=== PATIENT | male | born 1950 | race Caucasian/White ===

== ENCOUNTER → 2023-12-12 07:58 | Outpatient (REF) | payer OTHER, SELFPAY ==
[2023-12-12 09:10] VITALS: BP 137/69; BP_SYST 60
== END ==
LOC: RADI 07:58
PROVIDERS: ATTENDING PHYSICIAN Internal Medicine Gastroenterology
DX: R18.8 Other ascites (principal); Z53.8 Procedure and treatment not carried out for other reasons
CPT/HCPCS: 76705

== ENCOUNTER 2024-01-03 11:31 | Emergency (ER) | payer OTHER, SELFPAY ==
[2024-01-03 11:35] VITALS: BP 127/92
[2024-01-03 11:52] LABS: % Basophils 1.3 % (0-2); % Eosinophils 4.4 % (0-6); % Immature Granulocytes 0.3 % (0-0.5); % Lymphocytes 56.7 % (20.5-51.1); % Monocytes 3.8 % (1.7-9.3); % Neutrophils 33.5 % (42.2-75.2); Absolute Eosinophils 0.1 10^3/uL (0-0.7); Absolute Lymphocytes 1.8 10^3/uL (1.2-3.4); Absolute Monocytes 0.1 10^3/uL (0.1-0.6); Absolute Neutrophils 1.1 10^3/uL (1.4-6.5); Hematocrit 36.8 % (39.0-52.0); Hemoglobin 13.6 g/dL (13.0-18.0); Mean Corpuscular Hgb 36.2 pg (27.0-31.0); Mean Corpuscular Volume 97.9 fL (80.0-94.0); Mean Platelet Volume 11.2 fL (7.4-10.4); Nucleated Red Blood Cells % 0 % (-); Platelet Count 48 10^3/uL (130-400); Red Blood Cell Count 3.76 10^6/uL (4.70-6.10); Red Cell Dist. Width 13.4 % (11.5-14.5); White Blood Cell Count 3.2 10^3/uL (4.8-10.8)
[2024-01-03 12:00] LABS: APTT 35.8 Sec (23.4-35.0)
[2024-01-03 12:01] VITALS: BP 141/77
--- NOTE | 2024-01-03 12:13 | ED.GENMED ---
History of Present Illness
<Karla Muro PA-C - Last Filed: 01/03/24 15:30>
General
Chief Complaint: Chest Pain
Source: patient and spouse
Exam Limitations: none
Time Seen by Provider: 01/03/24 11:37
Nursing documentation reviewed up to this point in time: agreed with
Travel History
Have you had any contact with someone who has COVID-19?: No
Do you have any symptoms of coronavirus? Fever > 100 degrees, chills, cough, shortness of breath, sore throat, loss of taste or smell, muscle aches, or headache?: No
History of Present Illness
History of Present Illness:
Patient is a 73 year old male with hx hypertension, Non-Hodgkin lymphoma, GERD presenting to the emergency department via EMS following sudden onset substernal chest pain around 11AM this morning. Patient states symptoms were sudden onset while he
was eating his breakfast and describes it as a pounding sensation with intermittent sharp pains substernal region. There was no radiation to shoulder, jaw, back. There was no associated shortness of breath, nausea, diaphoresis. He was given 325
mg of aspirin in EMS and reports that now the chest pain is mostly gone. He denies any recent virus/illness, fever, chills. No cough or headache.
He denies ever feeling this pain in the past. He does state that he occasionally gets heart palpitations but nothing this severe.
Patient has no personal or family history of heart attack or stroke. He is not a smoker.
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
Patient planning to follow-up with cardiology due to a recent heart murmur that was noticed by prefitter. He has an appointment scheduled with Dr. Hernandez mid February.
Past History
<Karla Muro PA-C - Last Filed: 01/03/24 15:30>
Past History
ED Past Medical History: GERD, HTN, Other (Chronic low back pain, DJD) and Other (Allergic rhinitis, sleep apnea)
ED Past Surgical History: Orthopedic (Right shoulder surgery, right femur surgery) and Other (Hemorrhoidectomy)
Social History
Tobacco: Former smoker
Alcohol: Daily (Wine, beer or mixed drink 2-3)
Drug: None
Personal:
Living: with family
Employment: Not employed
Family History
Family History: Hypertension and CAD (Father of an CO in his late 70s, no history of early coronary artery disease); Negative Sudden
Phy Exam
<Karla Muro PA-C - Last Filed: 01/03/24 15:30>
Physical Exam
Physical Exam:
General: In no apparent distress, non-toxic
Vitals: Hypertensive, otherwise vital signs stable, afebrile
HEENT: Atraumatic, normocephalic; pupils equal round and reactive to light bilaterally, protecting airway
Neck: appears supple, no JVD
CV: Regular rate and rhythm, mild systolic murmur at LUSB, no evidence of cyanosis; chest pain not reproducible, anterior chest wall nontender to palpation
Resp: Lungs clear without any wheezing, rales or rhonchi; no evidence of respiratory
Abd: Soft, nontender; moderately distended due to chronic ascites
Extremities: No deformities, no evidence of cyanosis or edema
Neuro: alert and oriented to person place time, speech normal, no focal motor deficits
Psych: Normal affect
Skin: Intact, no rashes
Scores
<Karla Muro PA-C - Last Filed: 01/03/24 15:30>
Heart Score for Chest Pain Patients
STEMI patient?: No
History: Moderately Suspicious
ECG: Normal
Age: >/= 65 years
Risk Factors: 1 or 2 Risk Factors
Troponin: </= Normal Limit
Heart Score for Chest Pain Patients: 4
Heart Score Risk: 20.3% MACE over next 6 weeks
Course
<Karla Muro PA-C - Last Filed: 01/03/24 15:30>
Orders/Labs/Results
Orders:
Orders
01/03/24 11:33
Electrocardiogram (*1) Urgent
Reason for Study: Chest Pain
EKG- Treatment ONCE
CR Chest - 2 Views Urgent
Comment:
Reason For Exam: chest pain
01/03/24 11:38
Complete Blood Count/With Diff Urgent
Comprehensive Metabolic Panel Urgent
PTT Urgent
Troponin I Urgent
01/03/24 14:15
Troponin I Urgent
01/03/24 14:30
Electrocardiogram (*1) Urgent
Reason for Study: Chest Pain
EKG- Treatment ONCE
Abnormal Lab Results
01/03/24
11:38
WBC 3.2 L 10^3/uL
(4.8-10.8)
RBC 3.76 L 10^6/uL
(4.70-6.10)
Hct 36.8 L %
(39.0-52.0)
MCV 97.9 H fL
(80.0-94.0)
MCH 36.2 H pg
(27.0-31.0)
Plt Count 48 L 10^3/uL
(130-400)
MPV 11.2 H fL
(7.4-10.4)
Absolute Neuts (auto) 1.1 L 10^3/uL
(1.4-6.5)
Neutrophils % 33.5 L %
(42.2-75.2)
Lymphocytes % 56.7 H %
(20.5-51.1)
APTT 35.8 H Sec
(23.4-35.0)
Chloride 109 H mmol/L
(98-107)
Carbon Dioxide 19 L mmol/L
(22-30)
Creatinine 0.5 L mg/dL
(0.7-1.3)
Glucose 132 H mg/dl
(70-99)
Total Bilirubin 1.8 H mg/dl
(0.2-1.3)
AST 68 H U/L
(17-59)
Alkaline Phosphatase 156 H U/L
(38-126)
Albumin 3.4 L g/dl
(3.5-5.0)
01/03/24 11:38
01/03/24 11:38
Vital Signs
Initial and Last Documented VS:
Initial Vital Signs
Temp Pulse Resp BP Pulse Ox
98.1 F 73 20 127/92 99
01/03/24 11:35 01/03/24 11:35 01/03/24 11:35 01/03/24 11:35 01/03/24 11:35
Last Documented Vital Signs
Temp Pulse Resp BP Pulse Ox
98.1 F 83 14 131/83 99
01/03/24 11:35 01/03/24 14:45 01/03/24 14:45 01/03/24 14:00 01/03/24 11:35
<Gurwinder Myers, DO - Last Filed: 01/03/24 13:47>
Orders/Labs/Results
Orders:
Orders
01/03/24 11:33
Electrocardiogram (*1) Urgent
Reason for Study: Chest Pain
EKG- Treatment ONCE
CR Chest - 2 Views Urgent
Comment:
Reason For Exam: chest pain
01/03/24 11:38
Complete Blood Count/With Diff Urgent
Comprehensive Metabolic Panel Urgent
PTT Urgent
Troponin I Urgent
01/03/24 14:15
Troponin I Urgent
01/03/24 14:30
Electrocardiogram (*1) Urgent
Reason for Study: Chest Pain
EKG- Treatment ONCE
Abnormal Lab Results
01/03/24
11:38
WBC 3.2 L 10^3/uL
(4.8-10.8)
RBC 3.76 L 10^6/uL
(4.70-6.10)
Hct 36.8 L %
(39.0-52.0)
MCV 97.9 H fL
(80.0-94.0)
MCH 36.2 H pg
(27.0-31.0)
Plt Count 48 L 10^3/uL
(130-400)
MPV 11.2 H fL
(7.4-10.4)
Absolute Neuts (auto) 1.1 L 10^3/uL
(1.4-6.5)
Neutrophils % 33.5 L %
(42.2-75.2)
Lymphocytes % 56.7 H %
(20.5-51.1)
APTT 35.8 H Sec
(23.4-35.0)
Chloride 109 H mmol/L
(98-107)
Carbon Dioxide 19 L mmol/L
(22-30)
Creatinine 0.5 L mg/dL
(0.7-1.3)
Glucose 132 H mg/dl
(70-99)
Total Bilirubin 1.8 H mg/dl
(0.2-1.3)
AST 68 H U/L
(17-59)
Alkaline Phosphatase 156 H U/L
(38-126)
Albumin 3.4 L g/dl
(3.5-5.0)
01/03/24 11:38
01/03/24 11:38
Vital Signs
Initial and Last Documented VS:
Initial Vital Signs
Temp Pulse Resp BP Pulse Ox
98.1 F 73 20 127/92 99
01/03/24 11:35 01/03/24 11:35 01/03/24 11:35 01/03/24 11:35 01/03/24 11:35
Last Documented Vital Signs
Temp Pulse Resp BP Pulse Ox
98.1 F 83 14 131/83 99
01/03/24 11:35 01/03/24 14:45 01/03/24 14:45 01/03/24 14:00 01/03/24 11:35
<Karla Muro PA-C - Last Filed: 01/03/24 15:30>
MDM/Problems Addressed
Differential Diagnosis Includes:
Unstable angina, GERD, CO, muscular strain, doubt dissection
MDM/Problems Addressed:
Patient is a 73 year old male with hx hypertension, Non-Hodgkin lymphoma, GERD presenting to the emergency department via EMS following sudden onset substernal pounding chest pain around 11AM this morning. No exertional or pleuritic component. No
associated SOB, diaphoresis, nausea, back pain, dizziness. Patient was given 325mg ASA via EMS. Symptoms mostly resolved by arrival to emergency department and he now endorses only mild substernal chest tightness. Patient is mildly hypertensive,
otherwise vital signs stable. Physical exam as documented above. Heart rate regular, lungs clear. Chest pain is nonreproducible. EKG performed on arrival shows normal sinus rhythm without any signs of ischemia. Will perform cardiac workup�basic
labs, troponin, EKG, chest x-ray.
CBC with mild leukopenia of 3.2�likely attributed to patient's ongoing non-Hodgkin's lymphoma. Otherwise no clinically significant abnormalities. Chemistry without any clinically significant abnormalities. Mild elevation in bilirubin and AST
which appear to be around patient's baseline. Initial troponin negative. Given symptom onset at 11 AM�will repeat troponin after 2 PM. Chest x-ray pending. Patient remains in no apparent distress and asymptomatic at this time.
Repeat troponin negative. EKG is unchanged from previous. Chest x-ray without any acute abnormalities on wet read. Patient remains mostly [id number] improved from initial episode this morning. No indication for admission at this point.
Given troponin remains elevated and patient remains asymptomatic and stable in emergency department�he is stable for discharge with close return precautions, chest pain hotline follow-up. He should receive a call from cardiology in 24 hours for
appointment. Patient and patient's comfortable with this plan. All questions answered.
Chronic conditions affecting care:
Hypertension, GERD, non-Hodgkin's lymphoma
Acute Exacerbation and/or Progression of Chronic Illness:
Acutely hypertensive
<Karla Muro PA-C - Last Filed: 01/03/24 15:30>
*Radiology
Radiology exam reviewed: preliminary read by ED provider
*Pulse Oximetry
Patient hypoxic: no
*EKG
EKG Intrepretation Date: 01/03/24
Interpretation: normal
Comparison EKG: no changes
Heart Rate: 72
Rate: normal
Rhythm: sinus
[place]: normal axis
Interval: normal interval
QRS Pattern: normal QRS
Ischemia: no ischemia
*Critical Care Note
Total Time (30-74mins, 75-104mins- exclusive of procedures): Not Applicable
ED Attending Note
<Karla Muro PA-C - Last Filed: 01/03/24 15:30>
-
Portions of this chart may have been created with voice recognition software.� Occasional wrong word or��sound alike� substitutions may have occurred due to the inherent limitations of voice recognition software.
<Gurwinder Myers DO - Last Filed: 01/03/24 13:47>
ED Attending Note
Patient seen and examined by attending physician: Yes
I performed the substantive portion of visit, reviewed & personally made and approve the management plan that is documented in note by myself or SUBHA.: Yes
I performed a history and physical exam of patient and discussed management with resident, I reviewed resident's note and agree with documented findings and plan of care.: Yes
ED Attending Note:
I evaluated patient at bedside. Time of onset of symptoms was around 10:45 AM today. He uses 2 fingers to locate a small area of 'achiness' just to the left of the sternum. EKG shows no acute ST abnormality and initial troponin negative. However
since his symptoms just recently started, will obtain repeat troponin. He was told that he does have a murmur and was to follow-up with cardiology as an�will plan on using chest pain hotline assuming discharge.
Discharge Plan
Departure
Patient Disposition: Home (Routine Discharge)
Date of Disposition: 01/03/24
Time of Disposition: 15:17
Patient with high blood pressure during this ER visit?: No
Condition: Good
Covid-19: Not Applicable
Discharge Problem:
Chest pain
Instructions: Chest Pain DCA Follow Up, Chest Pain
Prescriptions:
No Action
losartan 50 MG tablet
100 mg PO DAILY
omeprazole 40 MG capsule,delayed release(DR/EC)
40 mg PO PRN PRN (Reason: reflux)
cetirizine 10 MG tablet
10 mg PO PRN PRN (Reason: allergies)
azelastine 1 SPRAY aerosol,spray
1 spray intranasal PRN PRN (Reason: allergies, nasal drip)
Referrals:
Surendra Cox MD [Family Provider] -
Activity Restrictions/Additional Instructions:
- Return to the emergency department with any severe chest pain, shortness of breath, dizziness, weakness, severe back pain, high fevers, worsening current symptoms, or any other concerns
-Stay well-hydrated
-You should receive a call from the master merchandiser for follow-up within 24 hours
-As discussed�you can keep your appoint with your primary care provider for next Monday
Interventions
Interventions:
*Risk Screen - Suicide Last Done: 01/03/24 11:35
*General Assessment Last Done: 01/03/24 11:35
*Neglect/Abuse Screening Last Done: 01/03/24 11:35
ED- Fall Risk Assessment Last Done: 01/03/24 11:59
*ED COVID-19 Vaccine History Last Done: 01/03/24 11:59
ED- Cardiac Assessment Last Done: 01/03/24 11:59
[2024-01-03 12:16] LABS: ALT (SGPT) 42 U/L (0-50); AST (SGOT) 68 U/L (17-59); Albumin 3.4 g/dl (3.5-5.0); Alkaline Phosphatase 156 U/L (38-126); Blood Urea Nitrogen 9 mg/dl (9-20); Calcium 8.8 mg/dl (8.4-10.2); Carbon Dioxide 19 mmol/L (22-30); Chloride 109 mmol/L (98-107); Glucose 132 mg/dl (70-99); Potassium 3.7 mmol/L (3.5-5.1); Sodium 136 mmol/L (135-145); Total Bilirubin 1.8 mg/dl (0.2-1.3); Total Protein 6.7 g/dl (6.3-8.2); eGFR > 60.00
[2024-01-03 12:27] LABS: Troponin I < 0.012 ng/ml
[2024-01-03 13:00] VITALS: BP 133/69
[2024-01-03 14:00] VITALS: BP 131/83
[2024-01-03 15:01] LABS: Troponin I < 0.012 ng/ml
== END 2024-01-03 16:08 | disposition home or self-care (01) ==
LOC: EMR 11:31
PROVIDERS: Physician Assistant; EMERGENCY PHYSICIAN Emergency Medicine; FAMILY PHYSICIAN Family Medicine
DX: R07.89 Other chest pain (principal); I10 Essential (primary) hypertension; C85.90 Non-Hodgkin lymphoma, unspecified, unspecified site; K21.9 Gastro-esophageal reflux disease without esophagitis; Z82.49 Family history of ischemic heart disease and other diseases of the circulatory system; Z87.891 Personal history of nicotine dependence
CPT/HCPCS: 99285; 71046; 80053; 84484; 85025; 85730; 93005

== ENCOUNTER → 2024-01-11 07:11 | Outpatient (REF) | payer OTHER, SELFPAY | LOC: DHCBC/DCA 07:11 | PROVIDERS: ATTENDING PHYSICIAN Internal Medicine Cardiovascular Disease; FAMILY PHYSICIAN Family Medicine | DX: R07.9 Chest pain, unspecified (principal) | CPT/HCPCS: 78452; 93017; A9500; J2785 ==

== ENCOUNTER → 2024-02-07 16:25 | Outpatient (REF) | payer OTHER, SELFPAY | LOC: RCS 16:25 | PROVIDERS: ATTENDING PHYSICIAN Internal Medicine Cardiovascular Disease; FAMILY PHYSICIAN Family Medicine | DX: R07.9 Chest pain, unspecified (principal); R06.02 Shortness of breath | CPT/HCPCS: 93306 ==

== ENCOUNTER → 2024-03-01 07:20 | Outpatient (REF) | payer OTHER, SELFPAY | LOC: MRI 3T 07:20 | PROVIDERS: ATTENDING PHYSICIAN Internal Medicine Gastroenterology; FAMILY PHYSICIAN Family Medicine | DX: R77.2 Abnormality of alphafetoprotein (principal); R10.9 Unspecified abdominal pain | CPT/HCPCS: 74183; A9575 ==

== ENCOUNTER 2024-04-30 06:30 | Day surgery (SDC) | payer OTHER, SELFPAY ==
[2024-04-30 08:41] VITALS: BP 135/79
[2024-04-30 08:47] VITALS: BMI 29.1
[2024-04-30 09:00] VITALS: BMI 29.1
[2024-04-30 11:00] VITALS: BP 126/74
[2024-04-30 11:15] VITALS: BP 137/66
== END 2024-04-30 11:40 | disposition home or self-care (01) ==
LOC: SDS 06:30
PROVIDERS: ATTENDING PHYSICIAN Internal Medicine Gastroenterology
DX: Z12.11 Encounter for screening for malignant neoplasm of colon (principal); D12.2 Benign neoplasm of ascending colon; D12.4 Benign neoplasm of descending colon; D12.5 Benign neoplasm of sigmoid colon; K64.8 Other hemorrhoids; K74.60 Unspecified cirrhosis of liver; I85.00 Esophageal varices without bleeding; K76.6 Portal hypertension; K31.89 Other diseases of stomach and duodenum; Z86.010 Personal history of colon polyps
CPT/HCPCS: 45385; 45380; 43235; 88305

== ENCOUNTER → 2024-08-13 09:08 | Outpatient (REF) | payer OTHER, SELFPAY | LOC: HWRAD 09:08 | PROVIDERS: ATTENDING PHYSICIAN Internal Medicine Gastroenterology; FAMILY PHYSICIAN Family Medicine | DX: K74.60 Unspecified cirrhosis of liver (principal) | CPT/HCPCS: 74170; Q9967 ==

== ENCOUNTER → 2024-09-12 10:57 | Outpatient (REF) | payer OTHER, SELFPAY | LOC: RAD 10:57 | PROVIDERS: ATTENDING PHYSICIAN Physician Assistant Medical; FAMILY PHYSICIAN Family Medicine | DX: R07.89 Other chest pain (principal) | CPT/HCPCS: 71046 ==

== ENCOUNTER → 2025-03-03 13:04 | Outpatient (REF) | payer OTHER, SELFPAY | LOC: RAD 13:04 | PROVIDERS: ATTENDING PHYSICIAN Internal Medicine Gastroenterology; FAMILY PHYSICIAN Family Medicine | DX: K74.60 Unspecified cirrhosis of liver (principal) | CPT/HCPCS: 74178; Q9967 ==

== ENCOUNTER → 2025-03-04 07:09 | Outpatient (REF) | payer OTHER, SELFPAY | LOC: HWRCS 07:09 | PROVIDERS: ATTENDING PHYSICIAN Internal Medicine Cardiovascular Disease; FAMILY PHYSICIAN Family Medicine | DX: R06.02 Shortness of breath (principal); R07.9 Chest pain, unspecified | CPT/HCPCS: 93306 ==

== ENCOUNTER 2025-03-07 05:00 | Emergency (ER) | payer OTHER, SELFPAY ==
[2025-03-07] VITALS (9 sets, daily range): BP systolic 130–145; BP diastolic 80–90; BMI 30.6
--- NOTE | 2025-03-07 05:22 | ED.GENMED ---
History of Present Illness
<Jerry Allison DO - Last Filed: 03/07/25 06:39>
General
Chief Complaint: Chest Pain
Source: patient and ambulance crew
Exam Limitations: none
Time Seen by Provider: 03/07/25 05:10
Nursing documentation reviewed up to this point in time: agreed with
History of Present Illness
History of Present Illness:
This a pleasant 74-year-old male presents to the emergency department with substernal chest pain that began at 4 AM awaken him from sleep. He stated that the pain was initially 10 out of 10 and nonradiating. He reports that it is midsternal and it
woke him up at 4 AM. Patient took 3 baby aspirin and called 911. En route to the hospital EMS gave an additional 324 mg. Patient has non-Hodgkin's lymphoma and took his first dose of Doptelet yesterday. This medication does have many side
effects, chest pain being one of them.
Past History
<Jerry Allison DO - Last Filed: 03/07/25 06:39>
Past History
ED Past Medical History: GERD, HTN, Other (Chronic low back pain, DJD) and Other (Allergic rhinitis, sleep apnea)
ED Past Surgical History: Orthopedic (Right shoulder surgery, right femur surgery) and Other (Hemorrhoidectomy)
Social History
Tobacco: Former smoker
Alcohol: Daily (Wine, beer or mixed drink 2-3)
Drug: None
Personal:
Living: with family
Employment: Not employed
Family History
Family History: Hypertension and CAD (Father of an CA in his late 70s, no history of early coronary artery disease); Negative Sudden
Review of Systems
<Jerry Allison DO - Last Filed: 03/07/25 06:39>
Review of Systems
Allergies reviewed?: Yes
All Other Systems: ROS reviewed and negative except as documented in HPI and ROS
Constitutional: Reports no symptoms
EENT: Reports no symptoms
Respiratory: Reports no symptoms
Cardiac: Reports chest pain
ABD/GI: Reports no symptoms
: Reports no symptoms
Musculoskeletal: Reports no symptoms
Skin: Reports no symptoms
Neurological: Reports no symptoms
Endocrine: Reports no symptoms
Hematologic/Lymphatic: Reports no symptoms
Psychiatric: Reports no symptoms
Phy Exam
<Jerry Allison, DO - Last Filed: 03/07/25 06:39>
General Physical Exam
General Presentation: well appearing and no apparent distress
General Skin: warm and dry
General Habitus: normal
General Mental: alert
General Hydration: appears well hydrated
ENT Exam
ENT Exam: EOMI, pharynx normal, neck supple and normocephalic
Eye Exam
Eye Exam: PERRL, cornea clear and conjunctiva normal
Cardiovascular Exam
Cardiovascular Exam: regular rate/rhythm, no edema, no murmur and normal peripheral pulses
Pulmonary Exam
Pulmonary Exam: lungs clear, no respiratory distress, no rales, no crackles, no rhonchi, no stridor, no wheezing and no cough
Gastrointestinal Exam
Gastrointestinal Exam: normal bowel sounds, non tender, soft, no organomegaly, no pulsatile mass and non distended
Neurological Exam
Neurological Exam: alert, oriented x3, no motor deficits and speech normal
Musculoskeletal Exam
Musculoskeletal Exam: full ROM and no edema
Skin Exam
Skin Exam: normal color, warm/dry, no rash and no petechia
Psychiatric Exam
Psychiatric Exam: normal mood/affect
Scores
<[place], DO - Last Filed: 03/07/25 13:37>
Heart Score for Chest Pain Patients
STEMI patient?: No
History: Slightly or Non-Suspicious
ECG: Normal
Age: >/= 65 years
Risk Factors: 1 or 2 Risk Factors
Troponin: </= Normal Limit
Heart Score for Chest Pain Patients: 3
Heart Score Risk: 2.5% MACE over next 6 weeks
Course
Dimalt;Jerry Allison, DO - Last Filed: 03/07/25 06:39>
Orders/Labs/Results
Orders:
Orders
03/07/25 05:01
Electrocardiogram (*1) Urgent
Reason for Study: Chest Pain
Cardiac Monitoring- Treatment ONCE
EKG- Treatment ONCE
IV Insert/Care/Rem.- Treatment PRN
03/07/25 05:10
CR Chest - 2 Views Urgent
Comment:
Reason For Exam: cp
03/07/25 05:15
Complete Blood Count/With Diff Urgent
Comprehensive Metabolic Panel Urgent
Troponin I Urgent
03/07/25 06:38
EKG- Treatment ONCE
03/07/25 08:00
Electrocardiogram (*1) Urgent
Reason for Study: Chest Pain
03/07/25 08:11
Troponin I Urgent
03/07/25 11:11
EKG [Electrocardiogram (*1)] Urgent
Reason for Study: Chest Pain
EKG- Treatment ONCE
03/07/25 11:15
Troponin I Urgent
Abnormal Lab Results
03/07/25
05:15
WBC 2.6 L 10^3/uL
(4.8-10.8)
RBC 3.67 L 10^6/uL
(4.70-6.10)
Hct 37.3 L %
(39.0-52.0)
MCV 101.6 H fL
(80.0-94.0)
MCH 36.2 H pg
(27.0-31.0)
RDW 16.0 H %
(11.5-14.5)
Plt Count 42 L 10^3/uL
(130-400)
MPV 11.0 H fL
(7.4-10.4)
Absolute Lymphs (auto) 1.0 L 10^3/uL
(1.2-3.4)
Glucose 157 H mg/dl
(70-99)
Total Bilirubin 2.4 H mg/dl
(0.2-1.3)
ALT 52 H U/L
(0-50)
Alkaline Phosphatase 169 H U/L
(38-126)
03/07/25 05:15
03/07/25 05:15
Vital Signs
Initial and Last Documented VS:
Initial Vital Signs
Temp Pulse Resp Pulse Ox
99.0 F 84 18 97
03/07/25 05:04 03/07/25 05:04 03/07/25 05:04 03/07/25 05:04
Last Documented Vital Signs
Temp Pulse Resp BP Pulse Ox
99.0 F 73 13 143/80 97
03/07/25 05:04 03/07/25 12:30 03/07/25 12:30 03/07/25 12:00 03/07/25 05:08
<[place], DO - Last Filed: 03/07/25 13:37>
Orders/Labs/Results
Orders:
Orders
03/07/25 05:01
Electrocardiogram (*1) Urgent
Reason for Study: Chest Pain
Cardiac Monitoring- Treatment ONCE
EKG- Treatment ONCE
IV Insert/Care/Rem.- Treatment PRN
03/07/25 05:10
CR Chest - 2 Views Urgent
Comment:
Reason For Exam: cp
03/07/25 05:15
Complete Blood Count/With Diff Urgent
Comprehensive Metabolic Panel Urgent
Troponin I Urgent
03/07/25 06:38
EKG- Treatment ONCE
03/07/25 08:00
Electrocardiogram (*1) Urgent
Reason for Study: Chest Pain
03/07/25 08:11
Troponin I Urgent
03/07/25 11:11
EKG [Electrocardiogram (*1)] Urgent
Reason for Study: Chest Pain
EKG- Treatment ONCE
03/07/25 11:15
Troponin I Urgent
Abnormal Lab Results
03/07/25
05:15
WBC 2.6 L 10^3/uL
(4.8-10.8)
RBC 3.67 L 10^6/uL
(4.70-6.10)
Hct 37.3 L %
(39.0-52.0)
MCV 101.6 H fL
(80.0-94.0)
MCH 36.2 H pg
(27.0-31.0)
RDW 16.0 H %
(11.5-14.5)
Plt Count 42 L 10^3/uL
(130-400)
MPV 11.0 H fL
(7.4-10.4)
Absolute Lymphs (auto) 1.0 L 10^3/uL
(1.2-3.4)
Glucose 157 H mg/dl
(70-99)
Total Bilirubin 2.4 H mg/dl
(0.2-1.3)
ALT 52 H U/L
(0-50)
Alkaline Phosphatase 169 H U/L
(38-126)
03/07/25 05:15
03/07/25 05:15
Vital Signs
Initial and Last Documented VS:
Initial Vital Signs
Temp Pulse Resp Pulse Ox
99.0 F 84 18 97
03/07/25 05:04 03/07/25 05:04 03/07/25 05:04 03/07/25 05:04
Last Documented Vital Signs
Temp Pulse Resp BP Pulse Ox
99.0 F 73 13 143/80 97
03/07/25 05:04 03/07/25 12:30 03/07/25 12:30 03/07/25 12:00 03/07/25 05:08
<Jerry Allison, DO - Last Filed: 03/07/25 06:39>
MDM/Problems Addressed
Differential Diagnosis Includes:
Chest pain, ACS, musculoskeletal, medication reaction
Chronic conditions affecting care:
Non-Hodgkin's lymphoma
<Jerry Allison DO - Last Filed: 03/07/25 06:39>
*Critical Care Note
Total Time (30-74mins, 75-104mins- exclusive of procedures): Not Applicable
<Jerry Allison DO - Last Filed: 03/07/25 06:39>
Update Note
Update Note:
Chest x-ray is negative
<[place], DO - Last Filed: 03/07/25 13:37>
Update Note
Update Note:
Chest x-ray is negative
Patient received in signout, remains asymptomatic. Unclear etiology, however negative troponins serially. Stable for discharge.
ED Attending Note
<Jerry Allison DO - Last Filed: 03/07/25 06:39>
-
Portions of this chart may have been created with voice recognition software.� Occasional wrong word or��sound alike� substitutions may have occurred due to the inherent limitations of voice recognition software.
Discharge Plan
Departure
Patient Disposition: Home (Routine Discharge)
Date of Disposition: 03/07/25
Time of Disposition: 13:13
Patient with high blood pressure during this ER visit?: No
Condition: Good
Discharge Problem:
Chest pain
Instructions: Chest Pain DCA Follow Up, BLOOD PRESSURE
Prescriptions:
No Action
losartan 50 MG tablet
100 mg PO DAILY
omeprazole 40 MG capsule,delayed release(DR/EC)
40 mg PO PRN PRN (Reason: reflux)
cetirizine 10 MG tablet
10 mg PO PRN PRN (Reason: allergies)
azelastine 1 SPRAY aerosol,spray
1 spray intranasal PRN PRN (Reason: allergies, nasal drip)
hydrochlorothiazide 25 mg Tablet
25 mg PO DAILY
Gemtesa 75 mg Tablet
75 mg PO DAILY
Interventions
Interventions:
*Risk Screen - Suicide Last Done: 03/07/25 05:04
*General Assessment Last Done: 03/07/25 05:04
*Neglect/Abuse Screening Last Done: 03/07/25 05:04
*ED COVID-19 Vaccine History Last Done: 03/07/25 05:04
ED- Cardiac Assessment Last Done: 03/07/25 05:20
Discharge Date and Time
Print Language: URUGUAYAN
[2025-03-07 05:44] LABS: % Basophils 0.4 % (0-2); % Eosinophils 0.8 % (0-6); % Immature Granulocytes 0.4 % (0-0.5); % Lymphocytes 39.3 % (20.5-51.1); % Monocytes 3.8 % (1.7-9.3); % Neutrophils 55.3 % (42.2-75.2); Absolute Monocytes 0.1 10^3/uL (0.1-0.6); Absolute Neutrophils 1.5 10^3/uL (1.4-6.5); Hematocrit 37.3 % (39.0-52.0); Hemoglobin 13.3 g/dL (13.0-18.0); Mean Corp Hgb Conc. 35.7 g/dL (33.0-37.0); Mean Corpuscular Hgb 36.2 pg (27.0-31.0); Mean Corpuscular Volume 101.6 fL (80.0-94.0); Nucleated Red Blood Cells % 0 % (-); Platelet Count 42 10^3/uL (130-400); Red Blood Cell Count 3.67 10^6/uL (4.70-6.10); White Blood Cell Count 2.6 10^3/uL (4.8-10.8)
[2025-03-07 05:56] LABS: ALT (SGPT) 52 U/L (0-50); AST (SGOT) 39 U/L (17-59); Albumin 3.6 g/dl (3.5-5.0); Alkaline Phosphatase 169 U/L (38-126); Blood Urea Nitrogen 16 mg/dl (9-20); Calcium 9.4 mg/dl (8.4-10.2); Carbon Dioxide 24 mmol/L (22-30); Chloride 107 mmol/L (98-107); Estimated Creatinine Clearance 108 ml/min; Glucose 157 mg/dl (70-99); Potassium 3.8 mmol/L (3.5-5.1); Sodium 140 mmol/L (135-145); Total Bilirubin 2.4 mg/dl (0.2-1.3); Total Protein 6.3 g/dl (6.3-8.2); eGFR > 60.00
[2025-03-07 06:10] LABS: Troponin I < 0.012 ng/ml
[2025-03-07 09:12] LABS: Troponin I 0.015 ng/ml
[2025-03-07 11:47] LABS: Troponin I 0.019 ng/ml
== END 2025-03-07 14:08 | disposition home or self-care (01) ==
LOC: EMR 05:00
PROVIDERS: Emergency Medicine; EMERGENCY PHYSICIAN Student in an Organized Health Care Education/Training Program; FAMILY PHYSICIAN Family Medicine
DX: R07.89 Other chest pain (principal); K21.9 Gastro-esophageal reflux disease without esophagitis; I10 Essential (primary) hypertension; G47.30 Sleep apnea, unspecified; C85.90 Non-Hodgkin lymphoma, unspecified, unspecified site; Z82.49 Family history of ischemic heart disease and other diseases of the circulatory system; Z87.891 Personal history of nicotine dependence
CPT/HCPCS: 99283; 71046; 80053; 84484; 85025; 93005

== ENCOUNTER 2025-04-07 06:15 | Day surgery (SDC) | payer OTHER, SELFPAY ==
[2025-04-07] VITALS (24 sets, daily range): BP systolic 124–157; BP diastolic 71–90; BMI 31.6
--- NOTE | 2025-04-07 07:10 | PTCARENOTE ---
Pt is here for cardiac cath procedure. Pt's WBC is 2.9, Plt 51. Pt has non hodkins lymphoma. Dr Sahu aware of pt's blood counts. Pt also documented in questionaire that he frequently has more than [address] Sahu made aware via
tigertext. Will continue to monitor.
[2025-04-07 08:46] LABS: ACT-LR - POC 300 Seconds (116-155)
[2025-04-07 09:09] LABS: ACT-LR - POC 294 Seconds (116-155)
[2025-04-07 09:30] LABS: ACT-LR - POC 331 Seconds (116-155)
--- NOTE | 2025-04-07 09:36 | ITS.CL.CATH ---
[facility] - Catheterization
Cardiac Catheterization
Procedure Report:
RIGHT AND LEFT HEART STUDY WITH CORONARY INTERVENTION
Date of Procedure: April 07, 2025
Referring: Dr. Gabriel Mathew
PROCEDURES:
1. Right heart catheterization
2. Left heart catheterization with coronary and single-plane left ventriculography
3. Hemodynamic assessment of the LAD with a Ozark Omni wire. The iFR serially measured below the ischemic threshold and PCI of the LAD was undertaken
4. Successful stenting of LAD with a 3.0 x 38 mm Sheldon stent that was implanted at 14 jayna and postdilated mid-distal stent with a 3.25 x 15 mm NC Euphora balloon and in the proximal to midportion of the stent with a 3.75 x 15 mm NC Euphora balloon
INDICATION: This is a 74-year-old gentleman with a past medical history notable for non-Hodgkin's lymphoma with chronic thrombocytopenia. At her last office visit he reported ongoing symptoms of shortness of breath with exertion and presented to
[facility] emergency department on 03/07/2025 with complaints of substernal chest pressure occurring at rest and rapid heart rate. He rated the chest discomfort 10 out of 10 in severity and serial troponin levels were obtained and
undetectable. The heart was of normal size and without evidence of pulmonary edema, however, symptoms of dyspnea and vague chest discomfort persist. It was not felt that additional stress testing would be helpful and he is referred for coronary
angiography
NYHA Class: III
Cardiac testing
-03/04/2025: Echo: Size and function. EF 60-65%. RV: Normal, LA: Normal, RA: Normal, MV: Mild MR, AV: Trileaflet with no or AI. TV: Trace TR with PAP 28 mmHg
-01/11/2024: Lexiscan Myoview: Patient exercised on a Carlyle protocol completing 2:30 and 3.5 METS of physical activity. The stress study was converted to Lexiscan given poor exercise tolerance. Perfusion: Small area of mildly decreased perfusion
that is fixed at the apex consistent with soft tissue attenuation which improves with prone imaging. LVEF 59%
ACCESS: Right radial artery, 6 Belarusian sheath in right brachial vein, 6 Belarusian sheath
HEMODYNAMICS : mmHg
RA (m) : 17
RV (s/d) : 34/13, 15
PA (s/d, m) : 28/17, 21
PCWP (m) : 20
AO (s/d, m) : 145/80, 107
LV (s/d) : 151/16
LVEDP : 23
Cardiac Output: 7.5 L / min and Cardiac Index: 3.6 L/ min / m-2
Systemic vascular resistance: 12 Wood units or 960 [id number](-5)
Pulmonary vascular resistance: 0.13 Wood units or 10.7 [id number](-5)
CORONARY FINDINGS
Dominance: Right
LEFT MAIN: Normal
LEFT ANTERIOR DESCENDING: The LAD arises normally from the left main and runs in the anterior interventricular groove. The mid LAD beyond the first septal semiconductor processor has a 30% stenosis and there is a 50-60% stenosis between the 1st and 2nd diagonal
branches and 50% stenosis just proximal to the origin of the second obtuse marginal branch. The mid to distal LAD has minor irregularities. The iFR in the LAD was measured using a giftee Omni wire. The IFR serially measured below the ischemic
threshold at 0.84, 0.83, 0.84, 0.85, and 0.85. The Omni wire was slowly retracted from the distal vessel to the left main where the Pd/Pa measured 1.0 confirming no baseline drift.
CIRCUMFLEX: The circumflex gives rise to 3 obtuse marginal branches. OM1, OM 2, and OM 3 are all small to medium caliber vessels with significant tortuosity in the midportion of the vessel. No focal high-grade obstructive stenosis is noted.
RIGHT CORONARY ARTERY: The right coronary artery is a large-caliber dominant vessel with minor irregularities over its course. No focal obstructive stenosis. The posterolateral branch is large with minor irregularities. The PDA is patent
VENTRICULOGRAPHY: Left ventriculography is performed in an APTE projection. The left ventricle was not well-opacified and accurate assessment of LVEF is difficult but global function appeared normal within the limits of the study.
ANGIOPLASTY PROCEDURE DETAIL: The decision was made to proceed with percutaneous revascularization of the LAD after reviewing of the diagnostic catheterization and hemodynamic findings from the Ozark Omni wire. A 600 mg loading dose of
clopidogrel was administered and intravenous heparin was given throughout the procedure. The ACT was monitored and maintained above 300 seconds. The origin of the left main was cannulated with a 6 Belarusian EBU 3.75 guiding catheter and a BMW
guidewire was advanced to the distal LAD replacing the Ozark Omni wire. Lesion length was assessed using the radiopaque markers on the BMW wire and a 3.0 x 38 mm Sheldon stent was then advanced over the guidewire and positioned in the mid LAD beyond
the first diagonal branch and proximal into the 50-60% mid LAD stenosis. The distal portion of the stent extended beyond the second diagonal branch. The Sheldon stent was deployed at 14 jayna after appropriate positioning was confirmed with angiography.
Intravascular ultrasound was performed post stent deployment using a giftee Red Devil Eye ultrasound catheter. The IVUS catheter was advanced to the guide catheter tip and ringdown was performed. The Red Devil eye catheter was then advanced into the mid
LAD beyond the stented segment with a slow pullback into the proximal LAD. The distal vessel reference maximally appeared around 3.5 mm approximately the vessel reference measured slightly above 4.0 mm. A 3.25 x 15 mm NC Euphora balloon was then
advanced into the mid LAD. The stented segment was postdilated up to 24 jayna in the mid LAD while the proximal stented segment was postdilated with a 3.75 x 15 mm NC Euphora balloon to 22 jayna proximally and to 18 jayna in the mid vessel.
RADIATION SUMMARY: Fluoro Time (min): 13.6, Dose (mGy): 797, DAP (Gy.cm2) : 40.4
CONCLUSIONS
1. Successful stenting of hemodynamically significant mid LAD stenosis with a 3.0 x 38 mm Jose R stent that was implanted at nominal pressures and postdilated both with a 3.75 mm noncompliant balloon in the proximal and midportion of the vessel and
with a 3.25 mm noncompliant balloon in the mid to distal portions as described above based on IVUS imaging
2. Preserved LV systolic function
3. Mildly elevated right and left ventricular filling pressures
RECOMMENDATIONS
1. Chronic thrombocytopenia. Will maintain uninterrupted dual antiplatelet therapy with aspirin and clopidogrel for 3 to 6 months. May consider closer to the 3-month timeframe if bleeding issues present given his chronic thrombocytopenia.
Aspirin should not be interrupted.
2. Continued risk modification
Copy to: Dr. Ramiro Cartagena
[2025-04-07] MEDS: MAALOX 30 ML PO (10:00)
[2025-04-07] MEDS: PROTONIX 40 MG PO (10:07)
[2025-04-07] MEDS: NSS 1000 IV (10:11)
--- NOTE | 2025-04-07 10:23 | PTCARENOTE ---
Pt arrived to [facility] with chest pain rated 8/10 and described as burning like heartburn but more intense than ever before. Pt also with oozing noted on right brachial site. Pt placed in recliner and manual pressure applied to right brachial
site. VSS. Sally LARSON arrived quickly to bedside to evaluate pt. Maalox and pantoprazole ordered and given to pt. EKG obtained. After manual pressure applied x 15 minutes to right brachial site, dressing removed. 3cm hematoma noted at right
brachial site. Manual pressure continued to right brachial site. Hemostasis and hematoma compression obtained after a total of 30 minutes hold. Pt states his chest burning is down to 3/10 at this time. Sally LARSON aware. No further treatment
ordered at this time. Will continue to monitor.
[2025-04-07] MEDS: TYLENOL 650 MG PO (12:48)
--- NOTE | 2025-04-07 14:34 | PTCARENOTE ---
Cardiac rehab at pt bedside speaking to pt and pt's .
--- NOTE | 2025-04-07 15:52 | W.PN.UPDATE ---
Update Note
Progress Note Update
Pt seen post LAD PCI. Right radial cath site without ht/bleeding. Right brachial site with some bleeding and ht originally post cath, manual compression applied and site now stable. OOB ambulating. Post EKG NSR 80s, no acute changes. He had some
chest discomfort/epigastric pain post procedure that felt like his usual indigestion- given maalox and protonix with good relief. Pt understands importance of DAPT w/asa, plavix. He has history of thrombocytopenia w/platelet count stable in 50s,
follows with Hematology. He will get CBC, BMP and lipid profile in 3 weeks prior to followup appt w/Dr. Cartagena. Cardiac rehab consulted. Will stop omeprazole in favor of protonix d/t plavix interaction. New start atorvastatin. Home later today if
cath site/venous site and tele stable.
== END 2025-04-07 15:00 | disposition home or self-care (01) ==
LOC: CATH 06:15
PROVIDERS: ATTENDING PHYSICIAN Internal Medicine Interventional Cardiology; FAMILY PHYSICIAN Family Medicine; OTHER PHYSICIAN Internal Medicine Cardiovascular Disease
DX: I25.10 Atherosclerotic heart disease of native coronary artery without angina pectoris (principal); D69.6 Thrombocytopenia, unspecified; Z79.02 Long term (current) use of antithrombotics/antiplatelets; Z79.82 Long term (current) use of aspirin; Z85.72 Personal history of non-Hodgkin lymphomas; I10 Essential (primary) hypertension; K21.9 Gastro-esophageal reflux disease without esophagitis
CPT/HCPCS: 92978; 93799; 85347; 93005; 93460; C1725; C1753; C1769; C1874; C1894; C9600; Q9967

== ENCOUNTER → 2025-06-27 07:59 | Outpatient (REF) | payer OTHER, SELFPAY | LOC: HWRAD 07:59 | PROVIDERS: ATTENDING PHYSICIAN Internal Medicine Critical Care Medicine; FAMILY PHYSICIAN Family Medicine | DX: R91.1 Solitary pulmonary nodule (principal) | CPT/HCPCS: 71250 ==

== ENCOUNTER → 2025-07-10 08:20 | Outpatient (REF) | payer OTHER, SELFPAY ==
[2025-07-10 08:36] LABS: Glucose 109 mg/dl (70-99)
== END ==
LOC: PET 08:20
PROVIDERS: ATTENDING PHYSICIAN Internal Medicine Critical Care Medicine
DX: R91.1 Solitary pulmonary nodule (principal); Z01.812 Encounter for preprocedural laboratory examination
CPT/HCPCS: 36415; 78815; 82947; A9552

== ENCOUNTER 2025-08-13 23:14 | Inpatient (IN) | payer OTHER, SELFPAY ==
[2025-08-13 17:21] VITALS: BP 98/65
--- NOTE | 2025-08-13 20:34 | ED.GENMED ---
History of Present Illness
General
Chief Complaint: DVT/Possible Blood Clot
Source: patient
Exam Limitations: none
Time Seen by Provider: 08/13/25 20:32
History of Present Illness
History of Present Illness:
See MDM
Past History
Past History
ED Past Medical History: Cancer, GERD, HTN, Other (Chronic low back pain, DJD) and Other (Allergic rhinitis, sleep apnea)
ED Past Surgical History: Orthopedic (Right shoulder surgery, right femur surgery) and Other (Hemorrhoidectomy)
Social History
Tobacco: Former smoker
Alcohol: Daily (Wine, beer or mixed drink 2-3)
Drug: None
Personal:
Living: with family
Employment: Not employed
Family History
Family History: Hypertension and CAD (Father of an VT in his late 70s, no history of early coronary artery disease); Negative Sudden
Phy Exam
Physical Exam
Physical Exam:
See MDM
Course
Orders/Labs/Results
Orders:
Orders
08/13/25 17:25
US Legs, Right [US Periph Venous LOWER Ext RT] Urgent
Comment:
Reason For Exam: pain/swelling x 5 days.
08/13/25 20:38
Morphine Sulfate 4 mg IV NOW STA
08/13/25 20:46
Complete Blood Count/With Diff Urgent
Comprehensive Metabolic Panel Urgent
PTT Urgent
Prothrombin Time Urgent
Heparin 7,700 units IV NOW STA
Nursing to Place Non Medication Order As Directed
Physician Order: PTT 6 hours after initial start of Heparin infusion
Above order entered?: Yes
08/13/25 21:00
Heparin 63879 Units/250 ml 25,000 units in 250 ml IV PER PROTOCOL
Weight to be used for heparin protocol in kilograms (kg):: 96.6
Protocol:: DVT/PE
PTT Goal Range to be used:: PTT 73 to 111 seconds
Order type:: Initial
INITIAL Infusion Dose (UNITS/KG/hr) & then follow protocol:: 18 units/kg/hr
Infusion Dose in UNITS/hr & then follow protocol (UNITS/hr):: 1,700
INFUSION RATE in mL/hr & then follow protocol (mL/hr):: 17
For DVT/PE algorithm, re-bolus for low PTT?: Yes
PTT less than or equal to 64 seconds:: Re-bolus 80 units/kg (max 10,000units). Increase by 400 units/hr
(+ 4mL/hr)
PTT 64.1 to 72.9 seconds:: Re-bolus 40 units/kg (max 5,000 units). Increase by 200 units/hr
(+ 2mL/hr)
PTT 73 to 111 seconds:: Target Range. No change in rate.
PTT 111.1 to 130.9 seconds:: Decrease rate by 200 units/hr (- 2 mL/hr)
PTT 131 to 199.9 seconds:: HOLD for 1 hr. Then decrease by 300 units/hr (- 3mL/hr)
PTT greater than or equal to 200 seconds:: HOLD for 2 hrs & Notify Provider. Then decrease by 400 units/hr
(- 4mL/hr)
Lab follow-up:: Each change, PTT q6h until 2 consecutive are therapeutic. Then
PTT daily.
Pharmacy Request to Place See Dose Instructions IV DIRECTED
08/13/25 21:04
Heparin 7,700 units IV PRN PRN
08/13/25 21:05
Heparin 3,900 units IV PRN PRN
08/14/25 03:20
PTT Routine
Abnormal Lab Results
08/13/25
20:46
RBC 3.93 L 10^6/uL
(4.70-6.10)
Hct 38.9 L %
(39.0-52.0)
MCV 99.0 H fL
(80.0-94.0)
MCH 33.8 H pg
(27.0-31.0)
RDW 14.6 H %
(11.5-14.5)
MPV 11.6 H fL
(7.4-10.4)
Abs Immat Gran (auto) 0.1 H 10^3/uL
(0-0.05)
Immature Gran % 1.0 H %
(0-0.5)
Lymphocytes % 20.2 L %
(20.5-51.1)
PT 17.2 H Sec
(11.4-14.6)
BUN 38 H mg/dl
(9-20)
Glucose 201 H mg/dl
(70-99)
Total Bilirubin 3.2 H mg/dl
(0.2-1.3)
ALT 83 H U/L
(0-50)
Alkaline Phosphatase 192 H U/L
(38-126)
08/13/25 20:46
08/13/25 20:46
Vital Signs
Initial and Last Documented VS:
Initial Vital Signs
Temp Pulse Resp BP Pulse Ox
98.6 F 91 16 98/65 98
08/13/25 17:21 08/13/25 17:21 08/13/25 17:21 08/13/25 17:21 08/13/25 17:21
Last Documented Vital Signs
Temp Pulse Resp BP Pulse Ox
98.6 F 91 16 98/65 98
08/13/25 17:21 08/13/25 17:21 08/13/25 17:21 08/13/25 17:21 08/13/25 20:44
MDM/Problems Addressed
Differential Diagnosis Includes:
Note:
CHIEF COMPLAINT(S)
Severe leg pain and suspected deep vein thrombosis (DVT).
HISTORY OF PRESENT ILLNESS
The patient is a 74-year-old male who underwent cataract surgery yesterday. He presented today with complaints of severe pain in his leg which has been worsening over the past five days. The pain is significant and intensifies upon standing. The
patient reports that while his leg is elevated, the pain is tolerable, but it becomes intense when the leg is hanging or when standing, describing it as 'really intense'. An examination reveals swelling and tendernessin the leg, consistent with a
deep vein thrombosis (DVT). The patient is currently on Plavix, but it was discussed that he requires anticoagulation therapy with a different medication such as Apixaban. There is a plan to admit the patient for overnight observation to begin
Heparin therapy for anticoagulation and to manage pain. Further evaluation by a vascular surgeon may be needed to determine if intervention is required, but currently, the leg is not discolored to an extent that necessitates immediate surgical
removal of the clot.
CHRONIC MEDICAL CONDITIONS SIGNIFICANTLY AFFECTING CARE
The patient has a history of non-Hodgkins lymphoma. He is under the care of a plywood stock grader for this condition.
SOCIAL DETERMINANTS AFFECTING HEALTH
None were discussed.
ALLERGIES
The patient experiences itching as a reaction to certain medications, although the specific medications causing this reaction were not identified. He tolerates Ibuprofen.
REVIEW OF SYSTEMS
- Cardiovascular: Reports significant leg pain and a clot present in the leg.
- Musculoskeletal: Painful leg when not elevated.
PHYSICAL EXAM
General: Alert, no acute distress.
Skin: Warm, dry.
Head: Normocephalic, atraumatic
Neck: Appears supple, trachea midline.
Eyes, Ears, Nose, Mouth, and Throat: Oral mucosa moist.
Cardiovascular: No signs of cyanosis
Respiratory: Respirations are non-labored.
Abdomen: Non-distended
Musculoskeletal: Edematous right leg from calf to thigh with tenderness to palpation. Distal extremity neurovascularly intact
Neurological: No focal neurological deficit observed.
Psychiatric: Cooperative, appropriate mood and affect.
PROBLEM LIST
Acute:
- Deep vein thrombosis (DVT) in the leg.
- Severe pain in the affected leg post-DVT.
Chronic:
- Non-Hodgkins lymphoma.
PLAN
1. Admit the patient for overnight observation to manage the severe pain and initiate Heparin therapy for anticoagulation.
2. Prescribe pain medication, specifically inquiring about the use of Morphine.
3. Evaluate by a vascular surgeon to determine the necessity of clot removal.
4. Transition from Plavix to an appropriate anticoagulant such as Apixaban.
DIFFERENTIAL DIAGNOSIS
The differential diagnosis includes, in no particular order and is not limited to:
1. Deep Vein Thrombosis (DVT)
2. Peripheral Artery Disease
3. Cellulitis
4. Venous Insufficiency
5. Phlebitis
6. Pulmonary Embolism Risk
7. Muscular Injury related pain
8. Lymphedema
9. Compartment Syndrome
10. Acute Limb Ischemia
SUMMARY OF ENCOUNTER
The patient, a 74-year-old male with a history of non-Hodgkins lymphoma, presented with severe pain in the leg and is suspected to have deep vein thrombosis (DVT). The management included starting intravenous Heparin due to the significant clot
burden in the leg. Initially, there was concern for thrombocytopenia, but the platelet count was found to be within normal limits. The plan includes admission for further workup and evaluation, considering oral anticoagulation or an inferior vena
cava (IVC) filter as future interventions.
DISPOSITION
Admit
ASSESSMENT
The patients severe leg pain and significant clot burden are consistent with a diagnosis of deep vein thrombosis (DVT), requiring anticoagulation therapy to prevent complications.
PLAN
The patient will be started on intravenous Heparin therapy and monitored in the hospital to ensure safety and effectiveness. Further evaluations will be done to assess the need for potential oral anticoagulation therapy or an IVC filter, especially
considering the patients history of non-Hodgkins lymphoma and risk factors.
MEDICAL DECISION MAKING
-Complexity of Data Reviewed: Chronic conditions affecting care including non-Hodgkins lymphoma. Differential diagnoses considered include deep vein thrombosis, peripheral artery disease, cellulitis, venous insufficiency, phlebitis, pulmonary
embolism risk, muscular injury-related pain, lymphedema, compartment syndrome, and acute limb ischemia.
-Data:
Category 1
Tests conducted included platelet count, which was normal, alleviating concerns about thrombocytopenia.
Category 3
Discussion of management with other healthcare providers to determine further interventions such as oral anticoagulation or an IVC filter.
-Risk:
The risk involves prescription drug management requiring monitoring for anticoagulation therapy, with Heparin being initiated intravenously, and the need for hospitalization to prevent potential complications.
DIAGNOSIS
Deep vein thrombosis (DVT) - ICD-10 Code: I82.401
*Pulse Oximetry
SaO2: 98
Oxygen Mode of Delivery: Room air
Patient hypoxic: no
*Critical Care Note
Total Time (30-74mins, 75-104mins- exclusive of procedures): 31 min
comment:
The high probability of a clinically significant, sudden or life threatening deterioration of the cardiovascular system(s) required my full and direct attention, intervention and personal management. The aggregate critical care time was 31 minutes.
This time is in addition to time spent performing reported procedures but includes the following:
[x] Data Review and interpretation
[x] Patient assessment and monitoring of vital signs
[x] Documentation
[x] Medication orders and management
ED Attending Note
-
Portions of this chart may have been created with voice recognition software.� Occasional wrong word or��sound alike� substitutions may have occurred due to the inherent limitations of voice recognition software.
Discharge Plan
Departure
Patient Disposition: Admit
Date of Disposition: 08/13/25
Time of Disposition: 21:45
Admit to: Med/Surg
Presentation/result/management discussed w/ accepting MD/DO: Hospitalist
Discharge Problem:
DVT (deep venous thrombosis)
Prescriptions:
No Action
losartan 50 MG tablet
100 mg PO DAILY
cetirizine 10 MG tablet
10 mg PO PRN PRN (Reason: allergies)
azelastine 1 SPRAY aerosol,spray
1 spray intranasal PRN PRN (Reason: allergies, nasal drip)
furosemide 40 mg Tablet
40 mg PO BID
aspirin 81 mg Tablet
81 mg PO DAILY
solifenacin 10 mg Tablet
10 mg PO DAILY
mirabegron [Myrbetriq] 50 mg Tablet Extended Release 24 Hr
50 mg PO DAILY
clopidogrel 75 mg tablet
75 mg PO DAILY Qty: 90 3RF
pantoprazole 40 mg tablet,delayed release (DR/EC)
40 mg PO DAILY Qty: 90 3RF
atorvastatin 40 mg tablet
40 mg PO DAILY Qty: 90 3RF
Referrals:
Surendra Cox MD [Family Provider, Family Practice]
Interventions
Interventions:
*Risk Screen - Suicide Last Done: 08/13/25 17:21
*General Assessment Last Done: 08/13/25 20:29
*Neglect/Abuse Screening Last Done: 08/13/25 17:21
ED- Cardiac Assessment Last Done: 08/13/25 20:29
ED- Pulmonary Assessment Last Done: 08/13/25 20:29
ED-Skin Assessment Last Done: 08/13/25 20:29
Discharge Date and Time
Print Language: SLOVAK
[2025-08-13 20:45] VITALS: BMI 30.6
[2025-08-13 20:57] LABS: Hematocrit 38.9 % (39.0-52.0); Hemoglobin 13.3 g/dL (13.0-18.0); Mean Corp Hgb Conc. 34.2 g/dL (33.0-37.0); Mean Corpuscular Volume 99.0 fL (80.0-94.0); Nucleated Red Blood Cells % 0.3 % (-); Platelet Count 158 10^3/uL (130-400); Red Cell Dist. Width 14.6 % (11.5-14.5)
[2025-08-13 21:06] LABS: INR 1.36; PT 17.2 Sec (11.4-14.6)
[2025-08-13 21:07] LABS: APTT 28.5 Sec (23.4-35.0)
[2025-08-13] MEDS: HEPARIN 7700 UNITS IV (21:14)
[2025-08-13] MEDS: HEPARIN 25000 UNITS/250 ML IV (21:15)
[2025-08-13] MEDS: MORPHINE SULFATE 4 MG IV (21:15)
[2025-08-13 21:20] LABS: ALT (SGPT) 83 U/L (0-50); AST (SGOT) 55 U/L (17-59); Albumin 3.8 g/dl (3.5-5.0); Alkaline Phosphatase 192 U/L (38-126); Blood Urea Nitrogen 38 mg/dl (9-20); Calcium 9.9 mg/dl (8.4-10.2); Carbon Dioxide 28 mmol/L (22-30); Chloride 104 mmol/L (98-107); Estimated Creatinine Clearance 84 ml/min; Glucose 201 mg/dl (70-99); Potassium 3.9 mmol/L (3.5-5.1); Sodium 139 mmol/L (135-145); Total Protein 7.1 g/dl (6.3-8.2); eGFR > 60.00
--- NOTE | 2025-08-13 21:48 | PHANOTE ---
med rec note- patient has eye surgery on 08/12/25 and got free sample eye drop in the office, went home to get them with proper taper directions, also bring in specialty medication
--- NOTE | 2025-08-13 22:02 | HPS.HSE ---
Addendum entered and electronically signed by Augusta Keane MD 08/13/25 23:18:
This is an addendum to H&P written by Gill Carranza on 08/13/2025. �Patient seen and examined independently with HOUSE MANAGER.
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
hypertension, allergic rhinitis, obstructive sleep apnea, pulmonary nodules, possible restrictive airway disease here for right lower extremity pain and swelling.
Vital signs show blood pressure 98/65. �Blood pressure in April was 130s.
Labs largely unremarkable. �Patient previously had thrombocytopenia which is resolved.
Venous ultrasound shows extensive DVT involving the right lower extremity.
Patient with right lower extremity DVT likely provoked due to history of non-Hodgkin's lymphoma and�cirrhosis. �Heparin drip started. �Oncology consulted to make sure that anticoagulation is okay given history of thrombocytopenia although
thrombocytopenia has responded well to eltrombopag. �Hold aspirin and continue Plavix/heparin drip for recent LAD stent.
Blood pressure 90s secondary to diuretics in the setting of cirrhosis although was higher previously. �Hold diuretics and losartan for now.
Original Note:
Family Physician
-
Family Physician: Surendra Cox
Chief Complaint
-
Left leg pain x 5 days
History of Present Illness
74-year-old male reports 5 to 6-day history of pain in his right lower extremity. He has chronic bilateral leg edema since April 2025 when he had stent placement in his LAD. He was put on Lasix 40 mg twice daily. He denies any recent injury or
travel. He has history of non-Hodgkin's lymphoma of the spleen diagnosed 3 years ago completed round of chemo and follows with [facility] for history of thrombocytopenia he is currently on Eltrombopag 25 mg daily with stable platelets of
158. He had cataract surgery yesterday to his left eye is wearing sunglasses and requires maintenance drops. He denies fever, chills, chest pain, palpitations, cough, shortness of breath, abdominal pain, nausea, vomiting, diarrhea, urinary
symptoms.
He has past medical history of HTN, CAD/LAD stent April 2025, chronic peripheral edema, non-Hodgkin's lymphoma of spleen Dx 3 years ago completed short course chemo, history thrombocytopenia, alcoholic cirrhosis, alcohol use disorder, sleep
apnea/CPAP has not worn in years, GERD, BPH, squamous cell skin CA, anxiety pulmonary nodules, reactive airway disease, former smoker 20 years quit 30 years ago
Medical History
Past Medical History
Past Medical History: Reports Other
Additional Past Medical History:
HTN
CAD/LAD stent April 2025
chronic peripheral edema
non-Hodgkin's lymphoma of spleen Dx 3 years ago completed short course chemo
history thrombocytopenia
alcoholic cirrhosis, alcohol use disorder
sleep apnea/CPAP has not worn in years
GERD
BPH
squamous cell skin CA
anxiety
pulmonary nodules
reactive airway disease
former smoker 20 years quit 30 years ago
Past Surgical History: Reports Other
Additional Past Surgical History:
Right shoulder surgery 2011
Right femur fracture repair
Lumbar laminectomy 2012
Left CTR
Sinus surgery
Hemorrhoidectomy
Social History
Tobacco: Former Smoker (20 years quit 30 years ago)
Alcohol: Daily (1-2 beers)
Drug: None
Employment: Retired
Family History
Family History: Not pertinent
Allergies / Home Medications
Allergies reflects when Allergies were last updated in [employer].
Home Medications with original date entered in [employer]
Allergy/Medication List:
Allergies
Allergy/AdvReac Type Severity Reaction Status Date / Time
diphenhydramine (From Allergy Mild Itching Verified 08/13/25 17:25
Benadryl)
YASMANY Inhibitors Allergy Unknown Verified 08/13/25 17:25
oak & maple trees,ragweed Allergy runny nose Uncoded 08/13/25 17:25
Home Medications
losartan 50 mg tablet 100 mg PO DAILY 07/30/12
azelastine 137 mcg (0.1 %) nasal spray 1 spray intranasal PRN PRN allergies, nasal drip 08/20/21
aspirin 81 mg tablet 81 mg PO DAILY 04/07/25
atorvastatin 40 mg tablet 40 mg PO DAILY #90 tabs 04/07/25
clopidogrel 75 mg tablet 75 mg PO DAILY #90 tabs 04/07/25
furosemide 40 mg tablet 40 mg PO BID 04/07/25
pantoprazole 40 mg tablet,delayed release 40 mg PO DAILY #90 tabs 04/07/25
albuterol sulfate 90 mcg/actuation aerosol inhaler 2 puff inhalation R Q6HPRN PRN sob 08/13/25
eltrombopag olamine 25 mg tablet 25 mg PO DAILY 08/13/25
empagliflozin 10 mg tablet (Jardiance) 10 mg PO DAILY 08/13/25
ofloxacin 0.3 % eye drops 0 drp ophthalmic (eye) .COMPLEX 08/13/25
prednisolone acetate 1 % eye drops,suspension 1 drp LEFT EYE DIRECTED 08/13/25
umeclidinium 62.5 mcg-vilanterol 25 mcg/actuation powdr for inhalation (Anoro Ellipta) 1 inh inhalation R DAILY 08/13/25
Review of Systems
-
History Source: Patient
A 12 point ROS was completed and negative except as noted: Yes
Constitutional: Denies Fever or Chills
EENT: Denies Sore Throat or Runny Nose
Respiratory: Denies Cough or Trouble Breathing
Cardiac: Denies Chest Pain, Diaphoresis, Palpitations or Syncope
Abdomen/GI: Denies Abdominal Pain, Nausea, Vomiting, Diarrhea, Constipated or Bloody Stools
: Denies Dysuria, Frequency, Flank Pain, Incontinence or Difficulty Voiding
Musculoskeletal: Reports Edema (Bilateral legs +1 edema, pain right lower extremity calf); Denies Joint Pain
Skin: Reports Other (Chronic bruising bilateral arms and legs); Denies Itching or Rash
Neurological: Denies Dizzy, Headache or Weakness
Endocrine: Reports No Symptoms
Hematologic/Lymphatic: Reports No Symptoms
Psych: Reports Calm
Physical Exam
Vital Signs
Vital Signs
Temp Pulse Resp BP Pulse Ox
98.6 F 91 16 98/65 98
08/13/25 17:21 08/13/25 17:21 08/13/25 17:21 08/13/25 17:21 08/13/25 20:44
Physical Exam
General: No Fever or Chills
HEENT: NormoCephalic, Anicteric, Moist mucous membranes, [place] Conjunctivae and No Ptosis
Respiratory: Clear; No Wheezes, Rales or Rhonchi
Cardiac: S1/S2, Regular Rhythm and Peripheral Edema (+1 bilateral leg edema); No Murmur, Rub or Gallop
Breast: Deferred by me
GI: Soft, Non Tender, Normal Bowel Sounds, Distended and Other (Positive hepatomegaly negative splenomegaly)
Genito-urinary: Deferred by me
Musculoskeletal: No Clubbing, No Cyanosis, Edema, Left Lower Extremity (+1) and Edema, Right Lower Extremity (+1 with tenderness to calf due to DVT); No Edema, Left Upper Extremity or Edema, Right Upper Extremity
Skin: Warm, Dry and Other (Multiple bruises to bilateral arms and legs with history of thrombocytopenia); No Rash
Neuro: AO x 3, No Motor Deficits, Nonfocal/grossly intact, Cranial Nerves Intact and No Sensory Deficits; No Slurred Speech, Facial Droop, Tremors or Sedated
Psych: Calm
Laboratory Results
-
08/13/25 20:46
08/13/25 20:46
Laboratory Results
PT 17.2 Sec (11.4-14.6) H 08/13/25 20:46
INR 1.36 08/13/25 20:46
APTT 28.5 Sec (23.4-35.0) 08/13/25 20:46
Total Bilirubin 3.2 mg/dl (0.2-1.3) H 08/13/25 20:46
AST 55 U/L (17-59) 08/13/25 20:46
ALT 83 U/L (0-50) H 08/13/25 20:46
Alkaline Phosphatase 192 U/L (38-126) H 08/13/25 20:46
Data Reviewed
-
Lab Data: Labs Reviewed by me
Impression/Plan
-
Impression/plan
Admit to med surg
#Right leg DVT�provoked due to history of non-Hodgkin's lymphoma/cirrhosis
IV heparin drip
- Consult hematology
- Hold aspirin
- Continue Plavix
Venous duplex right leg: Extensive DVT involving the right lower extremity right femoral, popliteal, peroneal and posterior tibial veins nonocclusive thrombus within the right common femoral vein
#Non-Hodgkin's lymphoma spleen Dx 3 years ago
Reports did short course of chemo
Follows with [facility]
#History thrombocytopenia
PLT 158
continue eltrombopag
- Consult hematology
#Hypotension/HTN
BP 98/65
Hold losartan 100 mg daily due to hypotension
-Hold Lasix 40 mg twice daily due to hypotension
Cataract surgery yesterday 08/12/2025
Continue prednisone alone 1 drop left eye as directed, oflaxacin
#CAD/LAD stent April 2025
Continue atorvastatin, Plavix 75 mg daily
-Hold aspirin
2D echo 03/04/2025: EF 60 to 65%, normal LVS LVSF no wall abnormalities, normal diastolic function
#Alcoholic cirrhosis
#Alcohol use disorder
Recommended cessation given history of cirrhosis
-Patient drinks 1-2 beers daily last drink yesterday 08/12/2025
#Chronic peripheral edema
-Hold Lasix 40 mg twice daily due to hypotension
#Pulmonary nodules possible restrictive airway disease
Patient follows with Dr. Coleman
- Continue Anoro Ellipta, albuterol sulfate
#GERD
Continue Protonix
#BPH
No reported meds
Squamous cell skin CA
Anxiety
Sleep apnea/CPAP was not 20 years
Full code
--- NOTE | 2025-08-13 23:47 | PTCARENOTE ---
Pt received from ED to [facility]2. Pt oriented to room and call rosado.
[2025-08-14 00:03] VITALS: BP 151/77; BMI 29.6
[2025-08-14 05:39] LABS: Hematocrit 35.9 % (39.0-52.0); Hemoglobin 12.5 g/dL (13.0-18.0); Mean Corp Hgb Conc. 34.8 g/dL (33.0-37.0); Mean Corpuscular Volume 100.6 fL (80.0-94.0); Nucleated Red Blood Cells % 0 % (-); Platelet Count 156 10^3/uL (130-400); Red Cell Dist. Width 14.6 % (11.5-14.5)
[2025-08-14 06:00] VITALS: BMI 29.6
[2025-08-14 06:28] LABS: APTT > 200 Sec (23.4-35.0)
[2025-08-14 07:00] VITALS: BP 116/76
[2025-08-14] MEDS: SPIRIVA RESPIMAT 2.5 MCG 2 PUFF INH (07:45)
[2025-08-14] MEDS: LIPITOR 40 MG PO (08:24)
[2025-08-14] MEDS: PROTONIX 40 MG PO (08:24)
[2025-08-14] MEDS: FARXIGA 10 MG PO (08:24)
[2025-08-14] MEDS: PLAVIX 75 MG PO (08:24)
[2025-08-14] MEDS: PRED FORTE 1% EYE DROPS 1 DROP LEFT EYE ×3 (08:28→17:21)
[2025-08-14] MEDS: OCUFLOX 1 DROP LEFT EYE ×3 (08:28→17:21)
--- NOTE | 2025-08-14 08:38 | CON.ONC ---
Consultation
-
Date Consultation Requested: 08/14/25
Date Consultation Performed: 08/14/25
Requesting Provider: Gill LARSON
Performing Provider: Dr. George Wayne
Reason for Consultation: DVT, ITP, splenic marginal zone lymphoma
Impression
Impression
�Splenic�Marginal�Zone�Lymphoma
T�cell�LGL ��thrombocytopenia ��
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 Villalobos
rising T bili
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
chronic thrombocytopenia secondary to cirrhosis vs ITP
Plan
Plan
on heparin gtt, recommend DOAC at discharge
continue Promacta 25mg daily
defer to cardiology if DAPT should be continued while on DOAC
continue to check CBC every 1-2 weeks to ensure platelets remain safe to continue anticoagulation
Has OP follow up with Dr. Posadas
Patient History
History of Present Illness
74yo M who presented with acute on chronic RLE edema and new onset RLE pain. He reports 5-6 days of RLE pain. He does have chronic bilateral LE edema and had stent place in his LAD and uses furosemide daily. His admission evaluation was notable for
extensive deep venous thrombosis involving the right lower extremity. His admission labs were notable for known chronic macrocytosis, Hgb 13.3, platelet count 158,000, Tbili 3.2, AST 55, ALT 83, Alk phos 192. He has been admitted and started on a
heparin gtt.
In brief, Jaime is known to Dr. 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 He completed a course of Rituximab for his SMZL and remains on close
observation. He does report a 10lb unintentional weigh loss over the past 2 months due to early satiety. He has opted to hold off on additional treatment at this time. HIs most recent PET 07/10/2025 showed FDG avid lesions, however did show known
hepatic cirrhosis. His chronic thrombocytopenia has dated back to at least 2020. Thrombocytopenia persisted despite treatment for SMZL and spleen reduction. He was started on TPO agonist to maintain platelet count >50,000 since he was started on
DAPT. His platelet count has normalized on Promacta 25mg daily, started June 06, 2025.
Clinically, he denies fever, chills, chest pain, palpitations, cough, shortness of breath, abdominal pain, nausea, vomiting, diarrhea, or urinary symptoms. He has bruising on his arms but otherwise denies overt bleeding.
Past-Medical/Surgical History
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
PSH CAD/LAD stent April 2025, right shoulder surgery 2011, right femur fracture repair, lumbar laminectomy 2012, left CTR, sinus surgery, hemorrhoidectomy, cateract
Social + ETOH, former smoker, retired
Family non-contributory
Patient Medication
�Medication �Instructions �Recorded �Confirmed �Last Taken �Type
losartan 50 mg tablet 100 mg PO DAILY 07/30/12 08/13/25 04/07/25 05:00 History
azelastine 137 mcg (0.1 %) nasal 1 spray intranasal PRN PRN 08/20/21 08/13/25 04/07/25 05:00 History
spray allergies, nasal drip
aspirin 81 mg tablet 81 mg PO DAILY 04/07/25 08/13/25 04/07/25 05:00 History
atorvastatin 40 mg tablet 40 mg PO DAILY #90 tabs 04/07/25 08/13/25 Unknown Rx
clopidogrel 75 mg tablet 75 mg PO DAILY #90 tabs 04/07/25 08/13/25 Unknown Rx
furosemide 40 mg tablet 40 mg PO BID 04/07/25 08/13/25 04/06/25 07:00 History
pantoprazole 40 mg tablet,delayed 40 mg PO DAILY #90 tabs 04/07/25 08/13/25 Unknown Rx
release
albuterol sulfate 90 mcg/actuation 2 puff inhalation R Q6HPRN PRN sob 08/13/25 08/13/25 Unknown History
aerosol inhaler
eltrombopag olamine 25 mg tablet 25 mg PO DAILY 08/13/25 08/13/25 Unknown History
empagliflozin 10 mg tablet 10 mg PO DAILY 08/13/25 08/13/25 Unknown History
(Jardiance)
ofloxacin 0.3 % eye drops 0 drp ophthalmic (eye) .COMPLEX 08/13/25 08/13/25 Unknown History
prednisolone acetate 1 % eye 1 drp LEFT EYE DIRECTED 08/13/25 08/13/25 Unknown History
drops,suspension
umeclidinium 62.5 mcg-vilanterol 1 inh inhalation R DAILY 08/13/25 08/13/25 Unknown History
25 mcg/actuation powdr for
inhalation (Anoro Ellipta)
Active Medications
Generic Name Dose Route Start Last Admin
Trade Name Freq PRN Reason Stop Dose Admin
Acetaminophen 650 mg 08/13/25 23:46
Acetaminophen 325 Mg Tablet PO 09/10/25 23:45
Q4HPRN PRN
mild pain/AYOUB/temp> 100.4F
Albuterol 2 puff 08/13/25 23:46
Albuterol Hfa [90 Mcg/Dose] Inhaler INH
R Q6HPRN PRN
sob
Protocol
Atorvastatin Calcium 40 mg 08/14/25 08:00 08/14/25 08:24
Atorvastatin (Lipitor) 40 Mg Tablet PO 09/11/25 07:59 40 mg
DAILY GLADYS Administration
Clopidogrel Bisulfate 75 mg 08/14/25 08:00 08/14/25 08:24
Clopidogrel 75 Mg Tablet PO 09/11/25 07:59 75 mg
DAILY GLADYS Administration
Dapagliflozin 10 mg 08/14/25 08:00 08/14/25 08:24
Dapagliflozin (Farxiga) 10 Mg Tablet PO 09/11/25 07:59 10 mg
DAILY GLADYS Administration
Heparin Sodium 7,700 units 08/13/25 21:04
Heparin 80 Units/Kg Iv Rebolus IV 09/10/25 21:03
PRN PRN
PTT < OR = 64 seconds
Heparin Sodium 3,900 units 08/13/25 21:05
Heparin 40 Units/Kg Iv Rebolus IV 09/10/25 21:04
PRN PRN
PTT = 64.1 to 72.9 seconds
Heparin Sodium 25,000 units in 250 mls @ 0 mls/hr 08/13/25 21:00 08/13/25 21:15
Heparin 78835 Units/250 Ml IV 250 mls
PER PROTOCOL GLADYS Administration
Protocol
Per Protocol
Eltrombopag Olamine 0 mg 08/14/25 08:00
25 Mg Tablet Po PO 09/11/25 07:59
Daily DAILY GLADYS
Ofloxacin 1 drop 08/14/25 08:00 08/14/25 08:28
Ofloxacin 0.3% (Ophthalmic Solution) 5 Ml Bottle LEFT EYE 08/18/25 22:01 1 drop
QID GLADYS Administration
Ofloxacin 1 drop 08/19/25 08:00
Ofloxacin 0.3% (Ophthalmic Solution) 5 Ml Bottle LEFT EYE 08/25/25 22:01
TID GLADYS
Ofloxacin 1 drop 08/26/25 08:00
Ofloxacin 0.3% (Ophthalmic Solution) 5 Ml Bottle LEFT EYE 09/01/25 20:01
BID GLADYS
Ofloxacin 1 drop 09/02/25 08:00
Ofloxacin 0.3% (Ophthalmic Solution) 5 Ml Bottle LEFT EYE 09/30/25 07:59
BID GLADYS
Pantoprazole Sodium 40 mg 08/14/25 08:00 08/14/25 08:24
Pantoprazole 40 Mg Delayed Release Tablet PO 09/11/25 07:59 40 mg
DAILY GLADYS Administration
Prednisolone Acetate 1 drop 08/14/25 08:00 08/14/25 08:28
Prednisolone 1% (Ophthalmic Suspension) Bottle LEFT EYE 08/18/25 22:01 1 drop
QID GLADYS Administration
Prednisolone Acetate 1 drop 08/19/25 08:00
Prednisolone 1% (Ophthalmic Suspension) Bottle LEFT EYE 08/25/25 22:01
QID GLADYS
Prednisolone Acetate 1 drop 08/26/25 08:00
Prednisolone 1% (Ophthalmic Suspension) Bottle LEFT EYE 09/01/25 20:01
BID LGADYS
Prednisolone Acetate 1 drop 09/02/25 08:00
Prednisolone 1% (Ophthalmic Suspension) Bottle LEFT EYE 09/30/25 07:59
DAILY GLADYS
Sodium Chloride 0 flush 08/13/25 23:00
Sodium Chloride 0.9% (Flush) Syringe IV 09/10/25 22:59
PER PROTOCOL GLADYS
Tiotropium [place] 2 puff 08/14/25 08:00 08/14/25 07:45
Tiotropium (Spiriva Respimat) 2.5 Mcg Inhaler INH 09/11/25 07:59 2 puff
R DAILY GLADYS Administration
Review of Systems
-
ROS is notable for HPI, otherwise negative
Physical Exam
-
General: No Apparent Distress
HEENT: Moist Mucous Membranes; Negative Jaundice
Cardiology: Murmur
Pulmonary: Other (unlabored)
GI: Distended and Other (spleen difficult to palpate with ab distention)
Extremities: Pulses Present and Edema (bilateral LE edema)
Neurology: Non Focal
Skin: Warm and Other (scatter bruises b/l arms)
Psych: Calm
Labs
Lab Results
WBC 5.5 10^3/uL (4.8-10.8) 08/14/25 05:16
RBC 3.57 10^6/uL (4.70-6.10) L 08/14/25 05:16
Hgb 12.5 g/dL (13.0-18.0) L 08/14/25 05:16
Hct 35.9 % (39.0-52.0) L 08/14/25 05:16
MCV 100.6 fL (80.0-94.0) H 08/14/25 05:16
MCH 35.0 pg (27.0-31.0) H 08/14/25 05:16
MCHC 34.8 g/dL (33.0-37.0) 08/14/25 05:16
RDW 14.6 % (11.5-14.5) H 08/14/25 05:16
Plt Count 156 10^3/uL (130-400) 08/14/25 05:16
MPV 11.6 fL (7.4-10.4) H 08/14/25 05:16
Abs Immat Gran (auto) 0.1 10^3/uL (0-0.05) H 08/14/25 05:16
Absolute Neuts (auto) 4.0 10^3/uL (1.4-6.5) 08/14/25 05:16
Absolute Lymphs (auto) 1.2 10^3/uL (1.2-3.4) 08/14/25 05:16
Absolute Monos (auto) 0.2 10^3/uL (0.1-0.6) 08/14/25 05:16
Absolute Eos (auto) 0.0 10^3/uL (0-0.7) 08/14/25 05:16
Absolute Basos (auto) 0.0 10^3/uL (0-0.2) 08/14/25 05:16
Immature Gran % 0.9 % (0-0.5) H 08/14/25 05:16
Neutrophils % 73.0 % (42.2-75.2) 08/14/25 05:16
Lymphocytes % 21.9 % (20.5-51.1) 08/14/25 05:16
Monocytes % 3.3 % (1.7-9.3) 08/14/25 05:16
Eosinophils % 0.7 % (0-6) 08/14/25 05:16
Basophils % 0.2 % (0-2) 08/14/25 05:16
Creatinine Cancelled 08/14/25 05:16
Vital Signs
Vital Signs
Temp Pulse Resp BP Pulse Ox
98.6 F 96 16 116/76 95
08/14/25 07:00 08/14/25 07:47 08/14/25 07:47 08/14/25 07:00 08/14/25 07:00
[2025-08-14 09:59] LABS: ALT (SGPT) 66 U/L (0-50); AST (SGOT) 41 U/L (17-59); Albumin 3.2 g/dl (3.5-5.0); Alkaline Phosphatase 112 U/L (38-126); Blood Urea Nitrogen 35 mg/dl (9-20); Calcium 9.1 mg/dl (8.4-10.2); Carbon Dioxide 29 mmol/L (22-30); Chloride 107 mmol/L (98-107); Estimated Creatinine Clearance 96 ml/min; Glucose 159 mg/dl (70-99); Magnesium 2.3 mg/dl (1.6-2.3); Potassium 4.2 mmol/L (3.5-5.1); Sodium 140 mmol/L (135-145); Total Protein 6.3 g/dl (6.3-8.2); eGFR > 60.00
[2025-08-14 10:35] LABS: Vitamin B12 319 pg/ml (239-931)
--- NOTE | 2025-08-14 11:59 | CM ---
Addendum entered by Argentina Mcfarlane 08/14/25 14:54:
Patient for discharge on Eliquis zero copay
Original Note:
manpower development specialist manager reviewed patient's chart and patient lives with his spouse in a 2 story home with 7 steps to enter, patient is independent with adl's and has recently been using a cane with ambulation. Per patient he has reached his deductible so all
his medications have zero copay till November.
PCP: Surendra Cox
Pharmacy: [facility]
Plan; Home with spouse when stable.
--- NOTE | 2025-08-14 14:34 | W.PN.HOSP.TC ---
Addendum entered and electronically signed by Cristobal Qiu MD 08/14/25 18:45:
[id number]
Original Note:
Today's Communication/Plan
-
Eliquis on DC
Engaging with Cards(Luis Alberto) for antiplatelet therapy while on anticoagulation
continue to check CBC every 1-2 weeks to ensure platelets remain safe to continue anticoagulation
F/u PCP, Heme, [facility] outpt
Assessment / Plan
Assessment / Plan
General: No Apparent Distress
HEENT: Moist Mucous Membranes; Negative Jaundice
Cardiology: Murmur
Pulmonary: Other (unlabored)
GI: Distended and Other (spleen difficult to palpate with ab distention)
Extremities: Pulses Present and Edema (bilateral LE edema)
Neurology: Non Focal
Skin: Warm and Other (scatter bruises b/l arms)
Psych: Calm
#Right leg DVT�provoked due to history of non-Hodgkin's lymphoma/cirrhosis and being stationary
IV heparin drip - can transition to DOAC on DC
- Consult hematology -
- Hold aspirin
- Continue Plavix
continue Promacta 25mg daily
continue to check CBC every 1-2 weeks to ensure platelets remain safe to continue anticoagulation
#Non-Hodgkin's lymphoma spleen Dx 3 years ago
Reports did short course of chemo
Follows with [facility]
#History thrombocytopenia
PLT 158
continue eltrombopag
- Consult hematology
-continue to check CBC every 1-2 weeks to ensure platelets remain safe to continue anticoagulation
#Hypotension/HTN
-resume home regimen
Cataract surgery yesterday 08/12/2025
Continue prednisone alone 1 drop left eye as directed, oflaxacin
#CAD/LAD stent April 2025
Continue atorvastatin, Plavix 75 mg daily
-Hold aspirin
2D echo 03/04/2025: EF 60 to 65%, normal LVS LVSF no wall abnormalities, normal diastolic function
-Engaged with [facility] (Luis Alberto) On regimen now that will be on DOAC
#Alcoholic cirrhosis
#Alcohol use disorder
Recommended cessation given history of cirrhosis
-Patient drinks 1-2 beers daily last drink yesterday 08/12/2025
#Chronic peripheral edema
-resume home regimen
#Pulmonary nodules possible restrictive airway disease
Patient follows with Dr. Coleman
- Continue Anoro Ellipta, albuterol sulfate
#GERD
Continue Protonix
#BPH
No reported meds
Squamous cell skin CA
Anxiety
Sleep apnea/CPAP was not 20 years
Full code
More than 30 minutes spent in discharge including
Final examination of the patient
Summarizing hospital stay
Instructions for continuing care to all relevant caregivers
Preparation of discharge records, prescriptions, and referral forms
Total time spent (in minutes): 36
Anticipated Discharge: Within 24 hours
Subjective/Interval History
-
Date of Service: August 14, 2025
no acute events
Objective Data
-
Labs:
Laboratory Results
08/14/25 08/14/25 08/14/25
05:16 08:40 14:08
WBC 5.5
Hgb 12.5 L
Hct 35.9 L
Plt Count 156
APTT > 200 H* Pending
Sodium Cancelled 140
Potassium Cancelled 4.2
Chloride Cancelled 107
Carbon Dioxide Cancelled 29
BUN Cancelled 35 H
Creatinine Cancelled 0.7
Glucose Cancelled 159 H
Calcium Cancelled 9.1
Total Bilirubin Cancelled 3.1 H
AST Cancelled 41
ALT Cancelled 66 H
Alkaline Phosphatase Cancelled 112
Vital Signs:
Vital Signs
Temp Pulse Resp BP Pulse Ox
98.6 F 96 16 116/76 95
08/14/25 07:00 08/14/25 07:47 08/14/25 07:47 08/14/25 07:00 08/14/25 07:00
I&O
08/13/25 08/14/25 08/15/25
06:59 06:59 06:59
Output Total 425 / 425
Balance -425 / -425
Review of Systems
-
History Source: Patient
All other systems: Not reviewed unless documented
Data Reviewed
-
Ultrasound: Report Reviewed by me
Labs: Labs Reviewed by me
[2025-08-14 14:40] LABS: APTT 121.8 Sec (23.4-35.0)
--- NOTE | 2025-08-14 14:59 | W.DS.TRANS ---
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
-
Discharge Instructions:
Discharge Diagnosis/Procedures Right leg DVT
Diet Low Fat,Low Cholesterol
Activity As tolerated
Blood Work continue to check CBC every 1-2 weeks to ensure
platelets remain safe to continue
anticoagulation - with PCP/hematology
Instructions:
Stand-Alone Forms:
Changes to Home Medications: Yes
Discharge Medications:
DC Medications w/original date entered in [employer]
losartan 50 mg tablet 100 mg PO DAILY 07/30/12
azelastine 137 mcg (0.1 %) nasal spray 1 spray intranasal PRN PRN allergies, nasal drip 08/20/21
atorvastatin 40 mg tablet 40 mg PO DAILY #90 tabs 04/07/25
clopidogrel 75 mg tablet 75 mg PO DAILY #90 tabs 04/07/25
furosemide 40 mg tablet 40 mg PO BID 04/07/25
pantoprazole 40 mg tablet,delayed release 40 mg PO DAILY #90 tabs 04/07/25
albuterol sulfate 90 mcg/actuation aerosol inhaler 2 puff inhalation R Q6HPRN PRN sob 08/13/25
eltrombopag olamine 25 mg tablet 25 mg PO DAILY 08/13/25
empagliflozin 10 mg tablet (Jardiance) 10 mg PO DAILY 08/13/25
ofloxacin 0.3 % eye drops 0 drp ophthalmic (eye) .COMPLEX 08/13/25
prednisolone acetate 1 % eye drops,suspension 1 drp LEFT EYE DIRECTED 08/13/25
umeclidinium 62.5 mcg-vilanterol 25 mcg/actuation powdr for inhalation (Anoro Ellipta) 1 inh inhalation R DAILY 08/13/25
apixaban 5 mg (74 tabs) tablets in a dose pack (Eliquis DVT-PE Treat 30D Start) See Rx Instructions PO .COMPLEX #74 ea 08/14/25
Home Medication Changes
apixaban 5 mg (74 tabs) tablets in a dose pack (Eliquis DVT-PE Treat 30D Start) See Rx Instructions PO .COMPLEX #74 ea 08/14/25
Pending Results: No
[2025-08-14 15:00] VITALS: BP 130/77
[2025-08-14] MEDS: ELIQUIS 10 MG PO (17:21)
== END 2025-08-14 18:10 | disposition home or self-care (01) | DRG 300 ==
LOC: 4 WEST ACU 23:14
PROVIDERS: Clinical Nurse Specialist Family Health; ADMITTING PHYSICIAN Hospitalist; ATTENDING PHYSICIAN Internal Medicine; EMERGENCY PHYSICIAN Student in an Organized Health Care Education/Training Program; FAMILY PHYSICIAN Family Medicine; OTHER PHYSICIAN Internal Medicine Hematology & Oncology
DX: I82.411 Acute embolism and thrombosis of right femoral vein (principal); C83.07 Small cell B-cell lymphoma, spleen; D69.3 Immune thrombocytopenic purpura; I25.10 Atherosclerotic heart disease of native coronary artery without angina pectoris; G89.29 Other chronic pain; J45.909 Unspecified asthma, uncomplicated; Z92.21 Personal history of antineoplastic chemotherapy; K70.30 Alcoholic cirrhosis of liver without ascites; K21.9 Gastro-esophageal reflux disease without esophagitis; I10 Essential (primary) hypertension; D69.59 Other secondary thrombocytopenia; Z87.891 Personal history of nicotine dependence; G47.30 Sleep apnea, unspecified; N40.0 Benign prostatic hyperplasia without lower urinary tract symptoms; Z85.828 Personal history of other malignant neoplasm of skin; F41.9 Anxiety disorder, unspecified; Z88.8 Allergy status to other drugs, medicaments and biological substances; D75.89 Other specified diseases of blood and blood-forming organs; E83.110 Hereditary hemochromatosis; F10.20 Alcohol dependence, uncomplicated; Z79.82 Long term (current) use of aspirin; Z79.84 Long term (current) use of oral hypoglycemic drugs; Z79.899 Other long term (current) drug therapy; Z82.49 Family history of ischemic heart disease and other diseases of the circulatory system; G47.33 Obstructive sleep apnea (adult) (pediatric)
CPT/HCPCS: 80053; 82607; 83735; 85025; 85610; 85730; 93971; 94640; 96374; 96375; 96376; 99291

== ENCOUNTER → 2025-09-03 11:25 | Outpatient (REF) | payer OTHER, SELFPAY | LOC: RAD 11:25 | PROVIDERS: ATTENDING PHYSICIAN Family Medicine | DX: R05.1 Acute cough (principal); J40 Bronchitis, not specified as acute or chronic | CPT/HCPCS: 71046 ==

== ENCOUNTER 2025-09-05 14:13 | Inpatient (IN) | payer OTHER, SELFPAY ==
[2025-09-05] VITALS (16 sets, daily range): BP systolic 91–174; BP diastolic 41–146; BMI 30.8
[2025-09-05 08:53] LABS: Hematocrit 36.0 % (39.0-52.0); Hemoglobin 12.5 g/dL (13.0-18.0); Mean Corp Hgb Conc. 34.7 g/dL (33.0-37.0); Mean Corpuscular Volume 98.6 fL (80.0-94.0); Nucleated Red Blood Cells % 0 % (-); Platelet Count 163 10^3/uL (130-400); Red Cell Dist. Width 16.5 % (11.5-14.5)
--- NOTE | 2025-09-05 09:03 | ED.GENMED ---
History of Present Illness
General
Chief Complaint: Blood Sugar Problem
Time Seen by Provider: 09/05/25 08:27
History of Present Illness
History of Present Illness:
Patient is a 74-year-old man with history of cirrhosis, non-Hodgkin's lymphoma, DVT currently on Eliquis presenting to the emergency department with elevated blood sugar. Patient gets weekly blood work to make sure his platelets are okay as he is
on Eliquis. This morning he got a call from his GI doctor as his blood sugar was elevated. Patient has no history of diabetes or problems with his blood sugar. He did recently finish steroids on Monday for a cold. He has no known pancreatic
problems. No abdominal pain. He does state that he has been having ascites lately that is being worked up by GI. No nausea or vomiting. No diarrhea. No fevers chills chest pain shortness of breath.
Past History
Past History
ED Past Medical History: Cancer, GERD, HTN, Other (Chronic low back pain, DJD) and Other (Allergic rhinitis, sleep apnea)
ED Past Surgical History: Orthopedic (Right shoulder surgery, right femur surgery) and Other (Hemorrhoidectomy)
Social History
Tobacco: Former smoker
Alcohol: Daily (Wine, beer or mixed drink 2-3)
Drug: None
Personal:
Living: with family
Employment: Not employed
Family History
Family History: Hypertension and CAD (Father of an [place] in his late 70s, no history of early coronary artery disease); Negative Sudden
Phy Exam
Physical Exam
Physical Exam:
GENERAL: in no acute distress
HEENT: normocephalic, extraocular movements intact, moist oral mucosa
NECK: normal inspection
RESPIRATORY: no respiratory distress, clear to auscultation bilaterally
CARDIOVASCULAR: regular rate and rhythm
ABDOMEN/: soft, distended, non-tender to palpation, no rebound or guarding
EXTREMITIES: non-tender, no edema/swelling
NEUROLOGIC: awake and alert, moves all extremities
SKIN: warm
Course
Orders/Labs/Results
Orders:
Orders
09/05/25 08:46
Basic Metabolic Panel Urgent
Complete Blood Count/With Diff Urgent
Glycohemoglobin (HgbA1c) Urgent
09/05/25 09:40
Lactated Ringers [Lr] 500 ml IV BOLUS
09/05/25 09:53
Add On- LAB Urgent
Tests Added?: a1c
09/05/25 10:08
Urinalysis Reflex To Culture Urgent
Date Specimen was Collected: 09/05/25
Time Specimen was Collected: 10:07
09/05/25 10:10
WOUND/OSTOMY CONSULT Routine
Reason for Consult: leg wounds/arm wounds
09/05/25 10:17
CT Abd/pelvis W Iv Cont Urgent
Comment:
Reason For Exam: ascites, r/o new pancreatic masses
09/05/25 11:46
Glucose Stat
Abnormal Lab Results
09/05/25 09/05/25 09/05/25
08:46 10:08 11:40
RBC 3.65 L 10^6/uL
(4.70-6.10)
Hgb 12.5 L g/dL
(13.0-18.0)
Hct 36.0 L %
(39.0-52.0)
MCV 98.6 H fL
(80.0-94.0)
MCH 34.2 H pg
(27.0-31.0)
RDW 16.5 H %
(11.5-14.5)
MPV 11.8 H fL
(7.4-10.4)
Absolute Lymphs (auto) 1.0 L 10^3/uL
(1.2-3.4)
Immature Gran % 0.8 H %
(0-0.5)
Neutrophils % 76.6 H %
(42.2-75.2)
Lymphocytes % 19.6 L %
(20.5-51.1)
Sodium 129 L mmol/L
(135-145)
Chloride 92 L mmol/L
(98-107)
BUN 50 H mg/dl
(9-20)
Creatinine 1.4 H mg/dL
(0.7-1.3)
Glucose 561 H* mg/dl
(70-99)
Hemoglobin A1c 10.1 H %
(4.0-5.9)
Urine Urobilinogen 2+ A
(Neg - 1+)
Urine Glucose 4+ A
(Negative)
POC Glucose 559 H* mg/dl
(70-99)
09/05/25
11:46
RBC
Hgb
Hct
MCV
MCH
RDW
MPV
Absolute Lymphs (auto)
Immature Gran %
Neutrophils %
Lymphocytes %
Sodium
Chloride
BUN
Creatinine
Glucose 492 H* mg/dl
(99)
Hemoglobin A1c
Urine Urobilinogen
Urine Glucose
POC Glucose
09/05/25 08:46
09/05/25 11:46
Vital Signs
Initial and Last Documented VS:
Initial Vital Signs
Temp Pulse Resp BP Pulse Ox
97.6 F 106 18 105/66 96
09/05/25 08:20 09/05/25 08:20 09/05/25 08:20 09/05/25 08:20 09/05/25 08:20
Last Documented Vital Signs
Temp Pulse Resp BP Pulse Ox
97.6 F 98 23 91/75 96
09/05/25 08:20 09/05/25 12:00 09/05/25 12:00 09/05/25 12:00 09/05/25 12:00
MDM/Problems Addressed
Differential Diagnosis Includes:
Patient is a 74-year-old man presenting to the emergency department elevated blood sugar seen on outpatient labs. On arrival patient's vital signs are notable for blood pressure 105/66. On exam patient is resting comfortably. Differential
consists of hyperglycemia secondary to steroids versus new onset diabetes versus DKA. History and exam not consistent with [facility]. Will check blood work. Patient does state that he has history of congestive heart failure so patient needs fluids will
give gentle fluid boluses.
*Pulse Oximetry
SaO2: 96
Oxygen Mode of Delivery: Room air
Patient hypoxic: no
*Critical Care Note
Total Time (30-74mins, 75-104mins- exclusive of procedures): Not Applicable
Update Note
Update Note:
Blood work consistent with hyperglycemia. Patient is not in DKA. Did discuss with endocrinology who recommended adding on A1c. Given patient's history of non-Hodgkin's lymphoma at this point I did add on a CT scan to evaluate pancreas.
Endocrinology recommended admission given the elevated A1c. Discussed with hospitalist who excepted patient to their service with CT scan pending.
ED Attending Note
-
Portions of this chart may have been created with voice recognition software.� Occasional wrong word or��sound alike� substitutions may have occurred due to the inherent limitations of voice recognition software.
Discharge Plan
Departure
Patient Disposition: Admit
Date of Disposition: 09/05/25
Time of Disposition: 12:51
Presentation/result/management discussed w/ accepting MD/DO: Hospitalist
Discharge Problem:
Hyperglycemia
Prescriptions:
No Action
losartan 50 MG tablet
100 mg PO DAILY
azelastine 1 SPRAY aerosol,spray
1 spray intranasal DAILYPRN PRN (Reason: allergies, nasal drip)
furosemide 40 mg Tablet
40 mg PO BID
prednisolone acetate 1 % Drops,Suspension
1 drp RIGHT EYE DIRECTED
Rx Instructions:
1 drop right eye tid for 1 week until 08/26/25 then 1 drop right eye bid until 08/31/25 then 1 drop right eye daily until 09/09/25
albuterol sulfate 90 mcg/actuation Hfa Aerosol Inhaler
2 puff INHALATION R Q6HPRN PRN (Reason: sob)
eltrombopag olamine 25 mg Tablet
25 mg PO DAILY
umeclidinium-vilanterol [Anoro Ellipta] 62.5-25 mcg/actuation Blister With Device
1 inh INHALATION R DAILY
Jardiance 10 mg Tablet
10 mg PO DAILY
Eliquis 5 mg Tablet
5 mg PO BID
atorvastatin 40 mg tablet
40 mg PO DAILY
clopidogrel 75 mg tablet
75 mg PO DAILY
pantoprazole 40 mg tablet,delayed release (DR/EC)
40 mg PO DAILY
Referrals:
UNKNOWN - PT DOES,NOT KNOW [Family Provider]
Interventions
Interventions:
*Risk Screen - Suicide Last Done: 09/05/25 08:20
*General Assessment Last Done: 09/05/25 09:05
*Neglect/Abuse Screening Last Done: 09/05/25 08:20
*ED- Fall Risk Assessment Last Done: 09/05/25 09:05
*ED COVID-19 Vaccine History Last Done: 09/05/25 09:05
*ED Influenza Vaccine History Last Done: 09/05/25 09:05
ED- Neurological Assessment Last Done: 09/05/25 09:05
Discharge Date and Time
Print Language: SLOVAK
[2025-09-05 09:23] LABS: Blood Urea Nitrogen 50 mg/dl (9-20); Calcium 9.3 mg/dl (8.4-10.2); Carbon Dioxide 29 mmol/L (22-30); Chloride 92 mmol/L (98-107); Estimated Creatinine Clearance 54 ml/min; Glucose 561 mg/dl (70-99); Potassium 4.7 mmol/L (3.5-5.1); Sodium 129 mmol/L (135-145); eGFR 52.74
[2025-09-05] MEDS: LR 500 IV (10:07)
[2025-09-05 10:34] LABS: Urine Character Clear (Clear)
[2025-09-05 11:42] LABS: Glucose - Point of Care 559 mg/dl (70-99)
[2025-09-05 11:55] LABS: Glycohemoglobin (HgbA1c) 10.1 % (4.0-5.9)
[2025-09-05 12:32] LABS: Glucose 492 mg/dl (70-99)
--- NOTE | 2025-09-05 12:55 | HPS.HSE ---
Addendum entered and electronically signed by Augusta Keane MD 09/05/25 14:36:
This is an addendum to H&P written by Nela Allen on 09/05/2025. �Patient seen and examined independently with [facility].
74-year-old male past medical history of right lower extremity DVT on Eliquis, non-Hodgkin's lymphoma of the spleen, thrombocytopenia, hypertension, CAD status post stent in April, alcoholic cirrhosis, pulmonary nodules, restrictive airway disease,
GERD, BPH, squamous cell skin cancer, anxiety, obstructive sleep apnea, presenting with elevated blood sugar on outpatient labs. �He recently completed steroids for upper respiratory infection.
He has shortness of breath worsening for 1 week with exertion despite antibiotic and steroid. Chronic cough.�
Urinary frequency for past few days.�
Increased abdominal distention and lower extremity edema.�
He had a fall 4 days ago and hit his head with bruise back of head and wound of left elbow and right lower extremity. He was seen at [facility] and had negative trauma workup.�
Vital signs unremarkable apart from mild tachycardia up to 105. �Blood pressure 91/55. Requiring 2L oxygen.�
Labs show blood sugar of 559. �Hemoglobin A1c 10.1. �Creatinine 1.4. Urinanalysis unremarkable. CXR 2 days ago unremarkable.� Ct abdomen pelvis shows mild to moderate ascites.�
Patient with hyperglycemia with A1c of 10.1 secondary to underlying diabetes/ exacerbated by steroid-induced hyperglycemia. �CAROLINA likely secondary to losartan/Lasix. �IV fluids were given. Hold lasix.� Dysnea likely due to restrictive lung disease
from ascites.�
Also concerned for decompensated cirrhosis. Check INR and LFTs. IR for paracentesis. GI consulted.�
Start Lantus 10 units and insulin sliding scale. �Will hold off on further IV fluids at this time due to cirrhosis.�
Wound care consulted for wound of left elbow and right lower extremity.�
Alcohol withdrawal protocol.� Thiamine and Folate.�
Original Note:
Family Physician
-
Family Physician: NOT KNOW UNKNOWN - PT DOES
Chief Complaint
-
elevated blood sugar
History of Present Illness
74-year-old man with history of cirrhosis, non-Hodgkin's lymphoma, DVT currently on Eliquis presenting to the emergency department with elevated blood sugar. Patient gets weekly blood work to make sure his platelets are okay as he is on Eliquis.
This morning he got a call from his GI doctor as his blood sugar was elevated. He did recently finish steroids more than a week ago for a cough that he is dealing with for weeks. patient had an right cataract surgery on Monday, on his way to home,
he lost the balance and fell backwards. he hit back of his head on the floor and sustained wound on his left arm. His trauma workups were negative to have active hospital. Patient stated short of breath which is worse with exertion due to his
large abdomen. Patient stated worsening abdominal distention as well as worsening lower extremities edema. He has chronic right lower extremity wound, which has recently started oozing clear. Patient has chronic cough which at times is productive
with clear sputum. Patient denied fever, chills, chest pain. Patient denied any headache or dizzy or syncope. Patient stated urinary frequency and polydipsia. Patient denied any nausea vomiting diarrhea or abdominal pain. Patient denied any
dysuria hematuria.
Upon arrival patient is requiring 2 L of oxygen. Patient also noted to have elevated blood sugar of 559. Patient received 1 L lactated Ringer's in the ER. Patient was evaluated by Woundcare.. 10 units of Lantus ordered in ER.Admitting for
further management
Medical History
Past Medical History
Past Medical History: Reports Other
Additional Past Medical History:
Hyperlipidemia, hypertension, GERD, allergic rhinitis, B-cell lymphoma, cirrhosis of liver, ascites, BPH, DVT, CHF, coronary artery disease
Past Surgical History: Reports Other
Additional Past Surgical History:
Cardiac stent rotator cuff repair, carpal tunnel release, laminectomy, right femur repair, hemorrhoidectomy, TURP, back surgery, prostate surgery, right arm stent, cataract surgery
Social History
Tobacco: Former Smoker
Alcohol: Daily (2-3 beers daily)
Drug: None
Personal:
Living: With Family
Family History
Family History: Not pertinent
Allergies / Home Medications
Allergies reflects when Allergies were last updated in [employer].
Home Medications with original date entered in [employer]
Allergy/Medication List:
Allergies
Allergy/AdvReac Type Severity Reaction Status Date / Time
YASMANY Inhibitors Allergy Unknown Verified 08/13/25 17:25
diphenhydramine (From Allergy Itching Verified 08/14/25 15:50
Benadryl)
oak Allergy runny nose Verified 08/14/25 15:50
ragweed pollen Allergy runny nose Verified 08/14/25 15:50
tree and shrub pollen Allergy MAPLE-runny Verified 08/14/25 15:50
nose
Home Medications
losartan 50 mg tablet 100 mg PO DAILY Blood Pressure 07/30/12
azelastine 137 mcg (0.1 %) nasal spray 1 spray intranasal DAILYPRN PRN allergies, nasal drip 08/20/21
furosemide 40 mg tablet 40 mg PO BID Fluid Retention/Swelling 04/07/25
albuterol sulfate 90 mcg/actuation aerosol inhaler 2 puff inhalation R Q6HPRN PRN sob 08/13/25
eltrombopag olamine 25 mg tablet 25 mg PO DAILY chemo 08/13/25
empagliflozin 10 mg tablet (Jardiance) 10 mg PO DAILY Diabetes 08/13/25
prednisolone acetate 1 % eye drops,suspension 1 drp RIGHT EYE DIRECTED 08/13/25
umeclidinium 62.5 mcg-vilanterol 25 mcg/actuation powdr for inhalation (Anoro Ellipta) 1 inh inhalation R DAILY sob 08/13/25
apixaban 5 mg tablet (Eliquis) 5 mg PO BID Blood Clot Prevention/Tx 09/05/25
atorvastatin 40 mg tablet 40 mg PO DAILY High Cholesterol 09/05/25
clopidogrel 75 mg tablet 75 mg PO DAILY Blood Clot Prevention/Tx 09/05/25
pantoprazole 40 mg tablet,delayed release 40 mg PO DAILY gerd 09/05/25
Review of Systems
-
EENT: Reports No Symptoms
Respiratory: Reports Cough and Trouble Breathing
Cardiac: Reports No Symptoms
Abdomen/GI: Reports No Symptoms and Other (Distention)
: Reports No Symptoms
Musculoskeletal: Reports No Symptoms
Skin: Reports No Symptoms
Neurological: Reports No Symptoms
Endocrine: Reports Polyuria and Polydipsia
Hematologic/Lymphatic: Reports No Symptoms
Psych: Reports No Symptoms
Physical Exam
Vital Signs
Vital Signs
Temp Pulse Resp BP Pulse Ox
97.6 F 98 23 91/75 96
09/05/25 08:20 09/05/25 12:00 09/05/25 12:00 09/05/25 12:00 09/05/25 12:00
Physical Exam
General: Well Developed, Well Nourished and No Apparent Distress
HEENT: NormoCephalic, Moist mucous membranes and Atraumatic
Respiratory: Decreased Breath Sounds
Cardiac: S1/S2 and Regular Rhythm; No Murmur or Rub
GI: Soft, Non Tender, Normal Bowel Sounds and Distended; No Organomegaly
Rectal: Deferred by Provider
Musculoskeletal: No Clubbing, No Cyanosis and Other (Bilateral lower extremities edema)
Skin: Rash and Other (Right lower extremities wound, left upper arm wound)
Neuro: AO x 3 and Nonfocal/grossly intact
Psych: Calm
Laboratory Results
-
09/05/25 08:46
09/05/25 11:46
Data Reviewed
-
Lab Data: Labs Reviewed by me
Impression/Plan
-
# New onset diabetes
- A1c 10.1
- Blood sugar elevated in 500s
- Lantus 10 units in the ER
- Continue Lantus, sliding scale
# History of non-Hodgkin's lymphoma of spleen
# Acute hypoxic respiratory failure likely from abdominal distention/atelectasis
restrictive lung disease
-Patient is requiring 2 L of oxygen, continue supplemental oxygen to keep sat greater than 95, wean as tolerated
-albuterol,breo continued
- Recent chest x-ray with impression of Bibasilar linear opacities, most suggestive of subsegmental atelectasis.
# Abdominal distention/lower extremities edema concern for ascites
#history of alcoholic cirrhosis
-CT of abdomen No abnormal focal pancreatic lesions identified.
2. Advanced changes of hepatic cirrhosis and portal hypertension with associated splenomegaly. No suspicious focal hepatic lesion identified at CT.
3. Small to moderate volume of ascites.
4. Atelectatic changes at the bilateral lung bases. Small amount of airspace consolidation along the paramediastinal right lower lobe as above which is most likely also atelectatic.
-IR consulted for paracentesis
-GI consulted.
# Right lower extremity/left upper extremity wound
- Wound care consulted
#recent fall likely mechanical
-PT/OT consulted
-trauma workup negative at [facility]
# Acute kidney injury likely cardiorenal
- Creatinine 1.4
- Continue to monitor
#Right leg DVT
-eliquis
#History thrombocytopenia
-PLT 163
-continue eltrombopag
#HTN
-BP soft in ER
-hold losartan
#Cataract surgery
-Continue prednisone alone 1 drop left eye as directed
#CAD/LAD stent April 2025
-Continue atorvastatin, Plavix 75 mg daily-
- 2D echo 03/04/2025: EF 60 to 65%, normal LVS LVSF no wall abnormalities, normal diastolic function
#Alcoholic cirrhosis
#Alcohol use disorder
-Recommended cessation given history of cirrhosis
-Patient drinks 1-2 beers daily last drink yesterday afternoon
#Chronic peripheral edema
#CHF
-hold Lasix
-hold jardiance
#GERD
-Continue Protonix
#BPH
#hxt of TURP
#Squamous cell skin CA
Anxiety
Sleep apnea
Full code
--- NOTE | 2025-09-05 13:34 | WOUNDNOTE ---
[facility] RN NOTE: RN Ayah requested visit for wound care, as patient has abrasion on right lower leg and skin tear on left arm. RN requested visit as requesting help with wounds. Patient also noted to have blanchable sacrum and bruise from recent
fall. Heels are blanchable and intact. Patient has bilateral LE +3 edema and does not wear compression. Left leg abrasion and left arm skin tear are superficial but are taking weeks to heal due to comorbidities. Local wound care provided with
adaptic and dry dressing. Will recommend air mattress if patient is admitted. Will sign off.
--- NOTE | 2025-09-05 13:43 | WOUNDNOTE ---
LEFT ARM SKIN TEAR
[2025-09-05 14:07] LABS: Glucose - Point of Care 531 mg/dl (70-99)
[2025-09-05] MEDS: LANTUS 0.1 UNITS SC (14:09)
--- NOTE | 2025-09-05 14:19 | PN.DE.MGMTRT ---
Insulin Management
- -
09/05/2025: Diabetes Management Consult
74 year old male who presented to the ED with elevated blood sugar.
PMH: HTN, HLD, CAD s/p stent to LAD 04/2025, CHF, GERD, allergic rhinitis, Alcohol Cirrhosis, Non-Hodgkin's Lymphoma, RLE DVT on Eliquis , Ascites, BPH,
Patient gets weekly blood work to make sure his platelets are okay as he is on Eliquis. This morning he got a call from his GI doctor as his blood sugar was elevated. He did recently finish steroids more than a week ago for a cough that he is
dealing with for weeks. He has a chronic cough which at times is productive with clear sputum. He also has chronic right lower extremity wound, which has recently started oozing clear. Patient reports urinary frequency and polydipsia. He denies any
nausea vomiting diarrhea or abdominal pain.
He was taking Jardiance 10 mg daily prior to admission. A1C 10.1%, Cr 1.4, eGFR 52.74.
Upon arrival patient was noted to have elevated blood sugar of 559, he was treated with 10 units of Lantus and 1 Liter of LR.
Patient was not available at time of my visit, he was in IR for a thoracentesis, unable to interview.
Spoke to pt's Christina via phone who reports that pt has recently had significant physical decline over the last couple of months and that he has been on and off steroids for a few weeks. Discussed with Christina that pt will need insulin
therapy for optimal glucose control.
Will start Lantus 15 units @ HS and NovoLog 6 units AC and low corrective insulin with meals
Established plan for pt to followup with the diabetes office next week for diabetes education if he is discharged home this weekend.
Discussed with Nurse.
Diabetes History
- -
Type of Diabetes: 2 requiring insulin
Pre-Admission Diabetes Regimen
09/05/25
08:46
Creatinine 1.4 H
Lab Results
Hemoglobin A1c 10.1 % (4.0-5.9) H 09/05/25 08:46
Insulin Pump Settings
IP Diabetes Regimen
09/05/25 09/05/25 09/05/25
08:46 11:40 11:46
Glucose 561 H* 492 H*
POC Glucose 559 H*
09/05/25
14:06
Glucose
POC Glucose 531 H*
Patient Education
--- NOTE | 2025-09-05 14:22 | EDCM ---
CM reviewed chart and met with pt and bedside in ED. Pt lives with in split level home, 1 [address]. first floor half bath, total of 14 steps to bedroom and full bath.
Independent in ADLs, personal care and ambulation at baseline. Per she has needed to assist him to standing recently.
Recently using cane for ambulation, large amt peripheral edema. Had recent fall with several skin tears.
Pt also has wheelchair.
Confirms prescription coverage.
No hx VN or SNF
PCP: Surendra Cox
Pharmacy: [facility]
Anticipate discharge home, CM will continue to follow for all discharge planning needs.
--- NOTE | 2025-09-05 15:14 | CON.GI ---
Consultation
-
Date/Time Consultation Performed: 09/05/2025
Performing Provider: Otis Salamanca MD
Reason for Consultation: cirrhosis
Medical History
Chief Complaint / HPI
Chief Complaint: hyperglycemia
History of Present Illness:
The patient is a 74-year-old male with past medical history as noted with cirrhosis. I was contacted by [facility] that his glucose was critically high, above 600 and advised him to the emergency room, where his glucose was found to be 561 and
hemoglobin A1c of 10. He had been on steroids recently after pneumonia, and unfortunately has had a rough few months with DVT, now on Eliquis as well as prolonged platelet therapy, pneumonia with lung consolidation. He did have his PET/CT that
showed resolution of this. He did have successful cataract replacement after improvement in his platelets. He has been having some increasing lower extremity edema, with Lasix managed by cardiology, was taking 40 mg in the morning and 20 mg at
night. He has never had ascites large enough to tap in the past and has had chronic abdominal girth and usually only mild lower extremity edema. He is now feeling better after paracentesis of 3 L
Past Medical History
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 Recent DVT, splenic
marginal zone lymphoma, chronic thrombocytopenia, CHF, coronary artery disease st)
Past Surgical History: Other (rotator cuff R repaired 1999 carpal tunnel L 2009 laminectomy L4-L5 2011 2011 right femur repair 1973 1973 hemorrhoidectomy 1970s 1970 TURP 04/2022 back surgery shoulder surgery prostate surgery rt arm stent
04/2025 cataract 08/2025)
Social History
Tobacco: Non-Smoker
Alcohol: Occasional
Family History
Family History: Reviewed & Not Pertinent
Allergies / Home Medications
Allergy/AdvReac Type Severity Reaction Status Date / Time
YASMANY Inhibitors Allergy Unknown Verified 08/13/25 17:25
diphenhydramine (From Allergy Itching Verified 08/14/25 15:50
Benadryl)
oak Allergy runny nose Verified 08/14/25 15:50
ragweed pollen Allergy runny nose Verified 08/14/25 15:50
tree and shrub pollen Allergy MAPLE-runny Verified 08/14/25 15:50
nose
�Medication �Instructions �Recorded
losartan 50 mg tablet 100 mg PO DAILY Blood Pressure 07/30/12
azelastine 137 mcg (0.1 %) nasal 1 spray intranasal DAILYPRN PRN 08/20/21
spray allergies, nasal drip
furosemide 40 mg tablet 40 mg PO BID Fluid 04/07/25
Retention/Swelling
albuterol sulfate 90 mcg/actuation 2 puff inhalation R Q6HPRN PRN sob 08/13/25
aerosol inhaler
eltrombopag olamine 25 mg tablet 25 mg PO DAILY chemo 08/13/25
empagliflozin 10 mg tablet 10 mg PO DAILY Diabetes 08/13/25
(Jardiance)
prednisolone acetate 1 % eye 1 drp RIGHT EYE DIRECTED 08/13/25
drops,suspension
umeclidinium 62.5 mcg-vilanterol 1 inh inhalation R DAILY sob 08/13/25
25 mcg/actuation powdr for
inhalation (Anoro Ellipta)
apixaban 5 mg tablet (Eliquis) 5 mg PO BID Blood Clot 09/05/25
Prevention/Tx
atorvastatin 40 mg tablet 40 mg PO DAILY High Cholesterol 09/05/25
clopidogrel 75 mg tablet 75 mg PO DAILY Blood Clot 09/05/25
Prevention/Tx
pantoprazole 40 mg tablet,delayed 40 mg PO DAILY gerd 09/05/25
release
Review of Systems
-
All other systems: A 12 pt ROS was Negative except as stated above in HPI
Vital Signs
Temp Pulse Resp BP Pulse Ox
98.1 F 95 18 110/48 96
09/05/25 14:32 09/05/25 14:32 09/05/25 14:32 09/05/25 14:32 09/05/25 14:32
Physical Exam
Exam
General: NAD
HEENT: MMM, anicteric, no lymphadenopathy
Heart: Regular, no murmurs
Lungs: CTA bilaterally
Abdomen: normal bowel sounds, soft, no tenderness, no rebound or guarding, no masses, bruits
Extremeties: 3+ edema
Skin: no rashes
Results
WBC 5.1 10^3/uL (4.8-10.8) 09/05/25 08:46
Hgb 12.5 g/dL (13.0-18.0) L 09/05/25 08:46
Hct 36.0 % (39.0-52.0) L 09/05/25 08:46
MCV 98.6 fL (80.0-94.0) H 09/05/25 08:46
Plt Count 163 10^3/uL (130-400) 09/05/25 08:46
Absolute Neuts (auto) 3.9 10^3/uL (1.4-6.5) 09/05/25 08:46
Sodium 129 mmol/L (135-145) L 09/05/25 08:46
Potassium 4.7 mmol/L (3.5-5.1) 09/05/25 08:46
Chloride 92 mmol/L (98-107) L 09/05/25 08:46
Carbon Dioxide 29 mmol/L (22-30) 09/05/25 08:46
BUN 50 mg/dl (9-20) H 09/05/25 08:46
Creatinine 1.4 mg/dL (0.7-1.3) H 09/05/25 08:46
Calcium 9.3 mg/dl (8.4-10.2) 09/05/25 08:46
Diagnostic Image Results:
CT:
IMPRESSION:
1. No abnormal focal pancreatic lesions identified.
2. Advanced changes of hepatic cirrhosis and portal hypertension with associated splenomegaly. No suspicious focal hepatic lesion identified at CT.
3. Small to moderate volume of ascites.
4. Atelectatic changes at the bilateral lung bases. Small amount of airspace consolidation along the paramediastinal right lower lobe as above which is most likely also atelectatic.
Prior GI Procedures:
EGD:
Colonoscopy:
Assessment / Plan
-
1. 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 He has been having some more recent edema
despite his increased Lasix dose, and CT scan now also has increased ascites. He is not feeling much better after 3 L paracentesis, await ascitic studies. He has recently had his Lasix increased to 40 in the morning and 20 at night, and we will
add 50 Aldactone to his morning dose for now. We discussed the importance of sodium restriction. Will continue to trend electrolytes for now. His alpha-fetoprotein had been elevated in the past though MRI and triple phase CT were negative, now
has been normal, due for repeat.
-
-
Thank you for consultation and allowing me to participate in the patient's care. Please call the performance consultant GI physician during the after hours with any questions or concerns.
[2025-09-05 16:20] LABS: Body Fluid Second Tech DW
[2025-09-05 16:38] LABS: Glucose - Point of Care 419 mg/dl (70-99)
[2025-09-05 17:04] LABS: INR 1.58; PT 19.1 Sec (11.4-14.6)
[2025-09-05 17:16] LABS: ALT (SGPT) 55 U/L (0-50); AST (SGOT) 30 U/L (17-59); Albumin 2.9 g/dl (3.5-5.0); Alkaline Phosphatase 177 U/L (38-126); Glucose 413 mg/dl (70-99); Total Protein 6.1 g/dl (6.3-8.2)
[2025-09-05] MEDS: NOVOLOG FLEXPEN 6 UNITS SC ×2 (17:25→22:56)
[2025-09-05] MEDS: NOVOLOG FLEXPEN-LOW RESISTANCE 6 UNITS SC (17:30)
--- NOTE | 2025-09-05 18:05 | PTCARENOTE ---
Received patient from ED via stretcher. Pt AAOX3. Pox: 94% RA. NSR on playground monitor. Patient denies pain/SOB. MSAS 2 at this time. at bedside. Bed alarm on. Call rosado within reach. Plan of care ongoing.
[2025-09-05 18:27] LABS: Urine Character Clear (Clear)
[2025-09-05 18:34] LABS: Urine Squamous Cell 16-20 /LPF (Few)
[2025-09-05 18:37] LABS: APTT 30.6 Sec (23.4-35.0)
[2025-09-05 18:39] LABS: GGTP 206 U/L (15-73); Magnesium 2.4 mg/dl (1.6-2.3)
[2025-09-05] MEDS: PRED FORTE 1% EYE DROPS 1 DROP RIGHT EYE (18:39)
[2025-09-05] MEDS: ELIQUIS 5 MG PO (19:51)
[2025-09-05] MEDS: THIAMINE INJECTION 200 MG IV (19:51)
[2025-09-05 21:36] LABS: Glucose - Point of Care 446 mg/dl (70-99)
[2025-09-05] MEDS: ATIVAN 1 MG PO (21:48)
[2025-09-05 22:49] LABS: Glucose 388 mg/dl (70-99)
[2025-09-05] MEDS: LANTUS 0.15 UNITS SC (22:52)
[2025-09-06] VITALS (9 sets, daily range): BP systolic 100–133; BP diastolic 63–78; PULSE 111
[2025-09-06] MEDS: ATIVAN 1 MG PO (02:48)
[2025-09-06 07:44] LABS: Glucose - Point of Care 344 mg/dl (70-99)
[2025-09-06 07:49] LABS: INR 1.75; PT 20.6 Sec (11.4-14.6)
[2025-09-06 07:50] LABS: Hematocrit 34.3 % (39.0-52.0); Hemoglobin 11.7 g/dL (13.0-18.0); Mean Corp Hgb Conc. 34.1 g/dL (33.0-37.0); Mean Corpuscular Volume 99.4 fL (80.0-94.0); Platelet Count 106 10^3/uL (130-400); Red Cell Dist. Width 16.4 % (11.5-14.5)
[2025-09-06 08:11] LABS: ALT (SGPT) 59 U/L (0-50); AST (SGOT) 34 U/L (17-59); Albumin 2.9 g/dl (3.5-5.0); Alkaline Phosphatase 161 U/L (38-126); Blood Urea Nitrogen 43 mg/dl (9-20); Calcium 9.2 mg/dl (8.4-10.2); Carbon Dioxide 30 mmol/L (22-30); Chloride 96 mmol/L (98-107); Estimated Creatinine Clearance 76 ml/min; Glucose 318 mg/dl (70-99); Magnesium 2.3 mg/dl (1.6-2.3); Potassium 3.9 mmol/L (3.5-5.1); Sodium 129 mmol/L (135-145); Total Protein 6.3 g/dl (6.3-8.2); eGFR > 60.00
[2025-09-06] MEDS: STRIVERDI RESPIMAT 2 PUFF INH (08:22)
[2025-09-06] MEDS: SPIRIVA RESPIMAT 2.5 MCG 2 PUFF INH (08:22)
[2025-09-06] MEDS: NOVOLOG FLEXPEN 6 UNITS SC ×2 (08:35→12:43)
[2025-09-06] MEDS: LIPITOR 40 MG PO (08:36)
[2025-09-06] MEDS: ALDACTONE 50 MG PO (08:36)
[2025-09-06] MEDS: PLAVIX 75 MG PO (08:36)
[2025-09-06] MEDS: ELIQUIS 5 MG PO ×2 (08:36→21:40)
[2025-09-06] MEDS: FOLVITE 1 MG PO (08:36)
[2025-09-06] MEDS: PROTONIX 40 MG PO (08:36)
[2025-09-06] MEDS: NOVOLOG FLEXPEN-MODERATE RESISTANCE 7 UNITS SC (08:36)
[2025-09-06] MEDS: PRED FORTE 1% EYE DROPS 1 DROP RIGHT EYE (08:37)
[2025-09-06] MEDS: THIAMINE INJECTION 200 MG IV ×2 (08:39→21:47)
--- NOTE | 2025-09-06 08:42 | W.PN.HOSP.TC ---
Today's Communication/Plan
-
Resume Lasix, Aldactone added
Continue to monitor on telemetry
Oxygen as needed
See plan
Assessment / Plan
Assessment / Plan
Physical Exam
General: Well Developed, Well Nourished and No Apparent Distress
HEENT: NormoCephalic, Moist mucous membranes and Atraumatic
Respiratory: Decreased Breath Sounds
Cardiac: S1/S2 and Regular Rhythm; No Murmur or Rub
GI: Soft, Non Tender, Normal Bowel Sounds and Distended; No Organomegaly
Rectal: Deferred by Provider
Musculoskeletal: No Clubbing, No Cyanosis and Other (Bilateral lower extremities edema)
Skin: Rash and Other (Right lower extremities wound, left upper arm wound)
Neuro: AO x 3 and Nonfocal/grossly intact
Psych: Calm
Assessment/Plan
74-year-old male past medical history of right lower extremity DVT on Eliquis, non-Hodgkin's lymphoma of the spleen, thrombocytopenia, hypertension, CAD status post stent in April, alcoholic cirrhosis, pulmonary nodules, restrictive airway disease,
GERD, BPH, squamous cell skin cancer, anxiety, obstructive sleep apnea, presenting with elevated blood sugar on outpatient labs. He recently completed steroids for upper respiratory infection. He has shortness of breath worsening for 1 week with
exertion despite antibiotic and steroid. Chronic cough. Urinary frequency for past few days. Increased abdominal distention and lower extremity edema. He had a fall 4 days ago and hit his head with bruise back of head and wound of left elbow and
right lower extremity. He was seen at [place] [facility] and had negative trauma workup. Vital signs unremarkable apart from mild tachycardia up to 105. Blood pressure 91/55. Requiring 2L oxygen. Labs showed blood sugar of 559. Hemoglobin A1c 10.1.
Creatinine 1.4. Urinalysis unremarkable. CXR [address] abdomen pelvis shows mild to moderate ascites. Patient with hyperglycemia with A1c of 10.1 secondary to underlying diabetes/ exacerbated by steroid-induced hyperglycemia. [place]
likely secondary to losartan/Lasix. IV fluids were given around the time of admission. Hold lasix. Dysnea likely due to restrictive lung disease from ascites. Also concerned for decompensated cirrhosis. Check INR and LFTs. IR for paracentesis. GI
consulted. Started Lantus 10 units and insulin sliding scale. Will hold off on further IV fluids at this time due to cirrhosis. Wound care consulted for wound of left elbow and right lower extremity. Alcohol withdrawal protocol. Thiamine and
Folate.
# New onset diabetes mellitus with urinary frequency and polydypsia
- Recently finish steroids more than a week prior to presentation for a cough that he is dealing with for weeks
- A1c 10.1
- Blood sugar elevated in 500s
- Lantus 10 units in the ER
- Continue Lantus, premeal Insulin and sliding scale -- titrate to ensure good glucose control
#Acute hypoxic respiratory failure likely from abdominal distention/atelectasis
#Restrictive lung disease?
-albuterol,breo continued
- Recent chest x-ray with impression of Bibasilar linear opacities, most suggestive of subsegmental atelectasis.
-After paracentesis on 09/05/25, hypoxia resolved, except when sleeping
-May need CPAP given [place] below
# Abdominal distention/lower extremities edema concern for ascites
#history of alcoholic cirrhosis
-CT of abdomen No abnormal focal pancreatic lesions identified.
2. Advanced changes of hepatic cirrhosis and portal hypertension with associated splenomegaly. No suspicious focal hepatic lesion identified at CT.
3. Small to moderate volume of ascites.
4. Atelectatic changes at the bilateral lung bases. Small amount of airspace consolidation along the paramediastinal right lower lobe as above which is most likely also atelectatic.
-IR consulted for paracentesis -- paracentesis performed on 09/05/25 with 3000 cc of hazy yellow ascitic fluid removed
-GI consulted.
#Recent right eye cataract surgery on 09/01/25
-Continue Ofloxacin eye drops
-Continue Prednisolone Eye Drops
-Discussed on 09/06/25 eye drops regimen with patient's daughter Bianca
#Recent on his way to home on 09/01/25 from eye cataract surgery appointment, he lost the balance and fell backwards -- patient hit the back of his head on the floor and sustained wound on his left arm
-Trauma evaluation was unremarkable at [facility]
# Right lower extremity/left upper extremity wound
- Wound care consulted
#recent fall likely mechanical
-PT/OT consulted
-trauma workup negative at [facility]
# Acute kidney injury possibly hepatorenal
- IV fluids were initially given in the ER this admission given CAR[place]INA
- Creatinine 1.4-->1.0
- Continue to monitor
#Right leg DVT
-Recently diagnosed
-Continue Eliquis
#History of non-Hodgkin's lymphoma of spleen
#History thrombocytopenia
-PLT 163
-continue eltrombopag
-Sees [facility]
#HTN
-BP soft in ER
-hold losartan (patient's family mentioned that he takes Losartan 50 mg daily at home -- not 100 mg daily)
#Cataract surgery
-Continue prednisone alone 1 drop left eye as directed
#CAD/LAD stent April 2025
-Continue atorvastatin, Plavix 75 mg daily-
- 2D echo 03/04/2025: EF 60 to 65%, normal LVS LVSF no wall abnormalities, normal diastolic function
#Alcoholic cirrhosis
#Esophageal Varices
#Alcohol use disorder
-Recommended cessation given history of cirrhosis
-Patient drinks 1-2 beers daily last drink 09/04/25 afternoon
-MSAS/alcohol withdrawal protocol
#Chronic peripheral edema
#CHF
-Resume Lasix
-hold jardiance
#GERD
-Continue Protonix
#BPH
#History of TURP
#Squamous cell skin CA
#Anxiety
#Sleep apnea
#Hypoxia when sleeping
-Per nurse communication: pulse oximetry had been 93% and above since starting continuous pulse oximetry on 09/06/25
-Per nurse, when patient just laid down to take a nap after lunch on 09/06/25, his oxygen level was through and consistently at 87% - 2 L O2 placed
-Will check with pulm about starting him on CPAP
#Left Elbow and RLE wounds
#Chronic RLE wound
-Wound care consultation
Code Status: Full code
personal development educator: daughter Bianca -- phone number: [phone]
On 09/06/25, I spoke extensively with patient, patient's and patient's daughter Bianca, and I answered all of their questions and concerns to satisfaction.
Total time spent today on caring for the patient, including chart review, seeing and examining patient, speaking with the patient's nurse and speaking extensively with patient's family, was 65 minutes.
Anticipated Discharge: > 48 hours
Subjective/Interval History
-
Date of Service: September 06, 2025
Patient was seen and examined. He reported doing okay, denied any new symptoms or complaints.
Objective Data
-
Labs:
Laboratory Results
09/05/25 09/06/25
22:21 07:29
WBC 3.0 L
Hgb 11.7 L
Hct 34.3 L
Plt Count 106 L D
PT 20.6 H
INR 1.75
Sodium 129 L
Potassium 3.9
Chloride 96 L
Carbon Dioxide 30
BUN 43 H
Creatinine 1.0
Glucose 388 H 318 H
Calcium 9.2
Total Bilirubin 3.1 H
AST 34
ALT 59 H
Alkaline Phosphatase 161 H
Vital Signs:
Vital Signs
Temp Pulse Resp BP Pulse Ox
97.4 F 95 18 133/78 97
09/06/25 07:00 09/06/25 08:25 09/06/25 08:25 09/06/25 07:00 09/06/25 08:25
I&O
09/05/25 09/06/25 09/07/25
06:59 06:59 05:59
Intake Total 480 / 480
Output Total 450 / 450
Balance -450 / -450 480 / 480
--- NOTE | 2025-09-06 09:51 | W.PN.GI.CBS2 ---
Today's Communication / Plan
-
Please see assessment and plan for details.
Assessment / Plan
-
1. 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 He has been having some more recent edema
despite his increased Lasix dose, and CT scan now also has increased ascites. He is now feeling much better after 3 L paracentesis, studies negative for SBP. He has recently had his Lasix increased to 40 in the morning and 20 at night, and we will
add 50 Aldactone to his morning dose for now. We discussed the importance of sodium restriction. Will continue to trend electrolytes for now. His alpha-fetoprotein had been elevated in the past though MRI and triple phase CT were negative, repeat
this week also normal.
Subjective
Subjective
Date of Service: September 06, 2025
Patient feeling okay, feels much better since paracentesis. No abdominal pain, nausea or vomiting, fever or chills.
Objective
Data Reviewed
Laboratory Data:
Laboratory Results
09/06/25 07:29
09/06/25 07:29
Laboratory Results
PT 20.6 Sec (11.4-14.6) H 09/06/25 07:29
INR 1.75 09/06/25 07:29
APTT 30.6 Sec (23.4-35.0) 09/05/25 18:19
Phosphorus 3.4 mg/dl (2.5-4.5) 09/05/25 18:16
Magnesium 2.3 mg/dl (1.6-2.3) 09/06/25 07:29
Total Bilirubin 3.1 mg/dl (0.2-1.3) H 09/06/25 07:29
AST 34 U/L (17-59) 09/06/25 07:29
ALT 59 U/L (0-50) H 09/06/25 07:29
Alkaline Phosphatase 161 U/L (38-126) H 09/06/25 07:29
Vital Signs and I&O:
Vital Signs
Temp Pulse Resp BP Pulse Ox
97.4 F 95 18 133/78 97
09/06/25 07:00 09/06/25 08:25 09/06/25 08:25 09/06/25 07:00 09/06/25 08:25
I&O
09/05/25 09/06/25 09/07/25
06:59 06:59 05:59
Intake Total 480 / 480
Output Total 450 / 450
Balance -450 / -450 480 / 480
Physical Exam
Physical Exam
General: NAD, alert and oriented x 3
Abdomen: normal bowel sounds, soft, no tenderness, no masses or bruits, minimal ascites
[2025-09-06 12:08] LABS: Glucose - Point of Care 295 mg/dl (70-99)
--- NOTE | 2025-09-06 12:34 | CM ---
CM consulted for substance abuse counseling. Spoke w/ patient's , she confirmed patient does drink beer, no longer drinks wine. Spouse confirmed there are no concerns w/ patient's alcohol consumption at this time. Spouse will follow up w/ CM if
she would like resources prior to patient's d/c
[2025-09-06] MEDS: NOVOLOG FLEXPEN-MODERATE RESISTANCE 5 UNITS SC (12:43)
[2025-09-06] MEDS: OCUFLOX 1 DROP OPHTH ×3 (12:45→22:46)
[2025-09-06] MEDS: PRED FORTE 1% EYE DROPS 1 DROP OPHTH ×3 (12:45→22:48)
[2025-09-06 17:13] LABS: Glucose - Point of Care 238 mg/dl (70-99)
[2025-09-06] MEDS: NOVOLOG FLEXPEN 7 UNITS SC (17:52)
[2025-09-06] MEDS: NOVOLOG FLEXPEN-MODERATE RESISTANCE 3 UNITS SC (17:52)
[2025-09-06 21:29] LABS: Glucose - Point of Care 228 mg/dl (70-99)
[2025-09-06] MEDS: LASIX 40 MG PO (21:41)
[2025-09-06] MEDS: LANTUS 0.17 UNITS SC (22:45)
[2025-09-06] MEDS: MELATONIN 5 MG PO (22:48)
[2025-09-07 03:37] VITALS: BP 126/78
[2025-09-07 06:00] VITALS: BMI 29.1
[2025-09-07 07:00] VITALS: BP 121/67
[2025-09-07] MEDS: STRIVERDI RESPIMAT 2 PUFF INH (07:27)
[2025-09-07] MEDS: SPIRIVA RESPIMAT 2.5 MCG 2 PUFF INH (07:27)
[2025-09-07 07:40] LABS: Hematocrit 31.8 % (39.0-52.0); Hemoglobin 11.6 g/dL (13.0-18.0); Mean Corp Hgb Conc. 36.5 g/dL (33.0-37.0); Mean Corpuscular Volume 97.0 fL (80.0-94.0); Platelet Count 108 10^3/uL (130-400); Red Cell Dist. Width 16.3 % (11.5-14.5)
[2025-09-07 07:48] LABS: ALT (SGPT) 61 U/L (0-50); AST (SGOT) 45 U/L (17-59); Albumin 2.9 g/dl (3.5-5.0); Alkaline Phosphatase 133 U/L (38-126); Blood Urea Nitrogen 43 mg/dl (9-20); Calcium 8.6 mg/dl (8.4-10.2); Carbon Dioxide 28 mmol/L (22-30); Chloride 98 mmol/L (98-107); Estimated Creatinine Clearance 61 ml/min; Glucose 188 mg/dl (70-99); Potassium 3.7 mmol/L (3.5-5.1); Sodium 131 mmol/L (135-145); Total Protein 6.1 g/dl (6.3-8.2); eGFR > 60.00
--- NOTE | 2025-09-07 08:03 | W.PN.HOSP.TC ---
Today's Communication/Plan
-
Continue diuretics
See plan
Assessment / Plan
Assessment / Plan
Physical Exam
General: Well Developed, Well Nourished and No Apparent Distress
HEENT: Normocephalic, Moist mucous membranes and Atraumatic
Respiratory: Decreased Breath Sounds
Cardiac: S1/S2 and Regular Rhythm; No Murmur or Rub
GI: Soft, Non Tender, Normal Bowel Sounds and Distended
Musculoskeletal: No Cyanosis and Other (Bilateral lower extremities edema)
Skin: Rash and Other (Right lower extremities wound, left upper arm wound)
Neuro: AO x 3 and Nonfocal/grossly intact
Psych: Calm
Assessment/Plan
74-year-old male past medical history of right lower extremity DVT on Eliquis, non-Hodgkin's lymphoma of the spleen, thrombocytopenia, hypertension, CAD status post stent in April, alcoholic cirrhosis, pulmonary nodules, restrictive airway disease,
GERD, BPH, squamous cell skin cancer, anxiety, obstructive sleep apnea, presenting with elevated blood sugar on outpatient labs. He recently completed steroids for upper respiratory infection. He has shortness of breath worsening for 1 week with
exertion despite antibiotic and steroid. Chronic cough. Urinary frequency for past few days. Increased abdominal distention and lower extremity edema. He had a fall 4 days ago and hit his head with bruise back of head and wound of left elbow and
right lower extremity. He was seen at [facility] and had negative trauma workup. Vital signs unremarkable apart from mild tachycardia up to 105. Blood pressure 91/55. Requiring 2L oxygen. Labs showed blood sugar of 559. Hemoglobin A1c 10.1.
Creatinine 1.4. Urinalysis unremarkable. CXR [address] abdomen pelvis shows mild to moderate ascites. Patient with hyperglycemia with A1c of 10.1 secondary to underlying diabetes/ exacerbated by steroid-induced hyperglycemia. [place]
likely secondary to losartan/Lasix. IV fluids were given around the time of admission. Hold lasix. Dysnea likely due to restrictive lung disease from ascites. Also concerned for decompensated cirrhosis. Check INR and LFTs. IR for paracentesis. GI
consulted. Started Lantus 10 units and insulin sliding scale. Will hold off on further IV fluids at this time due to cirrhosis. Wound care consulted for wound of left elbow and right lower extremity. Alcohol withdrawal protocol. Thiamine and
Folate.
# New onset diabetes mellitus with urinary frequency and polydypsia
- Recently finish steroids more than a week prior to presentation for a cough that he is dealing with for weeks
- A1c 10.1
- Blood sugar was elevated in 500s
- Lantus 10 units in the ER
- Continue Lantus, premeal Insulin and sliding scale -- titrate to ensure good glucose control
#Acute hypoxic respiratory failure likely from abdominal distention/atelectasis
#Restrictive lung disease?
-albuterol,breo continued
- Recent chest x-ray with impression of Bibasilar linear opacities, most suggestive of subsegmental atelectasis.
-After paracentesis on 09/05/25, hypoxia resolved, except when sleeping
-May need CPAP given [place] below
# Abdominal distention/lower extremities edema concern for ascites
#history of alcoholic cirrhosis
-CT of abdomen No abnormal focal pancreatic lesions identified.
2. Advanced changes of hepatic cirrhosis and portal hypertension with associated splenomegaly. No suspicious focal hepatic lesion identified at CT.
3. Small to moderate volume of ascites.
4. Atelectatic changes at the bilateral lung bases. Small amount of airspace consolidation along the paramediastinal right lower lobe as above which is most likely also atelectatic.
-IR consulted for paracentesis -- paracentesis performed on 09/05/25 with 3000 cc of hazy yellow ascitic fluid removed
-GI consulted.
#Recent right eye cataract surgery on 09/01/25
-Continue Ofloxacin eye drops
-Continue Prednisolone Eye Drops
-Discussed on 09/06/25 eye drops regimen with patient's daughter Bianca
#Recent on his way to home on 09/01/25 from eye cataract surgery appointment, he lost the balance and fell backwards -- patient hit the back of his head on the floor and sustained wound on his left arm
-Trauma evaluation was unremarkable at [facility]
#Microscopic Hematuria
-Re-evaluation outpatient
# Right lower extremity/left upper extremity wound
- Wound care consulted
#recent fall likely mechanical
-PT/OT consulted
-trauma workup negative at [facility]
# Acute kidney injury possibly hepatorenal
- IV fluids were initially given in the ER this admission given [place]
- Creatinine 1.4-->1.0-->1.1
- Continue to monitor
#Right leg DVT
-Recently diagnosed
-Continue Eliquis
#History of non-Hodgkin's lymphoma of spleen
#History thrombocytopenia
-PLT 163
-continue eltrombopag
-Sees [facility]
#HTN
-BP soft in ER, still on lower side of normal
-hold losartan (patient's family mentioned that he takes Losartan 50 mg daily at home -- not 100 mg daily) to allow for diuretics
#Cataract surgery
-Continue prednisone alone 1 drop left eye as directed
#CAD/LAD stent April 2025
-Continue atorvastatin, Plavix 75 mg daily-
- 2D echo 03/04/2025: EF 60 to 65%, normal LVS LVSF no wall abnormalities, normal diastolic function
#Alcoholic cirrhosis
#Esophageal Varices
#Alcohol use disorder
-Recommended cessation given history of cirrhosis
-Patient drinks 1-2 beers daily last drink 09/04/25 afternoon
-MSAS/alcohol withdrawal protocol
#Chronic peripheral edema
#CHF
-Resume Lasix
-hold jardiance
#GERD
-Continue Protonix
#BPH
#History of TURP
#Squamous cell skin CA
#Anxiety
#Sleep apnea
#Hypoxia when sleeping
-Per nurse communication: pulse oximetry had been 93% and above since starting continuous pulse oximetry on 09/06/25
-Per nurse, when patient just laid down to take a nap after lunch on 09/06/25, his oxygen level was through and consistently at 87% - 2 L O2 placed
-Will check with pulm about starting him on CPAP
#Left Elbow and RLE wounds
#Chronic RLE wound
-Wound care consultation
Code Status: Full code
instrument person: daughter Bianca -- phone number: [phone]
On 09/06/25, I spoke extensively with patient, patient's and patient's daughter Bianca, and I answered all of their questions and concerns to satisfaction.
Anticipated Discharge: 24 - 48 hours
Subjective/Interval History
-
Date of Service: September 07, 2025
Patient was seen and examined. He denied any new symptoms or complaints.
Objective Data
-
Labs:
Laboratory Results
09/07/25
06:23
WBC 3.2 L
Hgb 11.6 L
Hct 31.8 L
Plt Count 108 L
Sodium 131 L
Potassium 3.7
Chloride 98
Carbon Dioxide 28
BUN 43 H
Creatinine 1.1
Glucose 188 H
Calcium 8.6
Total Bilirubin 2.9 H
AST 45
ALT 61 H
Alkaline Phosphatase 133 H
Vital Signs:
Vital Signs
Temp Pulse Resp BP Pulse Ox
98.6 F 95 18 121/67 96
09/07/25 07:00 09/07/25 07:31 09/07/25 07:31 09/07/25 07:00 09/07/25 07:31
I&O
09/06/25 09/07/25 09/08/25
06:59 05:59 06:59
Intake Total 2300 / 2300
Output Total 450 / 450 1300 / 1300
Balance -450 / -450 1000 / 1000
[2025-09-07 08:31] LABS: Glucose - Point of Care 200 mg/dl (70-99)
[2025-09-07] MEDS: LASIX 40 MG PO (08:39)
[2025-09-07] MEDS: PLAVIX 75 MG PO (08:39)
[2025-09-07] MEDS: LIPITOR 40 MG PO (08:39)
[2025-09-07] MEDS: ELIQUIS 5 MG PO ×2 (08:39→20:02)
[2025-09-07] MEDS: THIAMINE INJECTION 200 MG IV ×2 (08:39→20:02)
[2025-09-07] MEDS: FOLVITE 1 MG PO (08:39)
[2025-09-07] MEDS: ALDACTONE 50 MG PO (08:44)
[2025-09-07] MEDS: PROTONIX 40 MG PO (08:44)
[2025-09-07] MEDS: OCUFLOX 1 DROP OPHTH ×4 (08:50→21:21)
[2025-09-07] MEDS: PRED FORTE 1% EYE DROPS 1 DROP OPHTH ×4 (08:51→21:22)
[2025-09-07] MEDS: NOVOLOG FLEXPEN-MODERATE RESISTANCE 3 UNITS SC ×2 (09:28→12:02)
[2025-09-07] MEDS: NOVOLOG FLEXPEN 7 UNITS SC ×3 (09:28→17:24)
[2025-09-07 11:00] VITALS: BP 111/66
[2025-09-07 11:43] LABS: Glucose - Point of Care 202 mg/dl (70-99)
--- NOTE | 2025-09-07 12:55 | PTCARENOTE ---
pt denies complaints, no sob, 1L NC maintained with sao2 100%, tolerating diet, turns with assist x2, vss, will continue to monitor.
--- NOTE | 2025-09-07 13:28 | W.PN.GI.CBS2 ---
Today's Communication / Plan
-
Please see assessment and plan for details.
Assessment / Plan
-
1. 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 He has been having some more recent edema
despite his increased Lasix dose, and CT scan now also has increased ascites. He is now feeling much better after 3 L paracentesis, studies negative for SBP. He has tolerated the addition of Aldactone, with less edema. We again discussed the
importance of sodium restriction. Will continue treatment of his hyperglycemia per internal medicine. Will continue to trend electrolytes for now.
Subjective
Subjective
Date of Service: September 07, 2025
Patient feeling okay overall, no abdominal pain or nausea, still feels has not reaccumulated much fluid. His arms and feet are more wrinkly.
Objective
Data Reviewed
Laboratory Data:
Laboratory Results
09/07/25 06:23
09/07/25 06:23
Laboratory Results
PT 20.6 Sec (11.4-14.6) H 09/06/25 07:29
INR 1.75 09/06/25 07:29
APTT 30.6 Sec (23.4-35.0) 09/05/25 18:19
Phosphorus 3.4 mg/dl (2.5-4.5) 09/05/25 18:16
Magnesium 2.3 mg/dl (1.6-2.3) 09/06/25 07:29
Total Bilirubin 2.9 mg/dl (0.2-1.3) H 09/07/25 06:23
AST 45 U/L (17-59) 09/07/25 06:23
ALT 61 U/L (0-50) H 09/07/25 06:23
Alkaline Phosphatase 133 U/L (38-126) H 09/07/25 06:23
Vital Signs and I&O:
Vital Signs
Temp Pulse Resp BP Pulse Ox
98.5 F 100 18 111/66 95
09/07/25 11:00 09/07/25 11:00 09/07/25 11:00 09/07/25 11:00 09/07/25 11:00
I&O
09/06/25 09/07/25 09/08/25
06:59 05:59 06:59
Intake Total 2300 / 2300
Output Total 450 / 450 1300 / 1300
Balance -450 / -450 1000 / 1000
Physical Exam
Physical Exam
General: NAD, alert and oriented x 3
Abdomen: normal bowel sounds, soft, no tenderness, no masses or bruits, minimal appreciable ascites
Extremities: 2+ edema, slightly decreased
[2025-09-07 15:00] VITALS: BP 104/65
[2025-09-07 17:05] LABS: Glucose - Point of Care 364 mg/dl (70-99)
[2025-09-07] MEDS: NOVOLOG FLEXPEN-MODERATE RESISTANCE 9 UNITS SC (17:24)
[2025-09-07 19:25] VITALS: BP 110/63
[2025-09-07 21:21] LABS: Glucose - Point of Care 250 mg/dl (70-99)
[2025-09-07] MEDS: LANTUS 0.18 UNITS SC (21:21)
[2025-09-07 23:10] VITALS: BP 117/76
[2025-09-08] VITALS (7 sets, daily range): BP systolic 105–138; BP diastolic 68–81; PULSE 65; O2SAT 97; BMI 29.1
--- NOTE | 2025-09-08 05:56 | PTCARENOTE ---
Pt slept well t/o the night. Denies any complaints. Continuous pox in place, dropped to 87% a few times but came right back up, 97%-98% on 4LO2 NC. NSR on the monitor. MSAS 1. Bed alarm in place. Call rosado in reach. Will monitor.
--- NOTE | 2025-09-08 06:19 | W.PN.GI.CBS2 ---
Today's Communication / Plan
-
Please see assessment and plan for details.
Assessment / Plan
-
1. 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 He has been having some more recent edema
despite his increased Lasix dose, and CT scan now also has increased ascites. He is now feeling much better after 3 L paracentesis, studies negative for SBP. He has tolerated the addition of Aldactone, with less edema. We again discussed the
importance of sodium restriction. Will continue treatment of his hyperglycemia per internal medicine. Will continue to trend electrolytes for now.
Subjective
Subjective
Date of Service: September 08, 2025
Patient doing okay, though still feels a little short of breath. He feels a little bloated, though his weight continues to decline, less edema. Feels overall weak.
Objective
Data Reviewed
Laboratory Data:
Laboratory Results
PT 20.6 Sec (11.4-14.6) H 09/06/25 07:29
INR 1.75 09/06/25 07:29
APTT 30.6 Sec (23.4-35.0) 09/05/25 18:19
Phosphorus 3.4 mg/dl (2.5-4.5) 09/05/25 18:16
Magnesium 2.3 mg/dl (1.6-2.3) 09/06/25 07:29
Total Bilirubin 2.9 mg/dl (0.2-1.3) H 09/07/25 06:23
AST 45 U/L (17-59) 09/07/25 06:23
ALT 61 U/L (0-50) H 09/07/25 06:23
Alkaline Phosphatase 133 U/L (38-126) H 09/07/25 06:23
Vital Signs and I&O:
Vital Signs
Temp Pulse Resp BP Pulse Ox
98.4 F 92 18 121/78 95
09/08/25 03:10 09/08/25 03:10 09/08/25 03:10 09/08/25 03:10 09/08/25 03:10
I&O
09/06/25 09/07/25 09/08/25
06:59 05:59 06:59
Intake Total 2300 / 2300 980 / 980
Output Total 450 / 450 1300 / 1300 1200 / 1200
Balance -450 / -450 1000 / 1000 -220 / -220
Physical Exam
Physical Exam
General: NAD, alert and orient x 3 minimally distended though
Abdomen: normal bowel sounds, soft, no tenderness, no masses or bruits, mild ascites
Extremities: Decreased edema
--- NOTE | 2025-09-08 07:08 | W.PN.HOSP.TC ---
Today's Communication/Plan
-
Cefazolin for cellulitis of the RLE
Check RLE ultrasound and DEBRA/TBI+ultrasound given RLE numb symptoms and pallor of foot
Discussed case via [facility] with neurologist Dr. Salmeron who said that patient's numbness and redness symptoms are from his DVT and that patient does not need neuroimaging or stroke work-up
Numbness symptoms could be [place] Paresthetica
Assessment / Plan
Assessment / Plan
Physical Exam
General: Well Developed, Well Nourished and No Apparent Distress
HEENT: Normocephalic, Moist mucous membranes and Atraumatic
Respiratory: Decreased Breath Sounds
Cardiac: S1/S2 and Regular Rhythm; No Murmur or Rub
GI: Soft, Non Tender, Normal Bowel Sounds and Distended
Musculoskeletal: No Cyanosis and Other (Bilateral lower extremities edema)
Skin: Rash and Other (Right lower extremities wound, left upper arm wound)
Neuro: AO x 3 and Nonfocal/grossly intact
Psych: Calm
Assessment/Plan
74-year-old male past medical history of right lower extremity DVT on Eliquis, non-Hodgkin's lymphoma of the spleen, thrombocytopenia, hypertension, CAD status post stent in April, alcoholic cirrhosis, pulmonary nodules, restrictive airway disease,
GERD, BPH, squamous cell skin cancer, anxiety, obstructive sleep apnea, presenting with elevated blood sugar on outpatient labs. He recently completed steroids for upper respiratory infection. He has shortness of breath worsening for 1 week with
exertion despite antibiotic and steroid. Chronic cough. Urinary frequency for past few days. Increased abdominal distention and lower extremity edema. He had a fall 4 days ago and hit his head with bruise back of head and wound of left elbow and
right lower extremity. He was seen at [facility] and had negative trauma workup. Vital signs unremarkable apart from mild tachycardia up to 105. Blood pressure 91/55. Requiring 2L oxygen. Labs showed blood sugar of 559. Hemoglobin A1c 10.1.
Creatinine 1.4. Urinalysis unremarkable. CXR [address] abdomen pelvis shows mild to moderate ascites. Patient with hyperglycemia with A1c of 10.1 secondary to underlying diabetes/ exacerbated by steroid-induced hyperglycemia. [place]
likely secondary to losartan/Lasix. IV fluids were given around the time of admission. Hold lasix. Dysnea likely due to restrictive lung disease from ascites. Also concerned for decompensated cirrhosis. Check INR and LFTs. IR for paracentesis. GI
consulted. Started Lantus 10 units and insulin sliding scale. Will hold off on further IV fluids at this time due to cirrhosis. Wound care consulted for wound of left elbow and right lower extremity. Alcohol withdrawal protocol. Thiamine and
Folate.
# New onset diabetes mellitus with urinary frequency and polydypsia
- Recently finish steroids more than a week prior to presentation for a cough that he is dealing with for weeks
- A1c 10.1
- Blood sugar was elevated in 500s
- Lantus 10 units in the ER
- Continue Lantus, premeal Insulin and sliding scale -- titrate to ensure good glucose control
#Acute hypoxic respiratory failure likely from abdominal distention/atelectasis
#Restrictive lung disease?
-albuterol,breo continued
- Recent chest x-ray with impression of Bibasilar linear opacities, most suggestive of subsegmental atelectasis.
-After paracentesis on 09/05/25, hypoxia resolved, except when sleeping
-May need CPAP given [place] below
# Abdominal distention/lower extremities edema concern for ascites
#history of alcoholic cirrhosis
-CT of abdomen No abnormal focal pancreatic lesions identified.
2. Advanced changes of hepatic cirrhosis and portal hypertension with associated splenomegaly. No suspicious focal hepatic lesion identified at CT.
3. Small to moderate volume of ascites.
4. Atelectatic changes at the bilateral lung bases. Small amount of airspace consolidation along the paramediastinal right lower lobe as above which is most likely also atelectatic.
-IR consulted for paracentesis -- paracentesis performed on 09/05/25 with 3000 cc of hazy yellow ascitic fluid removed
-GI consulted.
#Recent right eye cataract surgery on 09/01/25
-Continue Ofloxacin eye drops
-Continue Prednisolone Eye Drops
-Discussed on 09/06/25 eye drops regimen with patient's daughter Bianca
#Recent on his way to home on 09/01/25 from eye cataract surgery appointment, he lost the balance and fell backwards -- patient hit the back of his head on the floor and sustained wound on his left arm
-Trauma evaluation was unremarkable at [facility]
#Microscopic Hematuria
-Re-evaluation outpatient
# Right lower extremity/left upper extremity wound
- Wound care consulted
#recent fall likely mechanical
-PT/OT consulted
-trauma workup negative at [facility]
# Acute kidney injury possibly hepatorenal
- IV fluids were initially given in the ER this admission given [place]
- Creatinine 1.4-->1.0-->1.1-->1.0
- Continue to monitor
#Right leg DVT
-Recently diagnosed
-Continue Eliquis
#Right Leg Swelling>Left Lower Extremity Swelling
#Right Lower Extremity Erythema
-Compression stockings after studies are done below
-Check right lower extremity ultrasound
-Start antibiotics with Cefazolin. Check MRSA swab.
#Right Lower Extremity Numbness
-Check US and DEBRA as above
-I communicated via [facility] with neurologist Dr. Salmeron who said that patient does not need an MRI of the brain and he does not need a neurologist consult -- Dr. Salmeron mentioned that patient's symptoms are part of his DVT
#History of non-Hodgkin's lymphoma of spleen
#History thrombocytopenia
-PLT 163
-continue eltrombopag
-Sees [facility]
#HTN
-BP soft in ER, still on lower side of normal
-hold losartan (patient's family mentioned that he takes Losartan 50 mg daily at home -- not 100 mg daily) to allow for diuretics
#Cataract surgery
-Continue prednisone alone 1 drop left eye as directed
#CAD/LAD stent April 2025
-Continue atorvastatin, Plavix 75 mg daily-
- 2D echo 03/04/2025: EF 60 to 65%, normal LVS LVSF no wall abnormalities, normal diastolic function
#Alcoholic cirrhosis
#Esophageal Varices
#Alcohol use disorder
-Recommended cessation given history of cirrhosis
-Patient drinks 1-2 beers daily last drink 09/04/25 afternoon
-MSAS/alcohol withdrawal protocol
#Chronic peripheral edema
#CHF
-Resume Lasix
-hold jardiance
#GERD
-Continue Protonix
#BPH
#History of TURP
#Squamous cell skin CA
#Anxiety
#Sleep apnea
#Hypoxia when sleeping
-Per nurse communication: pulse oximetry had been 93% and above since starting continuous pulse oximetry on 09/06/25
-Per nurse, when patient just laid down to take a nap after lunch on 09/06/25, his oxygen level was through and consistently at 87% - 2 L O2 placed
-Patient wore CPAP many years ago, but no longer wearing since lost weight and thought he did not need it anymore
#Left Elbow and RLE wounds
#Chronic RLE wound
-Wound care consultation
Code Status: Full code
architectural draftsperson: daughter Bianca -- phone number: [phone]
On 09/06/25, I spoke extensively with patient, patient's and patient's daughter Bianca, and I answered all of their questions and concerns to satisfaction.
On 09/08/25, I spoke extensively with patient and patient's daughter Bianca, and I answered all of their questions and concerns to satisfaction.
Anticipated Discharge: 24 - 48 hours
Subjective/Interval History
-
Date of Service: September 08, 2025
Patient was seen and examined. He denied any new symptoms or complaints.
Objective Data
-
Labs:
Laboratory Results
09/08/25
06:31
WBC Pending
Hgb Pending
Hct Pending
Plt Count Pending
Sodium Pending
Potassium Pending
Chloride Pending
Carbon Dioxide Pending
BUN Pending
Creatinine Pending
Glucose Pending
Calcium Pending
Total Bilirubin Pending
AST Pending
ALT Pending
Alkaline Phosphatase Pending
Vital Signs:
Vital Signs
Temp Pulse Resp BP Pulse Ox
98.4 F 92 18 121/78 95
09/08/25 03:10 09/08/25 03:10 09/08/25 03:10 09/08/25 03:10 09/08/25 03:10
I&O
09/07/25 09/08/25 09/09/25
05:59 06:59 06:59
Intake Total 2300 / 2300 980 / 980
Output Total 1300 / 1300 1200 / 1200
Balance 1000 / 1000 -220 / -220
--- NOTE | 2025-09-08 07:25 | PN.DE.MGMTRT ---
Insulin Management
- -
09/08/2025: Diabetes Management Follow up
74 year old male with PMH: HTN, HLD, CAD s/p stent to LAD 04/2025, CHF, GERD, allergic rhinitis, Alcohol Cirrhosis, Non-Hodgkin's Lymphoma, RLE DVT on Eliquis , Ascites and BPH. Patient presented to the ED with elevated blood sugar. He gets weekly
blood work to make sure his platelets are okay as he is on Eliquis. This morning he got a call from his GI doctor as his blood sugar was elevated. He did recently finish steroids more than a week ago for a cough that he is dealing with for weeks. He
has a chronic cough which at times is productive with clear sputum. He also has chronic right lower extremity wound, which has recently started oozing clear. Patient reports urinary frequency and polydipsia. He denies any nausea vomiting diarrhea or
abdominal pain.
He was taking Jardiance 10 mg daily prior to admission. A1C 10.1%, Cr 1.4-->1.0, eGFR >60 today.
Upon arrival patient was noted to have elevated glucose of 559, he was treated with 10 units of Lantus and 1 Liter of LR with improvement of his glucose.
-Christina reports that pt has recently had significant physical decline over the last couple of months and that he has been on and off steroids for a few weeks. Discussed with Christina that pt will need insulin therapy for optimal glucose
control moving forward.
Patient awake, alert, oriented, sitting up in chair, offers no complaints. at bedside, very supportive.
09/05 underwent paracentesis-3L for moderate to large pleural effusion, states he feels better but still has significant abdominal distention.
09/07 Glucose range was 200 to 364, received 3-9 Units of corrective insulin with meals. FBG 146 V, 191 POC today.
Will increase Lantus to 22 units @ HS and NovoLog to 10 units AC. Cont low corrective insulin with meals
Discussed with Nurse. Will cont to follow
Pt will be seen by the Diabetes Nurse Educator for monitor and insulin instructions. states that she will be the one administering insulin at home, so she is requested to have the education administered when she is present.
Diabetes History
- -
Type of Diabetes: 2 requiring insulin
Pre-Admission Diabetes Regimen
09/07/25
06:23
Creatinine 1.1
Lab Results
Hemoglobin A1c 10.1 % (4.0-5.9) H 09/05/25 08:46
Insulin Pump Settings
IP Diabetes Regimen
09/07/25 09/07/25 09/07/25
06:23 08:30 11:39
Glucose 188 H
POC Glucose 200 H 202 H
09/07/25 09/07/25
16:31 21:19
Glucose
POC Glucose 364 H 250 H
Meal type: Dinner
Meal type: Lunch
Meal type: Breakfast
Amount consumed: 100%
Amount consumed: 100%
Amount consumed: 100%
Patient Education
[2025-09-08 07:37] LABS: Hematocrit 33.9 % (39.0-52.0); Hemoglobin 11.6 g/dL (13.0-18.0); Mean Corp Hgb Conc. 34.2 g/dL (33.0-37.0); Mean Corpuscular Volume 102.1 fL (80.0-94.0); Platelet Count 114 10^3/uL (130-400); Red Cell Dist. Width 16.3 % (11.5-14.5)
[2025-09-08 08:01] LABS: Glucose - Point of Care 191 mg/dl (70-99)
[2025-09-08] MEDS: SPIRIVA RESPIMAT 2.5 MCG 2 PUFF INH (08:06)
[2025-09-08] MEDS: STRIVERDI RESPIMAT 2 PUFF INH (08:06)
[2025-09-08 08:10] LABS: ALT (SGPT) 62 U/L (0-50); AST (SGOT) 51 U/L (17-59); Albumin 2.9 g/dl (3.5-5.0); Alkaline Phosphatase 131 U/L (38-126); Blood Urea Nitrogen 44 mg/dl (9-20); Calcium 8.5 mg/dl (8.4-10.2); Carbon Dioxide 25 mmol/L (22-30); Chloride 98 mmol/L (98-107); Estimated Creatinine Clearance 67 ml/min; Glucose 146 mg/dl (70-99); Potassium 3.8 mmol/L (3.5-5.1); Sodium 131 mmol/L (135-145); Total Protein 6.1 g/dl (6.3-8.2); eGFR > 60.00
[2025-09-08] MEDS: LIPITOR 40 MG PO (08:52)
[2025-09-08] MEDS: PROTONIX 40 MG PO (08:52)
[2025-09-08] MEDS: FOLVITE 1 MG PO (08:52)
[2025-09-08] MEDS: ALDACTONE 50 MG PO (08:52)
[2025-09-08] MEDS: OCUFLOX 1 DROP OPHTH ×4 (08:53→22:06)
[2025-09-08] MEDS: ELIQUIS 5 MG PO ×2 (08:53→21:03)
[2025-09-08] MEDS: LASIX 40 MG PO (08:53)
[2025-09-08] MEDS: THIAMINE INJECTION 200 MG IV (08:53)
[2025-09-08] MEDS: PLAVIX 75 MG PO (08:53)
[2025-09-08] MEDS: PRED FORTE 1% EYE DROPS 1 DROP OPHTH ×4 (08:54→22:06)
[2025-09-08] MEDS: NOVOLOG FLEXPEN-MODERATE RESISTANCE 1 UNITS SC ×3 (10:29→17:37)
[2025-09-08] MEDS: NOVOLOG FLEXPEN 10 UNITS SC ×3 (10:29→17:39)
[2025-09-08 12:00] LABS: Glucose - Point of Care 193 mg/dl (70-99)
--- NOTE | 2025-09-08 12:29 | CM ---
Addendum entered by Radha Berry 09/08/25 16:47:
additional referrals placed, await skilled bed.
Original Note:
Spoke to patient and spouse bedside.
PT recommending skilled rehab.
Referrals placed.
Family will transport.
Needs insurance auth once bed secured.
Plan: Short term skilled rehab once bed available and auth obtained.
[2025-09-08] MEDS: LASIX 20 MG PO (16:39)
[2025-09-08 16:51] LABS: Glucose - Point of Care 167 mg/dl (70-99)
[2025-09-08] MEDS: ANCEF 5 IV (17:36)
[2025-09-08] MEDS: VITAMIN B1 100 MG PO (21:04)
[2025-09-08] MEDS: DILAUDID 0.25 MG IV (21:55)
[2025-09-08 22:04] LABS: Glucose - Point of Care 171 mg/dl (70-99)
[2025-09-08] MEDS: LANTUS 0.22 UNITS SC (22:05)
[2025-09-09] MEDS: ANCEF 5 IV ×3 (02:00→17:17)
[2025-09-09 06:00] VITALS: BMI 28.9
[2025-09-09 06:24] LABS: Hematocrit 35.5 % (39.0-52.0); Hemoglobin 11.8 g/dL (13.0-18.0); Mean Corp Hgb Conc. 33.2 g/dL (33.0-37.0); Mean Corpuscular Volume 101.7 fL (80.0-94.0); Platelet Count 118 10^3/uL (130-400); Red Cell Dist. Width 16.7 % (11.5-14.5)
[2025-09-09 07:21] LABS: ALT (SGPT) 58 U/L (0-50); AST (SGOT) 49 U/L (17-59); Albumin 2.8 g/dl (3.5-5.0); Alkaline Phosphatase 131 U/L (38-126); Blood Urea Nitrogen 38 mg/dl (9-20); Calcium 8.4 mg/dl (8.4-10.2); Carbon Dioxide 28 mmol/L (22-30); Chloride 98 mmol/L (98-107); Estimated Creatinine Clearance 67 ml/min; Glucose 151 mg/dl (70-99); Potassium 3.5 mmol/L (3.5-5.1); Sodium 132 mmol/L (135-145); Total Protein 6.0 g/dl (6.3-8.2); eGFR > 60.00
--- NOTE | 2025-09-09 07:38 | W.PN.HOSP.TC ---
Today's Communication/Plan
-
See plan
Assessment / Plan
Assessment / Plan
Physical Exam
General: Well Developed, Well Nourished and No Apparent Distress
HEENT: Normocephalic, Moist mucous membranes and Atraumatic
Respiratory: Decreased Breath Sounds
Cardiac: S1/S2 and Regular Rhythm; No Murmur or Rub
GI: Soft, Non Tender, Normal Bowel Sounds and Distended
Musculoskeletal: No Cyanosis and Other (Bilateral lower extremities edema)
Skin: Rash and Other (Right lower extremities wound, left upper arm wound)
Neuro: AO x 3 and Nonfocal/grossly intact. Strength 5/5 in bilateral lower extremities. Sensation reduced in the bilateral lateral thighs.
Psych: Calm
Assessment/Plan
74-year-old male past medical history of right lower extremity DVT on Eliquis, non-Hodgkin's lymphoma of the spleen, thrombocytopenia, hypertension, CAD status post stent in April, alcoholic cirrhosis, pulmonary nodules, restrictive airway disease,
GERD, BPH, squamous cell skin cancer, anxiety, obstructive sleep apnea, presenting with elevated blood sugar on outpatient labs. He recently completed steroids for upper respiratory infection. He has shortness of breath worsening for 1 week with
exertion despite antibiotic and steroid. Chronic cough. Urinary frequency for past few days. Increased abdominal distention and lower extremity edema. He had a fall 4 days ago and hit his head with bruise back of head and wound of left elbow and
right lower extremity. He was seen at [facility] and had negative trauma workup. Vital signs unremarkable apart from mild tachycardia up to 105. Blood pressure 91/55. Requiring 2L oxygen. Labs showed blood sugar of 559. Hemoglobin A1c 10.1.
Creatinine 1.4. Urinalysis unremarkable. CXR [address] abdomen pelvis shows mild to moderate ascites. Patient with hyperglycemia with A1c of 10.1 secondary to underlying diabetes/ exacerbated by steroid-induced hyperglycemia. [place]
likely secondary to losartan/Lasix. IV fluids were given around the time of admission. Hold lasix. Dysnea likely due to restrictive lung disease from ascites. Also concerned for decompensated cirrhosis. Check INR and LFTs. IR for paracentesis. GI
consulted. Started Lantus 10 units and insulin sliding scale. Will hold off on further IV fluids at this time due to cirrhosis. Wound care consulted for wound of left elbow and right lower extremity. Alcohol withdrawal protocol. Thiamine and
Folate.
# New onset diabetes mellitus with urinary frequency and polydipsia
- Recently finish steroids more than a week prior to presentation for a cough that he is dealing with for weeks
- A1c 10.1
- Blood sugar was elevated in 500s
- Lantus 10 units in the ER
- Continue Lantus, premeal Insulin and sliding scale -- titrate to ensure good glucose control -- appreciate Diabetes INSTRUCTOR BUSINESS EDUCATION
#Acute hypoxic respiratory failure likely from abdominal distention/atelectasis
#Shortness of Breath, Tachycardia with exertion
#Restrictive lung disease?
-Albuterol and Breo continued
-Recent chest x-ray with impression of Bibasilar linear opacities, most suggestive of subsegmental atelectasis.
-After paracentesis on 09/05/25, hypoxia resolved, except when sleeping
-ProBNP unremarkable
-May need CPAP given [place] below
# Abdominal distention/lower extremities edema concern for ascites
#history of alcoholic cirrhosis
-CT of abdomen No abnormal focal pancreatic lesions identified.
2. Advanced changes of hepatic cirrhosis and portal hypertension with associated splenomegaly. No suspicious focal hepatic lesion identified at CT.
3. Small to moderate volume of ascites.
4. Atelectatic changes at the bilateral lung bases. Small amount of airspace consolidation along the paramediastinal right lower lobe as above which is most likely also atelectatic.
-IR consulted for paracentesis -- paracentesis performed on 09/05/25 with 3000 cc of hazy yellow ascitic fluid removed
-IR re-consulted 09/09/25 for repeat paracentesis
-GI consulted.
#Recent right eye cataract surgery on 09/01/25
-Continue Ofloxacin eye drops
-Continue Prednisolone Eye Drops
-Discussed on 09/06/25 eye drops regimen with patient's daughter Bianca
#Recent on his way to home on 09/01/25 from eye cataract surgery appointment, he lost the balance and fell backwards -- patient hit the back of his head on the floor and sustained wound on his left arm
-Trauma evaluation was unremarkable at [facility]
#Microscopic Hematuria
-Re-evaluation outpatient
# Right lower extremity/left upper extremity wound
- Wound care consulted
#recent fall likely mechanical
-PT/OT consulted
-trauma workup negative at [facility]
# Acute kidney injury possibly hepatorenal
- IV fluids were initially given in the ER this admission given CAR[place]
- Creatinine 1.4-->1.0-->1.1-->1.0
- Continue to monitor
#Right leg DVT
-Recently diagnosed
-Continue Eliquis
#Right Leg Swelling>Left Lower Extremity Swelling
#Right Lower Extremity Erythema
-Right lower extremity ultrasound with improving/resolving DVT
-Started antibiotics with Cefazolin on 09/08/25
-Follow-up MRSA swab
-Can do YASMANY wrap from base of toes to knee or 20-30 mmHg knee high compression sock
#Right Anterolateral Thigh and Left Anterolateral Thigh Numbness and Burning Sensation
-Suspected from Meralgia paraesthetica, discussed with Dr. 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
-US and DEBRA with no significant PAD except right toe brachial index is mildly diminished, suggesting possible mild distal small vessel arterial disease on the right -- I communicated via [place] [employer] with
vascular surgeon Dr. Asher who said nothing to do, follow-up outpatient
-I communicated (on 09/08/25, via [place] [employer]) with neurologist Dr. Salmeron who said that patient does not need a neurologist consult -- Dr. Salmeron mentioned that patient's symptoms are part of his DVT
-MRI of L-spine with and without contrast and MRI Brain with and without contrast for completeness to check for stroke and lumbar spinal issues that can possibly be contributing -- discussed with patient's daughter Bianca on
02/28
#History of non-Hodgkin's lymphoma of spleen
#History thrombocytopenia
-PLT 163
-continue eltrombopag
-Sees [facility]
#HTN
-BP soft in ER, still on lower side of normal
-hold losartan (patient's family mentioned that he takes Losartan 50 mg daily at home -- not 100 mg daily) to allow for diuretics
#Cataract surgery
-Continue prednisone alone 1 drop left eye as directed
#CAD/LAD stent April 2025
-Continue atorvastatin, Plavix 75 mg daily-
- 2D echo 03/04/2025: EF 60 to 65%, normal LVS LVSF no wall abnormalities, normal diastolic function
#Alcoholic cirrhosis
#Esophageal Varices
#Alcohol use disorder
-Recommended cessation given history of cirrhosis
-Patient drinks 1-2 beers daily last drink 09/04/25 afternoon
-MSAS/alcohol withdrawal protocol
#Chronic peripheral edema
#CHF
-Resume Lasix
-Resume jardiance
-proBNP unremarkable
-Check echo
#GERD
-Continue Protonix
#BPH
#History of TURP
#Squamous cell skin CA
#Anxiety
#Sleep apnea
#Hypoxia when sleeping
-Per nurse communication: pulse oximetry had been 93% and above since starting continuous pulse oximetry on 09/06/25
-Per nurse, when patient just laid down to take a nap after lunch on 09/06/25, his oxygen level was through and consistently at 87% - 2 L O2 placed
-Patient wore CPAP many years ago, but no longer wearing since lost weight and thought he did not need it anymore
#Left Elbow and RLE wounds
#Chronic RLE wound
-Wound care consultation requested
Code Status: Full code
personal lines account executive: daughter Bianca -- phone number: [phone]
On 09/06/25, I spoke extensively with patient, patient's and patient's daughter Bianca, and I answered all of their questions and concerns to satisfaction.
On 09/08/25, I spoke extensively with patient and patient's daughter Bianca, and I answered all of their questions and concerns to satisfaction.
On 09/09/25, I spoke extensively with patient and patient's daughter Bianca, and I answered all of their questions and concerns to satisfaction.
Anticipated Discharge: 24 - 48 hours
Subjective/Interval History
-
Date of Service: September 09, 2025
Patient was seen and examined. He reported some abdominal bloating overnight, now resolved. Numbness on the right lateral thigh yesterday, today on the left lateral thigh as well.
Objective Data
-
Labs:
Laboratory Results
09/09/25
06:04
WBC 3.4 L
Hgb 11.8 L
Hct 35.5 L
Plt Count 118 L
Sodium 132 L
Potassium 3.5
Chloride 98
Carbon Dioxide 28
BUN 38 H
Creatinine 1.0
Glucose 151 H
Calcium 8.4
Total Bilirubin 3.1 H
AST 49
ALT 58 H
Alkaline Phosphatase 131 H
Vital Signs:
Vital Signs
Temp Pulse Resp BP Pulse Ox
98.1 F 105 16 138/77 95
09/08/25 23:19 09/08/25 23:19 09/08/25 23:19 09/08/25 23:19 09/08/25 23:19
I&O
09/08/25 09/09/25 09/10/25
06:59 06:59 06:59
Intake Total 980 / 980 600 / 600
Output Total 1200 / 1200 530 / 530
Balance -220 / -220 70 / 70
[2025-09-09 07:50] VITALS: BP 132/68
--- NOTE | 2025-09-09 07:52 | PN.DE.MGMTRT ---
Insulin Management
- -
09/09/2025: Diabetes Management Follow up
74 year old male presented to the ED with elevated blood sugar. PMH: HTN, HLD, CAD s/p stent to LAD 04/2025, CHF, GERD, allergic rhinitis, Alcohol Cirrhosis, Non-Hodgkin's Lymphoma, RLE DVT on Eliquis , Ascites and BPH. He gets weekly blood work to
make sure his platelets are okay as he is on Eliquis. This morning he got a call from his GI doctor as his blood sugar was elevated. He did recently finish steroids more than a week ago for a cough that he is dealing with for weeks. He has a chronic
cough which at times is productive with clear sputum. He also has chronic right lower extremity wound, which has recently started oozing clear. Patient reports urinary frequency and polydipsia. He denies any nausea vomiting diarrhea or abdominal
pain.
He was taking Jardiance 10 mg daily prior to admission. A1C 10.1%, Cr 1.4-->1.0, eGFR >60 today.
Upon arrival patient was noted to have elevated glucose of 559, he was treated with 10 units of Lantus and 1 Liter of LR with improvement of his glucose.
-Christina reports that pt has recently had significant physical decline over the last couple of months and that he has been on and off steroids for a few weeks. Discussed with Christina that pt will need insulin therapy for optimal glucose
control moving forward.
Patient awake, alert, oriented, sitting up in chair, offers no complaints. at bedside, very supportive.
09/05 underwent paracentesis-3L for moderate to large pleural effusion, states he feels better but still has significant abdominal distention.
09/08 Glucose range was 167 to 193. Received 10 units novolog AC and 22 units lantus at hs. 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
09/09 Fasting glucose 151. Will continue Lantus 22 units @ HS and NovoLog to 10 units AC with low corrective insulin with meals and Farxiga 10 mg daily.
Discussed with Nurse. Will cont to follow
Pt will be seen by the Diabetes Nurse Educator for monitor and insulin instructions. states that she will be the one administering insulin at home, so she is requested to have the education administered when she is present.
Diabetes History
- -
Type of Diabetes: 2 requiring insulin
Pre-Admission Diabetes Regimen
09/08/25 09/09/25
06:04
Creatinine 1.0 1.0
Lab Results
Hemoglobin A1c 10.1 % (4.0-5.9) H 09/05/25 08:46
Insulin Pump Settings
IP Diabetes Regimen
09/08/25 09/08/25 09/08/25
06 08:00 11:59
Glucose 146 H
POC Glucose 191 H 193 H
09/08/25 09/08/25 09/09/25
16:50 22:03 06:04
Glucose 151 H
POC Glucose 167 H 171 H
Meal type: Breakfast
Amount consumed: 100%
Patient Education
[2025-09-09] MEDS: STRIVERDI RESPIMAT 2 PUFF INH (07:59)
[2025-09-09] MEDS: SPIRIVA RESPIMAT 2.5 MCG 2 PUFF INH (07:59)
[2025-09-09] MEDS: PROTONIX 40 MG PO (08:27)
[2025-09-09] MEDS: ELIQUIS 5 MG PO ×2 (08:27→22:42)
[2025-09-09] MEDS: ALDACTONE 50 MG PO (08:27)
[2025-09-09] MEDS: FOLVITE 1 MG PO (08:27)
[2025-09-09] MEDS: LIPITOR 40 MG PO (08:28)
[2025-09-09] MEDS: PLAVIX 75 MG PO (08:28)
[2025-09-09] MEDS: VITAMIN B1 100 MG PO ×2 (08:28→22:42)
[2025-09-09] MEDS: LASIX 40 MG PO (08:28)
[2025-09-09] MEDS: PRED FORTE 1% EYE DROPS 1 DROP OPHTH ×3 (08:29→22:50)
[2025-09-09 08:36] LABS: Glucose - Point of Care 144 mg/dl (70-99)
[2025-09-09] MEDS: NOVOLOG FLEXPEN-MODERATE RESISTANCE SC ×2 (08:41→17:17)
--- NOTE | 2025-09-09 10:40 | CON.MD ---
Consultation - Medical
-
Chief Complaint:�Leg numbness
�
History of Present Illness:�74-year-old male with PMH (as below) presented to [facility] on 09/05/2025 with elevated blood sugar after a course of steroids. He had a recent right cataract surgery and lost his balance and fell backwards
hitting his head on the floor with a wound of the left arm. His trauma workup was negative and he was sent home. Upon arrival to the ER at [place] he was noted to have some shortness of breath requiring 2 L of oxygen. His blood sugar was 559.
His hemoglobin A1c was 10.1. Acute hypoxic respiratory failure was thought secondary to abdominal distention and atelectasis he was given Breo and albuterol. Chest x-ray noting bibasilar linear opacities most suggestive of subsegmental
atelectasis. His abdominal distention and lower extremity edema thought to be secondary to ascites with history of alcoholic cirrhosis. He also has a history of CHF. Also with [place] thought to be cardiorenal with creatinine of 1.4. He had a
paracentesis for 3 L with improvement. Started on Aldactone by GI in addition to Lasix. Found to have right lower extremity cellulitis and started on cefazolin. Found to have some numbness in the right lower extremity and pallor of the foot.
Case discussed with Dr. Salmeron of neurology of the patient's numbness and redness symptoms are from a DVT that he did not need neuroimaging for stroke workup with possibility of meralgia paresthetica.
Patient notes that he has a long history of feeling like he walks on [employer] and is not sure why. Never had an EMG or nerve conduction test. Recently he starter having right lateral thigh numbness. Does not go down the leg or past the
midline. He denies any weakness. He more recently started having it happen on the left in the same area of the lateral thigh. No change in the sensation loss in the feet recently. No back pain. No bowel or bladder incontinence. Has bladder
urgency.
�
Past Medical History:�Hyperlipidemia, hypertension, GERD, allergic rhinitis, B-cell lymphoma, cirrhosis of liver with ascites, portal hypertension, grade 1 esophageal varices, BPH, DVT, CHF, coronary artery disease, chronic thrombocytopenia
Procedure History:�Cardiac stent, right rotator cuff repair, left carpal tunnel release, L4-L5 laminectomy, right femur repair, hemorrhoidectomy, TURP, back surgery, prostate surgery, right arm stent, cataract surgery
Family History:�None pertinent
�
Social History:�
Functional Level Premorbidly: Uses single-point cane for mobility. Spouse provides supervision and assistance as needed for ADLs, she completes most IADLs. Dependent for homemaking.
Functional Level Currently:�Min assist bed mobility and transfers. Min assist ambulating 10 feet x 1 with rolling walker. Therapy recommending snf facility.
�
Tobacco:�Former
Alcohol:�Drinks 2-3 beers a day
Drug use:�Denies�
�
Lives with:�Spouse
24-hour assistance available:�Yes but not able to lift him.
Number of floors:�2�split-level
# steps to enter:�1
# steps to second floor: 7 steps in between levels
Potential First floor set up:�No
Driving:�No
Occupation:�Retired
�
�
Allergies:�
Allergy/AdvReac Type Severity Reaction Status Date / Time
YASMANY Inhibitors Allergy Unknown Verified 08/13/25 17:25
diphenhydramine (From Allergy Itching Verified 08/14/25 15:50
Benadryl)
oak Allergy runny nose Verified 08/14/25 15:50
ragweed pollen Allergy runny nose Verified 08/14/25 15:50
tree and shrub pollen Allergy MAPLE-runny Verified 08/14/25 15:50
nose
Review of Systems:�
Constitutional: (x) abNormal _ fatigue
Eye: (x) Normal _ had cataracts which caused vision concerns and falls. Better since recent surgery.
Ear/Nose/Throat: (x) Normal _
Respiratory: (x) Normal _
Cardiovascular: (x) abNormal _recent right leg blood clot with swelling.
Gastrointestinal: (x) Normal _
Genitourinary: (x) abNormal _prostate issues and urgency
Musculoskeletal: (x) Normal _
Integumentary: (x) abNormal _ thin skin with easy bleeding. Leg wounds with cellulitis right leg on antibiotic
Neurologic: (x) abNormal _ trouble feeling toes.
Psychiatric: (x) Normal _
Endocrine: (x) Normal _
Hematologic/Lymphatic: (x) Normal _
Allergic/Immunologic: (x) Normal _
�
Medications:�
�
Active Current Visit Medication List
Category Date Time Status
0.9% Sodium Chloride [Nss (Preservative Free)] Med 09/05/25 17:44 Active
See Protocol IV PRN PRN
Acetaminophen [Tylenol] Med 09/05/25 18:00 Active
650 mg PO Q4HPRN PRN
Albuterol [ProAIR HFA INHALER] Med 09/05/25 18:00 Active
2 puff INH R Q6HPRN PRN sob
Apixaban [Eliquis] Med 09/05/25 20:00 Active
5 mg PO BID
Atorvastatin [Lipitor] Med 09/06/25 08:00 Active
40 mg PO DAILY
Bisacodyl [Dulcolax] Med 09/05/25 17:44 Active
10 mg RECTAL [id number] PRN
CeFAZolin 1 GRAM [Ancef] Med 09/08/25 18:00 Active
1 gram in 5 ml IV Q8H
Clopidogrel Bisulfate [Plavix] Med 09/06/25 08:00 Active
75 mg PO DAILY
Dapagliflozin [Farxiga] Med 09/09/25 13:30 Active
10 mg PO DAILY
Dextrose 50%-Water [Dextrose 50% Syringe] Med 09/05/25 17:44 Active
12.5 grams IV [id number] PRN
Docusate W/Senna [Senokot-S] Med 09/05/25 20:00 Active
1 tablet PO BIDPRN PRN
FOLic ACID [Folvite] Med 09/06/25 08:00 Active
1 mg PO DAILY
FOLic ACID [Folvite] 1 mg Med 09/05/25 17:44 Active
0.9% Sodium Chloride 50 ml [Nss] 50 ml
IV DAILYPRN
Flush (0.9% Sodium Chloride) [Flush (Nss)] Med 09/05/25 16:00 Active
See Dose Instructions IV PER PROTOCOL
Furosemide [Lasix] Med 09/07/25 18:16 Active
20 mg PO DAILY@1600
Furosemide [Lasix] Med 09/08/25 08:00 Active
40 mg PO DAILY
Glucagon [GlucaGen] Med 09/05/25 17:44 Active
1 mg IM PRN PRN
Insulin Aspart Corrective Mod [Novolog Flexpen-Moderate Med 09/06/25 07:30 Active
Resistance]
See Protocol SC AC
Insulin Aspart Pen [Novolog Flexpen] Med 09/08/25 07:30 Active
10 units SC AC
Insulin Glargine Lantus [Lantus] 22 units Med 09/08/25 07:29 Active
Subcutaneous Insulin Syringe [Syringe-Insulin] 0 unit
SC HS
Lorazepam [Ativan] Med 09/09/25 16:35 Active
0.25 mg IV ONCE PRN PRN
Lorazepam [Ativan] Med 09/05/25 17:44 Active
1 mg IV Q1HPRN PRN
Lorazepam [Ativan] Med 09/05/25 17:44 Active
1 mg PO Q2HPRN PRN
Lorazepam [Ativan] Med 09/05/25 17:44 Active
2 mg IV Q1HPRN PRN
Olodaterol HCl [Striverdi Respimat] Med 09/06/25 08:00 Active
2 puff INH R DAILY
Pantoprazole [Protonix] Med 09/06/25 08:00 Active
40 mg PO DAILY
Polyethylene Glycol Powder [Miralax] Med 09/05/25 18:00 Active
17 grams PO DAILYPRN PRN
Prednisolone Acetate [Pred Forte 1% Eye Drops] Med 09/16/25 08:00 Active
See Dose Instructions OPHTH BID
Prednisolone Acetate [Pred Forte 1% Eye Drops] Med 09/23/25 08:00 Active
See Dose Instructions OPHTH DAILY
Prednisolone Acetate [Pred Forte 1% Eye Drops] Med 09/09/25 08:00 Active
See Dose Instructions OPHTH TID
Spironolactone [Aldactone] Med 09/06/25 08:00 Active
50 mg PO DAILY
Thiamine HCl [Vitamin B1] Med 09/08/25 20:00 Active
100 mg PO BID
Tiotropium Eakly 2.5 Mcg [Spiriva Respimat 2.5 Mcg] Med 09/06/25 08:00 Active
2 puff INH R DAILY
eltrombopag olamine Med 09/09/25 17:00 Active
See Dose Instructions PO DAILY
Vitals:�
�
Physical Exam:�
Temp Pulse Resp BP Pulse Ox
98.8 F 105 18 119/76 94
09/09/25 19:16 09/09/25 19:16 09/09/25 19:16 09/09/25 19:16 09/09/25 19:16
Height 5 ft 10 in
Actual Weight 91.49 kg
Body Mass Index (BMI) 28.9
General Appearance/Observation: Well-developed, well-nourished male in no apparent distress.�
Pain/Comfort Assessment: Denies�
Mood/Affect: Appropriate�
�
Integumentary/Operative Site:�Right tapia with dressing over it. Erythema, warmth mild tenderness right tapia around dressing.
-Right arm IV
�
Eyes: Conjunctiva/Lids: normal��� Pupils: pupils equal round and reactive to light
Ears/Nose/Throat: oral mucosa moist, throat clear.������������ Lips/Teeth/Gums: normal
Neck: No muscle spasm or tenderness�
Cardiovascular: Heart: regular, no murmur�
Pulses: dorsalis pedis 1+ bilaterally�
Respiratory: Respiratory Effort/Chest Expansion: normal������ Auscultation: Clear to auscultation bilaterally
Gastrointestinal: abdomen not tender, no distension, normal abdominal bowel sounds
Genitourinary: No Asher�
Rectal Exam: Deferred�
Extremities:�Edema: mild right more then left non-pitting, fine wrinkles in skin bilaterally�Cyanosis: None�
�
Neurology Exam:
Orientation: Alert, Oriented to self, Time, Place�
Memory: Intact for recent medical concerns
Repetition: Intact
Comprehension: Intact
Two step command: Intact
Cranial Nerves:
�� CNII:�Pupillary light reflex: Intact���Visual Field: Intact
�� CN III, IV, : Extraocular muscles: Intact�
�� CN V:�Facial Sensation�at�Forehead: Intact,�Maxilla: Intact,�Mandible: Intact
�� CN VII:�Facial movement: Symmetric
�� CN VIII:�Hearing: Normal
�� CN IX/X:�Speech & swallow: Normal,�Position of Uvula: Midline
�� CN XI:�Shoulder shrug: Symmetric
�� CN XII:�Tongue protrusion: Midline
Sensory:
�� Light touch: Intact in bilateral upper extremities, decreased both feet more on right.
�� Proprioception: impaired both big toes, worse on the right.
�� Temperature:�Intact
�
Reflexes:
�� Biceps: 2+ bilaterally
�� Brachioradialis: 2+ bilaterally
�� Triceps: 2+ bilaterally
�� Patellar: 0 bilaterally
�� Achilles: 0 bilaterally
�� Babinski: Down going bilaterally
�� Clonus: None
�� Robert: Negative bilaterally�
Cerebellar: Dysmetria/Ataxia: None�
Musculoskeletal: Motor: (Manual muscle scale 0-5)�
Muscle SA EF WE EE FF FA HF KE DF EHL PF
Right� 5 5 5 5 5 5 5 5 5 5 5
Left 5 5 5 5 5 5 5 5 5 5 5
�
Tone: Normal in all extremities�
Range of Motion: Passively within normal limits in all extremities�
�
Lab Results
�
Laboratory Data
09/09/25 06:04
09/09/25 06:04
PT 20.6 Sec (11.4-14.6) H 09/06/25 07:29
INR 1.75 09/06/25 07:29
APTT 30.6 Sec (23.4-35.0) 09/05/25 18:19
Total Bilirubin 3.1 mg/dl (0.2-1.3) H 09/09/25 06:04
Direct Bilirubin 1.4 mg/dl (0.0-0.4) H 09/06/25 07:29
GGT 206 U/L (15-73) H 09/05/25 18:16
AST 49 U/L (17-59) 09/09/25 06:04
ALT 58 U/L (0-50) H 09/09/25 06:04
Alkaline Phosphatase 131 U/L (38-126) H 09/09/25 06:04
Total Protein 6.0 g/dl (6.3-8.2) L 09/09/25 06:04
Albumin 2.8 g/dl (3.5-5.0) L 09/09/25 06:04
Diagnostic Results:�as per HPI�
�
Assessment
74 y/o M PMH (Hyperlipidemia, hypertension, GERD, allergic rhinitis, B-cell lymphoma, cirrhosis of liver with ascites, portal hypertension, grade 1 esophageal varices, BPH, DVT, CHF, coronary artery disease, chronic thrombocytopenia) with 09/05/2025
hyperglycemia, hypoxia with subsegmental atelectasis, ascites with history of alcoholic cirrhosis S/P paracentesis, cardiorenal syndrome, RLE cellulitis on cefazolinwith likely chronic peripheral polyneuropathy possbily from alchol use and what
appears to be acute meralgia paresthetica.
Plan�
PM&R�PT/OT to increase independence with ADLs, improve balance, coordination, endurance, strength, mobility, community reintegration, decreased burden of care on others and family education.�
�
Bilateral lateral thigh numbness: most consistent with meralgia paresthetica in pocket distribution that does not follow dermatomes, no weakness. Recent increase abdominal swelling and distension is also classic etiology. Can get EMG/NCS as
outpatient to confirm this. RLE DVT can make swelling worse which can make sensation worse.
Bilateral LE sensory loss: Outpatient EMG/NCS. Likely related to alcohol by history. EMG/NCS will help determine type of neuropathy and further testing can be done to look for a possible reversible etiology. Has elevated HgbA1C but was on
steroids recently, daughter notes it was 5.2 prior.
-Common etiologies include diabetes, alcohol use, B12, thyroid disorder, autoimmune concerns. It is reasonable to check a B12, TSH to start.� Patient at high risk of falling with significant neuropathy, chronic per report.�
Right leg cellulitis: on cefazolin, monitor.
Recent Right leg DVT: Eliquis discussed with patient and Daughter.
Hypoxia: thought from atelectasis, Breo, albuterol PRN and incentive spirometry.
�
Falls:�Likely multifactorial�
1. Peripheral polyneuropathy
2. Had decreased vision with cataracts, now S/P surgery.
�
HTN: continue medications, monitor closely�
HLD: Statin��������������������������������������
CHF: BNP not elevated, beta trisha, farxiga monitor fluid status�
Type II DM with steriod hyperglycemia?: Lantus and Lispro, farxiga
Cirrhosis with ascites: S/P paracentesis, management per GI
Skin: monitor for pressure sores/rashes/lesions.�
Pain: acetaminophen as needed.�
Bowel: bowel meds as needed.�
Alcohol Abuse: Alcohol cessation education, offering of outpatient alcohol abuse program. Folic acid and thiamine.�
GI Prophylaxis: Pantoprazole�
Safety: Continue to reinforce assistance with all transfers.�
Code Status:� Full code
Dispo�(date/plan/equipment needs): Home with family care.� Social history reviewed.�
Functional and Medical Goals:�Modified Independent with ADL�s, ambulation, transfers
Discharge Destination:�group home facility�
A total of 80 minutes were spent with the patient preparing for the evaluation, obtaining history, performing examination and evaluation, counseling, data review, case management, care coordination, stock order lister, and EMR documentation. Case
discussed with patient, daughter, attending, nursing.
�
Thank you for allowing me to care for your patient. Please contact me with any questions or concerns.
Consultation
-
Date/Time Consultation Requested: 09/08/25
Date/Time Consultation Performed: 09/09/25
Requesting Provider: Dr. Henok Weber
Performing Provider: Dr. Surendra Johnson
Reason for Consultation: Concern for peripheral neuropathy
[2025-09-09] MEDS: NOVOLOG FLEXPEN 10 UNITS SC ×3 (11:00→17:15)
--- NOTE | 2025-09-09 12:45 | WOUNDNOTE ---
L POSTERIOR LOWER ARM NEAR ELBOW
--- NOTE | 2025-09-09 12:46 | WOUNDNOTE ---
R LOWER LEG BELOW KNEE
--- NOTE | 2025-09-09 12:47 | WOUNDNOTE ---
WON RN NOTE: Followed up today as requested by Dr. Weber and family. R leg laceration from falling off a ride on mower has healed. Intact scar visible, silicone foam in use to protect. L arm near elbow with healing laceration from same fall,
reports patient. Dressing stuck to wound despite using adaptic. Today added silver gel to site followed by adaptic, gauze, harsh and spandage. Confirmed with patient that he is not allergic to silver. Updated daughter Bianca at bedside and Tri
via phone. Will confirm orders with hospitalist and follow as needed.
[2025-09-09 12:57] LABS: Glucose - Point of Care 156 mg/dl (70-99)
--- NOTE | 2025-09-09 14:00 | PTCARENOTE ---
09/09/2025 DIABETES EDUCATION CONSULT
I met with patient to review diabetes management. His daughter, Carmenza was present as well. Carmenza and patient's spouse Christina have diabetes and will help patient in self management upon discharge.
I educated on physiology of T2D, organ damage, managing with medications, monitoring BG . I reinforced signs of hyperglycemia, hypoglycemia and hypoglycemia protocol; BS parameters and recommended HbA1c goals, glucometer and CGM instructions,
glucose tracker, medic alert bracelet and outpatient DSME program. Written material provided.
I educated and demonstrated on insulin injection technique, timing, and storage. Discussed long and short acting insulin; onset/peak/duration, and encouraged her to administer his own injections with RN supervision while admitted. Discussed normal
target glucose ranges and a monitoring schedule 15 minutes before each meal when prescribed Novolog, and before bedtime. Provided the nurse with pen needles. Declined instruction on using glucometer as family will assist when d/c home.
Patient's daughter states MRI of brain and CT of back pending before discharge. He expects to go to rehab, unsure if he will be d/c home first if needing to wait for a bed. Patient interested in a CGM, I provided education that we can discuss in
more detail upon his discharge and facilitate ordering.
Encouraged patient to follow up with his PCP for post d/c appointment and to monitor medication and blood glucose levels. Provided list of endocrinologists if desired, to contact insurance company to verify in network status. Patient
verbalized understanding.
[2025-09-09] MEDS: NOVOLOG FLEXPEN-MODERATE RESISTANCE 1 UNITS SC (14:02)
[2025-09-09] MEDS: FARXIGA 10 MG PO (14:04)
--- NOTE | 2025-09-09 14:34 | W.PN.GI.CBS2 ---
Today's Communication / Plan
-
repeat paracentesis
Assessment / Plan
-
Pt with cirrhosis, ascites, hyperglycemia with worsening ascites
1. retap ascites
2. will need to adjust diuretics after
3. glucose control
Subjective
Subjective
Date of Service: September 09, 2025
Pt feels better but stomach more distended, feels fluid rebuild up
Objective
Data Reviewed
Laboratory Data:
Laboratory Results
09/09/25 06:04
09/09/25 06:04
Laboratory Results
PT 20.6 Sec (11.4-14.6) H 09/06/25 07:29
INR 1.75 09/06/25 07:29
APTT 30.6 Sec (23.4-35.0) 09/05/25 18:19
Phosphorus 3.4 mg/dl (2.5-4.5) 09/05/25 18:16
Magnesium 2.3 mg/dl (1.6-2.3) 09/06/25 07:29
Total Bilirubin 3.1 mg/dl (0.2-1.3) H 09/09/25 06:04
AST 49 U/L (17-59) 09/09/25 06:04
ALT 58 U/L (0-50) H 09/09/25 06:04
Alkaline Phosphatase 131 U/L (38-126) H 09/09/25 06:04
Vital Signs and I&O:
Vital Signs
Temp Pulse Resp BP Pulse Ox
98.3 F 95 16 132/68 96
09/09/25 07:50 09/09/25 08:28 09/09/25 08:05 09/09/25 08:28 09/09/25 08:30
I&O
09/08/25 09/09/25 09/10/25
06:59 06:59 06:59
Intake Total 980 / 980 600 / 600
Output Total 1200 / 1200 530 / 530
Balance -220 / -220 70 / 70
Physical Exam
Physical Exam
HEENT: Anicteric
GI: Distended (ascites) and Non Tender
Neuro: Non Focal
[2025-09-09 16:00] VITALS: BP 116/77
[2025-09-09] MEDS: NON-FORMULARY ITEM 25 MG PO (16:29)
[2025-09-09] MEDS: LASIX 20 MG PO (16:35)
[2025-09-09 17:10] LABS: Glucose - Point of Care 133 mg/dl (70-99)
--- NOTE | 2025-09-09 19:00 | PTCARENOTE ---
Pt educated on self administering insulin. Pt administered own insulin for each dose today. Pt states he's starting to feel more comfortable administering own insulin.
[2025-09-09 19:16] VITALS: BP 119/76
[2025-09-09 21:19] LABS: Glucose - Point of Care 146 mg/dl (70-99)
[2025-09-09] MEDS: PRED FORTE 1% EYE DROPS OPHTH (22:45)
[2025-09-09] MEDS: LANTUS 0.22 UNITS SC (22:55)
[2025-09-09] MEDS: MELATONIN 5 MG PO (22:58)
[2025-09-09 23:17] VITALS: BP 123/69
[2025-09-10] VITALS (9 sets, daily range): BP systolic 92–134; BP diastolic 70–86; BMI 28.8
[2025-09-10] MEDS: OCEAN, SALINE MIST 1 SPRAYS NASAL (00:04)
[2025-09-10] MEDS: ANCEF 5 IV ×3 (02:12→18:39)
[2025-09-10 06:40] LABS: Hematocrit 32.6 % (39.0-52.0); Hemoglobin 11.4 g/dL (13.0-18.0); Mean Corp Hgb Conc. 35.0 g/dL (33.0-37.0); Mean Corpuscular Volume 97.0 fL (80.0-94.0); Platelet Count 143 10^3/uL (130-400); Red Cell Dist. Width 16.4 % (11.5-14.5)
[2025-09-10 07:25] LABS: ALT (SGPT) 51 U/L (0-50); AST (SGOT) 51 U/L (17-59); Albumin 2.8 g/dl (3.5-5.0); Alkaline Phosphatase 119 U/L (38-126); Blood Urea Nitrogen 32 mg/dl (9-20); Calcium 8.4 mg/dl (8.4-10.2); Carbon Dioxide 26 mmol/L (22-30); Chloride 98 mmol/L (98-107); Estimated Creatinine Clearance 74 ml/min; Glucose 111 mg/dl (70-99); Potassium 3.5 mmol/L (3.5-5.1); Sodium 129 mmol/L (135-145); Total Protein 6.0 g/dl (6.3-8.2); eGFR > 60.00
[2025-09-10] MEDS: STRIVERDI RESPIMAT 2 PUFF INH (07:26)
[2025-09-10] MEDS: SPIRIVA RESPIMAT 2.5 MCG 2 PUFF INH (07:26)
[2025-09-10 07:34] LABS: Glucose - Point of Care 123 mg/dl (70-99)
--- NOTE | 2025-09-10 07:47 | W.PN.HOSP.TC ---
Today's Communication/Plan
-
See plan
Assessment / Plan
Assessment / Plan
Physical Exam
General: Well Developed, Well Nourished and No Apparent Distress
HEENT: Normocephalic, Moist mucous membranes and Atraumatic
Respiratory: Decreased Breath Sounds
Cardiac: S1/S2 and Regular Rhythm; No Murmur or Rub
GI: Soft, Non Tender, Normal Bowel Sounds and Distended
Musculoskeletal: No Cyanosis and Other (Bilateral lower extremities edema)
Skin: Rash and Other (Right lower extremities wound, left upper arm wound)
Neuro: AO x 3 and Nonfocal/grossly intact. Strength 5/5 in bilateral lower extremities. Sensation reduced in the bilateral lateral thighs.
Psych: Calm
Assessment/Plan
74-year-old male past medical history of right lower extremity DVT on Eliquis, non-Hodgkin's lymphoma of the spleen, thrombocytopenia, hypertension, CAD status post stent in April, alcoholic cirrhosis, pulmonary nodules, restrictive airway disease,
GERD, BPH, squamous cell skin cancer, anxiety, obstructive sleep apnea, presenting with elevated blood sugar on outpatient labs. He recently completed steroids for upper respiratory infection. He has shortness of breath worsening for 1 week with
exertion despite antibiotic and steroid. Chronic cough. Urinary frequency for past few days. Increased abdominal distention and lower extremity edema. He had a fall 4 days ago and hit his head with bruise back of head and wound of left elbow and
right lower extremity. He was seen at [place] and had negative trauma workup. Vital signs unremarkable apart from mild tachycardia up to 105. Blood pressure 91/55. Requiring 2L oxygen. Labs showed blood sugar of 559. Hemoglobin A1c 10.1.
Creatinine 1.4. Urinalysis unremarkable. CXR [address] abdomen pelvis shows mild to moderate ascites. Patient with hyperglycemia with A1c of 10.1 secondary to underlying diabetes/ exacerbated by steroid-induced hyperglycemia. [place]
likely secondary to losartan/Lasix. IV fluids were given around the time of admission. Hold lasix. Dysnea likely due to restrictive lung disease from ascites. Also concerned for decompensated cirrhosis. Check INR and LFTs. IR for paracentesis. GI
consulted. Started Lantus 10 units and insulin sliding scale. Will hold off on further IV fluids at this time due to cirrhosis. Wound care consulted for wound of left elbow and right lower extremity. Alcohol withdrawal protocol. Thiamine and
Folate.
#New onset diabetes mellitus with urinary frequency and polydipsia
- Recently finish steroids more than a week prior to presentation for a cough that he is dealing with for weeks
- A1c 10.1
- Blood sugar was elevated in 500s
- Lantus 10 units in the ER
- Continue Lantus, premeal Insulin and sliding scale -- titrate to ensure good glucose control -- appreciate Diabetes PEER EDUCATOR
#Acute hypoxic respiratory failure likely from abdominal distention/atelectasis
#Shortness of Breath, Tachycardia with exertion
#Restrictive lung disease?
-Albuterol and Breo continued
-Recent chest x-ray with impression of Bibasilar linear opacities, most suggestive of subsegmental atelectasis.
-After paracentesis on 09/05/25, hypoxia resolved, except when sleeping
-ProBNP unremarkable
-Echo with new mild aortic stenosis, but EF is normal to hyperdynamic, which can be explained by cirrhosis
-May need CPAP given [place] below
# Abdominal distention/lower extremities edema concern for ascites
#history of alcoholic cirrhosis
-CT of abdomen No abnormal focal pancreatic lesions identified.
2. Advanced changes of hepatic cirrhosis and portal hypertension with associated splenomegaly. No suspicious focal hepatic lesion identified at CT.
3. Small to moderate volume of ascites.
4. Atelectatic changes at the bilateral lung bases. Small amount of airspace consolidation along the paramediastinal right lower lobe as above which is most likely also atelectatic.
-IR consulted for paracentesis -- paracentesis performed on 09/05/25 with 3000 cc of hazy yellow ascitic fluid removed
-IR re-consulted 09/09/25 for repeat paracentesis: 2550 cc of fluid removed
-GI consulted -- On 09/10/25, I communicated via [employer] with transitional kindergarten teacher Dr. Merchant who said patient is not a candidate for external peritoneal catheter as he needs to have failed diuretics first and Aldactone has just been started
#Recent right eye cataract surgery on 09/01/25
-Continue Ofloxacin eye drops
-Continue Prednisolone Eye Drops
-Discussed on 09/06/25 eye drops regimen with patient's daughter Bianca
#Recent on his way to home on 09/01/25 from eye cataract surgery appointment, he lost the balance and fell backwards -- patient hit the back of his head on the floor and sustained wound on his left arm
-Trauma evaluation was unremarkable at [facility]
#Microscopic Hematuria
-Re-evaluation outpatient
# Right lower extremity/left upper extremity wound
- Wound care consulted
#recent fall likely mechanical
-PT/OT consulted
-trauma workup negative at [facility]
# Acute kidney injury possibly hepatorenal
- IV fluids were initially given in the ER this admission given [place]
- Creatinine 1.4-->1.0-->1.1-->1.0-->0.9
- Continue to monitor
#Right leg DVT
-Recently diagnosed
-Continue Eliquis
#Right Leg Swelling>Left Lower Extremity Swelling
#Right Lower Extremity Erythema
-Right lower extremity ultrasound with improving/resolving DVT
-Started antibiotics with Cefazolin on 09/08/25
-MRSA swab negative
-Consulted ID as cellulitis seems slow to improve
-Can do YASMANY wrap from base of toes to knee or 20-30 mmHg knee high compression sock
#Right Anterolateral Thigh and Left Anterolateral Thigh Numbness and Burning Sensation
-Suspected from Meralgia paraesthetica, discussed with Dr. 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
-US and DEBRA with no significant PAD except right toe brachial index is mildly diminished, suggesting possible mild distal small vessel arterial disease on the right -- I communicated via [employer] with
vascular surgeon Dr. Asher who said nothing to do, follow-up outpatient
-I communicated (on 09/08/25, via [employer]) with neurologist Dr. Salmeron who said that patient does not need a neurologist consult -- Dr. Salmeron mentioned that patient's symptoms are part of his DVT
-MRI of L-spine with and without contrast and MRI Brain with and without contrast for completeness to check for stroke and lumbar spinal issues that can possibly be contributing -- discussed with patient's daughter
Bianca on 09/09/25
#History of non-Hodgkin's lymphoma of spleen
#History thrombocytopenia
-continue eltrombopag
-Sees [facility]
#Hypertension
-BP soft in ER, still on lower side of normal
-hold losartan (patient's family mentioned that he takes Losartan 50 mg daily at home -- not 100 mg daily) to allow for diuretics
#Cataract surgery
-Continue prednisone alone 1 drop left eye as directed
#CAD/LAD stent April 2025
-Continue atorvastatin, Plavix 75 mg daily-
- 2D echo 03/04/2025: EF 60 to 65%, normal LVS LVSF no wall abnormalities, normal diastolic function
#Alcoholic cirrhosis
#Esophageal Varices
#Alcohol use disorder
-Recommended cessation given history of cirrhosis
-Patient drinks 1-2 beers daily last drink 09/04/25 afternoon
-MSAS/alcohol withdrawal protocol
#Chronic peripheral edema
#CHF
-Resume Lasix
-Resume jardiance
-proBNP unremarkable
-Echo with hyperdynamic EF
#New Mild Aortic Stenosis
#GERD
-Continue Protonix
#BPH
#History of TURP
#Squamous cell skin CA
#Anxiety
#Sleep apnea
#Hypoxia when sleeping
-Per nurse communication: pulse oximetry had been 93% and above since starting continuous pulse oximetry on 09/06/25
-Per nurse, when patient just laid down to take a nap after lunch on 09/06/25, his oxygen level was through and consistently at 87% - 2 L O2 placed
-Patient wore CPAP many years ago, but no longer wearing since lost weight and thought he did not need it anymore
#Left Elbow and RLE wounds
#Chronic RLE wound
-Wound care consultation requested
Code Status: Full code
personal chef: daughter Bainca -- phone number: [phone]
On 09/06/25, I spoke extensively with patient, patient's and patient's daughter Bianca, and I answered all of their questions and concerns to satisfaction.
On 09/08/25, I spoke extensively with patient and patient's daughter Bianca, and I answered all of their questions and concerns to satisfaction.
On 09/09/25, I spoke extensively with patient and patient's daughter Bianca, and I answered all of their questions and concerns to satisfaction.
On 09/10/25, I spoke extensively with patient and patient's spouse Christina, and I answered all of their questions and concerns to satisfaction.
Anticipated Discharge: 24 - 48 hours
Subjective/Interval History
-
Date of Service: September 10, 2025
Patient was seen and examined. He reported no new symptoms, still with abdominal bloating and some numbness on the sides of his thighs.
Objective Data
-
Labs:
Laboratory Results
09/10/25
06:14
WBC 3.6 L
Hgb 11.4 L
Hct 32.6 L
Plt Count 143 D
Sodium 129 L
Potassium 3.5
Chloride 98
Carbon Dioxide 26
BUN 32 H
Creatinine 0.9
Glucose 111 H
Calcium 8.4
Total Bilirubin 3.3 H
AST 51
ALT 51 H
Alkaline Phosphatase 119
Vital Signs:
Vital Signs
Temp Pulse Resp BP Pulse Ox
98.5 F 93 16 128/80 97
09/10/25 03:19 09/10/25 07:30 09/10/25 07:30 09/10/25 03:19 09/10/25 07:30
I&O
09/09/25 09/10/25 09/11/25
06:59 06:59 06:59
Intake Total 600 / 600 1140 / 1140
Output Total 530 / 530 1060 / 1060
Balance 70 / 70 80 / 80
[2025-09-10] MEDS: NOVOLOG FLEXPEN-MODERATE RESISTANCE SC ×3 (08:55→18:39)
[2025-09-10] MEDS: ALDACTONE 50 MG PO (08:56)
[2025-09-10] MEDS: LIPITOR 40 MG PO (08:56)
[2025-09-10] MEDS: PLAVIX 75 MG PO (08:56)
[2025-09-10] MEDS: FARXIGA 10 MG PO (08:56)
[2025-09-10] MEDS: NON-FORMULARY ITEM 25 MG PO (08:56)
[2025-09-10] MEDS: PROTONIX 40 MG PO (08:56)
[2025-09-10] MEDS: LASIX 40 MG PO (08:56)
[2025-09-10] MEDS: ELIQUIS 5 MG PO ×2 (08:56→20:11)
[2025-09-10] MEDS: PRED FORTE 1% EYE DROPS 1 DROP OPHTH ×3 (09:00→22:02)
[2025-09-10] MEDS: VITAMIN B1 100 MG PO ×2 (09:03→20:11)
[2025-09-10] MEDS: FOLVITE 1 MG PO (09:03)
[2025-09-10] MEDS: NOVOLOG FLEXPEN 10 UNITS SC ×3 (10:31→19:31)
[2025-09-10 11:04] LABS: Body Fluid Second Tech EM
[2025-09-10 11:55] LABS: Glucose - Point of Care 134 mg/dl (70-99)
--- NOTE | 2025-09-10 13:11 | PN.DE.MGMTRT ---
Insulin Management
- -
09/10/2025: Diabetes Management Follow up
74 year old male presented to the ED with elevated blood sugar. PMH: HTN, HLD, CAD s/p stent to LAD 04/2025, CHF, GERD, allergic rhinitis, Alcohol Cirrhosis, Non-Hodgkin's Lymphoma, RLE DVT on Eliquis , Ascites and BPH. He gets weekly blood work to
make sure his platelets are okay as he is on Eliquis. This morning he got a call from his GI doctor as his blood sugar was elevated. He did recently finish steroids more than a week ago for a cough that he is dealing with for weeks. He has a chronic
cough which at times is productive with clear sputum. He also has chronic right lower extremity wound, which has recently started oozing clear. Patient reports urinary frequency and polydipsia. He denies any nausea vomiting diarrhea or abdominal
pain.
He was taking Jardiance 10 mg daily prior to admission. A1C 10.1%, Cr 1.4-->1.0, eGFR >60 today.
Upon arrival patient was noted to have elevated glucose of 559, he was treated with 10 units of Lantus and 1 Liter of LR with improvement of his glucose.
-Christina reports that pt has recently had significant physical decline over the last couple of months and that he has been on and off steroids for a few weeks. Discussed with Christina that pt will need insulin therapy for optimal glucose
control moving forward.
Patient awake, alert, oriented, sitting up in chair, offers no complaints. To be transported for Paracentesis now.
09/05 underwent paracentesis-3L for moderate to large pleural effusion, states he feels better but still has significant abdominal distention.
09/08 Glucose range was 167 to 193. Received 10 units novolog AC and 22 units lantus at hs. Will resume SGLT 2 - Patients lost charge card clerk had started Jardiance.
09/09 Fasting glucose 151. Received Lantus 22 units @ HS and NovoLog to 10 units AC with low corrective insulin with meals and Farxiga 10 mg daily.
11/5 Fasting glucose 123, glucose range 133 to 156 yesterday. Will continue Lantus 22 units @ HS and NovoLog to 10 units AC with low corrective insulin with meals and Farxiga 10 mg daily. Paracentesis completed, 2550 cc ascitic fluid removed.
Discussed with Nurse. Will cont to follow
Pt will be seen by the Diabetes Nurse Educator for monitor and insulin instructions. states that she will be the one administering insulin at home, so she is requested to have the education administered when she is present.
Diabetes History
- -
Type of Diabetes: 2 requiring insulin
Pre-Admission Diabetes Regimen
09/10/25
06:14
Creatinine 0.9
Lab Results
Hemoglobin A1c 10.1 % (4.0-5.9) H 09/05/25 08:46
Insulin Pump Settings
IP Diabetes Regimen
09/09/25 09/09/25 09/10/25
17:08 21:17 06:14
Glucose 111 H
POC Glucose 133 H 146 H
09/10/25 09/10/25
07:32 11:54
Glucose
POC Glucose 123 H 134 H
Patient Education
--- NOTE | 2025-09-10 16:18 | W.PN.GI.CBS2 ---
Today's Communication / Plan
-
outpt f/u
Assessment / Plan
-
Pt with cirrhosis, ascites, hyperglycemia
1. started on aldactone this week
2. f/u with Dr. Salamanca on 09/23/25 at 11AM
D/W Dr Salamanca who knows pt well. will need to slowly titrate up diuretics. would prefer over scheduled taps at this point
will sign off
Subjective
Subjective
Date of Service: September 10, 2025
Pt had paracentesis today of 2550. just started on aldactone this week. known to also have chronic gasseous distention
Objective
Data Reviewed
Laboratory Data:
Laboratory Results
09/10/25 06:14
09/10/25 06:14
Laboratory Results
PT 20.6 Sec (11.4-14.6) H 09/06/25 07:29
INR 1.75 09/06/25 07:29
APTT 30.6 Sec (23.4-35.0) 09/05/25 18:19
Phosphorus 3.4 mg/dl (2.5-4.5) 09/05/25 18:16
Magnesium 2.3 mg/dl (1.6-2.3) 09/06/25 07:29
Total Bilirubin 3.3 mg/dl (0.2-1.3) H 09/10/25 06:14
AST 51 U/L (17-59) 09/10/25 06:14
ALT 51 U/L (0-50) H 09/10/25 06:14
Alkaline Phosphatase 119 U/L (38-126) 09/10/25 06:14
Vital Signs and I&O:
Vital Signs
Temp Pulse Resp BP Pulse Ox
98.4 F 103 18 117/75 98
09/10/25 11:35 09/10/25 11:35 09/10/25 11:35 09/10/25 11:35 09/10/25 11:35
I&O
09/09/25 09/10/25 09/11/25
06:59 06:59 06:59
Intake Total 600 / 600 1140 / 1140
Output Total 530 / 530 1060 / 1060
Balance 70 / 70 80 / 80
Physical Exam
Physical Exam
GI: Soft and Distended
Neuro: Non Focal
[2025-09-10 18:34] LABS: Glucose - Point of Care 117 mg/dl (70-99)
[2025-09-10] MEDS: LASIX 20 MG PO (18:40)
[2025-09-10 21:22] LABS: Glucose - Point of Care 157 mg/dl (70-99)
[2025-09-10] MEDS: MELATONIN 5 MG PO (22:01)
[2025-09-10] MEDS: LANTUS 0.22 UNITS SC (22:01)
[2025-09-11] VITALS (8 sets, daily range): BP systolic 107–141; BP diastolic 61–88; PULSE 97–98; O2SAT 95–96; BMI 28.0
[2025-09-11] MEDS: ANCEF 5 IV ×3 (03:34→17:12)
[2025-09-11 05:27] LABS: Hematocrit 32.1 % (39.0-52.0); Hemoglobin 11.4 g/dL (13.0-18.0); Mean Corp Hgb Conc. 35.5 g/dL (33.0-37.0); Mean Corpuscular Volume 96.4 fL (80.0-94.0); Platelet Count 157 10^3/uL (130-400); Red Cell Dist. Width 16.2 % (11.5-14.5)
[2025-09-11 05:51] LABS: Blood Urea Nitrogen 29 mg/dl (9-20); Calcium 8.5 mg/dl (8.4-10.2); Carbon Dioxide 27 mmol/L (22-30); Chloride 99 mmol/L (98-107); Estimated Creatinine Clearance 74 ml/min; Glucose 105 mg/dl (70-99); Potassium 3.4 mmol/L (3.5-5.1); Sodium 128 mmol/L (135-145); eGFR > 60.00
[2025-09-11 07:18] LABS: Glucose - Point of Care 115 mg/dl (70-99)
[2025-09-11] MEDS: SPIRIVA RESPIMAT 2.5 MCG 2 PUFF INH (07:33)
[2025-09-11] MEDS: STRIVERDI RESPIMAT 2 PUFF INH (07:34)
--- NOTE | 2025-09-11 07:38 | W.PN.HOSP.TC ---
Today's Communication/Plan
-
See plan
Assessment / Plan
Assessment / Plan
Physical Exam
General: Well Developed, Well Nourished and No Apparent Distress
HEENT: Normocephalic, Moist mucous membranes and Atraumatic
Respiratory: Decreased Breath Sounds
Cardiac: S1/S2 and Regular Rhythm; No Murmur or Rub
GI: Soft, Non Tender, Normal Bowel Sounds and Distended
Musculoskeletal: No Cyanosis and Other (Bilateral lower extremities edema)
Skin: Rash and Other (Right lower extremities wound, left upper arm wound)
Neuro: AO x 3 and Nonfocal/grossly intact. Strength 5/5 in bilateral lower extremities. Sensation reduced in the bilateral lateral thighs.
Psych: Calm
Assessment/Plan
74-year-old male past medical history of right lower extremity DVT on Eliquis, non-Hodgkin's lymphoma of the spleen, thrombocytopenia, hypertension, CAD status post stent in April, alcoholic cirrhosis, pulmonary nodules, restrictive airway disease,
GERD, BPH, squamous cell skin cancer, anxiety, obstructive sleep apnea, presenting with elevated blood sugar on outpatient labs. He recently completed steroids for upper respiratory infection. He has shortness of breath worsening for 1 week with
exertion despite antibiotic and steroid. Chronic cough. Urinary frequency for past few days. Increased abdominal distention and lower extremity edema. He had a fall 4 days ago and hit his head with bruise back of head and wound of left elbow and
right lower extremity. He was seen at [place] and had negative trauma workup. Vital signs unremarkable apart from mild tachycardia up to 105. Blood pressure 91/55. Requiring 2L oxygen. Labs showed blood sugar of 559. Hemoglobin A1c 10.1.
Creatinine 1.4. Urinalysis unremarkable. CXR [address] abdomen pelvis shows mild to moderate ascites. Patient with hyperglycemia with A1c of 10.1 secondary to underlying diabetes/ exacerbated by steroid-induced hyperglycemia. CAROLINA
likely secondary to losartan/Lasix. IV fluids were given around the time of admission. Hold lasix. Dysnea likely due to restrictive lung disease from ascites. Also concerned for decompensated cirrhosis. Check INR and LFTs. IR for paracentesis. GI
consulted. Started Lantus 10 units and insulin sliding scale. Will hold off on further IV fluids at this time due to cirrhosis. Wound care consulted for wound of left elbow and right lower extremity. Alcohol withdrawal protocol. Thiamine and
Folate.
#New onset diabetes mellitus with urinary frequency and polydipsia
- Recently finish steroids more than a week prior to presentation for a cough that he is dealing with for weeks
- A1c 10.1
- Blood sugar was elevated in 500s
- Lantus 10 units in the ER
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
#Acute hypoxic respiratory failure likely from abdominal distention/atelectasis
#Shortness of Breath, Tachycardia with exertion
#Restrictive lung disease?
-Albuterol and Breo continued
-Recent chest x-ray with impression of Bibasilar linear opacities, most suggestive of subsegmental atelectasis.
-After paracentesis on 09/05/25, hypoxia resolved, except when sleeping
-ProBNP unremarkable
-Echo with new mild aortic stenosis, but EF is normal to hyperdynamic, which can be explained by cirrhosis
-May need CPAP given AZ below
# Abdominal distention/lower extremities edema concern for ascites
#history of alcoholic cirrhosis
-CT of abdomen No abnormal focal pancreatic lesions identified.
2. Advanced changes of hepatic cirrhosis and portal hypertension with associated splenomegaly. No suspicious focal hepatic lesion identified at CT.
3. Small to moderate volume of ascites.
4. Atelectatic changes at the bilateral lung bases. Small amount of airspace consolidation along the paramediastinal right lower lobe as above which is most likely also atelectatic.
-IR consulted for paracentesis -- paracentesis performed on 09/05/25 with 3000 cc of hazy yellow ascitic fluid removed
-IR re-consulted 09/09/25 for repeat paracentesis: 2550 cc of fluid removed
-GI consulted -- On 09/10/25, I communicated via [employer] with manager merchandise Dr. Merchant who said patient is not a candidate for external peritoneal catheter as he needs to have failed diuretics first and Aldactone has just been started
#Recent right eye cataract surgery on 09/01/25
-Continue Ofloxacin eye drops
-Continue Prednisolone Eye Drops
-Discussed on 09/06/25 eye drops regimen with patient's daughter Bianca
#Recent on his way to home on 09/01/25 from eye cataract surgery appointment, he lost the balance and fell backwards -- patient hit the back of his head on the floor and sustained wound on his left arm
-Trauma evaluation was unremarkable at [facility]
#Microscopic Hematuria
-Re-evaluation outpatient
# Right lower extremity/left upper extremity wound
- Wound care consulted
#recent fall likely mechanical
-PT/OT consulted
-trauma workup negative at [facility]
# Acute kidney injury possibly hepatorenal
- IV fluids were initially given in the ER this admission given CAROLINA
- Creatinine 1.4-->1.0-->1.1-->1.0-->0.9
- Continue to monitor
#Right leg DVT
-Recently diagnosed
-Continue Eliquis
#Right Leg Swelling>Left Lower Extremity Swelling
#Right Lower Extremity Erythema
-Right lower extremity ultrasound with improving/resolving DVT
-Started antibiotics with Cefazolin on 09/08/25
-MRSA swab negative
-Consulted ID as cellulitis seems slow to improve
-Can do YASMANY wrap from base of toes to knee or 20-30 mmHg knee high compression sock
#Right Anterolateral Thigh and Left Anterolateral Thigh Numbness and Burning Sensation
-Suspected from Meralgia paraesthetica, discussed with Dr. 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
-US and DEBRA with no significant PAD except right toe brachial index is mildly diminished, suggesting possible mild distal small vessel arterial disease on the right -- I communicated via [employer] with
vascular surgeon Dr. Asher who said nothing to do, follow-up outpatient
-I communicated (on 09/08/25, via [employer]) with neurologist Dr. Salmeron who said that patient does not need a neurologist consult -- Dr. Salmeron mentioned that patient's symptoms are part of his DVT
-MRI of L-spine with and without contrast for completeness showed stenosis -- discussed with Dr. Mohan (neurosurgery) who said (via [employer] communication) that MRI L-Spine imaging demonstrates chronic spondylitis/
arthritic changes and does not correlate with his reported acute symptomatology; No acute surgical pathology seen on imaging; As said, defer to symptomatic management per medicine/physiatry.
-Consider outpatient EMG/NCS
-MRI brain with no stroke
#History of non-Hodgkin's lymphoma of spleen
#History thrombocytopenia
#Lymphadenopathy on MRI L-Spine
-Continue Eltrombopag
-Sees [facility]
-I discussed with [facility] oncologist via [facility] [employer] communication on 09/11/25: Nothing for us to do inpatient. Dr. Posadas has follow up with him already scheduled 10/15. [facility] office will get the hospital records, including imaging for
her to see before his visit. But nothing needs to be done now.
#Hypervolemic Hyponatremia
-Increase PO FR from 48 ounces to 40 ounces
#Hypokalemia
-Supplemented; continue to monitor
#Acute proctocolitis on L-Spine MRI Imaging
-GI (for acute proctocolitis) -- Dr. Merchant said via [employer] [facility]y: it could be a finding from ascites. Dr. Salamanca knows him well and said his symptoms ate chronic. patient has had bloating for years and thoroughly worked up
#Hypertension
-BP soft in ER, still on lower side of normal
-hold losartan (patient's family mentioned that he takes Losartan 50 mg daily at home -- not 100 mg daily) to allow for diuretics
#Cataract surgery
-Continue prednisone alone 1 drop left eye as directed
#CAD/LAD stent April 2025
-Continue atorvastatin, Plavix 75 mg daily-
- 2D echo 03/04/2025: EF 60 to 65%, normal LVS LVSF no wall abnormalities, normal diastolic function
#Alcoholic cirrhosis
#Esophageal Varices
#Alcohol use disorder
-Recommended cessation given history of cirrhosis
-Patient drinks 1-2 beers daily last drink 09/04/25 afternoon
-MSAS/alcohol withdrawal protocol
#Chronic peripheral edema
#CHF
-Resume Lasix
-Resume jardiance
-proBNP unremarkable
-Echo with hyperdynamic EF
#New Mild Aortic Stenosis
#GERD
-Continue Protonix
#BPH
#History of TURP
#Squamous cell skin CA
#Anxiety
#Sleep apnea
#Hypoxia when sleeping
-Per nurse communication: pulse oximetry had been 93% and above since starting continuous pulse oximetry on 09/06/25
-Per nurse, when patient just laid down to take a nap after lunch on 09/06/25, his oxygen level was through and consistently at 87% - 2 L O2 placed
-Patient wore CPAP many years ago, but no longer wearing since lost weight and thought he did not need it anymore
#Left Elbow and RLE wounds
#Chronic RLE wound
-Wound care consultation requested
Code Status: Full code
product promoter sales person: daughter Bianca -- phone number: [phone]
On 09/06/25, I spoke extensively with patient, patient's and patient's daughter Bianca, and I answered all of their questions and concerns to satisfaction.
On 09/08/25, I spoke extensively with patient and patient's daughter Bianca, and I answered all of their questions and concerns to satisfaction.
On 09/09/25, I spoke extensively with patient and patient's daughter Bianca, and I answered all of their questions and concerns to satisfaction.
On 09/10/25, I spoke extensively with patient and patient's spouse Christina, and I answered all of their questions and concerns to satisfaction.
On 09/11/25, I spoke extensively with patient and patient's daughter Bianca, and I answered all of their questions and concerns to satisfaction.
Anticipated Discharge: Within 24 hours
Subjective/Interval History
-
Date of Service: September 11, 2025
Patient was seen and examined. He reported feeling about the same, no new significant issues.
Objective Data
-
Labs:
Laboratory Results
09/11/25
05:05
WBC 3.5 L
Hgb 11.4 L
Hct 32.1 L
Plt Count 157
Sodium 128 L
Potassium 3.4 L
Chloride 99
Carbon Dioxide 27
BUN 29 H
Creatinine 0.9
Glucose 105 H
Calcium 8.5
Vital Signs:
Vital Signs
Temp Pulse Resp BP Pulse Ox
98.4 F 64 16 112/68 96
09/11/25 03:00 09/11/25 07:36 09/11/25 07:36 09/11/25 03:00 09/11/25 07:36
I&O
09/10/25 09/11/25 09/12/25
06:59 06:59 06:59
Intake Total 1140 / 1140 960 / 960
Output Total 1060 / 1060 980 / 980
Balance 80 / 80 -20 / -20
[2025-09-11] MEDS: NOVOLOG FLEXPEN-MODERATE RESISTANCE SC ×2 (08:13→16:51)
[2025-09-11] MEDS: LASIX 40 MG PO (08:15)
[2025-09-11] MEDS: PLAVIX 75 MG PO (08:15)
[2025-09-11] MEDS: FOLVITE 1 MG PO (08:15)
[2025-09-11] MEDS: VITAMIN B1 100 MG PO ×2 (08:15→20:26)
[2025-09-11] MEDS: PROTONIX 40 MG PO (08:15)
[2025-09-11] MEDS: ALDACTONE 50 MG PO (08:16)
[2025-09-11] MEDS: NOVOLOG FLEXPEN 10 UNITS SC ×3 (08:16→16:51)
[2025-09-11] MEDS: FARXIGA 10 MG PO (08:16)
[2025-09-11] MEDS: LIPITOR 40 MG PO (08:16)
[2025-09-11] MEDS: ELIQUIS 5 MG PO ×2 (08:16→20:26)
[2025-09-11] MEDS: NON-FORMULARY ITEM 25 MG PO (08:21)
[2025-09-11] MEDS: PRED FORTE 1% EYE DROPS 1 DROP OPHTH ×3 (08:23→21:33)
--- NOTE | 2025-09-11 08:35 | CON.ID ---
Consultation
-
Date/Time Consultation Requested: September 10, 2025 1849
Date/Time Consultation Performed: September 11, 2025 0840
Requesting Provider: Dr. Henok Weber
Performing Provider: Dr. Tavia Bal
Reason for Consultation: Right leg wound and cellulitis
Chief Complaint / Past History
Chief Complaint
Fall
History of Present Illness
74 year old male with cirrhosis, ascites, NHL, CAD , recent RLE DVT who presented parish ED 09/05/25 due to hyperglycemia outpatient labs. He reports he recently had cataract surgery, and had 2 falls due to visual impairment. He complains of recent
frequent thirst, urinating more frequently, weakness, and increase BLE edema with erythema. In ED glucose >500, HbA1C 10.1. He underwent therapeutic paracentesis x 2, fluid analyses no SBP. Pt noted to have RLE erythema and started on cefazolin 3
days ago. Peripheral vascular US showed resolving RLE DVT. Today, pt reports leg edema has improved. The right leg redness also better today. He denies fevers/chills/sweats. He c/o of his recurrent ascites. No dysuria. No change in BM. Chronic
cough stable.
Past History
Additional Past Medical History:
DM-new onset this admission
Cirrhosis with ascites
Non-Hodgkin's lymphoma on eltrombopag
Pulm nodule (neg PET scan)
RLE DVT
CAD s/p stent
CHF
AZ
BPH s/p TURP
Chronic back pain
Laminectomy
Right femur ORIF
RTC repair
Allergy History:
YASMANY Inhibitors Allergy (Verified 08/13/25 17:25)
Unknown
diphenhydramine (From Benadryl) Allergy (Verified 08/14/25 15:50)
Itching
oak Allergy (Verified 08/14/25 15:50)
runny nose
ragweed pollen Allergy (Verified 08/14/25 15:50)
runny nose
tree and shrub pollen Allergy (Verified 08/14/25 15:50)
MAPLE-runny nose
Medications Reviewed: Yes
Current Antibiotics:
Cefazolin d3
Social History
Tobacco: Former Smoker
Alcohol: Daily (2-3 beer)
Drug: None
Personal:
Living: With Family
Family History
Family History: Not Pertinent
Review of Systems
Review of Systems
General: Negative Fever, Chills or Change in Appetite
HEENT: Negative Sinus Problems or Headache
Cardiovascular: Negative Chest Pain
Gasteroenterology: Negative Nausea, Vomiting or Diarrhea
Genital / Urological: Negative Dysuria or Flank Pain
Endocrine: Weakness
Neurological: Negative Dizziness
All systems: All other systems were reviewed and were negative
Vital Signs
Temp Pulse Resp BP Pulse Ox
98.3 F 90 16 132/75 98
09/11/25 07:57 09/11/25 07:57 09/11/25 07:57 09/11/25 07:57 09/11/25 07:57
Physical Exam
Physical Exam
Constitutional: No Acute Distress
Eyes: No Conjunctival Hemorrhage and Other (sclera icteric)
Cardiovascular: Regular Rate and S1/S2
Pulmonary: Clear
Gastrointestinal: Soft, Non Tender and Distended
Extremities: Edema (RLE>LLE) and Erythema (RLE: dark erythema improves with leg elevation)
Wound: Other (RLE healing laceration wound- dry)
Neurological: AO x 3
Lab / Diagnostic Study Results
09/11/25 05:05
09/11/25 05:05
Abs Immat Gran (auto) 0.0 10^3/uL (0-0.05) 09/05/25 08:46
Absolute Neuts (auto) 3.9 10^3/uL (1.4-6.5) 09/05/25 08:46
Absolute Lymphs (auto) 1.0 10^3/uL (1.2-3.4) L 09/05/25 08:46
Absolute Monos (auto) 0.1 10^3/uL (0.1-0.6) 09/05/25 08:46
Absolute Basos (auto) 0.0 10^3/uL (0-0.2) 09/05/25 08:46
Immature Gran % 0.8 % (0-0.5) H 09/05/25 08:46
Neutrophils % 76.6 % (42.2-75.2) H 09/05/25 08:46
Lymphocytes % 19.6 % (20.5-51.1) L 09/05/25 08:46
Monocytes % 2.0 % (1.7-9.3) 09/05/25 08:46
Eosinophils % 0.8 % (0-6) 09/05/25 08:46
Basophils % 0.2 % (0-2) 09/05/25 08:46
PT 20.6 Sec (11.4-14.6) H 09/06/25 07:29
INR 1.75 09/06/25 07:29
Urine WBC 3-5 /HPF (0-5) 09/05/25 18:16
Ur Squamous Epith Cells 16-20 /LPF (Few) 09/05/25 18:16
Microbiology Results
Micro:
09/10/25 10:07 Body Fluid Culture - Pending
Peritoneal Fluid Gram Stain - Preliminary
09/08/25 16:58 MRSA Screen - Final
Nose No Methicillin Resistant Staphylococcus aureus isolated.
09/05/25 15:07 Body Fluid Culture - Final
Peritoneal Fluid No Growth After 72 Hours
Gram Stain - Final
09/10/25 Brain MRI: No evidence of acute intracranial abnormality.
09/10/25 MRI Lumbar wo and w contrast: Mild multilevel lumbar discogenic degenerative disease with large diffuse disc bulges at L1/L2, L2/L3, and L3/L4. MODERATE CENTRAL CANAL STENOSIS at L2/L3. Mild to moderate central canal stenosis at L3/L4. Mild
central canal stenosis at L1/L2 and L4/L5.
09/05/25 CT a/p: No abnormal focal pancreatic lesions identified. Advanced changes of hepatic cirrhosis and portal hypertension with associated splenomegaly. No suspicious focal hepatic lesion identified at CT. Small to moderate volume of ascites.
Atelectatic changes at the bilateral lung bases. Small amount of airspace consolidation along the paramediastinal right lower lobe as above which is most likely also atelectatic.
Assessment / Plan
# RLE cellulitis improving
- Continue cefazolin (d4)
- Anticipate tomorrow transition to cephalexin 500mg po qid through 09/17.
- Elevate leg.
# New onset DM
-Recommend tight glucose control
[2025-09-11] MEDS: KCL 40 MEQ PO (10:12)
--- NOTE | 2025-09-11 10:53 | PN.DE.MGMTRT ---
Insulin Management
- -
09/11/2025: Diabetes Management Follow up
74 year old male presented to the ED with elevated blood sugar. PMH: HTN, HLD, CAD s/p stent to LAD 04/2025, CHF, GERD, allergic rhinitis, Alcohol Cirrhosis, Non-Hodgkin's Lymphoma, RLE DVT on Eliquis , Ascites and BPH. He gets weekly blood work to
make sure his platelets are okay as he is on Eliquis. This morning he got a call from his GI doctor as his blood sugar was elevated. He did recently finish steroids more than a week ago for a cough that he is dealing with for weeks. He has a chronic
cough which at times is productive with clear sputum. He also has chronic right lower extremity wound, which has recently started oozing clear. Patient reports urinary frequency and polydipsia. He denies any nausea vomiting diarrhea or abdominal
pain.
He was taking Jardiance 10 mg daily prior to admission. A1C 10.1%, Cr 1.4-->1.0, eGFR >60 today.
Upon arrival patient was noted to have elevated glucose of 559, he was treated with 10 units of Lantus and 1 Liter of LR with improvement of his glucose.
-Christina reports that pt has recently had significant physical decline over the last couple of months and that he has been on and off steroids for a few weeks. Discussed with Christina that pt will need insulin therapy for optimal glucose
control moving forward.
Patient awake, alert, oriented, sitting up in chair, offers no complaints.
09/05 underwent paracentesis-3L for moderate to large pleural effusion, states he feels better but still has significant abdominal distention.
09/08 Glucose range was 167 to 193. Received 10 units novolog AC and 22 units lantus at hs. Will resume SGLT 2 - Patients quality assurance supervisor trim had started Jardiance.
09/09 Fasting glucose 151. Received Lantus 22 units @ HS and NovoLog to 10 units AC with low corrective insulin with meals and Farxiga 10 mg daily.
09/10 Fasting glucose 123, glucose range 133 to 156 yesterday. Paracentesis completed, 2550 cc ascitic fluid removed.
09/11 Fasting glucose 105. Glucose range yesterday 111 to 157. Will continue Lantus 22 units @ HS and NovoLog to 10 units AC with low corrective insulin with meals and Farxiga 10 mg daily.
Discussed with Nurse. Will cont to follow
Pt has been seen by the Diabetes Nurse Educator for monitor and insulin instructions.
Diabetes History
- -
Type of Diabetes: 2 requiring insulin
Pre-Admission Diabetes Regimen
09/11/25
05:05
Creatinine 0.9
Lab Results
Hemoglobin A1c 10.1 % (4.0-5.9) H 09/05/25 08:46
Insulin Pump Settings
IP Diabetes Regimen
09/10/25 09/10/25 09/10/25
11:54 18:33 21:21
Glucose
POC Glucose 134 H 117 H 157 H
09/11/25 09/11/25
05:05 07:17
Glucose 105 H
POC Glucose 115 H
Patient Education
--- NOTE | 2025-09-11 11:16 | PN.CDI ---
CDI
- -
CDI:
Physician Documentation Request
Admit Date: 09/05/25 14:13
Dear Doctor Tia,
Progress notes include a diagnosis of right leg DVT.
09/09 follow up ultrasound for right DVT impression states 'Resolving deep venous thrombosis of the right lower extremity,...'
Please clarify which of the following accurately represents the acuity of the DVT
____ Acute
Chronic
____ Other
Use of terms such as suspected, likely, concern for, or probable (associated with a specific diagnosis that is being evaluated, monitored, or treated as if it exists) are acceptable and can be coded in the inpatient setting, when documented at the
time of discharge.
Thank you,
Barbra Anders RN, BSN
CDI Specialist
tiger text
Please use your independent medical judgment in providing your response.
--- NOTE | 2025-09-11 11:19 | PN.CDI ---
CDI
- -
CDI:
Physician Documentation Request
Admit Date: 09/05/25 14:13
Dear Doctor Tia
Patient being treated for new onset diabetes, acute hypoxic respiratory failure and ascites.
Labs:
Laboratory Tests
09/06/25 09/07/25 09/08/25
07:29 06:23 06:31
WBC 3.0 L 3.2 L 3.6 L
RBC 3.45 L 3.28 L 3.32 L
Plt Count 106 L D 108 L 114 L
09/09/25
06:04
WBC 3.4 L
RBC 3.49 L
Plt Count 118 L
Please provide a diagnosis that supports the above lab abnormalities and additional evaluation/ monitoring:
Pancytopenia
Abnormal lab value clinically insignificant
Other
Use of terms such as suspected, likely, concern for, or probable (associated with a specific diagnosis that is being evaluated, monitored, or treated as if it exists) are acceptable and can be coded in the inpatient setting, when documented at the
time of discharge.
Thank you,
Barbra Anders RN, BSN
CDI Specialist
tiger text
Please use your independent medical judgment in providing your response.
[2025-09-11 11:53] LABS: Glucose - Point of Care 181 mg/dl (70-99)
[2025-09-11] MEDS: NOVOLOG FLEXPEN-MODERATE RESISTANCE 1 UNITS SC (12:30)
[2025-09-11] MEDS: LASIX 20 MG PO (15:11)
[2025-09-11 16:40] LABS: Glucose - Point of Care 81 mg/dl (70-99)
[2025-09-11 21:23] LABS: Glucose - Point of Care 129 mg/dl (70-99)
[2025-09-11] MEDS: LANTUS 0.22 UNITS SC (21:32)
[2025-09-11] MEDS: MELATONIN 5 MG PO (21:33)
--- NOTE | 2025-09-11 22:10 | RESPNOTE ---
Addendum entered by Danny Collazo 09/11/25 23:56:
Study done on room air
Original Note:
Patient placed on overnight oximetry study
[2025-09-12] VITALS (7 sets, daily range): BP systolic 105–142; BP diastolic 62–85; BMI 28.0
[2025-09-12] MEDS: ANCEF 5 IV (02:20)
[2025-09-12 06:19] LABS: Hematocrit 33.0 % (39.0-52.0); Hemoglobin 11.5 g/dL (13.0-18.0); Mean Corp Hgb Conc. 34.8 g/dL (33.0-37.0); Mean Corpuscular Volume 96.8 fL (80.0-94.0); Platelet Count 166 10^3/uL (130-400); Red Cell Dist. Width 16.3 % (11.5-14.5)
[2025-09-12 07:11] LABS: Blood Urea Nitrogen 26 mg/dl (9-20); Calcium 8.4 mg/dl (8.4-10.2); Carbon Dioxide 26 mmol/L (22-30); Chloride 100 mmol/L (98-107); Estimated Creatinine Clearance 74 ml/min; Glucose 89 mg/dl (70-99); Potassium 3.6 mmol/L (3.5-5.1); Sodium 132 mmol/L (135-145); eGFR > 60.00
[2025-09-12] MEDS: STRIVERDI RESPIMAT 2 PUFF INH (07:37)
[2025-09-12] MEDS: SPIRIVA RESPIMAT 2.5 MCG 2 PUFF INH (07:38)
--- NOTE | 2025-09-12 07:48 | PN.DE.MGMTRT ---
Insulin Management
- -
09/12/2025: Diabetes Management Follow up
74 year old male presented to the ED with elevated blood sugar. PMH: HTN, HLD, CAD s/p stent to LAD 04/2025, CHF, GERD, allergic rhinitis, Alcohol Cirrhosis, Non-Hodgkin's Lymphoma, RLE DVT on Eliquis , Ascites and BPH. He gets weekly blood work to
make sure his platelets are okay as he is on Eliquis. This morning he got a call from his GI doctor as his blood sugar was elevated. He did recently finish steroids more than a week ago for a cough that he is dealing with for weeks. He has a chronic
cough which at times is productive with clear sputum. He also has chronic right lower extremity wound, which has recently started oozing clear. Patient reports urinary frequency and polydipsia. He denies any nausea vomiting diarrhea or abdominal
pain.
He was taking Jardiance 10 mg daily prior to admission. A1C 10.1%, Cr 1.4-->1.0, eGFR >60 today.
Upon arrival patient was noted to have elevated glucose of 559, he was treated with 10 units of Lantus and 1 Liter of LR with improvement of his glucose.
-Christina reports that pt has recently had significant physical decline over the last couple of months and that he has been on and off steroids for a few weeks. Discussed with Christina that pt will need insulin therapy for optimal glucose
control moving forward.
Patient awake, alert, oriented, resting in bed, offers no complaints, states his RLE looks a lot better with less swelling. Family at bedside.
Pt's granddaughter had a seizure while visiting with pt at time of my visit. Emergency response team was activated and pt was transported to the ER for eval.
09/05 underwent paracentesis-3L for moderate to large pleural effusion, states he feels better but still has significant abdominal distention.
09/08 Resumed SGLT 2 - Patients director diabetes had started Jardiance.
09/10 Paracentesis completed, 2550 cc ascitic fluid removed.
Premeal glucose stable and in range 81 to 181. Fasting glucose 89 V, 133 POC this AM.
Will make no changes to current regimen: Lantus 22 units, NovoLog 10 units AC, Farxiga 10mg daily and low corrective with meals.
Discussed with Nurse. Will cont to follow
Pt was seen by the Diabetes Nurse Educator for monitor and insulin instructions.
Diabetes History
- -
Type of Diabetes: 2 requiring insulin
Pre-Admission Diabetes Regimen
09/12/25
06:03
Creatinine 0.9
Lab Results
Hemoglobin A1c 10.1 % (4.0-5.9) H 09/05/25 08:46
Insulin Pump Settings
IP Diabetes Regimen
09/11/25 09/11/25 09/11/25
11:51 16:39 21:21
Glucose
POC Glucose 181 H 81 129 H
09/12/25
06:03
Glucose 89
POC Glucose
Meal type: Dinner
Meal type: Lunch
Meal type: Breakfast
Amount consumed: 50%
Amount consumed: 50%
Amount consumed: 100%
Patient Education
--- NOTE | 2025-09-12 07:52 | W.PN.HOSP.TC ---
Today's Communication/Plan
-
Placement pending
Transition to oral antibiotics
Assessment / Plan
Assessment / Plan
Physical Exam
General: Well Developed, Well Nourished and No Apparent Distress
HEENT: Normocephalic, Moist mucous membranes and Atraumatic
Respiratory: Decreased Breath Sounds
Cardiac: S1/S2 and Regular Rhythm; No Murmur or Rub
GI: Soft, Non Tender, Normal Bowel Sounds and Distended
Musculoskeletal: No Cyanosis and Other (Bilateral lower extremities edema)
Skin: Rash and Other (Right lower extremities wound, left upper arm wound)
Neuro: AO x 3 and Nonfocal/grossly intact. Strength 5/5 in bilateral lower extremities. Sensation reduced in the bilateral lateral thighs.
Psych: Calm
Assessment/Plan
74-year-old male past medical history of right lower extremity DVT on Eliquis, non-Hodgkin's lymphoma of the spleen, thrombocytopenia, hypertension, CAD status post stent in April, alcoholic cirrhosis, pulmonary nodules, restrictive airway disease,
GERD, BPH, squamous cell skin cancer, anxiety, obstructive sleep apnea, presenting with elevated blood sugar on outpatient labs. He recently completed steroids for upper respiratory infection. He has shortness of breath worsening for 1 week with
exertion despite antibiotic and steroid. Chronic cough. Urinary frequency for past few days. Increased abdominal distention and lower extremity edema. He had a fall 4 days ago and hit his head with bruise back of head and wound of left elbow and
right lower extremity. He was seen at [facility] and had negative trauma workup. Vital signs unremarkable apart from mild tachycardia up to 105. Blood pressure 91/55. Requiring 2L oxygen. Labs showed blood sugar of 559. Hemoglobin A1c 10.1.
Creatinine 1.4. Urinalysis unremarkable. CXR [address] abdomen pelvis shows mild to moderate ascites. Patient with hyperglycemia with A1c of 10.1 secondary to underlying diabetes/ exacerbated by steroid-induced hyperglycemia. CAR[place]
likely secondary to losartan/Lasix. IV fluids were given around the time of admission. Hold lasix. Dysnea likely due to restrictive lung disease from ascites. Also concerned for decompensated cirrhosis. Check INR and LFTs. IR for paracentesis. GI
consulted. Started Lantus 10 units and insulin sliding scale. Will hold off on further IV fluids at this time due to cirrhosis. Wound care consulted for wound of left elbow and right lower extremity. Alcohol withdrawal protocol. Thiamine and
Folate.
#New onset diabetes mellitus with urinary frequency and polydipsia
- Recently finish steroids more than a week prior to presentation for a cough that he is dealing with for weeks
- A1c 10.1
- Blood sugar was elevated in 500s
- Lantus 10 units in the ER
- Continue Lantus, premeal Insulin and sliding scale -- titrate to ensure good glucose control -- appreciate Diabetes F[employer] MA[employer]EMENT [employer]ENT
#Acute hypoxic respiratory failure likely from abdominal distention/atelectasis
#Shortness of Breath, Tachycardia with exertion
#Restrictive lung disease?
-Albuterol and Breo continued
-Recent chest x-ray with impression of Bibasilar linear opacities, most suggestive of subsegmental atelectasis.
-After paracentesis on 09/05/25, hypoxia resolved, except when sleeping
-ProBNP unremarkable
-Echo with new mild aortic stenosis, but EF is normal to hyperdynamic, which can be explained by cirrhosis
-May need CPAP given [place] below
#Abdominal distention/lower extremities edema concern for ascites
#History of alcoholic cirrhosis
-CT of abdomen No abnormal focal pancreatic lesions identified.
2. Advanced changes of hepatic cirrhosis and portal hypertension with associated splenomegaly. No suspicious focal hepatic lesion identified at CT.
3. Small to moderate volume of ascites.
4. Atelectatic changes at the bilateral lung bases. Small amount of airspace consolidation along the paramediastinal right lower lobe as above which is most likely also atelectatic.
-IR consulted for paracentesis -- paracentesis performed on 09/05/25 with 3000 cc of hazy yellow ascitic fluid removed
-IR re-consulted 09/09/25 for repeat paracentesis: 2550 cc of fluid removed
-GI consulted -- On 09/10/25, I communicated via [facility] [employer] with rework operator Dr. Merchant who said patient is not a candidate for external peritoneal catheter as he needs to have failed diuretics first and Aldactone has just been started
#Recent right eye cataract surgery on 09/01/25
-Continue Ofloxacin eye drops
-Continue Prednisolone Eye Drops
-Discussed on 09/06/25 eye drops regimen with patient's daughter Bianca
#Recent on his way to home on 09/01/25 from eye cataract surgery appointment, he lost the balance and fell backwards -- patient hit the back of his head on the floor and sustained wound on his left arm
-Trauma evaluation was unremarkable at [facility]
#Microscopic Hematuria
-Re-evaluation outpatient
#Right lower extremity/left upper extremity wound
- Wound care consulted
#Recent fall likely mechanical
-PT/OT consulted
-trauma workup negative at [facility]
#Acute kidney injury possibly hepatorenal
- IV fluids were initially given in the ER this admission given CAROLINA
- Creatinine 1.4-->1.0-->1.1-->1.0-->0.9
- Continue to monitor
#Chronic right leg DVT
-Recently diagnosed, in early August 2025
-Continue Eliquis
#Right Leg Swelling>Left Lower Extremity Swelling
#Right Lower Extremity Erythema
-Right lower extremity ultrasound with improving/resolving DVT
-Started antibiotics with Cefazolin on 09/08/25 --> switched to oral antibiotics Cephalexin on 09/12/25
-MRSA swab negative
-Consulted ID as cellulitis seems slow to improve
-Can do YASMANY wrap from base of toes to knee or 20-30 mmHg knee high compression sock
#Right Anterolateral Thigh and Left Anterolateral Thigh Numbness and Burning Sensation
-Suspected from Meralgia paraesthetica, discussed with Dr. 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
-US and DEBRA with no significant PAD except right toe brachial index is mildly diminished, suggesting possible mild distal small vessel arterial disease on the right -- I communicated via [facility] with
vascular surgeon Dr. Asher who said nothing to do, follow-up outpatient
-I communicated (on 09/08/25, via [facility] [employer]) with neurologist Dr. Salmeron who said that patient does not need a neurologist consult -- Dr. Salmeron mentioned that patient's symptoms are part of his DVT
-MRI of L-spine with and without contrast for completeness showed stenosis -- discussed with Dr. Mohan (neurosurgery) who said (via [facility] [employer] communication) that MRI L-Spine imaging demonstrates chronic spondylitis/
arthritic changes and does not correlate with his reported acute symptomatology; No acute surgical pathology seen on imaging; As said, defer to symptomatic management per medicine/physiatry.
-Consider outpatient EMG/NCS
-MRI brain with no stroke
#History of non-Hodgkin's lymphoma of spleen
#History thrombocytopenia
#Lymphadenopathy on MRI L-Spine
-Continue Eltrombopag
-Sees [facility]
-I discussed with [facility]ologist via [facility] communication on 09/11/25: Nothing for us to do inpatient. Dr. Posadas has follow up with him already scheduled 10/15. [facility] office will get the hospital records, including imaging for
her to see before his visit. But nothing needs to be done now.
#Pancytopenia
-Suspected to be related to Cirrhosis
#Hypervolemic Hyponatremia
-Increase PO FR from 48 ounces to 40 ounces on 09/11/25
#Hypokalemia
-Supplemented; continue to monitor
#Acute proctocolitis on L-Spine MRI Imaging
-GI (for acute proctocolitis) -- Dr. Merchant said via [facility]: it could be a finding from ascites. Dr. Salamanca knows him well and said his symptoms ate chronic. patient has had bloating for years and thoroughly worked up
#Hypertension
-BP soft in ER, still on lower side of normal
-hold losartan (patient's family mentioned that he takes Losartan 50 mg daily at home -- not 100 mg daily) to allow for diuretics
#Cataract surgery
-Continue prednisone alone 1 drop left eye as directed
#CAD/LAD stent April 2025
-Continue atorvastatin, Plavix 75 mg daily-
- 2D echo 03/04/2025: EF 60 to 65%, normal LVS LVSF no wall abnormalities, normal diastolic function
#Alcoholic cirrhosis
#Esophageal Varices
#Alcohol use disorder
-Recommended cessation given history of cirrhosis
-Patient drinks 1-2 beers daily last drink 09/04/25 afternoon
-MSAS/alcohol withdrawal protocol
#Chronic peripheral edema
#CHF
-Resume Lasix
-Resume jardiance
-proBNP unremarkable
-Echo with hyperdynamic EF
#New Mild Aortic Stenosis
#GERD
-Continue Protonix
#BPH
#History of TURP
#Squamous cell skin CA
#Anxiety
#Sleep apnea
#Hypoxia when sleeping
-Per nurse communication: pulse oximetry had been 93% and above since starting continuous pulse oximetry on 09/06/25
-Per nurse, when patient just laid down to take a nap after lunch on 09/06/25, his oxygen level was through and consistently at 87% - 2 L O2 placed
-Patient wore CPAP many years ago, but no longer wearing since lost weight and thought he did not need it anymore
#Left Elbow and RLE wounds
#Chronic RLE wound
-Wound care consultation requested
Code Status: Full code
electronics detail draftsperson: daughter Bianca -- phone number: [phone]
On 09/06/25, I spoke extensively with patient, patient's and patient's daughter Bianca, and I answered all of their questions and concerns to satisfaction.
On 09/08/25, I spoke extensively with patient and patient's daughter Bianca, and I answered all of their questions and concerns to satisfaction.
On 09/09/25, I spoke extensively with patient and patient's daughter Bianca, and I answered all of their questions and concerns to satisfaction.
On 09/10/25, I spoke extensively with patient and patient's spouse Christina, and I answered all of their questions and concerns to satisfaction.
On 09/11/25, I spoke extensively with patient and patient's daughter Bianca, and I answered all of their questions and concerns to satisfaction.
Anticipated Discharge: 24 - 48 hours
Subjective/Interval History
-
Date of Service: September 12, 2025
Patient was seen and examined. He denied any new symptoms or complaints.
Objective Data
-
Labs:
Laboratory Results
09/12/25 09/12/25
06:02 06:03
WBC 3.5 L
Hgb 11.5 L
Hct 33.0 L
Plt Count 166
Sodium 132 L
Potassium 3.6
Chloride 100
Carbon Dioxide 26
BUN 26 H
Creatinine 0.9
Glucose 89
Calcium 8.4
Vital Signs:
Vital Signs
Temp Pulse Resp BP Pulse Ox
99.0 F 99 16 142/85 94
09/12/25 03:00 09/12/25 03:00 09/12/25 03:00 09/12/25 03:00 09/12/25 03:00
I&O
09/11/25 09/12/25 09/13/25
06:59 06:59 06:59
Intake Total 960 / 960 1270 / 1270
Output Total 980 / 980 775 / 775
Balance -20 / -20 495 / 495
[2025-09-12] MEDS: TYLENOL 650 MG PO (08:10)
[2025-09-12] MEDS: FARXIGA 10 MG PO (08:10)
[2025-09-12] MEDS: PROTONIX 40 MG PO (08:10)
[2025-09-12] MEDS: FOLVITE 1 MG PO (08:10)
[2025-09-12] MEDS: ELIQUIS 5 MG PO ×2 (08:11→20:26)
[2025-09-12] MEDS: PLAVIX 75 MG PO (08:11)
[2025-09-12] MEDS: ALDACTONE 50 MG PO (08:11)
[2025-09-12] MEDS: NON-FORMULARY ITEM 25 MG PO (08:11)
[2025-09-12] MEDS: LIPITOR 40 MG PO (08:11)
[2025-09-12] MEDS: LASIX 40 MG PO (08:11)
[2025-09-12] MEDS: VITAMIN B1 100 MG PO ×2 (08:11→20:26)
[2025-09-12] MEDS: PRED FORTE 1% EYE DROPS 1 DROP OPHTH ×3 (08:12→22:23)
[2025-09-12 08:14] LABS: Glucose - Point of Care 133 mg/dl (70-99)
[2025-09-12] MEDS: NOVOLOG FLEXPEN-MODERATE RESISTANCE SC ×3 (08:40→16:47)
[2025-09-12] MEDS: NOVOLOG FLEXPEN 10 UNITS SC ×3 (08:41→17:23)
--- NOTE | 2025-09-12 09:10 | W.PN.ID1 ---
Date of Service
Date of Service: September 12, 2025
Today's Communication
Transition to cephalexin 500mg po qid through 09/17.
ID will sign off.
Assessment / Plan
# RLE cellulitis improving/resolving
- dc cefazolin (d5)
- transition to cephalexin 500mg po qid through 09/17.
# New onset DM
-Recommend tight glucose control
ID will sign off.
Chief Complaint
-: Cellulitis
Subjective / Review of Systems
Leg much improved
Vital Signs / Physical Exam
Vital Signs
Vital Signs
Temp Pulse Resp BP Pulse Ox
98.6 F 93 17 105/66 99
09/12/25 07:57 09/12/25 07:57 09/12/25 07:57 09/12/25 07:57 09/12/25 07:57
Physical Exam
Cardiovascular: Regular Rate and S1/S2
Pulmonary: Clear
Gastrointestinal: Soft, Non Tender and Distended
Extremities: Erythema (RLE resolving); Negative Edema
Neurological: AO x 3
Objective Data
Lab Data
Lab Results
09/12/25 06:02
09/12/25 06:03
PT 20.6 Sec (11.4-14.6) H 09/06/25 07:29
INR 1.75 09/06/25 07:29
APTT 30.6 Sec (23.4-35.0) 09/05/25 18:19
Estimated Creat Clear 74 ml/min 09/12/25 06:03
Total Bilirubin 3.3 mg/dl (0.2-1.3) H 09/10/25 06:14
GGT 206 U/L (15-73) H 09/05/25 18:16
AST 51 U/L (17-59) 09/10/25 06:14
ALT 51 U/L (0-50) H 09/10/25 06:14
Alkaline Phosphatase 119 U/L (38-126) 09/10/25 06:14
Most recent labs reviewed.
Micro Results:
09/10/25 10:07 Body Fluid Culture - Preliminary
Peritoneal Fluid No Growth After 48 Hours
Gram Stain - Preliminary
09/08/25 16:58 MRSA Screen - Final
Nose No Methicillin Resistant Staphylococcus aureus isolated.
09/05/25 15:07 Body Fluid Culture - Final
Peritoneal Fluid No Growth After 72 Hours
Gram Stain - Final
09/10/25 Brain MRI: No evidence of acute intracranial abnormality.
09/10/25 MRI Lumbar wo and w contrast: Mild multilevel lumbar discogenic degenerative disease with large diffuse disc bulges at L1/L2, L2/L3, and L3/L4. MODERATE CENTRAL CANAL STENOSIS at L2/L3. Mild to moderate central canal stenosis at L3/L4. Mild
central canal stenosis at L1/L2 and L4/L5.
09/05/25 CT a/p: No abnormal focal pancreatic lesions identified. Advanced changes of hepatic cirrhosis and portal hypertension with associated splenomegaly. No suspicious focal hepatic lesion identified at CT. Small to moderate volume of ascites.
Atelectatic changes at the bilateral lung bases. Small amount of airspace consolidation along the paramediastinal right lower lobe as above which is most likely also atelectatic.
[2025-09-12 11:37] LABS: Glucose - Point of Care 133 mg/dl (70-99)
[2025-09-12] MEDS: KEFLEX 500 MG PO ×4 (12:37→20:26)
[2025-09-12] MEDS: LASIX 20 MG PO (16:16)
--- NOTE | 2025-09-12 16:24 | CM ---
Discharge POC: recommended for SNF. Current referrals will not have bed this weekend. [facility] may have a bed on Monday. [facility] will not have bed until next week. Will send additional referrals. Needs insurance auth.
[2025-09-12 16:42] LABS: Glucose - Point of Care 124 mg/dl (70-99)
[2025-09-12 21:13] LABS: Glucose - Point of Care 136 mg/dl (70-99)
[2025-09-12] MEDS: MELATONIN PO (21:42)
[2025-09-12] MEDS: LANTUS 0.22 UNITS SC (21:43)
[2025-09-13] VITALS (7 sets, daily range): BP systolic 108–125; BP diastolic 61–79; BMI 27.6
[2025-09-13] MEDS: SPIRIVA RESPIMAT 2.5 MCG 2 PUFF INH (07:29)
[2025-09-13] MEDS: STRIVERDI RESPIMAT 2 PUFF INH (07:29)
--- NOTE | 2025-09-13 07:46 | W.PN.HOSP.TC ---
Today's Communication/Plan
-
Stable
Placement Pending
Assessment / Plan
Assessment / Plan
Physical Exam
General: Well Developed, Well Nourished and No Apparent Distress
HEENT: Normocephalic, Moist mucous membranes and Atraumatic
Respiratory: Decreased Breath Sounds
Cardiac: S1/S2 and Regular Rhythm; No Murmur or Rub
GI: Soft, Non Tender, Normal Bowel Sounds and Distended
Musculoskeletal: No Cyanosis and Other (Bilateral lower extremities edema)
Skin: Rash and Other (Right lower extremities wound, left upper arm wound)
Neuro: AO x 3 and Nonfocal/grossly intact. Strength 5/5 in bilateral lower extremities. Sensation reduced in the bilateral lateral thighs.
Psych: Calm
Assessment/Plan
74-year-old male past medical history of right lower extremity DVT on Eliquis, non-Hodgkin's lymphoma of the spleen, thrombocytopenia, hypertension, CAD status post stent in April, alcoholic cirrhosis, pulmonary nodules, restrictive airway disease,
GERD, BPH, squamous cell skin cancer, anxiety, obstructive sleep apnea, presenting with elevated blood sugar on outpatient labs. He recently completed steroids for upper respiratory infection. He has shortness of breath worsening for 1 week with
exertion despite antibiotic and steroid. Chronic cough. Urinary frequency for past few days. Increased abdominal distention and lower extremity edema. He had a fall 4 days ago and hit his head with bruise back of head and wound of left elbow and
right lower extremity. He was seen at [facility] and had negative trauma workup. Vital signs unremarkable apart from mild tachycardia up to 105. Blood pressure 91/55. Requiring 2L oxygen. Labs showed blood sugar of 559. Hemoglobin A1c 10.1.
Creatinine 1.4. Urinalysis unremarkable. CXR [address] abdomen pelvis shows mild to moderate ascites. Patient with hyperglycemia with A1c of 10.1 secondary to underlying diabetes/ exacerbated by steroid-induced hyperglycemia. CAROL[place]
likely secondary to losartan/Lasix. IV fluids were given around the time of admission. Hold lasix. Dysnea likely due to restrictive lung disease from ascites. Also concerned for decompensated cirrhosis. Check INR and LFTs. IR for paracentesis. GI
consulted. Started Lantus 10 units and insulin sliding scale. Will hold off on further IV fluids at this time due to cirrhosis. Wound care consulted for wound of left elbow and right lower extremity. Alcohol withdrawal protocol. Thiamine and
Folate.
#New onset diabetes mellitus with urinary frequency and polydipsia
- Recently finish steroids more than a week prior to presentation for a cough that he is dealing with for weeks
- A1c 10.1
- Blood sugar was elevated in 500s
- Lantus 10 units in the ER
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
#Acute hypoxic respiratory failure likely from abdominal distention/atelectasis
#Shortness of Breath, Tachycardia with exertion
#Restrictive lung disease?
-Albuterol and Breo continued
-Recent chest x-ray with impression of Bibasilar linear opacities, most suggestive of subsegmental atelectasis.
-After paracentesis on 09/05/25, hypoxia resolved, except when sleeping
-ProBNP unremarkable
-Echo with new mild aortic stenosis, but EF is normal to hyperdynamic, which can be explained by cirrhosis
-May need CPAP given [place] below
#Abdominal distention/lower extremities edema concern for ascites
#History of alcoholic cirrhosis
-CT of abdomen No abnormal focal pancreatic lesions identified.
2. Advanced changes of hepatic cirrhosis and portal hypertension with associated splenomegaly. No suspicious focal hepatic lesion identified at CT.
3. Small to moderate volume of ascites.
4. Atelectatic changes at the bilateral lung bases. Small amount of airspace consolidation along the paramediastinal right lower lobe as above which is most likely also atelectatic.
-IR consulted for paracentesis -- paracentesis performed on 09/05/25 with 3000 cc of hazy yellow ascitic fluid removed
-IR re-consulted 09/09/25 for repeat paracentesis: 2550 cc of fluid removed
-GI consulted -- On 09/10/25, I communicated via [facility] with journalist Dr. Merchant who said patient is not a candidate for external peritoneal catheter as he needs to have failed diuretics first and Aldactone has just been started
#Recent right eye cataract surgery on 09/01/25
-Continue Ofloxacin eye drops
-Continue Prednisolone Eye Drops
-Discussed on 09/06/25 eye drops regimen with patient's daughter Bianca
#Recent on his way to home on 09/01/25 from eye cataract surgery appointment, he lost the balance and fell backwards -- patient hit the back of his head on the floor and sustained wound on his left arm
-Trauma evaluation was unremarkable at [facility]
#Microscopic Hematuria
-Re-evaluation outpatient
#Right lower extremity/left upper extremity wound
- Wound care consulted
#Recent fall likely mechanical
-PT/OT consulted
-trauma workup negative at [facility]
#Acute kidney injury possibly hepatorenal
- IV fluids were initially given in the ER this admission given CAROLINA
- Creatinine 1.4-->1.0-->1.1-->1.0-->0.9
- Continue to monitor
#Chronic right leg DVT
-Recently diagnosed, in early August 2025
-Continue Eliquis
#Right Leg Swelling>Left Lower Extremity Swelling
#Right Lower Extremity Erythema
-Right lower extremity ultrasound with improving/resolving DVT
-Started antibiotics with Cefazolin on 09/08/25 --> switched to oral antibiotics Cephalexin on 09/12/25
-MRSA swab negative
-Consulted ID as cellulitis seems slow to improve
-Can do YASMANY wrap from base of toes to knee or 20-30 mmHg knee high compression sock
#Right Anterolateral Thigh and Left Anterolateral Thigh Numbness and Burning Sensation
-Suspected from Meralgia paraesthetica, discussed with Dr. 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
-US and DEBRA with no significant PAD except right toe brachial index is mildly diminished, suggesting possible mild distal small vessel arterial disease on the right -- I communicated via [facility] with
vascular surgeon Dr. Asher who said nothing to do, follow-up outpatient
-I communicated (on 09/08/25, via [facility]) with neurologist Dr. Salmeron who said that patient does not need a neurologist consult -- Dr. Salmeron mentioned that patient's symptoms are part of his DVT
-MRI of L-spine with and without contrast for completeness showed stenosis -- discussed with Dr. Mohan (neurosurgery) who said (via [facility] communication) that MRI L-Spine imaging demonstrates chronic spondylitis/
arthritic changes and does not correlate with his reported acute symptomatology; No acute surgical pathology seen on imaging; As said, defer to symptomatic management per medicine/physiatry.
-Consider outpatient EMG/NCS
-MRI brain with no stroke
#History of non-Hodgkin's lymphoma of spleen
#History thrombocytopenia
#Lymphadenopathy on MRI L-Spine
-Continue Eltrombopag
-Sees [facility]
-I discussed with [facility] oncologist via [facility] communication on 09/11/25: Nothing for us to do inpatient. Dr. Posadas has follow up with him already scheduled 10/15. [facility] office will get the hospital records, including imaging for
her to see before his visit. But nothing needs to be done now.
#Pancytopenia
-Suspected to be related to Cirrhosis
#Hypervolemic Hyponatremia
-Increase PO FR from 48 ounces to 40 ounces on 09/11/25
#Hypokalemia
-Supplemented; continue to monitor
#Acute proctocolitis on L-Spine MRI Imaging
-GI (for acute proctocolitis) -- Dr. Merchant said via [facility]: it could be a finding from ascites. Dr. Salamanca knows him well and said his symptoms ate chronic. patient has had bloating for years and thoroughly worked up
#Hypertension
-BP soft in ER, now stable
-hold losartan (patient's family mentioned that he takes Losartan 50 mg daily at home -- not 100 mg daily) to allow for diuretics
#Cataract surgery
-Continue prednisone alone 1 drop left eye as directed
#CAD/LAD stent April 2025
-Continue atorvastatin, Plavix 75 mg daily-
- 2D echo 03/04/2025: EF 60 to 65%, normal LVS LVSF no wall abnormalities, normal diastolic function
#Alcoholic cirrhosis
#Esophageal Varices
#Alcohol use disorder
-Recommended cessation given history of cirrhosis
-Patient drinks 1-2 beers daily last drink 09/04/25 afternoon
-MSAS/alcohol withdrawal protocol
#Chronic peripheral edema
#CHF
-Continue Lasix
-Continue Jardiance/Farxiga
-proBNP unremarkable
-Echo with hyperdynamic EF
#New Mild Aortic Stenosis
#GERD
-Continue Protonix
#BPH
#History of TURP
#Squamous cell skin CA
#Anxiety
#Sleep apnea
#Hypoxia when sleeping
-Per nurse communication: pulse oximetry had been 93% and above since starting continuous pulse oximetry on 09/06/25
-Per nurse, when patient just laid down to take a nap after lunch on 09/06/25, his oxygen level was through and consistently at 87% - 2 L O2 placed
-Patient wore CPAP many years ago, but no longer wearing since lost weight and thought he did not need it anymore
#Left Elbow and RLE wounds
#Chronic RLE wound
-Wound care consultation requested
Code Status: Full code
shipping lead person: daughter Bianca -- phone number: [phone]
On 09/06/25, I spoke extensively with patient, patient's and patient's daughter Bianca, and I answered all of their questions and concerns to satisfaction.
On 09/08/25, I spoke extensively with patient and patient's daughter Bianca, and I answered all of their questions and concerns to satisfaction.
On 09/09/25, I spoke extensively with patient and patient's daughter Bianca, and I answered all of their questions and concerns to satisfaction.
On 09/10/25, I spoke extensively with patient and patient's spouse Christina, and I answered all of their questions and concerns to satisfaction.
On 09/11/25, I spoke extensively with patient and patient's daughter Bianca, and I answered all of their questions and concerns to satisfaction.
Anticipated Discharge: 24 - 48 hours
Subjective/Interval History
-
Date of Service: September 13, 2025
Patient was seen and examined. No new symptoms or complaints.
Objective Data
-
Labs:
Laboratory Results
09/13/25
06:00
WBC Pending
Hgb Pending
Hct Pending
Plt Count Pending
Sodium Pending
Potassium Pending
Chloride Pending
Carbon Dioxide Pending
BUN Pending
Creatinine Pending
Glucose Pending
Calcium Pending
Vital Signs:
Vital Signs
Temp Pulse Resp BP Pulse Ox
99.1 F 97 16 112/71 94
09/13/25 03:15 09/13/25 07:33 09/13/25 07:33 09/13/25 03:15 09/13/25 07:33
I&O
09/12/25 09/13/25 09/14/25
06:59 06:59 06:59
Intake Total 1270 / 1270 960 / 960
Output Total 775 / 775 625 / 625
Balance 495 / 495 335 / 335
[2025-09-13 08:06] LABS: Glucose - Point of Care 114 mg/dl (70-99)
[2025-09-13 08:16] LABS: Hematocrit 34.5 % (39.0-52.0); Hemoglobin 11.8 g/dL (13.0-18.0); Mean Corp Hgb Conc. 34.2 g/dL (33.0-37.0); Mean Corpuscular Volume 102.4 fL (80.0-94.0); Platelet Count 166 10^3/uL (130-400); Red Cell Dist. Width 16.8 % (11.5-14.5)
[2025-09-13] MEDS: NOVOLOG FLEXPEN-MODERATE RESISTANCE SC (08:24)
[2025-09-13] MEDS: KEFLEX 500 MG PO ×4 (08:29→21:40)
[2025-09-13] MEDS: FOLVITE 1 MG PO (08:29)
[2025-09-13] MEDS: ELIQUIS 5 MG PO ×2 (08:29→20:47)
[2025-09-13] MEDS: PLAVIX 75 MG PO (08:29)
[2025-09-13] MEDS: LIPITOR 40 MG PO (08:29)
[2025-09-13] MEDS: PROTONIX 40 MG PO (08:29)
[2025-09-13] MEDS: VITAMIN B1 100 MG PO ×2 (08:29→20:47)
[2025-09-13] MEDS: LASIX 40 MG PO (08:29)
[2025-09-13] MEDS: ALDACTONE 50 MG PO (08:31)
[2025-09-13] MEDS: NON-FORMULARY ITEM 25 MG PO (08:31)
[2025-09-13] MEDS: FARXIGA 10 MG PO (08:31)
[2025-09-13] MEDS: PRED FORTE 1% EYE DROPS 1 DROP OPHTH ×3 (08:32→21:41)
[2025-09-13] MEDS: NOVOLOG FLEXPEN 10 UNITS SC ×3 (08:35→17:18)
[2025-09-13 08:41] LABS: Blood Urea Nitrogen 28 mg/dl (9-20); Calcium 8.4 mg/dl (8.4-10.2); Carbon Dioxide 26 mmol/L (22-30); Chloride 100 mmol/L (98-107); Estimated Creatinine Clearance 74 ml/min; Glucose 97 mg/dl (70-99); Potassium 3.5 mmol/L (3.5-5.1); Sodium 129 mmol/L (135-145); eGFR > 60.00
[2025-09-13 11:27] LABS: Glucose - Point of Care 177 mg/dl (70-99)
[2025-09-13] MEDS: NOVOLOG FLEXPEN-MODERATE RESISTANCE 1 UNITS SC ×2 (12:05→17:18)
[2025-09-13 17:02] LABS: Glucose - Point of Care 156 mg/dl (70-99)
[2025-09-13] MEDS: LASIX 20 MG PO (17:20)
--- NOTE | 2025-09-13 17:58 | PTCARENOTE ---
Pt complaining of some SOB and slight abdominal discomfort. O2 sat 98% on RA. Abdomen is distended, firm and tender to palpitation. Cross coverage doc made aware. Pt possibly needing to be tapped tomorrow.
--- NOTE | 2025-09-13 19:30 | PTCARENOTE ---
Assumed care of patient from previous RN. Patient connected to front end alignment specialist -- no orders present. No indications for continuing tele orders. Tele DCd, tele monitor removed. Patient and aware. Will monitor.
[2025-09-13 21:27] LABS: Glucose - Point of Care 133 mg/dl (70-99)
[2025-09-13] MEDS: MELATONIN 5 MG PO (21:40)
[2025-09-13] MEDS: ULTRAM 25 MG PO (21:40)
[2025-09-13] MEDS: LANTUS 0.22 UNITS SC (21:40)
--- NOTE | 2025-09-13 21:45 | PTCARENOTE ---
Addendum entered by Rosie Arreola RN 09/14/25 00:09:
Per GEOPOLITICS TEACHER, with low BPs, will try to hold off on ordering Dilaudid for pain. Will continue to monitor at this time.
Original Note:
Patient is c/o significant pain to lower abdomen rating 8/10. Tylenol PRN on orders, patient stating Tylenol does not ever help and he would prefer if we could give him something other than the Tylenol. Patient also stating at this time that he has
been having loose stools since late in dayshift, worse with oral intake. Patient is inquiring if he could get a probiotic and possibly a dose of Imodium. Notified Anderson Paulson on patient condition and requests -- will hold on giving Imodium at this time,
one time dose of Tramadol ordered and provided to patient. On reassessment, patient states that the Tramadol did not touch the pain and that the pain is increasing in strength to 9/10 at this time. GEOPOLITICS TEACHER on unit, requests patient to give Tramadol some
time and will reassess again in 4 hours. Call rosado at bedside, at bedside and updated. Will continue to monitor.
--- NOTE | 2025-09-14 02:02 | W.PN.UPDATE ---
Update Note
Progress Note Update
RN reports patient having lower abdomen pain and requesting strong pain medications, He is also having loose stool, is on antibiotics. will give tramadol for pain, stool for C -diff.
2300 patient c/o pain 06/15 108/61, HR 99, oxygen 93-94% RA
requesting more stronger pain medications, just received Tramadol one hour ago.
0145 patient continuos to be in pain, Bp 143/85, HR 82, 96% room air
will order Dilaudid
0600 Patient without any new complaints, resting comfortably
[2025-09-14] MEDS: DILAUDID 0.25 MG IV (02:17)
[2025-09-14 06:00] VITALS: BMI 27.9
--- NOTE | 2025-09-14 07:04 | W.PN.HOSP.TC ---
Today's Communication/Plan
-
Paracentesis today
Placement is still pending as per case management
BP soft after paracentesis today, since less then 4 to 5 L peritoneal fluid, will avoid albumin, hold off on titration of Aldactone for now
Assessment / Plan
Assessment / Plan
Physical Exam
General: Well Developed, Well Nourished and No Apparent Distress
HEENT: Normocephalic, Moist mucous membranes and Atraumatic
Respiratory: Decreased Breath Sounds
Cardiac: S1/S2 and Regular Rhythm; No Murmur or Rub
GI: Soft, Non Tender, Normal Bowel Sounds and Distended
Musculoskeletal: No Cyanosis and Other (Bilateral lower extremities edema)
Skin: Rash and Other (Right lower extremities wound, left upper arm wound)
Neuro: AO x 3 and Nonfocal/grossly intact. Strength 5/5 in bilateral lower extremities. Sensation reduced in the bilateral lateral thighs.
Psych: Calm
Assessment/Plan
74-year-old male past medical history of right lower extremity DVT on Eliquis, non-Hodgkin's lymphoma of the spleen, thrombocytopenia, hypertension, CAD status post stent in April, alcoholic cirrhosis, pulmonary nodules, restrictive airway disease,
GERD, BPH, squamous cell skin cancer, anxiety, obstructive sleep apnea, presenting with elevated blood sugar on outpatient labs. He recently completed steroids for upper respiratory infection. He has shortness of breath worsening for 1 week with
exertion despite antibiotic and steroid. Chronic cough. Urinary frequency for past few days. Increased abdominal distention and lower extremity edema. He had a fall 4 days ago and hit his head with bruise back of head and wound of left elbow and
right lower extremity. He was seen at [facility] and had negative trauma workup. Vital signs unremarkable apart from mild tachycardia up to 105. Blood pressure 91/55. Requiring 2L oxygen. Labs showed blood sugar of 559. Hemoglobin A1c 10.1.
Creatinine 1.4. Urinalysis unremarkable. CXR [address] abdomen pelvis shows mild to moderate ascites. Patient with hyperglycemia with A1c of 10.1 secondary to underlying diabetes/ exacerbated by steroid-induced hyperglycemia. CAROLINA
likely secondary to losartan/Lasix. IV fluids were given around the time of admission. Hold lasix. Dysnea likely due to restrictive lung disease from ascites. Also concerned for decompensated cirrhosis. Check INR and LFTs. IR for paracentesis. GI
consulted. Started Lantus 10 units and insulin sliding scale. Will hold off on further IV fluids at this time due to cirrhosis. Wound care consulted for wound of left elbow and right lower extremity. Alcohol withdrawal protocol. Thiamine and
Folate.
#Acute hypoxic respiratory failure likely from abdominal distention/atelectasis
#Shortness of Breath, Tachycardia with exertion
#Restrictive lung disease?
-Remains on room air now
-Albuterol and Breo continued
-Recent chest x-ray with impression of Bibasilar linear opacities, most suggestive of subsegmental atelectasis.
-After initial paracentesis on 09/05/25, hypoxia resolved, except when sleeping
-ProBNP unremarkable
-Echo with new mild aortic stenosis, but EF is normal to hyperdynamic, which can be explained by cirrhosis
-May need CPAP given [place] below -- now the concern is oxygen saturations dropping while sleeping (see nocturnal O2 report from 09/12/25)
#Abdominal distention/lower extremities edema concern for ascites
#History of alcoholic cirrhosis
-CT of abdomen No abnormal focal pancreatic lesions identified.
2. Advanced changes of hepatic cirrhosis and portal hypertension with associated splenomegaly. No suspicious focal hepatic lesion identified at CT.
3. Small to moderate volume of ascites.
4. Atelectatic changes at the bilateral lung bases. Small amount of airspace consolidation along the paramediastinal right lower lobe as above which is most likely also atelectatic.
-IR consulted for paracentesis -- paracentesis performed on 09/05/25 with 3000 cc of hazy yellow ascitic fluid removed --> no SBP
-IR re-consulted 09/09/25 for repeat paracentesis: 2550 cc of fluid removed --> no SBP
-IR re-consulted 09/14/25 for repeat paracentesis: 2500 cc of fluid removed --> no SBP
-GI consulted -- On 09/10/25, I communicated via [employer] with chief compliance officer Dr. Merchant who said patient is not a candidate for external peritoneal catheter as he needs to have failed diuretics first and Aldactone has just been started
-But given the frequent rapid accumulation of peritoneal fluid seems like reaching the diuretic-resistant phase, although can consider increasing/titrating Aldactone more -- but patient did have soft blood pressures/hypotension
initially, so will need to be careful
-External peritoneal catheter should be re-visited
#New onset diabetes mellitus with urinary frequency and polydipsia
- Recently finish steroids more than a week prior to presentation for a cough that he is dealing with for weeks
- A1c 10.1
- Blood sugar was initially elevated in 500s
- Continue Lantus, premeal Insulin and sliding scale -- titrate to ensure good glucose control -- appreciate Diabetes WEB DEVELOPMENT INSTRUCTOR
- Reduced Insulin regimen on 09/14/25 since appears very controlled, but want to avoid hypoglycemia, goal should be 140 to 180 mg/dL
#Loose Stools/Diarrhea 09/13/25 to 09/14/25
-Suspected from antibiotics
-Follow stool studies -- not collected yet
-AXR 09/14/25 suggested enterocolitis/ileus
-Spoke with GI Dr. Curry who said they will monitor and see patient on 09/15/25
#Recent right eye cataract surgery on 09/01/25
-Continue Ofloxacin eye drops
-Continue Prednisolone Eye Drops
-Discussed on 09/06/25 eye drops regimen with patient's daughter Bianca
#Recent on his way to home on 09/01/25 from eye cataract surgery appointment, he lost the balance and fell backwards -- patient hit the back of his head on the floor and sustained wound on his left arm
-Trauma evaluation was unremarkable at [facility]
#Microscopic Hematuria
-Re-evaluation outpatient
#Right lower extremity/left upper extremity wound
- Wound care consulted
#Recent fall likely mechanical
-PT/OT consulted
-trauma workup negative at [facility]
#Acute kidney injury possibly hepatorenal
- IV fluids were initially given in the ER this admission given CAROLINA
- Creatinine 1.4-->1.0-->1.1-->1.0-->0.9--->1.1
- Continue to monitor
#Chronic right leg DVT
-Recently diagnosed, in early August 2025
-Continue Eliquis
#Right Leg Swelling>Left Lower Extremity Swelling
#Right Lower Extremity Erythema
-Right lower extremity ultrasound with improving/resolving DVT
-Started antibiotics with Cefazolin on 09/08/25 --> switched to oral antibiotics Cephalexin on 09/12/25
-MRSA swab negative
-Consulted ID as cellulitis seems slow to improve
-Can do YASMANY wrap from base of toes to knee or 20-30 mmHg knee high compression sock
#Right Anterolateral Thigh and Left Anterolateral Thigh Numbness and Burning Sensation
-Suspected from Meralgia paraesthetica, discussed with Dr. 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
-US and DEBRA with no significant PAD except right toe brachial index is mildly diminished, suggesting possible mild distal small vessel arterial disease on the right -- I communicated via [employer] with
vascular surgeon Dr. Asher who said nothing to do, follow-up outpatient
-MRI brain with no stroke or significant abnormal findings
-MRI of L-spine with and without contrast for completeness showed stenosis -- discussed with Dr. Mohan (neurosurgery) who said (via [employer] communication) that MRI L-Spine imaging demonstrates chronic spondylitis/
arthritic changes and does not correlate with his reported acute symptomatology; No acute surgical pathology seen on imaging; As said, defer to symptomatic management per medicine/physiatry.
-Consider outpatient EMG/NCS
#History of non-Hodgkin's lymphoma of spleen
#History of thrombocytopenia
#Lymphadenopathy on MRI L-Spine
-Continue Eltrombopag
-Sees [facility]
-I discussed with [facility] oncologist via [employer] communication on 09/11/25: Nothing for oncology to do inpatient; Dr. Posadas has follow up with him already scheduled 10/15/25. [facility] oncology office will get the hospital records, including
imaging for her to see before his visit. But nothing needs to be done now.
#Pancytopenia
-Suspected to be related to Cirrhosis
-Thrombocytopenia resolved after patient's Eltrombopag resumed
#Hypervolemic Hyponatremia
-Increased PO FR from 48 ounces to 40 ounces on 09/11/25 -- and sodium has been variable around 130 more or less
#Hypokalemia
-Supplemented; continue to monitor
-Titration of Aldactone up to 100 mg daily can help, but also need to watch BP -- BP soft today (09/14/25) after paracentesis
#Acute proctocolitis on L-Spine MRI Imaging
-GI (for acute proctocolitis) -- Dr. Merchant said via [employer]: it could be a finding from ascites. Dr. Salamanca knows him well and said his symptoms ate chronic. patient has had bloating for years and thoroughly worked up
#Hypertension
-BP soft in ER, now stable
-Hold losartan (patient's family mentioned that he takes Losartan 50 mg daily at home -- not 100 mg daily) to allow for diuretics
#Cataract surgery
-Continue prednisone alone 1 drop left eye as directed
#CAD/LAD stent April 2025
-Continue atorvastatin, Plavix 75 mg daily
- 2D echo 03/04/2025: EF 60 to 65%, normal LVS LVSF no wall abnormalities, normal diastolic function
#Alcoholic cirrhosis
#Esophageal Varices
#Alcohol use disorder
-Recommended cessation given history of cirrhosis
-Patient drinks 1-2 beers daily last drink 09/04/25 afternoon
-MSAS/alcohol withdrawal protocol
#Chronic peripheral edema
#CHF
-Continue Lasix
-Continue Jardiance/Farxiga
-proBNP unremarkable
-Echo with hyperdynamic EF
#New Mild Aortic Stenosis
#GERD
-Continue Protonix
#BPH
#History of TURP
#Squamous cell skin CA
#Anxiety
#Sleep apnea
#Hypoxia when sleeping
-Per nurse communication: pulse oximetry had been 93% and above since starting continuous pulse oximetry on 09/06/25
-Per nurse, when patient just laid down to take a nap after lunch on 09/06/25, his oxygen level was through and consistently at 87% - 2 L O2 placed
-Patient wore CPAP many years ago, but no longer wearing since lost weight and thought he did not need it anymore
#Left Elbow and RLE wounds
#Chronic RLE wound
-Wound care consultation requested
Code Status: Full code
personal consultant: ajith Valenzuela -- phone number: [phone]
On 09/06/25, I spoke extensively with patient, patient's and patient's daughter Bianca, and I answered all of their questions and concerns to satisfaction.
On 09/08/25, I spoke extensively with patient and patient's daughter Bianca, and I answered all of their questions and concerns to satisfaction.
On 09/09/25, I spoke extensively with patient and patient's daughter Bianca, and I answered all of their questions and concerns to satisfaction.
On 09/10/25, I spoke extensively with patient and patient's spouse Christina, and I answered all of their questions and concerns to satisfaction.
On 09/11/25, I spoke extensively with patient and patient's daughter Bianca, and I answered all of their questions and concerns to satisfaction.
On 09/14/25, I spoke extensively with patient and patient's , and I answered all of their questions and concerns to satisfaction.
Anticipated Discharge: Within 24 hours
Subjective/Interval History
-
Date of Service: September 14, 2025
Patient was seen and examined. Overnight, he developed abdominal distension, likely form worsened ascites.
Objective Data
-
Vital Signs:
Vital Signs
Temp Pulse Resp BP Pulse Ox
98.4 F 99 16 108/61 94
09/13/25 23:00 09/13/25 23:00 09/13/25 23:00 09/13/25 23:00 09/13/25 23:00
I&O
09/13/25 09/14/25 09/15/25
06:59 06:59 06:59
Intake Total 960 / 960
Output Total 625 / 625 450 / 450
Balance 335 / 335 -450 / -450
[2025-09-14 07:37] LABS: Glucose - Point of Care 99 mg/dl (70-99)
[2025-09-14] MEDS: STRIVERDI RESPIMAT 2 PUFF INH (07:44)
[2025-09-14] MEDS: SPIRIVA RESPIMAT 2.5 MCG 2 PUFF INH (07:44)
[2025-09-14 08:05] VITALS: BP 125/68
[2025-09-14] MEDS: NOVOLOG FLEXPEN-MODERATE RESISTANCE SC ×2 (08:15→12:04)
[2025-09-14] MEDS: ALDACTONE 50 MG PO (08:21)
[2025-09-14] MEDS: KEFLEX 500 MG PO ×4 (08:21→21:56)
[2025-09-14] MEDS: FARXIGA 10 MG PO (08:21)
[2025-09-14] MEDS: NOVOLOG FLEXPEN SC ×2 (08:21→12:05)
[2025-09-14] MEDS: PROTONIX 40 MG PO (08:21)
[2025-09-14] MEDS: VITAMIN B1 100 MG PO ×2 (08:22→21:03)
[2025-09-14] MEDS: PLAVIX 75 MG PO (08:22)
[2025-09-14] MEDS: LASIX 40 MG PO (08:22)
[2025-09-14] MEDS: LIPITOR 40 MG PO (08:22)
[2025-09-14] MEDS: VISBIOME 1 CAP PO (08:22)
[2025-09-14] MEDS: ELIQUIS 5 MG PO ×2 (08:22→21:03)
[2025-09-14] MEDS: NON-FORMULARY ITEM 25 MG PO (08:23)
[2025-09-14] MEDS: FOLVITE 1 MG PO (08:23)
[2025-09-14] MEDS: PRED FORTE 1% EYE DROPS 1 DROP OPHTH ×3 (08:24→22:02)
[2025-09-14 10:31] LABS: Hematocrit 37.3 % (39.0-52.0); Hemoglobin 12.6 g/dL (13.0-18.0); Mean Corp Hgb Conc. 33.8 g/dL (33.0-37.0); Mean Corpuscular Volume 103.0 fL (80.0-94.0); Platelet Count 193 10^3/uL (130-400); Red Cell Dist. Width 17.0 % (11.5-14.5)
[2025-09-14 10:34] LABS: ALT (SGPT) 39 U/L (0-50); AST (SGOT) 47 U/L (17-59); Albumin 2.9 g/dl (3.5-5.0); Alkaline Phosphatase 162 U/L (38-126); Blood Urea Nitrogen 27 mg/dl (9-20); Calcium 8.3 mg/dl (8.4-10.2); Carbon Dioxide 26 mmol/L (22-30); Chloride 97 mmol/L (98-107); Estimated Creatinine Clearance 61 ml/min; Glucose 81 mg/dl (70-99); Magnesium 2.0 mg/dl (1.6-2.3); Potassium 3.3 mmol/L (3.5-5.1); Sodium 129 mmol/L (135-145); Total Protein 6.4 g/dl (6.3-8.2); eGFR > 60.00
[2025-09-14] MEDS: KCL 40 MEQ PO (11:06)
--- NOTE | 2025-09-14 11:21 | CM ---
Patient seen at bedside
PT rec SNF-patient states he wants to go home
accepted referrals in [facility]-discussed benefits of SNF with patient
abdominal xray today-Findings may reflect enterocolitis/ileus. No overt radiographic evidence for obstruction
GI consult
paracentesis
PLAN: SNF, pending bed availability when stable, CM to follow up with patient/
[2025-09-14 12:03] LABS: Glucose - Point of Care 108 mg/dl (70-99)
[2025-09-14 13:30] VITALS: BP 112/63; BP_SYST 104
[2025-09-14 14:15] VITALS: BP 98/69; BP_SYST 99
[2025-09-14 15:14] LABS: Body Fluid Second Tech CW
--- NOTE | 2025-09-14 15:28 | W.PN.IRAD.PR ---
Procedure Note
-
Paracentesis performed under US guidance with return 2500cc serosanguinous fluid, sample sent for cell count. No immediate complications.
[2025-09-14 15:57] LABS: Glucose - Point of Care 156 mg/dl (70-99)
[2025-09-14 16:06] VITALS: BP 104/60
[2025-09-14] MEDS: NOVOLOG FLEXPEN 10 UNITS SC (16:09)
[2025-09-14] MEDS: LASIX 20 MG PO (16:09)
[2025-09-14] MEDS: NOVOLOG FLEXPEN-MODERATE RESISTANCE 1 UNITS SC (16:10)
[2025-09-14 21:35] LABS: Glucose - Point of Care 172 mg/dl (70-99)
[2025-09-14] MEDS: MELATONIN 5 MG PO (21:56)
[2025-09-14] MEDS: LANTUS 0.16 UNITS SC (22:05)
[2025-09-14 23:00] VITALS: BP 105/58
[2025-09-15 05:36] VITALS: BMI 26.9
--- NOTE | 2025-09-15 07:22 | PN.DE.MGMTRT ---
Insulin Management
- -
09/15/2025: Diabetes Management Follow up
74 year old male presented to the ED with elevated blood sugar. PMH: HTN, HLD, CAD s/p stent to LAD 04/2025, CHF, GERD, allergic rhinitis, Alcohol Cirrhosis, Non-Hodgkin's Lymphoma, RLE DVT on Eliquis , Ascites and BPH. He gets weekly blood work to
make sure his platelets are okay as he is on Eliquis. This morning he got a call from his GI doctor as his blood sugar was elevated. He did recently finish steroids more than a week ago for a cough that he is dealing with for weeks. He has a chronic
cough which at times is productive with clear sputum. He also has chronic right lower extremity wound, which has recently started oozing clear. Patient reports urinary frequency and polydipsia. He denies any nausea vomiting diarrhea or abdominal
pain.
He was taking Jardiance 10 mg daily prior to admission. A1C 10.1%, Cr 1.4-->1.0, eGFR >60 today.
Upon arrival patient was noted to have elevated glucose of 559, he was treated with 10 units of Lantus and 1 Liter of LR with improvement of his glucose.
-Christina reports that pt has recently had significant physical decline over the last couple of months and that he has been on and off steroids for a few weeks. Discussed with Christina that pt will need insulin therapy for optimal glucose
control moving forward.
Patient awake, alert, oriented, resting in bed, offers no complaints, states his RLE looks a lot better with less swelling.
09/05 underwent paracentesis-3L for moderate to large pleural effusion.
09/08 Resumed SGLT 2 - Patients cloth edge singer had started Jardiance.
09/10 Paracentesis completed, 2550 cc ascitic fluid removed.
09/14 underwent paracentesis-2.5 L for moderate to large pleural effusion, states he feels better but still has significant abdominal distention.
Premeal glucose stable and in range 99 to 156. Fasting glucose 121 POC this AM.
Will make no changes to current regimen: Lantus 16 units, NovoLog 10 units AC, Farxiga 10mg daily and low corrective with meals.
Discussed with Nurse. Will cont to follow
Pt was seen by the Diabetes Nurse Educator for monitor and insulin instructions.
Diabetes History
- -
Type of Diabetes: 2 requiring insulin
Pre-Admission Diabetes Regimen
09/14/25
07:58
Creatinine 1.1
Lab Results
Hemoglobin A1c 10.1 % (4.0-5.9) H 09/05/25 08:46
Insulin Pump Settings
IP Diabetes Regimen
09/14/25 09/14/25 09/14/25
07:35 07:58 12:03
Glucose 81
POC Glucose 99 108 H
09/14/25 09/14/25
15:56 21:34
Glucose
POC Glucose 156 H 172 H
Meal type: Lunch
Meal type: Breakfast
Amount consumed: 100%
Amount consumed: 0
Patient Education
[2025-09-15 07:30] VITALS: BP 102/55
[2025-09-15] MEDS: STRIVERDI RESPIMAT 2 PUFF INH (07:48)
[2025-09-15] MEDS: SPIRIVA RESPIMAT 2.5 MCG 2 PUFF INH (07:48)
[2025-09-15 07:59] LABS: Glucose - Point of Care 121 mg/dl (70-99)
[2025-09-15] MEDS: NOVOLOG FLEXPEN-MODERATE RESISTANCE SC ×2 (08:34→12:44)
[2025-09-15 08:35] LABS: ALT (SGPT) 37 U/L (0-50); AST (SGOT) 40 U/L (17-59); Albumin 2.6 g/dl (3.5-5.0); Alkaline Phosphatase 141 U/L (38-126); Blood Urea Nitrogen 30 mg/dl (9-20); Calcium 8.0 mg/dl (8.4-10.2); Carbon Dioxide 25 mmol/L (22-30); Chloride 101 mmol/L (98-107); Estimated Creatinine Clearance 56 ml/min; Glucose 99 mg/dl (70-99); Potassium 4.0 mmol/L (3.5-5.1); Sodium 130 mmol/L (135-145); Total Protein 5.7 g/dl (6.3-8.2); eGFR > 60.00
[2025-09-15] MEDS: ALDACTONE 50 MG PO (08:39)
[2025-09-15] MEDS: ELIQUIS 5 MG PO ×2 (08:40→20:33)
[2025-09-15] MEDS: KEFLEX 500 MG PO ×4 (08:40→22:02)
[2025-09-15] MEDS: LIPITOR 40 MG PO (08:40)
[2025-09-15] MEDS: FARXIGA 10 MG PO (08:40)
[2025-09-15] MEDS: VITAMIN B1 100 MG PO ×2 (08:40→20:33)
[2025-09-15] MEDS: PROTONIX 40 MG PO (08:40)
[2025-09-15] MEDS: FOLVITE 1 MG PO (08:41)
[2025-09-15] MEDS: PLAVIX 75 MG PO (08:41)
[2025-09-15] MEDS: LASIX 40 MG PO (08:41)
[2025-09-15] MEDS: NON-FORMULARY ITEM 25 MG PO (08:42)
[2025-09-15] MEDS: PRED FORTE 1% EYE DROPS 1 DROP OPHTH ×3 (08:42→22:04)
[2025-09-15] MEDS: NOVOLOG FLEXPEN 8 UNITS SC ×3 (10:11→18:01)
--- NOTE | 2025-09-15 11:21 | WOUNDNOTE ---
WON RN NOTE: Followed up today and changed dressings. L arm and R lower leg skin tears essentially healed, intact scab remains, no drainage. Silicone foam dressings applied, will update wound care, orders and follow as needed. Nurse Bennett made aware
of the above. Will update family.
[2025-09-15 12:08] LABS: Glucose - Point of Care 128 mg/dl (70-99)
--- NOTE | 2025-09-15 13:11 | W.PN.HOSP.TC ---
Today's Communication/Plan
-
Ongoing disposition efforts
Assessment / Plan
Assessment / Plan
Assessment/Plan
74-year-old male past medical history of right lower extremity DVT on Eliquis, non-Hodgkin's lymphoma of the spleen, thrombocytopenia, hypertension, CAD status post stent in April, alcoholic cirrhosis, pulmonary nodules, restrictive airway disease,
GERD, BPH, squamous cell skin cancer, anxiety, obstructive sleep apnea, presenting with elevated blood sugar on outpatient labs. He recently completed steroids for upper respiratory infection. He has shortness of breath worsening for 1 week with
exertion despite antibiotic and steroid. Chronic cough. Urinary frequency for past few days. Increased abdominal distention and lower extremity edema. He had a fall 4 days ago and hit his head with bruise back of head and wound of left elbow and
right lower extremity. He was seen at [facility] and had negative trauma workup. Vital signs unremarkable apart from mild tachycardia up to 105. Blood pressure 91/55. Requiring 2L oxygen. Labs showed blood sugar of 559. Hemoglobin A1c 10.1.
Creatinine 1.4. Urinalysis unremarkable. CXR [address] abdomen pelvis shows mild to moderate ascites. Patient with hyperglycemia with A1c of 10.1 secondary to underlying diabetes/ exacerbated by steroid-induced hyperglycemia. [place]
likely secondary to losartan/Lasix. IV fluids were given around the time of admission. Hold lasix. Dysnea likely due to restrictive lung disease from ascites. Also concerned for decompensated cirrhosis. Check INR and LFTs. IR for paracentesis. GI
consulted. Started Lantus 10 units and insulin sliding scale. Will hold off on further IV fluids at this time due to cirrhosis. Wound care consulted for wound of left elbow and right lower extremity. Alcohol withdrawal protocol. Thiamine and
Folate.
#Acute hypoxic respiratory failure likely from abdominal distention/atelectasis
#Shortness of Breath, Tachycardia with exertion
#Restrictive lung disease?
-Remains on room air now
-Albuterol and Breo continued
-Recent chest x-ray with impression of Bibasilar linear opacities, most suggestive of subsegmental atelectasis.
-After initial paracentesis on 09/05/25, hypoxia resolved, except when sleeping
-ProBNP unremarkable
-Echo with new mild aortic stenosis, but EF is normal to hyperdynamic, which can be explained by cirrhosis
-May need CPAP given AZ below -- now the concern is oxygen saturations dropping while sleeping (see nocturnal O2 report from 09/12/25)
#Abdominal distention/lower extremities edema concern for ascites
#History of alcoholic cirrhosis
-CT of abdomen No abnormal focal pancreatic lesions identified.
2. Advanced changes of hepatic cirrhosis and portal hypertension with associated splenomegaly. No suspicious focal hepatic lesion identified at CT.
3. Small to moderate volume of ascites.
4. Atelectatic changes at the bilateral lung bases. Small amount of airspace consolidation along the paramediastinal right lower lobe as above which is most likely also atelectatic.
-IR consulted for paracentesis -- paracentesis performed on 09/05/25 with 3000 cc of hazy yellow ascitic fluid removed --> no SBP
-IR re-consulted 09/09/25 for repeat paracentesis: 2550 cc of fluid removed --> no SBP
-IR re-consulted 09/14/25 for repeat paracentesis: 2500 cc of fluid removed --> no SBP
-GI consulted -- On 09/10/25, I communicated via [employer] with support teacher Dr. Merchant who said patient is not a candidate for external peritoneal catheter as he needs to have failed diuretics first and Aldactone has just been started
-But given the frequent rapid accumulation of peritoneal fluid seems like reaching the diuretic-resistant phase, although can consider increasing/titrating Aldactone more -- but patient did have soft blood pressures/hypotension
initially, so will need to be careful
-External peritoneal catheter should be re-visited
#New onset diabetes mellitus with urinary frequency and polydipsia
- Recently finish steroids more than a week prior to presentation for a cough that he is dealing with for weeks
- A1c 10.1
- Blood sugar was initially elevated in 500s
- Continue Lantus, premeal Insulin and sliding scale -- titrate to ensure good glucose control -- appreciate Diabetes MERCHANDISE ASSOCIATE
#Recent right eye cataract surgery on 09/01/25
-Continue Ofloxacin eye drops
-Continue Prednisolone Eye Drops
-Discussed on 09/06/25 eye drops regimen with patient's daughter Bianca
#Recent on his way to home on 09/01/25 from eye cataract surgery appointment, he lost the balance and fell backwards -- patient hit the back of his head on the floor and sustained wound on his left arm
-Trauma evaluation was unremarkable at [facility]
#Microscopic Hematuria
-Re-evaluation outpatient
#Right lower extremity/left upper extremity wound
- Wound care consulted
#Recent fall likely mechanical
-PT/OT consulted
-trauma workup negative at [facility]
#Acute kidney injury possibly hepatorenal
- IV fluids were initially given in the ER this admission given CAR[place]INA
- Creatinine 1.4-->1.0-->1.1-->1.0-->0.9--->1.1
- Continue to monitor
#Chronic right leg DVT
-Recently diagnosed, in early August 2025
-Continue Eliquis
#Right Leg Swelling>Left Lower Extremity Swelling
#Right Lower Extremity Erythema
-Right lower extremity ultrasound with improving/resolving DVT
-Started antibiotics with Cefazolin on 09/08/25 --> switched to oral antibiotics Cephalexin on 09/12/25
-MRSA swab negative
-Consulted ID as cellulitis seems slow to improve
-Can do YASMANY wrap from base of toes to knee or 20-30 mmHg knee high compression sock
#Right Anterolateral Thigh and Left Anterolateral Thigh Numbness and Burning Sensation
-Suspected from Meralgia paraesthetica, discussed with Dr. 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
-US and DEBRA with no significant PAD except right toe brachial index is mildly diminished, suggesting possible mild distal small vessel arterial disease on the right -- I communicated via [employer] [employer] with
vascular surgeon Dr. Asher who said nothing to do, follow-up outpatient
-MRI brain with no stroke or significant abnormal findings
-MRI of L-spine with and without contrast for completeness showed stenosis -- discussed with Dr. Mohan (neurosurgery) who said (via [employer] [employer] communication) that MRI L-Spine imaging demonstrates chronic spondylitis/
arthritic changes and does not correlate with his reported acute symptomatology; No acute surgical pathology seen on imaging; As said, defer to symptomatic management per medicine/physiatry.
-Consider outpatient EMG/NCS
#History of non-Hodgkin's lymphoma of spleen
#History of thrombocytopenia
#Lymphadenopathy on MRI L-Spine
-Continue Eltrombopag
-Sees [facility]
-I discussed with [facility] oncologist via [facility] [employer] communication on 09/11/25: Nothing for oncology to do inpatient; Dr. Posadas has follow up with him already scheduled 10/15/25. [facility] office will get the hospital records, including
imaging for her to see before his visit. But nothing needs to be done now.
#Pancytopenia
-Suspected to be related to Cirrhosis
-Thrombocytopenia resolved after patient's Eltrombopag resumed
#Hypervolemic Hyponatremia
-Increased PO FR from 48 ounces to 40 ounces on 09/11/25 -- and sodium has been variable around 130 more or less
#Hypokalemia
-Supplemented; continue to monitor
-Titration of Aldactone up to 100 mg daily can help, but also need to watch BP -- BP soft today (09/14/25) after paracentesis
#Acute proctocolitis on L-Spine MRI Imaging
-GI (for acute proctocolitis) -- Dr. Merchant said via [employer] [employer]: it could be a finding from ascites. Dr. Salamanca knows him well and said his symptoms ate chronic. patient has had bloating for years and thoroughly worked up
#Hypertension
-BP soft in ER, now stable
-Hold losartan (patient's family mentioned that he takes Losartan 50 mg daily at home -- not 100 mg daily) to allow for diuretics
#Cataract surgery
-Continue prednisone alone 1 drop left eye as directed
#CAD/LAD stent April 2025
-Continue atorvastatin, Plavix 75 mg daily
- 2D echo 03/04/2025: EF 60 to 65%, normal LVS LVSF no wall abnormalities, normal diastolic function
#Alcoholic cirrhosis
#Esophageal Varices
#Alcohol use disorder
-Recommended cessation given history of cirrhosis
-Patient drinks 1-2 beers daily last drink 09/04/25 afternoon
-MSAS/alcohol withdrawal protocol
#Chronic peripheral edema
#CHF
-Continue Lasix
-Continue Jardiance/Farxiga
-proBNP unremarkable
-Echo with hyperdynamic EF
#New Mild Aortic Stenosis
#GERD
-Continue Protonix
#BPH
#History of TURP
#Squamous cell skin CA
#Anxiety
#Sleep apnea
#Hypoxia when sleeping
-Per nurse communication: pulse oximetry had been 93% and above since starting continuous pulse oximetry on 09/06/25
-Per nurse, when patient just laid down to take a nap after lunch on 09/06/25, his oxygen level was through and consistently at 87% - 2 L O2 placed
-Patient wore CPAP many years ago, but no longer wearing since lost weight and thought he did not need it anymore
#Left Elbow and RLE wounds
#Chronic RLE wound
-Wound care consultation requested
Code Status: Full code
flowers salesperson: daughter Bianca -- phone number: [phone]
Discussed with at bedside.
Ongoing disposition efforts. Medically stable for discharge to rehab
Anticipated Discharge: Within 24 hours
Subjective/Interval History
-
Date of Service: September 15, 2025
No nausea or vomiting. No fever or chills. No abdominal pain. Feels the fluid is come back. Had a tap yesterday. No shortness of breath.
Objective Data
-
Labs:
Laboratory Results
09/15/25
07:13
Sodium 130 L
Potassium 4.0
Chloride 101
Carbon Dioxide 25
BUN 30 H
Creatinine 1.2
Glucose 99
Calcium 8.0 L
Total Bilirubin 3.9 H
AST 40
ALT 37
Alkaline Phosphatase 141 H
Vital Signs:
Vital Signs
Temp Pulse Resp BP Pulse Ox
97.6 F 90 18 102/55 96
09/15/25 07:30 09/15/25 07:52 09/15/25 07:52 09/15/25 07:30 09/15/25 07:52
I&O
09/14/25 09/15/25 09/16/25
06:59 06:59 06:59
Intake Total 1680 / 1680
Output Total 450 / 450 880 / 880
Balance -450 / -450 800 / 800
Physical Exam
-
General: No Apparent Distress
Respiratory: Non Labored Respirations; Negative Accessory Resp Muscle Use
Cardiac: Regular Rhythm and S1/S2; Negative Tachycardic
GI: Soft, Nontender, Normal Bowel Sounds and Distended
Neuro: AO x 3; Negative Tremors
Psych: Negative Confused
[2025-09-15 15:32] VITALS: BP 96/56; PULSE 98; O2SAT 95
[2025-09-15 15:34] VITALS: BP 96/56; PULSE 60; O2SAT 96
[2025-09-15 16:00] VITALS: BP 108/69
[2025-09-15] MEDS: LASIX 20 MG PO (16:18)
[2025-09-15 17:34] LABS: Glucose - Point of Care 154 mg/dl (70-99)
[2025-09-15] MEDS: NOVOLOG FLEXPEN-MODERATE RESISTANCE 1 UNITS SC (18:01)
[2025-09-15 21:39] LABS: Glucose - Point of Care 152 mg/dl (70-99)
[2025-09-15] MEDS: MELATONIN 5 MG PO (22:01)
[2025-09-15] MEDS: LANTUS 0.16 UNITS SC (22:02)
[2025-09-15 23:16] VITALS: BP 122/81
[2025-09-16 05:55] VITALS: BMI 26.9
[2025-09-16] MEDS: STRIVERDI RESPIMAT 2 PUFF INH (07:19)
[2025-09-16] MEDS: SPIRIVA RESPIMAT 2.5 MCG 2 PUFF INH (07:19)
[2025-09-16] MEDS: ALDACTONE 50 MG PO (07:53)
[2025-09-16] MEDS: LASIX 40 MG PO (07:53)
[2025-09-16] MEDS: PLAVIX 75 MG PO (07:53)
[2025-09-16] MEDS: VITAMIN B1 100 MG PO (07:53)
[2025-09-16] MEDS: LIPITOR 40 MG PO (07:54)
[2025-09-16] MEDS: FOLVITE 1 MG PO (07:54)
[2025-09-16] MEDS: ELIQUIS 5 MG PO (07:54)
[2025-09-16] MEDS: PROTONIX 40 MG PO (07:54)
[2025-09-16] MEDS: FARXIGA 10 MG PO (07:54)
[2025-09-16 07:55] VITALS: BP 114/72
[2025-09-16] MEDS: KEFLEX 500 MG PO ×3 (07:55→17:24)
[2025-09-16] MEDS: NON-FORMULARY ITEM 25 MG PO (07:56)
[2025-09-16] MEDS: HYDROPHOR 1 APPLIC TOPICAL (07:58)
[2025-09-16] MEDS: PRED FORTE 1% EYE DROPS 1 DROP OPHTH (07:59)
[2025-09-16 08:13] LABS: Glucose - Point of Care 110 mg/dl (70-99)
[2025-09-16] MEDS: NOVOLOG FLEXPEN-MODERATE RESISTANCE SC (08:20)
[2025-09-16] MEDS: NOVOLOG FLEXPEN 8 UNITS SC ×2 (10:34→12:56)
--- NOTE | 2025-09-16 11:54 | CM ---
Addendum entered by Jessica Mcfadden 09/16/25 15:12:
CM offered [facility] or [facility] but patient now wants to go home. [facility] to come to talk to patient and to review options. Patient PCP is Dr. Surendra Cox. CM provided IMM and signed form placed on chart following discussions with patient.
CM will continue to follow for discharge planning needs.
Plan; home with [facility] to follow pending review/acceptance
Original Note:
Patient seen on . Patient stated that he would like to go to [facility] or [facility]. CM spoke with Liaison at [facility] no beds at this time, [facility] no beds today possible for tomorrow. CM will continue to follow for discharge planning needs.
Plan; SNF pending bed availability and pending auth
[2025-09-16 12:06] LABS: Glucose - Point of Care 157 mg/dl (70-99)
[2025-09-16 12:49] VITALS: BP 123/75; PULSE 100; O2SAT 98
[2025-09-16] MEDS: NOVOLOG FLEXPEN-MODERATE RESISTANCE 1 UNITS SC (12:57)
--- NOTE | 2025-09-16 13:43 | PN.DE.MGMTRT ---
Insulin Management
- -
09/16/2025: Diabetes Management Follow up
74 year old male presented to the ED with elevated blood sugar. PMH: HTN, HLD, CAD s/p stent to LAD 04/2025, CHF, GERD, allergic rhinitis, Alcohol Cirrhosis, Non-Hodgkin's Lymphoma, RLE DVT on Eliquis , Ascites and BPH. He gets weekly blood work to
make sure his platelets are okay as he is on Eliquis. He has a chronic cough which at times is productive with clear sputum. He also has chronic right lower extremity wound, which has recently started oozing clear. Patient reports urinary frequency
and polydipsia. He denies any nausea vomiting diarrhea or abdominal pain.
He was taking Jardiance 10 mg daily prior to admission. A1C 10.1%, Cr 1.4-->1.0, eGFR >60 today.
Upon arrival patient was noted to have elevated glucose of 559, he was treated with 10 units of Lantus and 1 Liter of LR with improvement of his glucose.
-Christina reports that pt has recently had significant physical decline over the last couple of months and that he has been on and off steroids for a few weeks. Discussed with Christina that pt will need insulin therapy for optimal glucose
control moving forward.
Patient awake, alert, oriented, resting in bed, offers no complaints, states his RLE looks a lot better with less swelling.
09/05 underwent paracentesis-3L for moderate to large pleural effusion.
09/08 Resumed SGLT 2 - Patients awning hanger supervisor had started Jardiance.
09/10 Paracentesis completed, 2550 cc ascitic fluid removed.
09/14 underwent paracentesis-2.5 L for moderate to large pleural effusion, states he feels better but still has significant abdominal distention.
09/16 Glucose stable and in range 99 to 157. Fasting glucose 110 POC this AM.
Will make no changes to current regimen: Lantus 16 units at HS, NovoLog 10 units AC, Farxiga 10mg daily and low corrective with meals.
Discussed with Nurse. Will cont to follow
Pt was seen by the Diabetes Nurse Educator for monitor and insulin instructions.
Diabetes History
- -
Type of Diabetes: 2 requiring insulin
Pre-Admission Diabetes Regimen
Lab Results
Hemoglobin A1c 10.1 % (4.0-5.9) H 09/05/25 08:46
Insulin Pump Settings
IP Diabetes Regimen
09/15/25 09/15/25 09/16/25
17:33 21:38 08:12
POC Glucose 154 H 152 H 110 H
09/16/25
12:05
POC Glucose 157 H
Patient Education
--- NOTE | 2025-09-16 14:45 | W.DCSUMMARY ---
Discharge Summary
Discharge Data
Date of Admission: 09/05/25
Date of Discharge: 09/16/25
-
Pending Results: No
Hospital Course
Primary diagnosis:
Cirrhosis with portal hypertension, esophageal varices and ascites requiring repeat paracentesis
New onset of diabetes mellitus with hemoglobin A1c 10.1
Right lower extremity cellulitis
Acute kidney injury
Secondary diagnosis:
Right leg DVT on Eliquis
History of Hodgkin's lymphoma of spleen
Thrombocytopenia-on immune therapy
Essential hypertension
Coronary artery disease s/p coronary stent in April this year
History of pulmonary nodules
History of restrictive airway disease
Gastroesophageal reflux disease
Benign prostatic hypertrophy
Hospital course:
Patient presented with increased abdominal distention, lower extremity edema and shortness of breath. He was noted to be in acute hypoxic respiratory failure requiring 2 L of oxygen. He has a history of restrictive lung disease and was using
albuterol and Breo inhaler. Chest x-ray did not show any obvious fluid or consolidation. There was suggestion of subsegmental atelectasis.
His symptomatology was secondary to ascites accumulation which was tapped without any evidence of SBP. He had rapid reaccumulation requiring paracentesis 3 times on this admission.
He is known to GI team and was diagnosed with cirrhosis and there is mention about alcohol as etiology. He was on diuretics before coming in. Aldactone was added on this admission. In view of recurrent ascites GI would arrange another tap and
hopefully by then Aldactone would kick in and has less need of ascites tap.
He was noted to have significant hyperglycemia with blood counts of 559. Hemoglobin A1c was 10.1. Not known to have diabetes mellitus before. Unclear if it is steroid-induced or primary diagnosis. He recently finished course of steroid. He was
seen by diabetic nurse practitioner. Was started on Lantus and Premeal insulin with better control.
He was in [place] with creatinine of 1.4 unclear if it was secondary to uncontrolled diabetes, use of losartan and diuretics. Creatinine improved to 1.2 his baseline being 0.7 recently. Advised to keep losartan as blood pressure was stable without it.
Diuretics were reintroduced for ascites management. Advised to get a BMP as a follow-up in a week.
There was evidence of right lower extremity cellulitis was seen by ID. He would require another day of cephalosporins to complete the course.
He was seen by PT was recommending rehab but patient declined and wished to go home with home services. Case management arranged for home therapies and was discharged home.
Consultants on board:
ID-Tavia Diaz
GI-Ethan Coffman
Portions of this chart may have been created with voice recognition software. Occasional wrong word or 'sound alike' substitutions may have occurred due to the inherent limitations of voice recognition software.
Discharge Plan
-
Patient Disposition: Home with Home Care
Discharge Diagnosis/Procedures: Cirrhosis with portal HTN and ascites needing recurrent taps
Diet: 2 Gram Sodium and Restrict fluids to 64 oz
Activity: As tolerated
Driving Restrictions: Not until seen by your Dr
Bathing Restrictions: None
Blood Work: BMP blood work in a week to follow on your electrolytes- arrange through your pCP
Other Services: VN
Specialty Instructions: Weigh Daily- Call MD for wt gain/loss 3 lbs overnight/5 lbs in 1 week
Activity Restrictions/Additional Instructions:
Wound Care Instructions
L arm and R lower leg: clean with soap and water, silicone foams change q 3 days.
Once healed moisturize with mineral oil/Aquaphor daily.
Referrals:
UNKNOWN - PT DOES,NOT KNOW [Family Provider]
Prescriptions:
New
(DME) pen needle, diabetic [Fior Pen Needle] 32 gauge x 5/32' Needle
Qty: 200 0RF
Rx Instructions:
1 box of 200 needles
refer to insulin instructions
(DME) blood-glucose meter [OneTouch Verio Flex meter] Misc
Qty: 1 0RF
Rx Instructions:
As Directed
(DME) OneTouch Verio test strips Strip
Qty: 200 0RF
Rx Instructions:
Pt Testing 4 times a day
(DME) lancets [OneTouch Delica Plus Lancet] 30 gauge Misc
Qty: 200 0RF
Rx Instructions:
Pt Testing 4 times a day
cephalexin 500 mg Capsule
500 mg PO QID Qty: 6 0RF
spironolactone 50 mg Tablet
50 mg PO DAILY Qty: 30 0RF
insulin glargine [Lantus Solostar U-100 Insulin] 100 unit/mL (3 mL) insulin pen
15 unit SC QPM Qty: 15 1RF
furosemide 40 mg Tablet
40 mg PO DAILY Qty: 30 0RF
furosemide 20 mg Tablet
20 mg PO DAILY@1600 Qty: 30 0RF
acetaminophen 325 mg Tablet
650 mg PO Q4HPRN PRN (Reason: mild pain/AYOUB/temp> 100.4F) Qty: 1 0RF
insulin aspart U-100 100 unit/mL (3 mL) Insulin Pen
8 unit SC AC Qty: 15 1RF
Continued
azelastine 1 SPRAY aerosol,spray
1 spray intranasal DAILYPRN PRN (Reason: allergies, nasal drip)
albuterol sulfate 90 mcg/actuation Hfa Aerosol Inhaler
2 puff INHALATION R Q6HPRN PRN (Reason: sob)
eltrombopag olamine 25 mg Tablet
25 mg PO DAILY
umeclidinium-vilanterol [Anoro Ellipta] 62.5-25 mcg/actuation Blister With Device
1 inh INHALATION R DAILY
Jardiance 10 mg Tablet
10 mg PO DAILY
Eliquis 5 mg Tablet
5 mg PO BID
atorvastatin 40 mg tablet
40 mg PO DAILY
clopidogrel 75 mg tablet
75 mg PO DAILY
pantoprazole 40 mg tablet,delayed release (DR/EC)
40 mg PO DAILY
Discontinued
losartan 50 MG tablet
100 mg PO DAILY
furosemide 40 mg Tablet
40 mg PO BID
prednisolone acetate 1 % Drops,Suspension
1 drp RIGHT EYE DIRECTED
Rx Instructions:
1 drop right eye tid for 1 week until 08/26/25 then 1 drop right eye bid until 08/31/25 then 1 drop right eye daily until 09/09/25
Discharge Orders:
Discharge Patient (As Directed); Ordered 09/16/25
Ordered By: Julian Schreiber
Discharge Date and Time
Print Language: PASHTO
[2025-09-16 16:00] VITALS: BP 116/70
--- NOTE | 2025-09-16 16:25 | VNURNOTE ---
Home Health Liaison met with patient and spouse at bedside to discuss [facility] nurse/therapy, visits, schedule and homebound status. Both are agreeable and anxious to [place]. They understand that visits at home will be 2-3 x per week to assess and teach
medical management. Both are aware that [facility] will contact them for start of care within a few days to a week after discharge from . Provided contact number for [facility].
PM [facility] referral completed in [facility] Port.
[2025-09-16] MEDS: LASIX 20 MG PO (17:23)
== END 2025-09-16 17:38 | disposition home health service (06) | DRG 432 ==
LOC: 3 WEST ACU 14:13
PROVIDERS: Hospitalist; Nurse Practitioner Adult Health; Radiology Diagnostic Radiology; Radiology Vascular & Interventional Radiology; Registered Nurse; ADMITTING PHYSICIAN Hospitalist; ATTENDING PHYSICIAN Internal Medicine; CONSULT PHYSICIAN Internal Medicine Gastroenterology; CONSULT PHYSICIAN Physical Medicine & Rehabilitation; EMERGENCY PHYSICIAN Student in an Organized Health Care Education/Training Program; OTHER PHYSICIAN Internal Medicine Infectious Disease
PROC: 0W9G3ZX Drainage of Peritoneal Cavity, Percutaneous Approach, Diagnostic (ICD-10-PCS; 2025-09-05)
PROC: 0W9G3ZZ Drainage of Peritoneal Cavity, Percutaneous Approach (ICD-10-PCS; 2025-09-10)
DX: K70.31 Alcoholic cirrhosis of liver with ascites (principal); J96.01 Acute respiratory failure with hypoxia; I85.10 Secondary esophageal varices without bleeding; N17.9 Acute kidney failure, unspecified; J98.11 Atelectasis; L03.115 Cellulitis of right lower limb; D61.818 Other pancytopenia; E87.1 Hypo-osmolality and hyponatremia; K51.30 Ulcerative (chronic) rectosigmoiditis without complications; K76.6 Portal hypertension; I82.511 Chronic embolism and thrombosis of right femoral vein; E11.65 Type 2 diabetes mellitus with hyperglycemia; G47.33 Obstructive sleep apnea (adult) (pediatric); I11.0 Hypertensive heart disease with heart failure; K21.9 Gastro-esophageal reflux disease without esophagitis; M19.90 Unspecified osteoarthritis, unspecified site; G89.29 Other chronic pain; J30.9 Allergic rhinitis, unspecified; N40.1 Benign prostatic hyperplasia with lower urinary tract symptoms; R35.0 Frequency of micturition; J98.4 Other disorders of lung; F41.9 Anxiety disorder, unspecified; E83.118 Other hemochromatosis; J30.1 Allergic rhinitis due to pollen; S00.03XA Contusion of scalp, initial encounter; R77.2 Abnormality of alphafetoprotein; J98.8 Other specified respiratory disorders; F10.10 Alcohol abuse, uncomplicated; G57.10 Meralgia paresthetica, unspecified lower limb; R31.29 Other microscopic hematuria; E87.6 Hypokalemia; I35.0 Nonrheumatic aortic (valve) stenosis; I25.10 Atherosclerotic heart disease of native coronary artery without angina pectoris; R91.1 Solitary pulmonary nodule; M54.50 Low back pain, unspecified; E11.40 Type 2 diabetes mellitus with diabetic neuropathy, unspecified; D69.6 Thrombocytopenia, unspecified; R19.7 Diarrhea, unspecified; W19.XXXA Unspecified fall, initial encounter; Y93.9 Activity, unspecified; Y92.9 Unspecified place or not applicable; Z87.891 Personal history of nicotine dependence; Z82.49 Family history of ischemic heart disease and other diseases of the circulatory system; Z79.02 Long term (current) use of antithrombotics/antiplatelets; Z79.84 Long term (current) use of oral hypoglycemic drugs; Z79.01 Long term (current) use of anticoagulants; Z85.828 Personal history of other malignant neoplasm of skin; Z95.5 Presence of coronary angioplasty implant and graft; Z98.41 Cataract extraction status, right eye; Z88.8 Allergy status to other drugs, medicaments and biological substances; Z91.81 History of falling; Z90.79 Acquired absence of other genital organ(s); Z85.71 Personal history of Hodgkin lymphoma; Z79.899 Other long term (current) drug therapy
CPT/HCPCS: 49083; 70553; 72158; 74018; 74177; 80048; 80053; 80076; 80306; 81003; 81015; 82010; 82042; 82077; 82150; 82248; 82947; 82962; 82977; 83036; 83615; 83735; 83880; 84100; 84157; 85025; 85027; 85610; 85730; 87015; 87045; 87046; 87070; 87077; 87205; 87324; 87427; 87449; 88112; 88305; 89051; 93306; 93922; 93925; 93971; 94640; 94762; 96360; 97110; 97116; 97162; 97166; 97530; 97535; 99284; A9575; Q9967

== ENCOUNTER → 2025-09-26 06:29 | Outpatient (REF) | payer OTHER, SELFPAY ==
[2025-09-26 07:20] VITALS: BP 92/65; BP_SYST 86
[2025-09-26 08:00] VITALS: BP 97/66
[2025-09-26 10:36] LABS: Body Fluid Second Tech EF
== END ==
LOC: RADI 06:29
PROVIDERS: ATTENDING PHYSICIAN Internal Medicine Gastroenterology; FAMILY PHYSICIAN Family Medicine
DX: R18.8 Other ascites (principal)
CPT/HCPCS: 49083; 87015; 87070; 87205; 89051

== ENCOUNTER 2025-09-26 08:27 | Outpatient (RCR) | payer OTHER, SELFPAY ==
[2025-09-26] MEDS: FLEXBUMIN 50 IV (08:52)
[2025-09-26 09:04] VITALS: BP 104/67
[2025-09-26 09:59] VITALS: BP 108/58
== END 2025-10-05 23:59 | disposition home or self-care (01) ==
LOC: OID 08:27
PROVIDERS: ATTENDING PHYSICIAN Internal Medicine Gastroenterology; FAMILY PHYSICIAN Family Medicine
DX: K74.60 Unspecified cirrhosis of liver (principal); R79.89 Other specified abnormal findings of blood chemistry
CPT/HCPCS: 49083; 87015; 87070; 87205; 89051; 96365; P9047

== ENCOUNTER 2025-10-03 11:39 | Emergency (ER) | payer OTHER, SELFPAY ==
[2025-10-03 11:41] VITALS: BP 116/78
[2025-10-03 12:15] LABS: Hematocrit 33.7 % (39.0-52.0); Hemoglobin 11.6 g/dL (13.0-18.0); Mean Corp Hgb Conc. 34.4 g/dL (33.0-37.0); Mean Corpuscular Volume 98.3 fL (80.0-94.0); Nucleated Red Blood Cells % 0 % (-); Platelet Count 306 10^3/uL (130-400); Red Cell Dist. Width 19.5 % (11.5-14.5)
[2025-10-03 12:24] LABS: ALT (SGPT) 40 U/L (0-50); AST (SGOT) 45 U/L (17-59); Albumin 3.6 g/dl (3.5-5.0); Alkaline Phosphatase 171 U/L (38-126); Blood Urea Nitrogen 21 mg/dl (9-20); Calcium 9.0 mg/dl (8.4-10.2); Carbon Dioxide 25 mmol/L (22-30); Chloride 101 mmol/L (98-107); Glucose 108 mg/dl (70-99); Potassium 3.2 mmol/L (3.5-5.1); Sodium 136 mmol/L (135-145); Total Protein 7.2 g/dl (6.3-8.2); eGFR > 60.00
--- NOTE | 2025-10-03 13:52 | ED.GENMED ---
History of Present Illness
<NEO Vargas - Last Filed: 10/03/25 18:13>
General
Chief Complaint: Fall
Source: patient and family
Exam Limitations: none
Time Seen by Provider: 10/03/25 13:52
Nursing documentation reviewed up to this point in time: agreed with
History of Present Illness
History of Present Illness:
Patient is a 74-year-old male with history of non-Hodgkin's lymphoma, insulin-dependent diabetes(diabetes was recently diagnosed during admission September 05 to September 16), cirrhosis with portal hypertension esophageal varices and ascites,
paracentesis, DVT on Eliquis and Plavix, CAD and stent GERD presents to the ER for evaluation. Patient was recently prescribed Ambien for sleep and took 2 doses 2 nights ago and fell yesterday twice hitting his head and his right arm. He denies
loss of conscious was there during second fall however reports patient took Ambien again last night and continues to feel very drowsy.
During patient's last admission he had several paracentesis his last 1 was 09/26 7 days ago.
Past History
<NEO Vargas - Last Filed: 10/03/25 18:13>
Past History
ED Past Medical History: Cancer, GERD, HTN, Other (Chronic low back pain, DJD) and Other (Allergic rhinitis, sleep apnea)
ED Past Surgical History: Orthopedic (Right shoulder surgery, right femur surgery) and Other (Hemorrhoidectomy)
Social History
Tobacco: Former smoker
Alcohol: Daily (Wine, beer or mixed drink 2-3)
Drug: None
Personal:
Living: with family
Employment: Not employed
Family History
Family History: Hypertension and CAD (Father of an [place] in his late 70s, no history of early coronary artery disease); Negative Sudden
Phy Exam
<NEO Vargas - Last Filed: 10/03/25 18:13>
General Physical Exam
General Presentation: no apparent distress
General age: appears stated age
General Skin: warm and dry
General Habitus: normal
General Mental: alert
General Hydration: dry mucous membranes
Cardiovascular Exam
Cardiovascular Exam: regular rate/rhythm, no murmur and normal peripheral pulses
Pulmonary Exam
Pulmonary Exam: lungs clear and no respiratory distress
Neurological Exam
Neurological Exam: alert, oriented x3, no motor deficits and no sensory deficits
Musculoskeletal Exam
Musculoskeletal Exam: other (+ abrasion to left forehead + abrasions to right arm )
Skin Exam
Skin Exam: normal color and warm/dry
Psychiatric Exam
Psychiatric Exam: normal mood/affect
Course
<NEO Vargas - Last Filed: 10/03/25 18:13>
Orders/Labs/Results
Orders:
Orders
10/03/25 12:02
Complete Blood Count/With Diff Urgent
Comprehensive Metabolic Panel Urgent
10/03/25 13:52
CT Cervical Spine W/o Iv Contr Urgent
Comment:
Reason For Exam: trauma
CT Head W/o Iv Contrast Urgent
Comment:
Reason For Exam: trauma
10/03/25 16:02
Physical Therapy Consult [Pt Eval And Treat] Urgent
Activity Level: Ambulate
10/03/25 16:04
Potassium Chloride [KCl] 40 meq PO NOW STA
10/03/25 16:37
Ammonia Urgent
10/03/25 17:39
Tetanus/Diphth/Acelpertussis [Adacel] 0.5 ml IM .ONCE ONE
10/03/25 17:40
Tetanus/Diphth/Acelpertussis [Adacel] 0.5 ml .ROUTE .STK-MED ONE
10/03/25 18:03
Lactulose [Duphalac/Chronulac] 20 grams PO NOW STA
Abnormal Lab Results
10/03/25 10/03/25
12:02 16:37
RBC 3.43 L 10^6/uL
(4.70-6.10)
Hgb 11.6 L g/dL
(13.0-18.0)
Hct 33.7 L %
(39.0-52.0)
MCV 98.3 H fL
(80.0-94.0)
MCH 33.8 H pg
(27.0-31.0)
RDW 19.5 H %
(11.5-14.5)
Potassium 3.2 L mmol/L
(3.5-5.1)
BUN 21 H mg/dl
(9-20)
Glucose 108 H mg/dl
(70-99)
Total Bilirubin 3.5 H mg/dl
(0.2-1.3)
Alkaline Phosphatase 171 H U/L
(38-126)
Ammonia 53 H umol/L
(9-30)
10/03/25 12:02
10/03/25 12:02
Vital Signs
Initial and Last Documented VS:
Initial Vital Signs
Temp Pulse Resp BP Pulse Ox
97.6 F 103 18 116/78 99
10/03/25 11:41 10/03/25 11:41 10/03/25 11:41 10/03/25 11:41 10/03/25 11:41
Last Documented Vital Signs
Temp Pulse Resp BP Pulse Ox
97.6 F 103 18 116/78 99
10/03/25 11:41 10/03/25 11:41 10/03/25 11:41 10/03/25 11:41 10/03/25 13:53
Compounding Technician consulted with Physician
Compounding Technician consulted with physician?: Yes
Name of Physician Consulted: karly
<Nancy Asher MD - Last Filed: 10/03/25 18:02>
Orders/Labs/Results
Orders:
Orders
10/03/25 12:02
Complete Blood Count/With Diff Urgent
Comprehensive Metabolic Panel Urgent
10/03/25 13:52
CT Cervical Spine W/o Iv Contr Urgent
Comment:
Reason For Exam: trauma
CT Head W/o Iv Contrast Urgent
Comment:
Reason For Exam: trauma
10/03/25 16:02
Physical Therapy Consult [Pt Eval And Treat] Urgent
Activity Level: Ambulate
10/03/25 16:04
Potassium Chloride [KCl] 40 meq PO NOW STA
10/03/25 16:37
Ammonia Urgent
10/03/25 17:39
Tetanus/Diphth/Acelpertussis [Adacel] 0.5 ml IM .ONCE ONE
10/03/25 17:40
Tetanus/Diphth/Acelpertussis [Adacel] 0.5 ml .ROUTE .STK-MED ONE
10/03/25 18:03
Lactulose [Duphalac/Chronulac] 20 grams PO NOW STA
Abnormal Lab Results
10/03/25 10/03/25
12:02 16:37
RBC 3.43 L 10^6/uL
(4.70-6.10)
Hgb 11.6 L g/dL
(13.0-18.0)
Hct 33.7 L %
(39.0-52.0)
MCV 98.3 H fL
(80.0-94.0)
MCH 33.8 H pg
(27.0-31.0)
RDW 19.5 H %
(11.5-14.5)
Potassium 3.2 L mmol/L
(3.5-5.1)
BUN 21 H mg/dl
(9-20)
Glucose 108 H mg/dl
(70-99)
Total Bilirubin 3.5 H mg/dl
(0.2-1.3)
Alkaline Phosphatase 171 H U/L
(38-126)
Ammonia 53 H umol/L
(9-30)
10/03/25 12:02
10/03/25 12:02
Vital Signs
Initial and Last Documented VS:
Initial Vital Signs
Temp Pulse Resp BP Pulse Ox
97.6 F 103 18 116/78 99
10/03/25 11:41 10/03/25 11:41 10/03/25 11:41 10/03/25 11:41 10/03/25 11:41
Last Documented Vital Signs
Temp Pulse Resp BP Pulse Ox
97.6 F 103 18 116/78 99
10/03/25 11:41 10/03/25 11:41 10/03/25 11:41 10/03/25 11:41 10/03/25 13:53
<NEO Vargas - Last Filed: 10/03/25 18:13>
MDM/Problems Addressed
Differential Diagnosis Includes:
not limited to medication reaction, head injury
MDM/Problems Addressed:
As documented patient is a 74-year-old male with history of cirrhosis esophageal varices diabetes DVT on Eliquis and Plavix presents to the ER for evaluation. Patient was started on Ambien 2 nights ago took 2 doses and fell yesterday and also took
another dose last night and fell again today. reports patient was very drowsy. Symptoms are likely from Ambien. Patient did hit his head. CT head cervical spine negative. Patient has small abrasions to his scalp. Patient was monitored
here now feeling much better reports back to normal likely all from Ambien. Patient was evaluate by physical therapy and deemed safe for discharge home .he is ambulatory steady.
He does however have a walker at home to use if needed. Because of liver disease ammonia was checked was mildly elevated at 53 there are no prior comparisons. I did review this with GI who recommends starting on Lactulose 30 cc titrate to have
3 loose stools per day. Patient was given a dose here in the ER. Will place patient on the GI credit front office developer outlined in order to expedite appointment patient will need recheck ammonia. In addition patient's potassium was low he had that we will need
to recheck by his family doctor. I also discussed with patient and that he will need to have an outpatient order from his GI doctor for outpatient paracentesis. He is to return if any worsening symptoms.
<NEO Vargas - Last Filed: 10/03/25 18:13>
*Radiology
Radiology exam reviewed: radiology read reviewed
*Pulse Oximetry
SaO2: 99
Oxygen Mode of Delivery: Room air
Patient hypoxic: no
*Critical Care Note
Total Time (30-74mins, 75-104mins- exclusive of procedures): Not Applicable
<NEO Vargas - Last Filed: 10/03/25 18:13>
Patient Management
Discussion with other providers: Pressure Supervisor (GI DR Mcgee)
ED Attending Note
<NEO Vargas - Last Filed: 10/03/25 18:13>
-
Portions of this chart may have been created with voice recognition software.� Occasional wrong word or��sound alike� substitutions may have occurred due to the inherent limitations of voice recognition software.
<Nancy Asher MD - Last Filed: 10/03/25 18:02>
ED Attending Note
Patient seen and examined by attending physician: Yes
I performed the substantive portion of visit, reviewed & personally made and approve the management plan that is documented in note by myself or SUBHA.: Yes
ED Attending Note:
74 yr old male with extensive prior medical hx, presents with foggy feeling and falls s/p taking ambien. Since arrival, feels much improved. Seen by PT, ambulating normally here. Of note, ammonia eelvated at 53. No asterexis on exam, O times 3.
No focal findings. Will begin lactulose, close GI f/u, etc.
Discharge Plan
Departure
Patient Disposition: Home (Routine Discharge)
Date of Disposition: 10/03/25
Time of Disposition: 17:38
Patient with high blood pressure during this ER visit?: No
Condition: Fair
Covid-19: Not Applicable
Discharge Problem:
Fall, Head injury, Abrasion
Instructions: Head Injury in Adults (DC), Skin Abrasions (DC)
Prescriptions:
New
lactulose 20 gram packet
20 g PO TID Qty: 30 0RF
No Action
azelastine 1 SPRAY aerosol,spray
1 spray intranasal DAILYPRN PRN (Reason: allergies, nasal drip)
albuterol sulfate 90 mcg/actuation Hfa Aerosol Inhaler
2 puff INHALATION R Q6HPRN PRN (Reason: sob)
eltrombopag olamine 25 mg Tablet
25 mg PO DAILY
umeclidinium-vilanterol [Anoro Ellipta] 62.5-25 mcg/actuation Blister With Device
1 inh INHALATION R DAILY
Jardiance 10 mg Tablet
10 mg PO DAILY
Eliquis 5 mg Tablet
5 mg PO BID
atorvastatin 40 mg tablet
40 mg PO DAILY
clopidogrel 75 mg tablet
75 mg PO DAILY
pantoprazole 40 mg tablet,delayed release (DR/EC)
40 mg PO DAILY
(DME) pen needle, diabetic [Fior Pen Needle] 32 gauge x 5/32' Needle
Qty: 200 0RF
Rx Instructions:
1 box of 200 needles
refer to insulin instructions
(DME) blood-glucose meter [OneTouch Verio Flex meter] Misc
Qty: 1 0RF
Rx Instructions:
As Directed
(DME) OneTouch Verio test strips Strip
Qty: 200 0RF
Rx Instructions:
Pt Testing 4 times a day
(DME) lancets [OneTouch Delica Plus Lancet] 30 gauge Misc
Qty: 200 0RF
Rx Instructions:
Pt Testing 4 times a day
spironolactone 50 mg Tablet
50 mg PO DAILY Qty: 30 0RF
insulin glargine [Lantus Solostar U-100 Insulin] 100 unit/mL (3 mL) insulin pen
15 unit SC QPM Qty: 15 1RF
furosemide 40 mg Tablet
40 mg PO DAILY Qty: 30 0RF
furosemide 20 mg Tablet
20 mg PO DAILY@1600 Qty: 30 0RF
acetaminophen 325 mg Tablet
650 mg PO Q4HPRN PRN (Reason: mild pain/AYOUB/temp> 100.4F) Qty: 1 0RF
insulin aspart U-100 100 unit/mL (3 mL) Insulin Pen
8 unit SC AC Qty: 15 1RF
Referrals:
Joseph Mcgee MD [Active, Gastroenterology]
Surendra Cox MD [Family Provider, Family Practice]
Activity Restrictions/Additional Instructions:
As discussed your CAT scans were negative for acute injury. Please discontinue use of Ambien
Your potassium was mildly low here you were given 1 dose of oral potassium. Please follow-up with your family doctor in the next 2 days for repeat potassium lab recheck
In addition your ammonia level was elevated. You were given 1 dose of lactulose here in the ER and a prescription was sent to pharmacy. Take lactulose 30 cc 3 times a day to have 3 loose stools daily. You may start this tomorrow since you were
given a dose here in the ER tonight.
Please follow-up with your GI specialist for reevaluation including repeat ammonia blood test. In addition you will need an outpatient prescription for paracentesis.
You were placed on the GI credit front office developer hotline you should receive a phone call from the GI credit front office developer next week.
Return if any worsening of symptoms including any confusion or any further concerns.
Interventions
Interventions:
*Risk Screen - Suicide Last Done: 10/03/25 11:41
*General Assessment Last Done: 10/03/25 11:41
*Neglect/Abuse Screening Last Done: 10/03/25 14:26
*ED- Fall Risk Assessment Last Done: 10/03/25 14:26
*ED COVID-19 Vaccine History Last Done: 10/03/25 14:26
*ED Influenza Vaccine History Last Done: 10/03/25 11:41
ED-Musculoskeletal Assessment Last Done: 10/03/25 14:26
ED- Neurological Assessment Last Done: 10/03/25 14:26
ED-Skin Assessment Last Done: 10/03/25 14:26
Discharge Date and Time
Print Language: TURKMEN
[2025-10-03 16:38] VITALS: BP 100/65; BP 121/79; PULSE 92; O2SAT 95
[2025-10-03 17:00] LABS: Ammonia 53 umol/L (9-30)
[2025-10-03] MEDS: ADACEL 0.5 ML IM (17:46)
[2025-10-03] MEDS: KCL 40 MEQ PO (17:46)
[2025-10-03] MEDS: DUPHALAC/CHRONULAC 20 GRAMS PO (18:12)
== END 2025-10-03 18:27 | disposition home or self-care (01) ==
LOC: EMR 11:39
PROVIDERS: Emergency Medicine; Nurse Practitioner; EMERGENCY PHYSICIAN Emergency Medicine; FAMILY PHYSICIAN Family Medicine
DX: S09.90XA Unspecified injury of head, initial encounter (principal); S00.01XA Abrasion of scalp, initial encounter; W19.XXXA Unspecified fall, initial encounter; K21.9 Gastro-esophageal reflux disease without esophagitis; I10 Essential (primary) hypertension; G47.30 Sleep apnea, unspecified; Z79.01 Long term (current) use of anticoagulants; Z82.49 Family history of ischemic heart disease and other diseases of the circulatory system; Z87.891 Personal history of nicotine dependence
CPT/HCPCS: 99284; 90471; 70450; 72125; 80053; 82140; 85025; 90715

== ENCOUNTER 2025-10-05 20:21 | Inpatient (IN) | payer OTHER, SELFPAY ==
[2025-10-05 16:23] VITALS: BP 110/71
[2025-10-05 16:57] LABS: Hematocrit 33.7 % (39.0-52.0); Hemoglobin 11.9 g/dL (13.0-18.0); Mean Corp Hgb Conc. 35.3 g/dL (33.0-37.0); Mean Corpuscular Volume 102.4 fL (80.0-94.0); Nucleated Red Blood Cells % 0 % (-); Platelet Count 344 10^3/uL (130-400); Red Cell Dist. Width 19.4 % (11.5-14.5)
[2025-10-05 17:02] VITALS: BP 120/70
[2025-10-05 17:08] LABS: AST (SGOT) 42 U/L (17-59); Albumin 3.4 g/dl (3.5-5.0); Alkaline Phosphatase 127 U/L (38-126); Blood Urea Nitrogen 19 mg/dl (9-20); Calcium 9.0 mg/dl (8.4-10.2); Carbon Dioxide 22 mmol/L (22-30); Chloride 100 mmol/L (98-107); Glucose 154 mg/dl (70-99); Lipase 165 U/L (23-300); Potassium 3.3 mmol/L (3.5-5.1); Sodium 133 mmol/L (135-145); Total Protein 6.7 g/dl (6.3-8.2); eGFR > 60.00
[2025-10-05 17:19] LABS: ALT (SGPT) 39 U/L (0-50)
--- NOTE | 2025-10-05 17:43 | ED.GENMED ---
History of Present Illness
General
Chief Complaint: Abdominal Pain
Source: patient, records and spouse
Exam Limitations: none
Time Seen by Provider: 10/05/25 17:29
Nursing documentation reviewed up to this point in time: agreed with
History of Present Illness
History of Present Illness:
74-year-old male history of cirrhosis, diabetes presents with abdominal distention and shortness of breath no bowel movement for 10 days has had 3-4 paracentesis previously, feels like he needs another 1 so also passing some red bloody stools, tells
has hemorrhoids, has been bearing down to have bowel movements
Past History
Past History
ED Past Medical History: Cancer, GERD, HTN, Other (Chronic low back pain, DJD) and Other (Allergic rhinitis, sleep apnea)
ED Past Surgical History: Orthopedic (Right shoulder surgery, right femur surgery) and Other (Hemorrhoidectomy)
Social History
Tobacco: Former smoker
Alcohol: Daily (Wine, beer or mixed drink 2-3)
Drug: None
Personal:
Living: with family
Employment: Not employed
Family History
Family History: Hypertension and CAD (Father of an [place] in his late 70s, no history of early coronary artery disease); Negative Sudden
Review of Systems
Review of Systems
All Other Systems: Not applicable
Constitutional: Denies fever or fatigue
EENT: Reports no symptoms
Respiratory: Reports trouble breathing
Cardiac: Denies chest pain
ABD/GI: Reports abdominal pain and bloody stools
Phy Exam
Physical Exam
Physical Exam:
Physical Exam
General: Jaundice chronically ill male
Neck: Yellow skin
Heart: s1/s2 regular rate and rhythm, no murmur. equal radial pulses.
Lungs: no acute respiratory distress. clear bilaterally
Abdomen: Distended nontender, loose maroonish heme positive
Neuro: alert and oriented. no focal neurological deficits
Skin: no rash
Psychiatric: Disheveled but calm
Extremities: no edema.
Course
Orders/Labs/Results
Orders:
Orders
10/05/25 16:34
Type And Crossmatch [Type+Screen] Urgent
Complete Blood Count/With Diff Urgent
Comprehensive Metabolic Panel Urgent
Lipase Urgent
10/05/25 17:38
Obstruct Series W/PA Chest [CR Obstruct Series W/pa Chest] Urgent
Comment:
Reason For Exam: sob full of stool
Abnormal Lab Results
10/05/25
16:34
WBC 4.4 L 10^3/uL
(4.8-10.8)
RBC 3.29 L 10^6/uL
(4.70-6.10)
Hgb 11.9 L g/dL
(13.0-18.0)
Hct 33.7 L %
(39.0-52.0)
MCV 102.4 H fL
(80.0-94.0)
MCH 36.2 H pg
(27.0-31.0)
RDW 19.4 H %
(11.5-14.5)
MPV 10.5 H fL
(7.4-10.4)
Sodium 133 L mmol/L
(135-145)
Potassium 3.3 L mmol/L
(3.5-5.1)
Glucose 154 H mg/dl
(70-99)
Total Bilirubin 4.0 H mg/dl
(0.2-1.3)
Alkaline Phosphatase 127 H U/L
(38-126)
Albumin 3.4 L g/dl
(3.5-5.0)
10/05/25 16:34
10/05/25 16:34
Vital Signs
Initial and Last Documented VS:
Initial Vital Signs
Temp Pulse Resp BP Pulse Ox
98.0 F 107 22 110/71 99
10/05/25 16:23 10/05/25 16:23 10/05/25 16:23 10/05/25 16:23 10/05/25 16:23
Last Documented Vital Signs
Temp Pulse Resp BP Pulse Ox
98.0 F 98 16 120/70 99
10/05/25 16:23 10/05/25 17:04 10/05/25 17:04 10/05/25 17:02 10/05/25 17:44
MDM/Problems Addressed
Differential Diagnosis Includes:
Ascites, GI bleeding hemorrhoidal cirrhosis
MDM/Problems Addressed:
Ascites GI bleed
Chronic conditions affecting care:
Cirrhosis
Chronic conditions affecting care: DM
Acute Exacerbation and/or Progression of Chronic Illness:
Cirrhosis
Acute Exacerbation and/or Progression of Chronic Illness: DM
*Radiology
Radiology exam reviewed: preliminary read by ED provider
*Pulse Oximetry
SaO2: 99
Oxygen Mode of Delivery: Room air
Patient hypoxic: no
*Critical Care Note
Total Time (30-74mins, 75-104mins- exclusive of procedures): Not Applicable
ED Attending Note
-
Portions of this chart may have been created with voice recognition software.� Occasional wrong word or��sound alike� substitutions may have occurred due to the inherent limitations of voice recognition software.
Discharge Plan
Departure
Prescriptions:
No Action
azelastine 1 SPRAY aerosol,spray
1 spray intranasal DAILYPRN PRN (Reason: allergies, nasal drip)
albuterol sulfate 90 mcg/actuation Hfa Aerosol Inhaler
2 puff INHALATION R Q6HPRN PRN (Reason: sob)
eltrombopag olamine 25 mg Tablet
25 mg PO DAILY
umeclidinium-vilanterol [Anoro Ellipta] 62.5-25 mcg/actuation Blister With Device
1 inh INHALATION R DAILY
Jardiance 10 mg Tablet
10 mg PO DAILY
Eliquis 5 mg Tablet
5 mg PO BID
atorvastatin 40 mg tablet
40 mg PO DAILY
clopidogrel 75 mg tablet
75 mg PO DAILY
pantoprazole 40 mg tablet,delayed release (DR/EC)
40 mg PO DAILY
(DME) pen needle, diabetic [Fior Pen Needle] 32 gauge x ' Needle
Qty: 200 0RF
Rx Instructions:
1 box of 200 needles
refer to insulin instructions
(DME) blood-glucose meter [[facility] Verio Flex meter] Misc
Qty: 1 0RF
Rx Instructions:
As Directed
(DME) [facility] [employer] test strips Strip
Qty: 200 0RF
Rx Instructions:
Pt Testing 4 times a day
(DME) lancets [[employer] Delica Plus Lancet] 30 gauge Misc
Qty: 200 0RF
Rx Instructions:
Pt Testing 4 times a day
spironolactone 50 mg Tablet
50 mg PO DAILY Qty: 30 0RF
insulin glargine [Lantus Solostar U-100 Insulin] 100 unit/mL (3 mL) insulin pen
15 unit SC QPM Qty: 15 1RF
furosemide 40 mg Tablet
40 mg PO DAILY Qty: 30 0RF
furosemide 20 mg Tablet
20 mg PO DAILY@1600 Qty: 30 0RF
acetaminophen 325 mg Tablet
650 mg PO Q4HPRN PRN (Reason: mild pain/AYOUB/temp> 100.4F) Qty: 1 0RF
insulin aspart U-100 100 unit/mL (3 mL) Insulin Pen
8 unit SC AC Qty: 15 1RF
lactulose 20 gram packet
20 g PO TID Qty: 30 0RF
Referrals:
Surendra Cox MD [Family Provider, Family Practice]
Interventions
Interventions:
*Risk Screen - Suicide Last Done: 10/05/25 16:23
*General Assessment Last Done: 10/05/25 16:23
*Neglect/Abuse Screening Last Done: 10/05/25 16:23
*ED- Fall Risk Assessment Last Done: 10/05/25 17:04
*ED COVID-19 Vaccine History Last Done: 10/05/25 17:00
*ED Influenza Vaccine History Last Done: 10/05/25 17:00
WA-Qrrbio-Qaswqnzwwa Assessment Last Done: 10/05/25 17:04
Discharge Date and Time
Print Language: VINCENTIAN
[2025-10-05 18:00] VITALS: BP 124/77
--- NOTE | 2025-10-05 18:02 | HPS.HSE ---
Addendum entered and electronically signed by Augusta Keane MD 10/05/25 20:53:
This is an addendum to H&P written by Marge Frazier on 10/05/2025. �Patient seen and examined independently with [facility].
74-year-old male past medical history of alcoholic cirrhosis with portal hypertension receives paracentesis every 10 days, esophageal varices, hemorrhoids, diabetes, right lower extremity DVT on Eliquis on 08/13 resolving on 09/09, Hodgkin's lyphoma,
thrombocytopenia, hypertension, CAD status post coronary stent, pulmonary nodules, restrictive airway disease, GERD, BPH, presenting with abdominal pain, increasing abdominal girth and shortness of breath. �No bowel movement 10 days.�
He has been having rectal bleeding due to straining and rectal pain.�
Patient drinking 2 beers a day.
Vital signs show tachycardia up to 107. On the exam he had maroon stool with hemorrhoids present.�
Labs show stable leukopenia/anemia. �Potassium 3.3.
Chest/abdomen x-ray pending.
Patient with increasing abdominal distention concerning for recurrent ascites. �IR consulted for paracentesis which is due tomorrow.
Patient also with severe constipation. �Patient given lactulose. �Chest/abdomen x-ray pending to rule out bowel obstruction. �Assuming no bowel obstruction will start MiraLAX twice daily, senna, Dulcolax as needed. Anusol for rectal pain.�
Patient with rectal bleeding seems to be hemorrhoidal secondary to straining. �Hold Eliquis for now until improvement in constipation although will need to resume as soon as possible due to recent DVT of right lower extremity.
Alcohol withdrawal protocol. �Replete potassium.
Original Note:
Family Physician
-
Family Physician: Surendra Cox
Chief Complaint
-
worsening abdominal pain and distention
History of Present Illness
Patient is a 74-year-old male with past medical history significant for hyperlipidemia, hypertension, GERD, B-cell lymphoma, cirrhosis of liver, ascites, BPH, DVT, CHF, type 2 diabetes and coronary artery disease who presented to [facility] ED for
evaluation of worsening abdominal pain and distention. Patient states that he has not had a bowel movement in 10 days and has been bearing down multiple times a day to attempt to go. He states he came in today because the pain became more
significant overnight and has not improved and he could no longer tolerate it. He notes some bright red blood from hemorrhoids with attempts to have bowel movement as he is bearing down. He states the bleeding resolves after attempting to go. He
mentions his abdominal girth is increased and has some mild shortness of breath. He notes he receives paracentesis approximately every 10 days, last one being 09/26/2025. Denies any fever, chills, cough, chest pain, nausea, vomiting, diarrhea or
urinary symptoms.
Medical History
Past Medical History
Past Medical History: Reports Other
Additional Past Medical History:
hyperlipidemia
hypertension
GERD
allergic rhinitis
B-cell lymphoma
cirrhosis of liver
ascites
BPH
DVT
HFpEF
type 2 diabetes
coronary artery disease
Past Surgical History: Reports Other
Additional Past Surgical History:
Cardiac stent rotator cuff repair
carpal tunnel release
laminectomy
right femur repair
hemorrhoidectomy
TURP
back surgery
prostate surgery
right arm stent
cataract surgery
Social History
Tobacco: Former Smoker
Alcohol: Daily (2-3 beers daily)
Drug: None
Personal:
Living: With Family
Family History
Family History: Not pertinent
Allergies / Home Medications
Allergies reflects when Allergies were last updated in [facility].
Home Medications with original date entered in [facility]
Allergy/Medication List:
Allergies
Allergy/AdvReac Type Severity Reaction Status Date / Time
YASMANY Inhibitors Allergy Unknown Verified 10/05/25 16:23
diphenhydramine (From Allergy Itching Verified 10/05/25 16:23
Benadryl)
oak Allergy runny nose Verified 10/05/25 16:23
ragweed pollen Allergy runny nose Verified 10/05/25 16:23
tree and shrub pollen Allergy MAPLE-runny Verified 10/05/25 16:23
nose
Home Medications
azelastine 137 mcg (0.1 %) nasal spray 1 spray intranasal DAILYPRN PRN allergies, nasal drip 08/20/21
albuterol sulfate 90 mcg/actuation aerosol inhaler 2 puff inhalation R Q6HPRN PRN sob 08/13/25
eltrombopag olamine 25 mg tablet 25 mg PO DAILY chemo 08/13/25
empagliflozin 10 mg tablet (Jardiance) 10 mg PO DAILY Diabetes 08/13/25
umeclidinium 62.5 mcg-vilanterol 25 mcg/actuation powdr for inhalation (Anoro Ellipta) 1 inh inhalation R DAILY sob 08/13/25
apixaban 5 mg tablet (Eliquis) 5 mg PO BID Blood Clot Prevention/Tx 09/05/25
atorvastatin 40 mg tablet 40 mg PO QPM High Cholesterol 09/05/25
clopidogrel 75 mg tablet 75 mg PO DAILY Blood Clot Prevention/Tx 09/05/25
pantoprazole 40 mg tablet,delayed release 40 mg PO DAILY gerd 09/05/25
furosemide 40 mg tablet 40 mg PO DAILY #30 tabs 09/16/25
insulin aspart U-100 100 unit/mL (3 mL) subcutaneous pen 8 unit (0.08 mL) SC AC #15 mL 09/16/25
spironolactone 50 mg tablet 50 mg PO DAILY #30 tabs 09/16/25
furosemide 20 mg tablet 20 mg PO QPM 10/05/25
insulin glargine 100 unit/mL (3 mL) subcutaneous pen (Lantus Solostar U-100 Insulin) 15 unit SC HS 10/05/25
Review of Systems
-
History Source: Patient
Constitutional: Denies Fever or Chills
EENT: Denies Sore Throat
Respiratory: Reports Trouble Breathing (shortness of breath ); Denies Cough or Hemoptysis
Cardiac: Denies Chest Pain, Diaphoresis, Palpitations or Syncope
Abdomen/GI: Reports Abdominal Pain, Constipated (last bowel movement approximately 10 days ago ) and Bloody Stools; Denies Nausea, Vomiting or Diarrhea
: Denies Dysuria, Frequency or Urgency
Musculoskeletal: Denies Joint Pain
Skin: Denies Rash
Neurological: Denies Dizzy, Headache, Weakness or Numbness
Physical Exam
Vital Signs
Vital Signs
Temp Pulse Resp BP Pulse Ox
98.0 F 98 16 120/70 99
10/05/25 16:23 10/05/25 17:04 10/05/25 17:04 10/05/25 17:02 10/05/25 17:44
Physical Exam
General: Well Developed, Well Nourished, No Apparent Distress, Comfortable and Conversant
HEENT: NormoCephalic, Moist mucous membranes, PERRLA, Nose Appears Normal and Ears Appear Normal
Respiratory: Clear and Non Labored Respirations; No Wheezes, Rales or Rhonchi
Cardiac: S1/S2, Regular Rhythm and Peripheral Edema; No Murmur, Rub or Gallop
GI: Soft, Normal Bowel Sounds and Distended
Rectal: Hem Positive and Maroon Stools (per ED documentation )
Musculoskeletal: No Clubbing and No Cyanosis
Skin: Jaundice and IV/Catheter Site
Neuro: Awake and AO x 3
Psych: Calm and Intact Judgment/Insight
Laboratory Results
-
10/05/25 16:34
10/05/25 16:34
Laboratory Results
Total Bilirubin 4.0 mg/dl (0.2-1.3) H 10/05/25 16:34
AST 42 U/L (17-59) 10/05/25 16:34
ALT 39 U/L (0-50) 10/05/25 16:34
Alkaline Phosphatase 127 U/L (38-126) H 10/05/25 16:34
Lipase 165 U/L (23-300) 10/05/25 16:34
Data Reviewed
-
Lab Data: Labs Reviewed by me (hgb 11.9, hct 33.7, Na 133, K 3.3, Tot bili 4.0, alk phos 127)
Impression/Plan
-
IMPRESSION/PLAN:
#abdominal pain 2/2 constipation vs. ascites
#cirrhosis of liver
#ascites
last paracentesis 09/26/2025, with 1.2L out
no bowel movement in 10 days, hemorrhoidal bleeding, increased ascites
Na 133, K 3.3, Tot bili 4.0, alk phos 127
Chest/Abd x-ray: pending
- Admit to med/surg
- Consult IR for paracentesis
- encourage ETOH cessation
#constipation
no bowel movement in 10 days, hemorrhoidal bleeding, increased ascites
hgb 11.9, hct 33.7
Chest/Abd x-ray: pending
- MiraLax BID
- bowel regimen
#DVT
- hold Eliquis in setting of hemorrhoidal bleeding
- restart VANESSA following correction of constipation
#alcohol dependency
- MSAS protocol
#hyperlipidemia
- continue atorvastatin
#GERD
- continue pantoprazole
#HFpEF
- daily weights
- I & Os
- continue furosemide and spironolactone
#type 2 diabetes
- AccuCheck AC & HS
- SSI
- continue insulin aspart AC
- continue glargine
- continue Jardiance
#coronary artery disease
- continue clopidogrel
#allergic rhinitis
- continue azelastine
#B-cell lymphoma
- continue eltrombopag
#hypertension
#BPH
Code status: full code
DVT prophylaxis: contradicted
[2025-10-05 21:43] VITALS: BP 132/87; BMI 27.2
--- NOTE | 2025-10-05 21:43 | PTCARENOTE ---
Pt arrived onto floor via stretcher. Pt AAOx3 and able to walk into room with minimal assistance. Pt with no complaints of SOB at this time. Pt oriented to room and call rosado; will continue to monitor
[2025-10-05 22:37] LABS: Glucose - Point of Care 179 mg/dl (70-99)
[2025-10-05] MEDS: THIAMINE INJECTION 200 MG IV (22:49)
[2025-10-05] MEDS: MIRALAX 17 GRAMS PO (22:49)
[2025-10-05] MEDS: LANTUS 0.15 UNITS SC (22:50)
[2025-10-05] MEDS: KCL 40 MEQ PO (22:51)
[2025-10-05] MEDS: DUPHALAC/CHRONULAC 20 GRAMS PO (22:51)
[2025-10-05 23:36] VITALS: BP 128/76
[2025-10-05] MEDS: TYLENOL 650 MG PO (23:49)
[2025-10-06 00:25] LABS: Urine Character Clear (Clear)
[2025-10-06 00:28] LABS: INR 2.03; PT 23.1 Sec (11.4-14.6)
[2025-10-06 00:29] LABS: APTT 37.1 Sec (23.4-35.0)
[2025-10-06 00:41] LABS: GGTP 121 U/L (15-73); Magnesium 2.3 mg/dl (1.6-2.3)
[2025-10-06] MEDS: ALDACTONE 50 MG PO (07:51)
[2025-10-06] MEDS: LASIX 40 MG PO (07:55)
[2025-10-06] MEDS: THIAMINE INJECTION 200 MG IV ×2 (07:56→19:44)
[2025-10-06] MEDS: PLAVIX 75 MG PO (07:56)
[2025-10-06] MEDS: PROTONIX 40 MG PO (07:56)
[2025-10-06] MEDS: FARXIGA 10 MG PO (07:56)
[2025-10-06] MEDS: MIRALAX 17 GRAMS PO ×2 (07:56→19:44)
[2025-10-06] MEDS: SPIRIVA RESPIMAT 2.5 MCG INH (08:08)
[2025-10-06] MEDS: STRIVERDI RESPIMAT INH (08:08)
[2025-10-06 08:15] VITALS: BP 121/63; BP_SYST 84
[2025-10-06 08:43] VITALS: BP 112/61
[2025-10-06 08:49] LABS: Hematocrit 30.1 % (39.0-52.0); Hemoglobin 10.3 g/dL (13.0-18.0); Mean Corp Hgb Conc. 34.2 g/dL (33.0-37.0); Mean Corpuscular Volume 100.7 fL (80.0-94.0); Platelet Count 204 10^3/uL (130-400); Red Cell Dist. Width 19.8 % (11.5-14.5)
[2025-10-06 09:06] LABS: Glycohemoglobin (HgbA1c) 6.2 % (4.0-5.9)
[2025-10-06 09:20] LABS: Blood Urea Nitrogen 20 mg/dl (9-20); Calcium 8.4 mg/dl (8.4-10.2); Carbon Dioxide 26 mmol/L (22-30); Chloride 102 mmol/L (98-107); Estimated Creatinine Clearance 61 ml/min; Glucose 100 mg/dl (70-99); Potassium 3.5 mmol/L (3.5-5.1); Sodium 132 mmol/L (135-145); eGFR > 60.00
--- NOTE | 2025-10-06 09:29 | VNURNOTE ---
Addendum entered by Danielle Zamora RN 10/06/25 16:23:
[facility] Resumption referral placed in [facility].
Original Note:
Chart reviewed. Patient is current with [facility]. Will continue to follow hospital course and DC plans.
[2025-10-06 10:17] LABS: Glucose - Point of Care 92 mg/dl (70-99)
[2025-10-06] MEDS: NOVOLOG FLEXPEN SC ×3 (10:19→18:06)
[2025-10-06] MEDS: FOLVITE 1 MG PO (10:20)
[2025-10-06 10:38] LABS: Body Fluid Second Tech ASW
[2025-10-06 10:57] LABS: Glucose - Point of Care 92 mg/dl (70-99)
[2025-10-06 13:16] LABS: Ammonia 25 umol/L (9-30)
--- NOTE | 2025-10-06 14:55 | W.PN.HOSP.TC ---
Today's Communication/Plan
-
add on lactulose
bm regimen
Cont diuresis
resume eliquis
Assessment / Plan
Assessment / Plan
Physical Exam
General: Well Developed, Well Nourished, No Apparent Distress, Comfortable and Conversant
HEENT: NormoCephalic, Moist mucous membranes, PERRLA, Nose Appears Normal and Ears Appear Normal
Respiratory: Clear and Non Labored Respirations; No Wheezes, Rales or Rhonchi
Cardiac: S1/S2, Regular Rhythm and Peripheral Edema; No Murmur, Rub or Gallop
GI: Soft, Normal Bowel Sounds and Distended
Musculoskeletal: No Clubbing and No Cyanosis
Skin: Jaundice and IV/Catheter Site
Neuro: Awake and AO x 3
Psych: Calm and Intact Judgment/Insight
#abdominal pain 2/2 constipation vs. ascites
#cirrhosis of liver
#ascites
last paracentesis 09/26/2025, with 1.2L out; repeat paracentesis 2.1 L 10/06 - no evidence of SBP - patients symptoms improved although still feels constipated
Start Lactulose 20mg TID
-continue furosemide and spironolactone
#constipation
stool in colon; no obstruction on KUB - patient passing flatus
-BM regimen
-lactulose
-CT A/P if no BM
#DVT
- restart Eliquis - montior hgb; Low likelihood of GI bleed - BUN low
-monitor hgb
#alcohol dependency
- MSAS protocol
#hyperlipidemia
- continue atorvastatin
#GERD
- continue pantoprazole
#HFpEF
- daily weights
- I & Os
- continue furosemide and spironolactone
#type 2 diabetes
- AccuCheck AC & HS
- SSI
- continue insulin aspart AC
- continue glargine
- continue Jardiance
#coronary artery disease
- continue clopidogrel
#allergic rhinitis
- continue azelastine
#B-cell lymphoma
- continue eltrombopag
#hypertension
#BPH
Code status: full code
DVT prophylaxis: contradicted
Anticipated Discharge: 24 - 48 hours
Subjective/Interval History
-
Date of Service: October 06, 2025
Paracentesis today with improvement in abdominal issues. Still feels like he is constipated. States has not had a bowel movement in 12 days although the nursing staff states he has. Acknowledges passing flatus
Objective Data
-
Labs:
Laboratory Results
10/06/25
07:46
WBC 5.3
Hgb 10.3 L
Hct 30.1 L
Plt Count 204 D
Sodium 132 L
Potassium 3.5
Chloride 102
Carbon Dioxide 26
BUN 20
Creatinine 1.1
Glucose 100 H
Calcium 8.4
Vital Signs:
Vital Signs
Temp Pulse Resp BP Pulse Ox
99.3 F 84 16 112/61 99
10/05/25 23:36 10/06/25 08:43 10/06/25 08:43 10/06/25 08:43 10/06/25 08:15
I&O
10/05/25 10/06/25 10/07/25
06:59 06:59 06:59
Intake Total 240 / 240
Output Total 500 / 500
Balance -260 / -260
Review of Systems
-
History Source: Patient
All other systems: Not reviewed unless documented
Physical Exam
-
General: No Apparent Distress
Respiratory: Non Labored Respirations; Negative Accessory Resp Muscle Use
Cardiac: Regular Rhythm and S1/S2; Negative Tachycardic
GI: Soft, Nontender, Normal Bowel Sounds and Distended
Neuro: AO x 3; Negative Tremors
Psych: Negative Confused
Data Reviewed
-
Ultrasound: Report Reviewed by me
Labs: Labs Reviewed by me
[2025-10-06 15:30] VITALS: BP 107/70
[2025-10-06 15:36] LABS: Glucose - Point of Care 109 mg/dl (70-99)
--- NOTE | 2025-10-06 16:05 | CM ---
CM reviewed chart, patient seen bedside, initial assessment completed.
Patient resides with his in a two story home, one step to enter, bedroom on second floor.
Patient current with [facility], denies SNF hx.
PCP Surendra Cox, [facility].
Consult received for substance abuse counseling- patient declining.
CM will continue to follow for all d/c needs.
Plan; home with [facility]
[2025-10-06] MEDS: NON-FORMULARY ITEM 25 MG PO (16:19)
[2025-10-06] MEDS: DUPHALAC/CHRONULAC 20 GRAMS PO ×2 (16:23→21:39)
[2025-10-06] MEDS: LASIX 20 MG PO (17:55)
[2025-10-06] MEDS: LIPITOR 40 MG PO (17:56)
[2025-10-06] MEDS: ELIQUIS 5 MG PO (19:43)
[2025-10-06] MEDS: TYLENOL 650 MG PO (19:43)
[2025-10-06 21:34] LABS: Glucose - Point of Care 142 mg/dl (70-99)
[2025-10-06] MEDS: LANTUS 0.15 UNITS SC (21:40)
[2025-10-06 23:09] VITALS: BP 106/65
[2025-10-07 06:00] VITALS: BMI 26.3
[2025-10-07 07:49] LABS: Glucose - Point of Care 110 mg/dl (70-99)
[2025-10-07] MEDS: STRIVERDI RESPIMAT 2 PUFF INH (08:07)
[2025-10-07] MEDS: SPIRIVA RESPIMAT 2.5 MCG 2 PUFF INH (08:07)
[2025-10-07 08:30] VITALS: BP 111/72
[2025-10-07] MEDS: THIAMINE INJECTION 200 MG IV ×2 (08:32→19:53)
[2025-10-07] MEDS: NOVOLOG FLEXPEN SC ×3 (08:32→16:42)
[2025-10-07] MEDS: MIRALAX 17 GRAMS PO ×2 (08:32→19:51)
[2025-10-07] MEDS: DUPHALAC/CHRONULAC 20 GRAMS PO ×3 (08:33→22:47)
[2025-10-07] MEDS: ELIQUIS 5 MG PO ×2 (08:33→19:53)
[2025-10-07] MEDS: FARXIGA 10 MG PO (08:33)
[2025-10-07] MEDS: FOLVITE 1 MG PO (08:33)
[2025-10-07] MEDS: ALDACTONE 50 MG PO (08:33)
[2025-10-07] MEDS: PLAVIX 75 MG PO (08:34)
[2025-10-07] MEDS: LASIX 40 MG PO ×2 (08:34→17:04)
[2025-10-07] MEDS: PROTONIX 40 MG PO (08:35)
[2025-10-07] MEDS: NON-FORMULARY ITEM 25 MG PO (08:35)
[2025-10-07 08:41] LABS: Hematocrit 29.8 % (39.0-52.0); Hemoglobin 10.1 g/dL (13.0-18.0); Mean Corp Hgb Conc. 33.9 g/dL (33.0-37.0); Mean Corpuscular Volume 101.4 fL (80.0-94.0); Platelet Count 205 10^3/uL (130-400); Red Cell Dist. Width 19.6 % (11.5-14.5)
[2025-10-07 09:08] LABS: ALT (SGPT) 28 U/L (0-50); AST (SGOT) 31 U/L (17-59); Albumin 2.6 g/dl (3.5-5.0); Alkaline Phosphatase 105 U/L (38-126); Blood Urea Nitrogen 20 mg/dl (9-20); Calcium 8.3 mg/dl (8.4-10.2); Carbon Dioxide 26 mmol/L (22-30); Chloride 102 mmol/L (98-107); Estimated Creatinine Clearance 61 ml/min; Glucose 98 mg/dl (70-99); Potassium 3.2 mmol/L (3.5-5.1); Sodium 131 mmol/L (135-145); Total Protein 5.7 g/dl (6.3-8.2); eGFR > 60.00
[2025-10-07] MEDS: KCL ELIXIR 40 MEQ PO (10:06)
[2025-10-07 11:47] LABS: Glucose - Point of Care 138 mg/dl (70-99)
[2025-10-07] MEDS: OMNIPAQUE 50 ML PO (12:28)
--- NOTE | 2025-10-07 14:12 | W.PN.HOSP.TC ---
Today's Communication/Plan
-
Increase diuretics
CT A/P wit oral contrast
monitor hgb, or bleeding
Assessment / Plan
Assessment / Plan
Physical Exam
General: Well Developed, Well Nourished, No Apparent Distress, Comfortable and Conversant
HEENT: NormoCephalic, Moist mucous membranes, PERRLA, Nose Appears Normal and Ears Appear Normal
Respiratory: Clear and Non Labored Respirations; No Wheezes, Rales or Rhonchi
Cardiac: S1/S2, Regular Rhythm and Peripheral Edema; No Murmur, Rub or Gallop
GI: Soft, Normal Bowel Sounds and Distended
Musculoskeletal: No Clubbing and No Cyanosis
Skin: Jaundice and IV/Catheter Site
Neuro: Awake and AO x 3
Psych: Calm and Intact Judgment/Insight
#abdominal pain 2/2 constipation vs. ascites
#cirrhosis of liver
#ascites
last paracentesis 09/26/2025, with 1.2L out; repeat paracentesis 2.1 L 10/06 - no evidence of SBP - patients symptoms improved although still feels constipated
Start Lactulose 20mg TID
Increase Furosemide to 40mg BID and continue spironolactone due to rapid recurrence of ascites
Monitor renal function
#constipation
stool in colon; no obstruction on KUB - patient passing flatus
-BM regimen
-lactulose
-CT A/P as no BM
-Enema if no obstruction
#Hypokalemia
-monitor and replete
#Hyponatremia
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
-Diuretics
-Monitor
#DVT
- restart Eliquis - montior hgb; Low likelihood of GI bleed - BUN low
-monitor hgb
#alcohol dependency
- MSAS protocol
#hyperlipidemia
- continue atorvastatin
#GERD
- continue pantoprazole
#HFpEF
- daily weights
- I & Os
- continue furosemide and spironolactone
#type 2 diabetes
- AccuCheck AC & HS
- SSI
- continue insulin aspart AC
- continue glargine
- continue Jardiance
#coronary artery disease
- continue clopidogrel
#allergic rhinitis
- continue azelastine
#B-cell lymphoma
- continue eltrombopag
#hypertension
#BPH
Code status: full code
DVT prophylaxis: Eliquis
Anticipated Discharge: 24 - 48 hours
Subjective/Interval History
-
Date of Service: October 07, 2025
still with no changes - no BM as per patient
Objective Data
-
Labs:
Laboratory Results
10/07/25
07:56
WBC 4.7 L
Hgb 10.1 L
Hct 29.8 L
Plt Count 205
Sodium 131 L
Potassium 3.2 L
Chloride 102
Carbon Dioxide 26
BUN 20
Creatinine 1.1
Glucose 98
Calcium 8.3 L
Total Bilirubin 3.6 H
AST 31
ALT 28
Alkaline Phosphatase 105
Vital Signs:
Vital Signs
Temp Pulse Resp BP Pulse Ox
97.8 F 89 16 111/72 96
10/07/25 08:30 10/07/25 08:33 10/07/25 08:30 10/07/25 08:33 10/07/25 08:30
I&O
10/06/25 10/07/25 10/08/25
06:59 06:59 06:59
Intake Total 240 / 240 1200 / 1200
Output Total 500 / 500 1100 / 1100
Balance -260 / -260 100 / 100
Review of Systems
-
History Source: Patient
All other systems: Not reviewed unless documented
Physical Exam
-
General: No Apparent Distress
Respiratory: Non Labored Respirations; Negative Accessory Resp Muscle Use
Cardiac: Regular Rhythm and S1/S2; Negative Tachycardic
GI: Soft, Nontender, Normal Bowel Sounds and Distended
Neuro: AO x 3; Negative Tremors
Psych: Negative Confused
Data Reviewed
-
Ultrasound: Report Reviewed by me
Labs: Labs Reviewed by me
[2025-10-07 16:35] LABS: Glucose - Point of Care 139 mg/dl (70-99)
[2025-10-07] MEDS: LIPITOR 40 MG PO (17:03)
[2025-10-07 17:13] VITALS: BP 120/80
--- NOTE | 2025-10-07 17:15 | CM ---
patient chart reviewed
current with [facility]
Referral in [facility]
PLAN: home, with [facility] Resumption of Care when stable
[2025-10-07] MEDS: TYLENOL 650 MG PO (19:53)
[2025-10-07 21:36] LABS: Glucose - Point of Care 121 mg/dl (70-99)
[2025-10-07] MEDS: LANTUS 0.15 UNITS SC (22:47)
[2025-10-07 23:19] VITALS: BP 105/75
[2025-10-08 06:00] VITALS: BMI 27.0
[2025-10-08 07:30] VITALS: BP 114/62
[2025-10-08 07:34] LABS: Hematocrit 29.6 % (39.0-52.0); Hemoglobin 10.0 g/dL (13.0-18.0); Mean Corp Hgb Conc. 33.8 g/dL (33.0-37.0); Mean Corpuscular Volume 101.7 fL (80.0-94.0); Platelet Count 185 10^3/uL (130-400); Red Cell Dist. Width 19.4 % (11.5-14.5)
[2025-10-08 07:58] LABS: Glucose - Point of Care 101 mg/dl (70-99)
[2025-10-08] MEDS: SPIRIVA RESPIMAT 2.5 MCG 2 PUFF INH (08:21)
[2025-10-08] MEDS: STRIVERDI RESPIMAT 2 PUFF INH (08:22)
[2025-10-08 08:33] LABS: ALT (SGPT) 29 U/L (0-50); AST (SGOT) 34 U/L (17-59); Albumin 2.6 g/dl (3.5-5.0); Alkaline Phosphatase 102 U/L (38-126); Blood Urea Nitrogen 19 mg/dl (9-20); Calcium 8.3 mg/dl (8.4-10.2); Carbon Dioxide 24 mmol/L (22-30); Chloride 103 mmol/L (98-107); Estimated Creatinine Clearance 67 ml/min; Glucose 90 mg/dl (70-99); Potassium 3.6 mmol/L (3.5-5.1); Sodium 130 mmol/L (135-145); Total Protein 5.8 g/dl (6.3-8.2); eGFR > 60.00
[2025-10-08] MEDS: NOVOLOG FLEXPEN SC ×3 (08:49→15:44)
[2025-10-08] MEDS: DUPHALAC/CHRONULAC 20 GRAMS PO ×2 (08:51→17:22)
[2025-10-08] MEDS: ALDACTONE 50 MG PO (08:52)
[2025-10-08] MEDS: FARXIGA 10 MG PO (08:52)
[2025-10-08] MEDS: PROTONIX 40 MG PO (08:52)
[2025-10-08] MEDS: THIAMINE INJECTION 200 MG IV (08:52)
[2025-10-08] MEDS: PLAVIX 75 MG PO (08:53)
[2025-10-08] MEDS: FOLVITE 1 MG PO (08:53)
[2025-10-08] MEDS: LASIX 40 MG PO ×2 (08:53→17:23)
[2025-10-08] MEDS: ELIQUIS 5 MG PO ×2 (08:53→20:56)
[2025-10-08] MEDS: NON-FORMULARY ITEM 25 MG PO (08:54)
[2025-10-08] MEDS: MIRALAX 17 GRAMS PO (08:54)
[2025-10-08 11:00] LABS: Glucose - Point of Care 109 mg/dl (70-99)
--- NOTE | 2025-10-08 11:14 | CM ---
CM reviewed chart, patient seen bedside.
Patient for d/c today. to transport home.
IMM verbally reviewed, provided with copy, placed in chart.
CM will continue to follow.
Plan; home with , [facility]
--- NOTE | 2025-10-08 12:37 | W.PN.HOSP.TC ---
Addendum entered and electronically signed by Cristobal Qiu MD 10/08/25 16:36:
[id number]
Original Note:
Today's Communication/Plan
-
BM regimen
Enema today
Lactulose
labs in 1 week
Assessment / Plan
Assessment / Plan
Physical Exam
General: Well Developed, Well Nourished, No Apparent Distress, Comfortable and Conversant
HEENT: NormoCephalic, Moist mucous membranes, PERRLA, Nose Appears Normal and Ears Appear Normal
Respiratory: Clear and Non Labored Respirations; No Wheezes, Rales or Rhonchi
Cardiac: S1/S2, Regular Rhythm and Peripheral Edema; No Murmur, Rub or Gallop
GI: Soft, Normal Bowel Sounds and Distended
Musculoskeletal: No Clubbing and No Cyanosis
Skin: Jaundice and IV/Catheter Site
Neuro: Awake and AO x 3
Psych: Calm and Intact Judgment/Insight
#abdominal pain 2/2 constipation vs. ascites
#cirrhosis of liver
#ascites
last paracentesis 09/26/2025, with 1.2L out; repeat paracentesis 2.1 L 10/06 - no evidence of SBP - patients symptoms improved although still feels constipated
Continue lactulose 20mg TID
Increase Furosemide to 40mg BID and continue spironolactone due to rapid recurrence of ascites
Monitor renal function
#constipation
stool in colon; no obstruction on KUB - patient passing flatus
-BM regimen
-lactulose
-CT A/P�large amount of stool burden, no obstruction
- Had moderate bowel movement yesterday evening, enema today�nondistended
#Hypokalemia
-monitor and replete
#Hyponatremia
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
-Diuretics
-Monitor BMP outpatient
#DVT
- restart Eliquis - montior hgb; Low likelihood of GI bleed - BUN low
-monitor hgb
#alcohol dependency
- MSAS protocol
#hyperlipidemia
- continue atorvastatin
#GERD
- continue pantoprazole
#HFpEF
- daily weights
- I & Os
- continue furosemide and spironolactone
#type 2 diabetes
- AccuCheck AC & HS
- SSI
- continue insulin aspart AC
- continue glargine
- continue Jardiance
#coronary artery disease
- continue clopidogrel
#allergic rhinitis
- continue azelastine
#B-cell lymphoma
- continue eltrombopag
#hypertension
#BPH
Code status: full code
DVT prophylaxis: Eliquis
More than 30 minutes spent in discharge including
Final examination of the patient
Summarizing hospital stay
Instructions for continuing care to all relevant caregivers
Preparation of discharge records, prescriptions, and referral forms
Total time spent (in minutes): 36
Anticipated Discharge: Today
Subjective/Interval History
-
Date of Service: October 08, 2025
No acute events overnight, although still feels slightly constipated. No obstruction, just large amount of stool burden on CT
Objective Data
-
Labs:
Laboratory Results
10/08/25
07:15
WBC 3.9 L
Hgb 10.0 L
Hct 29.6 L
Plt Count 185
Sodium 130 L
Potassium 3.6
Chloride 103
Carbon Dioxide 24
BUN 19
Creatinine 1.0
Glucose 90
Calcium 8.3 L
Total Bilirubin 3.4 H
AST 34
ALT 29
Alkaline Phosphatase 102
Vital Signs:
Vital Signs
Temp Pulse Resp BP Pulse Ox
98.3 F 83 16 114/62 97
10/08/25 07:30 10/08/25 08:52 10/08/25 08:27 10/08/25 08:52 10/08/25 08:27
I&O
10/07/25 10/08/25 10/09/25
06:59 06:59 06:59
Intake Total 1200 / 1200 480 / 480
Output Total 1100 / 1100 425 / 425
Balance 100 / 100 55 / 55
Review of Systems
-
History Source: Patient
All other systems: Not reviewed unless documented
Physical Exam
-
General: No Apparent Distress
Respiratory: Non Labored Respirations; Negative Accessory Resp Muscle Use
Cardiac: Regular Rhythm and S1/S2; Negative Tachycardic
GI: Soft, Nontender, Normal Bowel Sounds and Distended
Neuro: AO x 3; Negative Tremors
Psych: Negative Confused
Data Reviewed
-
CT Scan: Report Reviewed by me
Ultrasound: Report Reviewed by me
Labs: Labs Reviewed by me
--- NOTE | 2025-10-08 12:39 | W.DS.TRANS ---
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
-
Discharge Instructions:
Discharge Diagnosis/Procedures #abdominal pain 2/2 constipation + ascites
#cirrhosis of liver
#ascites
Diet Low Cholesterol,Low Fat
Activity As tolerated
Driving Restrictions Not until seen by your Dr
Others Tests as per hepatology
Instructions:
Stand-Alone Forms:
Changes to Home Medications: Yes
Discharge Medications:
DC Medications w/original date entered in [facility]
azelastine 137 mcg (0.1 %) nasal spray 1 spray intranasal DAILYPRN PRN allergies, nasal drip 08/20/21
albuterol sulfate 90 mcg/actuation aerosol inhaler 2 puff inhalation R Q6HPRN PRN sob 08/13/25
eltrombopag olamine 25 mg tablet 25 mg PO DAILY chemo 08/13/25
empagliflozin 10 mg tablet (Jardiance) 10 mg PO DAILY Diabetes 08/13/25
umeclidinium 62.5 mcg-vilanterol 25 mcg/actuation powdr for inhalation (Anoro Ellipta) 1 inh inhalation R DAILY sob 08/13/25
apixaban 5 mg tablet (Eliquis) 5 mg PO BID Blood Clot Prevention/Tx 09/05/25
atorvastatin 40 mg tablet 40 mg PO QPM High Cholesterol 09/05/25
clopidogrel 75 mg tablet 75 mg PO DAILY Blood Clot Prevention/Tx 09/05/25
pantoprazole 40 mg tablet,delayed release 40 mg PO DAILY gerd 09/05/25
insulin aspart U-100 100 unit/mL (3 mL) subcutaneous pen 8 unit (0.08 mL) SC AC #15 mL 09/16/25
spironolactone 50 mg tablet 50 mg PO DAILY #30 tabs 09/16/25
insulin glargine 100 unit/mL (3 mL) subcutaneous pen (Lantus Solostar U-100 Insulin) 15 unit SC HS Diabetes 10/05/25
bisacodyl 10 mg rectal suppository 10 mg TX [id number] PRN constipation #100 ea 10/08/25
folic acid 1 mg tablet 1 mg PO DAILY #90 tabs 10/08/25
furosemide 40 mg tablet 40 mg PO BID 30 days #60 tabs 10/08/25
lactulose 10 gram/15 mL oral solution 20 g (30 mL) PO TID #946 mL 10/08/25
polyethylene glycol 3350 17 gram oral powder packet 17 g PO BID #100 ea 10/08/25
sennosides 8.6 mg-docusate sodium 50 mg tablet (Senna Plus) 1 tab PO BID constipation #360 tabs 10/08/25
thiamine mononitrate (vit B1) 100 mg tablet 100 mg PO BID #90 tabs 10/08/25
Home Medication Changes
bisacodyl 10 mg rectal suppository 10 mg TX [id number] PRN constipation #100 ea 10/08/25
folic acid 1 mg tablet 1 mg PO DAILY #90 tabs 10/08/25
furosemide 40 mg tablet 40 mg PO BID 30 days #60 tabs 10/08/25
lactulose 10 gram/15 mL oral solution 20 g (30 mL) PO TID #946 mL 10/08/25
polyethylene glycol 3350 17 gram oral powder packet 17 g PO BID #100 ea 10/08/25
sennosides 8.6 mg-docusate sodium 50 mg tablet (Senna Plus) 1 tab PO BID constipation #360 tabs 10/08/25
thiamine mononitrate (vit B1) 100 mg tablet 100 mg PO BID #90 tabs 10/08/25
Pending Results: No
[2025-10-08] MEDS: CITROMA 300 ML PO (14:18)
[2025-10-08 15:30] VITALS: BP 128/75
[2025-10-08 15:35] LABS: Glucose - Point of Care 107 mg/dl (70-99)
[2025-10-08] MEDS: LIPITOR 40 MG PO (17:22)
[2025-10-08] MEDS: NULYTELY SOLUTION 2 LITERS PO (17:23)
[2025-10-08 18:12] VITALS: BMI 27.0
[2025-10-08] MEDS: VITAMIN B1 100 MG PO (20:56)
[2025-10-08] MEDS: DUPHALAC/CHRONULAC PO (20:59)
[2025-10-08] MEDS: MIRALAX PO (20:59)
[2025-10-08 22:55] LABS: Glucose - Point of Care 98 mg/dl (70-99)
[2025-10-08] MEDS: LANTUS 0.15 UNITS SC (23:04)
[2025-10-08 23:07] VITALS: BP 126/74
--- NOTE | 2025-10-09 02:17 | PTCARENOTE ---
Pt is AAOx3, assistx1, rings appropriately. Pt refused bed alarm. Pt education provided. Bed locked, in lowest position, call rosado in reach .
[2025-10-09 02:25] LABS: Glucose - Point of Care 109 mg/dl (70-99)
[2025-10-09 06:00] VITALS: BMI 26.8
[2025-10-09 07:30] VITALS: BP 111/67
[2025-10-09] MEDS: SPIRIVA RESPIMAT 2.5 MCG 2 PUFF INH (07:44)
[2025-10-09] MEDS: STRIVERDI RESPIMAT 2 PUFF INH (07:44)
[2025-10-09 07:47] LABS: Glucose - Point of Care 101 mg/dl (70-99)
[2025-10-09 08:18] LABS: Hematocrit 30.1 % (39.0-52.0); Hemoglobin 10.5 g/dL (13.0-18.0); Mean Corp Hgb Conc. 34.9 g/dL (33.0-37.0); Mean Corpuscular Volume 99.3 fL (80.0-94.0); Platelet Count 208 10^3/uL (130-400); Red Cell Dist. Width 19.2 % (11.5-14.5)
[2025-10-09] MEDS: FARXIGA 10 MG PO (08:47)
[2025-10-09] MEDS: VITAMIN B1 100 MG PO (08:47)
[2025-10-09] MEDS: PROTONIX 40 MG PO (08:48)
[2025-10-09] MEDS: PLAVIX 75 MG PO (08:48)
[2025-10-09] MEDS: ELIQUIS 5 MG PO (08:48)
[2025-10-09] MEDS: LASIX 40 MG PO (08:48)
[2025-10-09] MEDS: FOLVITE 1 MG PO (08:49)
[2025-10-09] MEDS: DUPHALAC/CHRONULAC 20 GRAMS PO (08:55)
[2025-10-09] MEDS: NON-FORMULARY ITEM 25 MG PO (08:55)
[2025-10-09] MEDS: MIRALAX PO (08:57)
[2025-10-09 08:59] LABS: ALT (SGPT) 30 U/L (0-50); AST (SGOT) 37 U/L (17-59); Albumin 2.8 g/dl (3.5-5.0); Alkaline Phosphatase 117 U/L (38-126); Blood Urea Nitrogen 18 mg/dl (9-20); Calcium 8.6 mg/dl (8.4-10.2); Carbon Dioxide 23 mmol/L (22-30); Chloride 103 mmol/L (98-107); Estimated Creatinine Clearance 74 ml/min; Glucose 91 mg/dl (70-99); Potassium 3.6 mmol/L (3.5-5.1); Sodium 130 mmol/L (135-145); Total Protein 6.1 g/dl (6.3-8.2); eGFR > 60.00
[2025-10-09] MEDS: ALDACTONE 50 MG PO (09:00)
--- NOTE | 2025-10-09 09:11 | CM ---
TT from Dr. Cyr - patient cleared for discharge to home today.
[facility] to follow for [facility]. Pt's will transport home.
Plan: Discharge to home with [facility]
[2025-10-09] MEDS: NOVOLOG FLEXPEN 8 UNITS SC (09:37)
--- NOTE | 2025-10-09 10:18 | PTCARENOTE ---
pt completed MSAS assessments per protocol
[2025-10-09 11:15] VITALS: BP 116/71
[2025-10-09 11:18] LABS: Glucose - Point of Care 113 mg/dl (70-99)
--- NOTE | 2025-10-09 11:39 | W.PN.HOSP.TC ---
Addendum entered and electronically signed by Cristobal Qiu MD 10/10/25 16:31:
[id number]
Original Note:
Today's Communication/Plan
-
BM regimen
Lactulose
Increased Lasix dosing
labs in 1 week
Assessment / Plan
Assessment / Plan
Physical Exam
General: Well Developed, Well Nourished, No Apparent Distress, Comfortable and Conversant
HEENT: NormoCephalic, Moist mucous membranes, PERRLA, Nose Appears Normal and Ears Appear Normal
Respiratory: Clear and Non Labored Respirations; No Wheezes, Rales or Rhonchi
Cardiac: S1/S2, Regular Rhythm and Peripheral Edema; No Murmur, Rub or Gallop
GI: Soft, Normal Bowel Sounds and nondistended
Musculoskeletal: No Clubbing and No Cyanosis
Skin: Jaundice and IV/Catheter Site
Neuro: Awake and AO x 3
Psych: Calm and Intact Judgment/Insight
#abdominal pain 2/2 constipation vs. ascites
#cirrhosis of liver
#ascites
last paracentesis 09/26/2025, with 1.2L out; repeat paracentesis 2.1 L 10/06 - no evidence of SBP - patients symptoms improved although still feels constipated
Continue lactulose 20mg TID
Increase Furosemide to 40mg BID and continue spironolactone due to rapid recurrence of ascites
Monitor renal function
#constipation
stool in colon; no obstruction on KUB - patient passing flatus
-BM regimen
-lactulose
-CT A/P�large amount of stool burden, no obstruction
- Constipation resolved with GoLytely 10/08
#Hypokalemia
-monitor and replete
#Hyponatremia
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
-Diuretics
-Monitor BMP outpatient
#Hemorrhoids
� Blood while wiping, has been ongoing since constipation
� Hemoglobin stable, no obvious acute blood loss anemia
� Follow GI outpatient
#DVT
- restart Eliquis - montior hgb; Low likelihood of GI bleed - BUN low
-monitor hgb
#alcohol dependency
- MSAS protocol
#hyperlipidemia
- continue atorvastatin
#GERD
- continue pantoprazole
#HFpEF
- daily weights
- I & Os
- continue furosemide and spironolactone
#type 2 diabetes
- AccuCheck AC & HS
- SSI
- continue insulin aspart AC
- continue glargine
- continue Jardiance
#coronary artery disease
- continue clopidogrel
#allergic rhinitis
- continue azelastine
#B-cell lymphoma
- continue eltrombopag
#hypertension
#BPH
Code status: full code
DVT prophylaxis: Eliquis
More than 30 minutes spent in discharge including
Final examination of the patient
Summarizing hospital stay
Instructions for continuing care to all relevant caregivers
Preparation of discharge records, prescriptions, and referral forms
Total time spent (in minutes): 36
Anticipated Discharge: Today
Subjective/Interval History
-
Date of Service: October 09, 2025
Had 2 large bowel movements yesterday
Objective Data
-
Labs:
Laboratory Results
10/09/25
07:55
WBC 4.0 L
Hgb 10.5 L
Hct 30.1 L
Plt Count 208
Sodium 130 L
Potassium 3.6
Chloride 103
Carbon Dioxide 23
BUN 18
Creatinine 0.9
Glucose 91
Calcium 8.6
Total Bilirubin 3.2 H
AST 37
ALT 30
Alkaline Phosphatase 117
Vital Signs:
Vital Signs
Temp Pulse Resp BP Pulse Ox
97.3 F 94 16 116/71 97
10/09/25 11:15 10/09/25 11:15 10/09/25 11:15 10/09/25 11:15 10/09/25 11:15
I&O
10/08/25 10/09/25 10/10/25
06:59 06:59 06:59
Intake Total 480 / 480 1440 / 1440
Output Total 425 / 425 825 / 825
Balance 55 / 55 615 / 615
Review of Systems
-
History Source: Patient
All other systems: Not reviewed unless documented
Data Reviewed
-
CT Scan: Report Reviewed by me
Ultrasound: Report Reviewed by me
Labs: Labs Reviewed by me
== END 2025-10-09 12:21 | disposition home or self-care (01) | DRG 433 ==
LOC: 4 WEST ACU 20:21
PROVIDERS: Nurse Practitioner Family; Radiology Vascular & Interventional Radiology; ADMITTING PHYSICIAN Hospitalist; ATTENDING PHYSICIAN Internal Medicine; CONSULT PHYSICIAN Radiology Diagnostic Radiology; EMERGENCY PHYSICIAN Emergency Medicine; FAMILY PHYSICIAN Family Medicine
PROC: 0W9G3ZZ Drainage of Peritoneal Cavity, Percutaneous Approach (ICD-10-PCS; 2025-10-06)
DX: K70.31 Alcoholic cirrhosis of liver with ascites (principal); C85.10 Unspecified B-cell lymphoma, unspecified site; I50.32 Chronic diastolic (congestive) heart failure; E22.2 Syndrome of inappropriate secretion of antidiuretic hormone; E11.9 Type 2 diabetes mellitus without complications; K59.00 Constipation, unspecified; I11.0 Hypertensive heart disease with heart failure; D64.9 Anemia, unspecified; D72.819 Decreased white blood cell count, unspecified; I25.10 Atherosclerotic heart disease of native coronary artery without angina pectoris; J30.9 Allergic rhinitis, unspecified; N40.0 Benign prostatic hyperplasia without lower urinary tract symptoms; K21.9 Gastro-esophageal reflux disease without esophagitis; E78.5 Hyperlipidemia, unspecified; F10.20 Alcohol dependence, uncomplicated; E87.6 Hypokalemia; K64.9 Unspecified hemorrhoids; Z79.02 Long term (current) use of antithrombotics/antiplatelets; Z87.891 Personal history of nicotine dependence; Z79.899 Other long term (current) drug therapy
CPT/HCPCS: 49083; 74022; 74176; 80048; 80053; 80306; 81003; 82010; 82077; 82140; 82962; 82977; 83036; 83690; 83735; 84100; 85025; 85027; 85610; 85730; 86850; 86900; 86901; 89051; 93005; 94640; 99285

== ENCOUNTER → 2025-10-17 08:06 | Outpatient (REF) | payer OTHER, SELFPAY ==
[2025-10-17 08:20] VITALS: BP 116/79; BP_SYST 98
[2025-10-17 09:00] VITALS: BP 110/70
== END ==
LOC: RADI 08:06
PROVIDERS: ATTENDING PHYSICIAN Specialist; FAMILY PHYSICIAN Family Medicine; REFERRING PHYSICIAN Internal Medicine Gastroenterology
DX: R18.8 Other ascites (principal)
CPT/HCPCS: 49083; 87015; 87070; 87205; 89051

== ENCOUNTER → 2025-10-23 07:05 | Outpatient (REF) | payer OTHER, SELFPAY ==
[2025-10-23 07:45] VITALS: BP 104/79; BP_SYST 103
[2025-10-23 08:20] VITALS: BP 111/71
[2025-10-23 10:31] LABS: Body Fluid Second Tech HB
== END ==
LOC: RADI 07:05
PROVIDERS: ATTENDING PHYSICIAN Specialist; FAMILY PHYSICIAN Family Medicine
DX: R18.8 Other ascites (principal)
CPT/HCPCS: 49083; 87015; 87070; 87205; 89051

== ENCOUNTER → 2025-10-29 06:43 | Outpatient (REF) | payer OTHER, SELFPAY ==
[2025-10-29 07:30] VITALS: BP 101/69; BP_SYST 102
[2025-10-29 08:45] VITALS: BP 102/67
[2025-10-29 11:30] LABS: Body Fluid Second Tech FB
== END ==
LOC: RADI 06:43
PROVIDERS: ATTENDING PHYSICIAN Specialist
DX: R18.8 Other ascites (principal)
CPT/HCPCS: 49083; 87015; 87070; 87205; 89051

== ENCOUNTER → 2025-11-05 06:56 | Outpatient (REF) | payer OTHER, SELFPAY ==
[2025-11-05 07:25] VITALS: BP 113/78; BP_SYST 101
[2025-11-05 08:18] VITALS: BP 110/68
[2025-11-05 10:47] LABS: Body Fluid Second Tech SS
== END ==
LOC: RADI 06:56
PROVIDERS: ATTENDING PHYSICIAN Specialist; FAMILY PHYSICIAN Family Medicine
DX: R18.8 Other ascites (principal)
CPT/HCPCS: 49083; 87015; 87070; 87205; 89051